=== PATIENT | female | born 1955 | race Caucasian/White ===

== ENCOUNTER → 2016-06-26 | Outpatient (CLI) | payer OTHER ==
--- NOTE | 2016-06-26 10:21 | CT ---
EXAMINATION TYPE: CT brain wo con DATE OF EXAM: 06/26/2016 10:12 AM COMPARISON: NONE HISTORY: Headache, injury and swelling behind left ear CT DLP: 969.[address] of the brain was performed. The ventricles, basal cisterns and sulci overlying the cerebral convexities demonstrate mild enlargem ent. There is no evidence for intracranial hemorrhage or sulcal effacement. There is decreased attenuation about the periventricular white matter and deep white matter of both c erebral hemispheres, compatible with chronic small vessel ischemia. Differential diagnosis does inclu de demyelination. No mass effects are seen.No midline shift. Osseous calvarium is intact. If symptoms persist consider MRI. IMPRESSION: 1. Age related atrophic and chronic small vessel ischemic change without acute intracranial process s een at this time.
== END | disposition home or self-care (01) ==
LOC: RADCTMAIN 09:53
PROVIDERS: ATTEND Internal Medicine
DX: I67.82 Cerebral ischemia (principal); G31.9 Degenerative disease of nervous system, unspecified; R59.0 Localized enlarged lymph nodes; S09.90XA Unspecified injury of head, initial encounter; Z88.2 Allergy status to sulfonamides
CPT/HCPCS: 70450

== ENCOUNTER 2017-04-20 16:21 | Inpatient (IN) | payer OTHER ==
[2017-04-20] MEDS ORDERED: SODIUM CHLORIDE 0.9% 1,000 ML IV STA (16:57)
[2017-04-20] MEDS ORDERED: PANTOPRAZOLE 40 MG/10 ML VIAL IVP STA (17:43)
[2017-04-20] MEDS ORDERED: MORPHINE SULFATE 4 MG/ML SYRINGE IVP STA (17:43)
[2017-04-20] MEDS ORDERED: RX INFO: IV CONTRAST WAS GIVEN 1 EACH MISC MISCELLANE PRN (17:43)
[2017-04-20] MEDS ORDERED: ONDANSETRON 4 MG/2 ML VIAL IVP STA (17:43)
--- NOTE | 2017-04-20 17:54 | ED ---
General Adult HPI - General Chief complaint: Abdominal Pain Stated complaint: GENERALIZED WEAKNESS Time Seen by Provider: 04/20/17 16:57 Source: patient, RN notes reviewed, old records reviewed Mode of arrival: EMS Limitations: no limitations - History of Present Illness Initial comments: This is a 61-year-old female to ER for evaluation. She presents for evaluation of weakness abdominal pain nausea vomiting and diarrhea. Patient has history of diverticulitis believes this is similar symptoms to what she has prior episodes of diverticulitis. No fevers. No travel history no known sick contacts. Patient denies sore throat chest pain or shortness of breath - Related Data Home Medications Medication Instructions Recorded Confirmed FLUoxetine HCL [PROzac] 40 mg PO HS 01/24/14 04/20/17 Ibuprofen [Motrin] 800 mg PO Q8HR PRN 01/24/14 04/20/17 Multivitamins, Thera [Multivitamin] 1 tab PO DAILY 01/24/14 04/20/17 diphenhydrAMINE HCL [Benadryl] 25 mg PO HS 01/24/14 04/20/17 ALPRAZolam [Xanax] 0.5 mg PO DAILY PRN 04/20/17 04/20/17 Hydrocodone/Acetaminophen [[place] 1 tab PO DAILY PRN 04/20/17 04/20/17 5-325] Oxybutynin Chloride [Ditropan] 5 mg PO BID 04/20/17 04/20/17 Ranitidine HCl [Zantac] 150 mg PO BID 04/20/17 04/20/17 metFORMIN HCL [Glucophage] 500 mg PO HS 04/20/17 04/20/17 risperiDONE [RisperDAL] 0.25 mg PO HS 04/20/17 04/20/17 traZODone HCL 150 mg PO HS 04/20/17 04/20/17 Allergies Allergy/AdvReac Type Severity Reaction Status Date / Time azithromycin [From Zithromax] Allergy Unknown Unknown Verified 04/20/17 17:18 cephalexin Allergy Unknown Unknown Verified 04/20/17 17:18 cyclobenzaprine HCl Allergy Unknown Unknown Verified 04/20/17 17:18 [From Flexeril] Penicillins Allergy Unknown Unknown Verified 04/20/17 17:18 pentazocine lactate Allergy Unknown Unknown Verified 04/20/17 17:18 [From Talwin] pseudoephedrine HCl Allergy Unknown Unknown Verified 04/20/17 17:18 [From Sudafed] Sulfa (Sulfonamide Allergy Unknown Unknown Verified 04/20/17 17:18 Antibiotics) adhesive AdvReac Unknown Unknown Verified 04/20/17 17:18 Review of Systems ROS Statement: Those systems with pertinent positive or pertinent negative responses have been documented in the HPI. ROS Other: All systems not noted in ROS Statement are negative. Past Medical History Past Medical History: Coronary Artery Disease (CAD), Cancer, COPD, Diabetes Mellitus, Hyperlipidemia, Hypertension, Memory Impairment, Myocardial Infarction ([place]), Osteoarthritis (OA) Additional Past Medical History / Comment(s): LEUKEMIA, DIVERTICULITIS, HAS ONLY (1) KIDNEY, CHRONIC BACK PAIN , CLOSTRAPHOBIC. Last Myocardial Infarction Date:: UNKNOWN History of Any Multi-Drug Resistant Organisms: None Reported Past Surgical History: Appendectomy, Back Surgery, Cholecystectomy, Heart Catheterization With Stent, Hysterectomy, Tonsillectomy Additional Past Surgical History / Comment(s): CARPAL TUNNEL, FOOT SURGERY Past Anesthesia/Blood Transfusion Reactions: No Reported Reaction Date of Last Stent Placement:: UNKNOWN Past Psychological History: Anxiety, Depression Smoking Status: Former smoker Past Alcohol Use History: None Reported Past Drug Use History: None Reported - Past Family History Mother Family Medical History: Cancer Additional Family Medical History / Comment(s): UTERINE General Exam Limitations: no limitations General appearance: alert, in no apparent distress Head exam: Present: atraumatic, normocephalic, normal inspection Eye exam: Present: normal appearance, PERRL, EOMI. Absent: scleral icterus, conjunctival injection, periorbital swelling ENT exam: Present: normal exam, mucous membranes moist Neck exam: Present: normal inspection. Absent: tenderness, meningismus, lymphadenopathy Respiratory exam: Present: normal lung sounds bilaterally. Absent: respiratory distress, wheezes, rales, rhonchi, stridor Cardiovascular Exam: Present: regular rate, normal rhythm, normal heart sounds. Absent: systolic murmur, diastolic murmur, rubs, gallop, clicks GI/Abdominal exam: Present: soft, normal bowel sounds. Absent: distended, tenderness, guarding, rebound, rigid Extremities exam: Present: normal inspection, full ROM, normal capillary refill. Absent: tenderness, pedal edema, joint swelling, calf tenderness Back exam: Present: normal inspection Neurological exam: Present: alert, oriented X3, CN II-XII intact Psychiatric exam: Present: normal affect, normal mood Skin exam: Present: warm, dry, intact, normal color. Absent: rash Course Vital Signs 04/20/17 04/20/17 04/20/17 16:34 18:02 18:44 Temperature 97.0 F L Pulse Rate 70 59 L 61 Respiratory 18 20 Rate Blood Pressure 152/80 137/77 126/81 O2 Sat by Pulse 97 96 95 Oximetry 04/20/17 20:37 Temperature Pulse Rate 57 L Respiratory 18 Rate Blood Pressure 122/68 O2 Sat by Pulse 94 L Oximetry - Reevaluation(s) Reevaluation #1: 04/20/17 17:54 Patient showing improved pain control currently Reevaluation #2: 04/20/17 20:40 Patient still complains of abdominal pain EKG Findings - EKG Comments: EKG Findings:: EKG shows sinus bradycardia rate 58, [place] 132, QRS 90, QTc 445 Medical Decision Making - Medical Decision Making 60 female the ER for eversion of bowel pain. Positive duodenitis. Positive urinary tract infection, will not 5 Anaprox pain control and nausea control resuscitation - Lab Data Result diagrams: 04/20/17 17:55 04/20/17 17:55 Lab Results 04/20/17 04/20/17 04/20/17 Range/Units 17:55 17:55 17:55 WBC 3.7 L (3.8-10.6) k/uL RBC 4.79 (3.80-5.40) m/uL Hgb 12.4 (11.4-16.0) gm/dL Hct 37.3 (34.0-46.0) % MCV 77.8 L (80.0-100.0) fL MCH 25.9 (25.0-35.0) pg MCHC 33.2 (31.0-37.0) g/dL RDW 15.5 (11.5-15.5) % Plt Count 84 L (150-450) k/uL Neutrophils % 34 % Lymphocytes % 58 % Monocytes % 4 % Eosinophils % 1 % Basophils % 0 % Neutrophils # 1.3 (1.3-7.7) k/uL Lymphocytes # 2.1 (1.0-4.8) k/uL Monocytes # 0.2 (0-1.0) k/uL Eosinophils # 0.0 (0-0.7) k/uL Basophils # 0.0 (0-0.2) k/uL Polychromasia Present Microcytosis Slight PT (9.0-12.0) sec INR (<1.2) APTT (22.0-30.0) sec Sodium 140 (137-145) mmol/L Potassium 4.2 (3.5-5.1) mmol/L Chloride 106 (98-107) mmol/L Carbon Dioxide 30 (22-30) mmol/L Anion Gap 4 mmol/L BUN 13 (7-17) mg/dL Creatinine 0.73 (0.52-1.04) mg/dL Est GFR (CKD-EPI)AfAm >90 (>60 ml/min/1.73 sqM) Est GFR (CKD-EPI)NonAf 88 (>60 ml/min/1.73 sqM) Glucose 86 (74-99) mg/dL Calcium 8.6 (8.4-10.2) mg/dL Phosphorus 3.6 (2.5-4.5) mg/dL Magnesium 1.8 (1.6-2.3) mg/dL Total Bilirubin 0.6 (0.2-1.3) mg/dL AST 38 H (14-36) U/L ALT 27 (9-52) U/L Alkaline Phosphatase 54 (38-126) U/L Total Creatine Kinase 28 L (30-135) U/L CK-MB (CK-2) <0.2 (0.0-2.4) ng/mL CK-MB (CK-2) Rel Index Troponin I <0.012 (0.000-0.034) ng/mL NT-Pro-B Natriuret Pep pg/mL Total Protein 6.0 L (6.3-8.2) g/dL Albumin 3.1 L (3.5-5.0) g/dL Lipase (23-300) U/L Urine Color Urine Appearance (Clear) Urine pH (5.0-8.0) Ur Specific [place] (1.001-1.035) Urine Protein (Negative) Urine Glucose (UA) (Negative) Urine Ketones (Negative) Urine Blood (Negative) Urine Nitrite (Negative) Urine Bilirubin (Negative) Urine Urobilinogen (<2.0) mg/dL Ur Leukocyte Esterase (Negative) Urine RBC (0-5) /hpf Urine WBC (0-5) /hpf Ur Squamous Epith Cells (0-4) /hpf Urine Bacteria (None) /hpf 04/20/17 04/20/17 04/20/17 Range/Units 17:55 17:55 17:55 WBC (3.8-10.6) k/uL RBC (3.80-5.40) m/uL Hgb (11.4-16.0) gm/dL Hct (34.0-46.0) % MCV (80.0-100.0) fL MCH (25.0-35.0) pg MCHC (31.0-37.0) g/dL RDW (11.5-15.5) % Plt Count (150-450) k/uL Neutrophils % % Lymphocytes % % Monocytes % % Eosinophils % % Basophils % % Neutrophils # (1.3-7.7) k/uL Lymphocytes # (1.0-4.8) k/uL Monocytes # (0-1.0) k/uL Eosinophils # (0-0.7) k/uL Basophils # (0-0.2) k/uL Polychromasia Microcytosis PT 10.9 (9.0-12.0) sec INR 1.1 (<1.2) APTT 26.2 (22.0-30.0) sec Sodium (137-145) mmol/L Potassium (3.5-5.1) mmol/L Chloride (98-107) mmol/L Carbon Dioxide (22-30) mmol/L Anion Gap mmol/L BUN (7-17) mg/dL Creatinine (0.52-1.04) mg/dL Est GFR (CKD-EPI)AfAm (>60 ml/min/1.73 sqM) Est GFR (CKD-EPI)NonAf (>60 ml/min/1.73 sqM) Glucose (74-99) mg/dL Calcium (8.4-10.2) mg/dL Phosphorus (2.5-4.5) mg/dL Magnesium (1.6-2.3) mg/dL Total Bilirubin (0.2-1.3) mg/dL AST (14-36) U/L ALT (9-52) U/L Alkaline Phosphatase (38-126) U/L Total Creatine Kinase (30-135) U/L CK-MB (CK-2) (0.0-2.4) ng/mL CK-MB (CK-2) Rel Index Troponin I (0.000-0.034) ng/mL NT-Pro-B Natriuret Pep 744 pg/mL Total Protein (6.3-8.2) g/dL Albumin (3.5-5.0) g/dL Lipase (23-300) U/L Urine Color Yellow Urine Appearance Cloudy H (Clear) Urine pH 6.5 (5.0-8.0) Ur Specific [place] 1.011 (1.001-1.035) Urine Protein Trace H (Negative) Urine Glucose (UA) Negative (Negative) Urine Ketones Negative (Negative) Urine Blood Negative (Negative) Urine Nitrite Positive H (Negative) Urine Bilirubin Negative (Negative) Urine Urobilinogen <2.0 (<2.0) mg/dL Ur Leukocyte Esterase Large H (Negative) Urine RBC 4 (0-5) /hpf Urine WBC 70 H (0-5) /hpf Ur Squamous Epith Cells 2 (0-4) /hpf Urine Bacteria Occasional H (None) /hpf 04/20/17 Range/Units 17:55 WBC (3.8-10.6) k/uL RBC (3.80-5.40) m/uL Hgb (11.4-16.0) gm/dL Hct (34.0-46.0) % MCV (80.0-100.0) fL MCH (25.0-35.0) pg MCHC (31.0-37.0) g/dL RDW (11.5-15.5) % Plt Count (150-450) k/uL Neutrophils % % Lymphocytes % % Monocytes % % Eosinophils % % Basophils % % Neutrophils # (1.3-7.7) k/uL Lymphocytes # (1.0-4.8) k/uL Monocytes # (0-1.0) k/uL Eosinophils # (0-0.7) k/uL Basophils # (0-0.2) k/uL Polychromasia Microcytosis PT (9.0-12.0) sec INR (<1.2) APTT (22.0-30.0) sec Sodium (137-145) mmol/L Potassium (3.5-5.1) mmol/L Chloride (98-107) mmol/L Carbon Dioxide (22-30) mmol/L Anion Gap mmol/L BUN (7-17) mg/dL Creatinine (0.52-1.04) mg/dL Est GFR (CKD-EPI)AfAm (>60 ml/min/1.73 sqM) Est GFR (CKD-EPI)NonAf (>60 ml/min/1.73 sqM) Glucose (74-99) mg/dL Calcium (8.4-10.2) mg/dL Phosphorus (2.5-4.5) mg/dL Magnesium (1.6-2.3) mg/dL Total Bilirubin (0.2-1.3) mg/dL AST (14-36) U/L ALT (9-52) U/L Alkaline Phosphatase (38-126) U/L Total Creatine Kinase (30-135) U/L CK-MB (CK-2) (0.0-2.4) ng/mL CK-MB (CK-2) Rel Index Troponin I (0.000-0.034) ng/mL NT-Pro-B Natriuret Pep pg/mL Total Protein (6.3-8.2) g/dL Albumin (3.5-5.0) g/dL Lipase 71 (23-300) U/L Urine Color Urine Appearance (Clear) Urine pH (5.0-8.0) Ur Specific [place] (1.001-1.035) Urine Protein (Negative) Urine Glucose (UA) (Negative) Urine Ketones (Negative) Urine Blood (Negative) Urine Nitrite (Negative) Urine Bilirubin (Negative) Urine Urobilinogen (<2.0) mg/dL Ur Leukocyte Esterase (Negative) Urine RBC (0-5) /hpf Urine WBC (0-5) /hpf Ur Squamous Epith Cells (0-4) /hpf Urine Bacteria (None) /hpf - Radiology Data Radiology results: report reviewed (CT abdomen and pelvis shows duodenitis, patient), image reviewed Disposition Clinical Impression: Abdominal pain, Duodenitis, UTI (urinary tract infection) Disposition: ADMITTED IP TO THIS [facility] Condition: Good Referrals: Jitendra Garcia MD [Primary Care Provider] - 1-2 days
[2017-04-20 18:10] LABS: Basophils % (A) 0 %; Eosinophils % (A) 1 %; HCT 37.3 % (34.0-46.0); HGB 12.4 gm/dL (11.4-16.0); Lymphocytes # (A) 2.1 k/uL (1.0-4.8); Lymphocytes % (A) 58 %; MCH 25.9 pg (25.0-35.0); MCHC 33.2 g/dL (31.0-37.0); MCV 77.8 fL (80.0-100.0); Mean Platelet Volume 8.8; Microcytosis Slight; Monocytes # (A) 0.2 k/uL (0-1.0); Monocytes % (A) 4 %; Neutrophils # (A) 1.3 k/uL (1.3-7.7); Neutrophils % (A) 34 %; RBC 4.79 m/uL (3.80-5.40); RDW 15.5 % (11.5-15.5); WBC 3.7 k/uL (3.8-10.6)
[2017-04-20 18:11] LABS: Appearance,Urine Cloudy (Clear); Bacteria,Urine Occasional /hpf; Bilirubin,Urine Negative (Negative); Blood,Urine Negative (Negative); Color,Urine Yellow; Glucose,Urine (UA) Negative (Negative); Ketones,Urine Negative (Negative); Leukocyte Esterase,Urine Large (Negative); Nitrite,Urine Positive (Negative); PH, Urine 6.5 (5.0-8.0); Protein,Urine Trace (Negative); RBC,Urine 4 /hpf (0-5); Specific Gravity,Urine 1.011 (1.001-1.035); Squamous Epithelial Cell,Urine 2 /hpf (0-4); Urobilinogen,Urine <2.0 mg/dL (<2.0); WBC,Urine 70 /hpf (0-5)
[2017-04-20 18:17] LABS: INR 1.1 (<1.2); Partial Thromboplastin Time 26.2 sec (22.0-30.0); Prothrombin Time 10.9 sec (9.0-12.0)
[2017-04-20 18:25] LABS: ALT 27 U/L (9-52); AST 38 U/L (14-36); Albumin 3.1 g/dL (3.5-5.0); Alkaline Phosphatase 54 U/L (38-126); Anion Gap 4 mmol/L; Blood Urea Nitrogen 13 mg/dL (7-17); Calcium 8.6 mg/dL (8.4-10.2); Carbon Dioxide 30 mmol/L (22-30); Chloride 106 mmol/L (98-107); Glucose 86 mg/dL (74-99); Magnesium 1.8 mg/dL (1.6-2.3); Phosphorus 3.6 mg/dL (2.5-4.5); Potassium 4.2 mmol/L (3.5-5.1); Sodium 140 mmol/L (137-145); Total Bilirubin 0.6 mg/dL (0.2-1.3)
[2017-04-20 18:27] LABS: Polychromasia Present
[2017-04-20 18:28] LABS: Platelet Count 84 k/uL (150-450)
[2017-04-20 18:41] LABS: Creatine Kinase 28 U/L (30-135)
[2017-04-20 18:54] LABS: Creatine Kinase MB <0.2 ng/mL (0.0-2.4); Troponin I <0.012 ng/mL (0.000-0.034)
[2017-04-20] MEDS ORDERED: LEVOFLOXACIN 750MG-D5W PMX 750 MG in DEXTROSE/WATER 1 150ML.BAG IVPB STA (19:21)
--- NOTE | 2017-04-20 19:36 | CT ---
EXAMINATION TYPE: CT abdomen pelvis w con DATE OF EXAM: 04/20/2017 HISTORY: Lower abd pain. CT DLP: 1900mGycm Automated Exposure Control for Dose Reduction was Utilized. CONTRAST: CT scan of the abdomen and pelvis is performed without oral but with IV Contrast, patient injected wi th 100ml mL of Omnipaque 300. COMPARISON: None. FINDINGS: LUNG BASES: Fairly severe Coronary artery calcification is present which is noted marker for coronary artery disease. LIVER/GB: Gallbladder is not visualized and presumed surgically absent. There is mild to moderate ext rahepatic dilatation measuring up to 16 mm on coronal image 45 near angel luis hepatis. There is mild cent ral intrahepatic biliary dilatation. No obstructing calculus is clearly seen. PANCREAS: No significant abnormality is seen. SPLEEN: Splenomegaly is seen measuring 14.3 cm long axis on coronal image 49. ADRENALS: No significant abnormality is seen. KIDNEYS: There is asymmetric diminished size and atrophy of right kidney with several areas of cortic al scarring and cystic change. There is dominant 10 mm calculus lower pole level. There is symmetric cortical medullary uptake and excretion without evidence of hydronephrosis bilaterally. Bladder is po terry distended, there is mild abnormal concentric wall thickening measuring up to 8 mm. BOWEL: Evaluation bowel is suboptimal secondary to lack of enteric contrast. Stomach is poorly disten ded and thus suboptimally evaluated. There is no suspicious small or large bowel dilatation. Proximal jejunum extension right of midline immediately after ligament of [place]. There are few scattered div erticula throughout the colon most prominent in the left and sigmoid colon. There are surgical suture s at sigmoid rectal junction near axial image 82. There is no convincing CT evidence for acute divert iculitis. UTERUS/ADNEXA: Uterus is surgically absent or markedly atrophic in appearance. LYMPH NODES: No greater than 1cm abdominal or pelvic lymph nodes are appreciated. There are prominent but subcentimeter lymph nodes near the angel luis hepatis with mild fat stranding at this level. OSSEOUS STRUCTURES: No significant abnormality is seen. OTHER: No significant additional abnormality is seen. IMPRESSION: 1. Mild inflammatory change right upper quadrant near angel luis hepatis could reflect acute duodenitis or groove pancreatitis though the pancreas is felt within normal limits, correlate clinically. 2. Mild to moderate central intrahepatic and extra hepatic biliary dilatation. Need to further invest igate by ERCP should be based on clinical and lab correlation. 3. Possible cystitis, correlate clinically and with urine and lab values.
[2017-04-20] MEDS ORDERED: SODIUM CHLORIDE 0.9% 1,000 ML IV ONE (20:41)
[2017-04-20 22:23] VITALS: BMI 43.0
[2017-04-21] MEDS: FLUoxetine HCL 20 MG CAP PO SCH ×2 (01:43→19:56)
[2017-04-21] MEDS: risperiDONE 0.25 MG TAB PO SCH ×2 (01:43→19:56)
[2017-04-21] MEDS: ONDANSETRON 4 MG/2 ML VIAL IVP PRN ×3 (01:43→13:52)
[2017-04-21] MEDS: FAMOTIDINE 20 MG TAB PO SCH ×2 (01:43→07:44)
[2017-04-21] MEDS: traZODone HCL 50 MG TAB PO SCH ×2 (01:44→19:55)
[2017-04-21 07:38] LABS: Glucose,Whole Blood 79 mg/dL (75-99)
[2017-04-21] MEDS: INSULIN ASPART 100 UNIT/ML 1 ML 10 ML VIAL SQ SCH ×4 (07:40→20:24)
[2017-04-21] MEDS: HYDROcodone/APAP 5-325MG 1 EACH TAB PO PRN (07:44)
[2017-04-21] MEDS: MULTIVITAMINS, THERA 1 EACH TAB PO SCH (07:44)
[2017-04-21] MEDS: OXYBUTYNIN CHLORIDE 5 MG TAB PO SCH ×2 (07:44→19:55)
[2017-04-21] MEDS: ENOXAPARIN 40 MG/0.4 ML SYRINGE SQ SCH (07:44)
[2017-04-21] MEDS: MORPHINE SULFATE 4 MG/ML SYRINGE IVP PRN ×2 (11:10→18:28)
[2017-04-21 11:45] LABS: Glucose,Whole Blood 80 mg/dL (75-99)
[2017-04-21] MEDS: PANTOPRAZOLE 40 MG/10 ML VIAL IVP SCH ×2 (12:52→19:56)
[2017-04-21 12:53] LABS: Amylase <30 U/L (30-110); Lipase 48 U/L (23-300)
--- NOTE | 2017-04-21 14:38 | HP ---
HISTORY AND PHYSICAL CHIEF COMPLAINT: Abdominal pain, nausea and diarrhea. HISTORY OF PRESENT ILLNESS: This is a 61-year-old woman with a past medical history of multiple medical problems including history of diverticulitis, history of CAD, COPD, diabetes, hypertension, hyperlipidemia, dementia, history of DJD, history of leukemia, history of CAD stent, being followed by Dr. Garcia in the outpatient setting, previously had diverticulitis apparently. Patient is complaining of diffuse abdominal pain especially in the upper part and left lower quadrant. Patient also had diarrhea and the patient had a white count of 3.7, and the patient had features of UTI. The patient also had a CAT scan of the abdomen and pelvis which showed mild improvement in the right upper quadrant near the angel luis hepatitis, possibly duodenitis and mild to moderate central intrahepatic, extrahepatic biliary dilatation, also. Possible cystitis also noted. There is no history of fever, chills or rigors. No history of headache, loss of consciousness, or seizures. PAST MEDICAL HISTORY: History of CAD, COPD, and diabetes, hypertension, hyperlipidemia, memory impairment, DJD. MEDICATIONS: Prior to admission, home medications are: 1. Ditropan 5 mg p.o. b.i.d. 2. Risperidone 0.5 mg q.h.s. 3. Zantac 150 mg p.o. b.i.d. 4. Xanax 0.5 daily p.r.n. 5. Prozac 40 mg q.h.s. 6. Multivitamin 1 p.o. daily. 7. Motrin 800 mg q.8 p.r.n. 8. [place] 5 mg daily p.r.n. 9. Benadryl 25 mg q.h.s. 10.Glucophage 500 mg q.h.s. 11.Trazodone 150 mg q.h.s. ALLERGIES: ZITHROMAX, CEPHALEXIN, FLEXERIL, PENICILLIN, TALWIN, SUDAFED, SULFONAMIDE ANTIBIOTICS. FAMILY HISTORY: History of uterine cancer in the family. SOCIAL HISTORY: Previous history of smoking, THC. REVIEW OF SYSTEMS: ENT: No diminished vision. CARDIOVASCULAR: No angina or palpitations. RESPIRATORY: No cough. GI: As mentioned earlier. : As mentioned earlier. NERVOUS SYSTEM: No numbness, weakness. ALLERGY, IMMUNOLOGY: No asthma or hayfever. MUSCULOSKELETAL: As mentioned earlier. HEMATOLOGY: No history anemia. ENDOCRINE: No history of diabetes or hypothyroidism. CONSTITUTIONAL: As mentioned earlier. PSYCHIATRY: As mentioned earlier. PHYSICAL EXAMINATION: Alert and oriented x3. Pulse is 57, blood pressure 115/70, respiration 18, temperature 99.1, pulse ox 94% on room air. HEENT: Oral mucosa is moist, neck is no jugular venous distension, no lymph node enlargement. CARDIOVASCULAR SYSTEM: S1, S2, muffled. RESPIRATORY: Breath sounds diminished at the bases, a few scattered rhonchi. ABDOMEN: Soft, obese, mild diffuse tenderness in the epigastrium and as well as left lower quadrant. No guarding. No rigidity. No mass palpable. LEGS: No edema, no swelling. NERVOUS SYSTEM: Higher functions as mentioned, moves all 4 limbs. LYMPHATICS: No lymph enlargement of the neck and axilla. SKIN: No ulcer, rash or bleeding. LABS: WBC is 3.7, hemoglobin is 7.4. UA noted. ASSESSMENT: 1. Abdominal pain with possible acute duodenitis or diverticulitis. 2. Urinary tract infection. 3. History of cholecystectomy. 4. History of coronary artery disease stent. 5. Mild leukopenia and thrombocytopenia. 6. Increased AST. 7. Chronic obstructive pulmonary disease. 8. Diabetes type 2. 9. Hypertension. 10.Hyperlipidemia. 11.History of degenerative joint disease. 12.History of myocardial infarction. 13.History of leukemia. 14.History of diverticulitis. 15.History of back surgery. 16.History of anxiety, depression. 17.Remote history of nicotine dependence. RECOMMENDATION: In this 61-year-old woman who presented with multiple complex medical issues, will monitor the patient closely, continue with the current management and will initiate broad-spectrum IV antibiotics, symptomatic treatment, n.p.o. except medications diet. Consult surgery. DVT prophylaxis. Guarded prognosis because of multiple complex medical issues. Further recommendations to follow. A copy of this will be forwarded to Dr. Garcia who is the primary care physician/ Will obtain the cultures blood and urine also. MMODL / IJN: [id number] /
[2017-04-21 16:02] LABS: Hemoglobin A1C 4.9 % (4.0-6.0)
[2017-04-21 17:15] LABS: Glucose,Whole Blood 79 mg/dL (75-99)
--- NOTE | 2017-04-21 18:42 | P.GSCN ---
History of Present Illness Consult date: 04/21/17 Reason for Consult: Abdominal pain History of present illness: 60-year-old female presents to the hospital with complaints of abdominal pain nausea and diarrhea. She is known to our service from prior sigmoid colectomy for chronic diverticulitis. She was found to have a urinary tract infection. Cystitis was seen on recent CAT scan. Additionally there is some inflammatory changes of the pylorus and proximal duodenum. There is mild haziness in the fat around the duodenum. Pancreatic enzymes normal. Patient also complains of frequent loose stools. White blood cell count somewhat low. Mild biliary dilation is present although the patient had her gallbladder removed previously. She is hungry. No vomiting currently. No diarrhea since hospitalization. No fevers. No rectal bleeding or melena. No hematemesis. Past Medical History Past Medical History: Coronary Artery Disease (CAD), Cancer, COPD, Diabetes Mellitus, Hyperlipidemia, Hypertension, Memory Impairment, Myocardial Infarction ([place]), Osteoarthritis ([place]) Additional Past Medical History / Comment(s): LEUKEMIA, DIVERTICULITIS, HAS ONLY (1) KIDNEY, CHRONIC BACK PAIN , CLOSTRAPHOBIC.no treatment for leukemia Last Myocardial Infarction Date:: UNKNOWN History of Any Multi-Drug Resistant Organisms: None Reported Past Surgical History: Appendectomy, Back Surgery, Cholecystectomy, Heart Catheterization With Stent, Hysterectomy, Tonsillectomy Additional Past Surgical History / Comment(s): CARPAL TUNNEL, FOOT SURGERY,pick at skin when anxious Past Anesthesia/Blood Transfusion Reactions: No Reported Reaction Date of Last Stent Placement:: UNKNOWN Past Psychological History: Anxiety, Depression Smoking Status: Former smoker Past Alcohol Use History: None Reported Past Drug Use History: None Reported - Past Family History Mother Family Medical History: Cancer Additional Family Medical History / Comment(s): UTERINE Medications and Allergies Home Medications Medication Instructions Recorded Confirmed Type FLUoxetine HCL [PROzac] 40 mg PO HS 01/24/14 04/20/17 History Ibuprofen [Motrin] 800 mg PO Q8HR PRN 01/24/14 04/20/17 History Multivitamins, Thera [Multivitamin] 1 tab PO DAILY 01/24/14 04/20/17 History diphenhydrAMINE HCL [Benadryl] 25 mg PO HS 01/24/14 04/20/17 History ALPRAZolam [Xanax] 0.5 mg PO DAILY PRN 04/20/17 04/20/17 History Hydrocodone/Acetaminophen [[place] 1 tab PO DAILY PRN 04/20/17 04/20/17 History 5-325] Oxybutynin Chloride [Ditropan] 5 mg PO BID 04/20/17 04/20/17 History Ranitidine HCl [Zantac] 150 mg PO BID 04/20/17 04/20/17 History metFORMIN HCL [Glucophage] 500 mg PO HS 04/20/17 04/20/17 History risperiDONE [RisperDAL] 0.25 mg PO HS 04/20/17 04/20/17 History traZODone HCL 150 mg PO HS 04/20/17 04/20/17 History Allergies Allergy/AdvReac Type Severity Reaction Status Date / Time azithromycin [From Zithromax] Allergy Unknown Unknown Verified 04/20/17 17:18 cephalexin Allergy Unknown Unknown Verified 04/20/17 17:18 cyclobenzaprine HCl Allergy Unknown Unknown Verified 04/20/17 17:18 [From Flexeril] Penicillins Allergy Unknown Unknown Verified 04/20/17 17:18 pentazocine lactate Allergy Unknown Unknown Verified 04/20/17 17:18 [From Talwin] pseudoephedrine HCl Allergy Unknown Unknown Verified 04/20/17 17:18 [From Sudafed] Sulfa (Sulfonamide Allergy Unknown Unknown Verified 04/20/17 17:18 Antibiotics) adhesive AdvReac Unknown Unknown Verified 04/20/17 17:18 Surgical - Exam Vital Signs Temp Pulse Resp BP Pulse Ox 97.0 F L 70 18 152/80 97 04/20/17 16:34 04/20/17 16:34 04/20/17 16:34 04/20/17 16:34 04/20/17 16:34 Physical exam: General: Well-developed, well-nourished HEENT: Normocephalic, sclerae nonicteric Abdomen: Mild diffuse tenderness, mild distention Extremities: No edema Neuro: Alert and oriented Results - Labs 04/20/17 17:55 04/20/17 17:55 Abnormal Lab Results - Last 24 Hours (Table) 04/20/17 04/21/17 Range/Units 17:55 11:33 Total Creatine Kinase 28 L (30-135) U/L Amylase <30 L (30-110) U/L Microbiology - Last 24 Hours (Table) 04/20/17 17:55 Urine Culture - Preliminary Urine,Clean Catch Gram Neg Bacilli Diabetes panel 04/20/17 Range/Units 17:55 Hemoglobin A1c 4.9 (4.0-6.0) % Assessment and Plan (1) Abdominal pain Narrative/Plan: Etiology the patient's multiple symptoms difficult to fully explained. CAT scan findings of duodenitis are noted. Continue antiacid therapy. We'll plan upper endoscopy tomorrow. If diarrhea recurs obtain stool cultures. Current Visit: Yes Status: Acute Code(s): R10.9 - UNSPECIFIED ABDOMINAL PAIN SNOMED Code(s): 14339632
[2017-04-21 19:46] LABS: Glucose,Whole Blood 88 mg/dL (75-99)
[2017-04-21] MEDS: diphenhydrAMINE 25 MG CAP PO SCH (19:57)
[2017-04-21] MEDS ORDERED: LEVOFLOXACIN 750MG-D5W PMX 750 MG in DEXTROSE/WATER 1 150ML.BAG IVPB SCH (20:00)
[2017-04-22] MEDS: MORPHINE SULFATE 4 MG/ML SYRINGE IVP PRN ×3 (01:25→11:31)
[2017-04-22] MEDS: INSULIN ASPART 100 UNIT/ML 1 ML 10 ML VIAL SQ SCH ×4 (07:17→21:45)
[2017-04-22] MEDS: PANTOPRAZOLE 40 MG/10 ML VIAL IVP SCH ×2 (07:31→20:24)
[2017-04-22] MEDS: ENOXAPARIN 40 MG/0.4 ML SYRINGE SQ SCH (07:31)
[2017-04-22] MEDS: OXYBUTYNIN CHLORIDE 5 MG TAB PO SCH ×2 (07:32→20:24)
[2017-04-22] MEDS: MULTIVITAMINS, THERA 1 EACH TAB PO SCH (07:32)
[2017-04-22 07:41] LABS: Glucose,Whole Blood 76 mg/dL (75-99)
[2017-04-22 08:13] LABS: Basophils % (A) 0 %; Eosinophils % (A) 2 %; HCT 37.3 % (34.0-46.0); HGB 12.2 gm/dL (11.4-16.0); Lymphocytes # (A) 1.2 k/uL (1.0-4.8); Lymphocytes % (A) 49 %; MCH 25.7 pg (25.0-35.0); MCHC 32.8 g/dL (31.0-37.0); MCV 78.4 fL (80.0-100.0); Monocytes # (A) 0.1 k/uL (0-1.0); Monocytes % (A) 5 %; Neutrophils % (A) 41 %; RBC 4.76 m/uL (3.80-5.40); RDW 15.1 % (11.5-15.5); WBC 2.4 k/uL (3.8-10.6)
[2017-04-22 08:14] LABS: Platelet Count 68 k/uL (150-450)
[2017-04-22 08:38] LABS: Calcium 8.5 mg/dL (8.4-10.2); Total Bilirubin 0.5 mg/dL (0.2-1.3)
[2017-04-22 11:33] LABS: Glucose,Whole Blood 77 mg/dL (75-99)
[2017-04-22] MEDS: ONDANSETRON 4 MG/2 ML VIAL IVP PRN ×2 (11:36→19:04)
[2017-04-22] MEDS ORDERED: PROPOFOL 10 MG/ML 20 ML VIAL IV ONE (14:43)
[2017-04-22] MEDS ORDERED: IV FLUID CONTINUATION 1,000 ML IV ONE (14:48)
--- NOTE | 2017-04-22 15:25 | P.PCN ---
Date of Procedure: 04/22/17 Procedure(s) Performed: Preoperative Dx: Abdominal pain, abnormal CAT scan Postoperative Dx: Diffuse gastritis with small erosions Procedure: EGD with Bx Anesthesia: Sedation Endoscopist: Dr. Thompson Specimens: Duodenum, antrum, body Endoscopic Procedure: The patient was on the endoscopy table in the left decubitus position. The Olympus gastroscope was inserted into the oropharynx and passed under direct visualization to the region of the third portion of the duodenum. From that point the scope was slowly withdrawn inspecting all surfaces carefully. There were no neoplastic inflammatory or polypoid lesions throughout the duodenum. CAT scan showed inflammatory changes of the duodenum. This was not visualized endoscopically. Biopsies of the duodenum took place. The pylorus was widely patent. The stomach was carefully inspected. There was diffuse gastritis present with erosions. Biopsies of the antrum and body of the stomach to place. Retroflexion revealed a normal hiatus. The esophagus was then carefully examined. There were no neoplastic inflammatory or polypoid lesions throughout the visualized esophagus. The patient was then taken to the recovery room in stable condition per anesthesia guidelines. Recommendations: Await biopsy results. Continue antiacids. Continue antibiotics for urinary tract infection.
[2017-04-22] MEDS: HYDROcodone/APAP 5-325MG 1 EACH TAB PO PRN ×2 (16:37→23:33)
[2017-04-22 17:07] LABS: Glucose,Whole Blood 73 mg/dL (75-99)
--- NOTE | 2017-04-22 19:45 | PN ---
PROGRESS NOTE DATE OF SERVICE: 04/22/2017 Patient seen in the room resting comfortably. Claims that she is very thirsty and waiting for her EGD to be to be done. Does not know what time she is scheduled. Her vital signs are 97.6 temperature, pulse 60, respiration 18, blood pressure 142/72, O2 saturation 93% on room air. HEENT: Atraumatic, normocephalic. Pupils equal and react to light. Extraocular movements intact. Buccal mucosa is moist. NECK: Supple. No goiter, lymphadenopathy. JVD is negative. No carotid bruit heard. Lungs are clear to auscultation. No rales, rhonchi, or wheezes. Heart is regular in rate and rhythm without any murmurs or gallop rhythm. Abdomen is soft, nontender, nondistended. Bowel sounds positive. EXTREMITIES: No edema, clubbing, cyanosis. NEUROLOGICAL EXAMINATION: Cranial nerves 2-12 grossly intact. No gross motor or sensory deficit. LAB: CBC: White blood count of 2.4, hemoglobin 12.2, hematocrit 37.3, and platelet count of 68. Chemical profile: Sodium 142, potassium 4.2, chloride 107, bicarb 28, BUN 13, creatinine 0.87, glucose 72. MEDICATIONS: 1. Ditropan 5 mg b.i.d. 2. Risperdal 0.5 mg p.o. q.h.s. 3. Zantac 150 p.o. b.i.d. 4. Xanax 0.5 p.r.n. 5. Prozac 40 mg q.h.s. ASSESSMENT: 1. Intractable abdominal pain, possible acute duodenitis or diverticulitis. 2. Urinary tract infection. 3. History of coronary artery disease. 4. Mild leukopenia and thrombocytopenia. 5. Transaminitis. 6. Chronic obstructive pulmonary disease. 7. Diabetes. The patient is continued on IV antibiotics and symptomatic treatment. She is n.p.o. except no med. Surgery is consulted. The patient is scheduled for EGD today. Will continue current medication and await EGD report for further recommendations. MMODL / IJN: [id number] /
[2017-04-22 20:10] LABS: Glucose,Whole Blood 105 mg/dL (75-99)
[2017-04-22] MEDS: diphenhydrAMINE 25 MG CAP PO SCH (20:24)
[2017-04-22] MEDS: FLUoxetine HCL 20 MG CAP PO SCH (20:24)
[2017-04-22] MEDS: traZODone HCL 50 MG TAB PO SCH (20:24)
[2017-04-22] MEDS: risperiDONE 0.25 MG TAB PO SCH (20:25)
[2017-04-22] MEDS ORDERED: LEVOFLOXACIN 750MG-D5W PMX 750 MG in DEXTROSE/WATER 1 150ML.BAG IVPB SCH (21:00)
[2017-04-23] MEDS: ALPRAZolam 0.5 MG TAB PO PRN ×2 (03:00→21:12)
[2017-04-23 07:07] LABS: Glucose,Whole Blood 86 mg/dL (75-99)
[2017-04-23 07:35] LABS: Basophils % (A) 0 %; Eosinophils % (A) 2 %; HCT 34.7 % (34.0-46.0); HGB 11.5 gm/dL (11.4-16.0); Lymphocytes # (A) 1.2 k/uL (1.0-4.8); Lymphocytes % (A) 49 %; MCH 25.9 pg (25.0-35.0); MCHC 33.2 g/dL (31.0-37.0); MCV 78.2 fL (80.0-100.0); Mean Platelet Volume 8.2; Microcytosis Slight; Monocytes # (A) 0.2 k/uL (0-1.0); Monocytes % (A) 6 %; Neutrophils % (A) 41 %; RBC 4.44 m/uL (3.80-5.40); RDW 15.3 % (11.5-15.5); WBC 2.5 k/uL (3.8-10.6)
[2017-04-23 07:44] LABS: Platelet Count 79 k/uL (150-450)
[2017-04-23 07:54] LABS: Albumin 2.9 g/dL (3.5-5.0); Calcium 8.4 mg/dL (8.4-10.2); Potassium 3.9 mmol/L (3.5-5.1); Total Bilirubin 0.4 mg/dL (0.2-1.3); Total Protein 5.7 g/dL (6.3-8.2)
[2017-04-23] MEDS: INSULIN ASPART 100 UNIT/ML 1 ML 10 ML VIAL SQ SCH ×4 (09:02→21:00)
[2017-04-23] MEDS: ENOXAPARIN 40 MG/0.4 ML SYRINGE SQ SCH (09:23)
[2017-04-23] MEDS: PANTOPRAZOLE 40 MG/10 ML VIAL IVP SCH ×2 (09:23→21:05)
[2017-04-23] MEDS: OXYBUTYNIN CHLORIDE 5 MG TAB PO SCH ×2 (09:23→21:06)
[2017-04-23] MEDS: MULTIVITAMINS, THERA 1 EACH TAB PO SCH (09:24)
[2017-04-23] MEDS: ONDANSETRON 4 MG/2 ML VIAL IVP PRN ×2 (09:35→21:05)
[2017-04-23 11:44] LABS: Glucose,Whole Blood 83 mg/dL (75-99)
[2017-04-23] MEDS: MORPHINE SULFATE 4 MG/ML SYRINGE IVP PRN (11:58)
--- NOTE | 2017-04-23 12:21 | P.PN ---
Subjective Progress Note Date: 04/23/17 Patient is a 60-year-old white female who presented to the hospital with a complaint of abdominal pain nausea and diarrhea. She underwent a CAT scan which was consistent with some inflammatory changes near the pylorus and proximal duodenum. She subsequently underwent an EGD with Dr. Garcia which revealed diffuse gastritis with erosions. Biopsies were obtained. The patient today states she is continues to have some midepigastric discomfort. Objective - Vital Signs Vital signs: Vital Signs Temp 98 F 04/23/17 07:00 Pulse 53 L 04/23/17 08:00 Resp 18 04/23/17 08:00 BP 109/71 04/23/17 07:00 Pulse Ox 94 L 04/23/17 07:00 Intake & Output 04/22/17 04/23/17 04/23/17 18:59 06:59 18:59 Intake Total 100 150 Balance 100 150 Intake: IV 100 Intake, IV Titration 150 Amount Levofloxacin 750Mg-D5w 150 Pmx 750 mg In Dextrose/ Water 1 150ml.bag @ 100 mls/hr IVPB Q48H [facility] Rx#: [id number] Other: Voiding Method Toilet Toilet Toilet # Voids 2 1 - Constitutional General appearance: Present: obese - Respiratory Details: Decreased breath sounds at the bases - Cardiovascular Rhythm: regular Heart sounds: normal: S1, S2 - Gastrointestinal Gastrointestinal Comment(s): Mild tenderness to palpation midepigastric area No guarding or rebound General gastrointestinal: Present: normal bowel sounds, soft - Psychiatric Psychiatric: Present: A&O x's 3, appropriate affect, intact judgment & insight - Labs CBC & Chem 7: 04/23/17 06:51 04/23/17 06:51 Labs: Abnormal Lab Results - Last 24 Hours (Table) 04/22/17 04/22/17 04/23/17 Range/Units 16:51 20:08 06:51 WBC 2.5 L (3.8-10.6) k/uL MCV 78.2 L (80.0-100.0) fL Plt Count 79 L (150-450) k/uL Neutrophils # 1.0 L (1.3-7.7) k/uL POC Glucose (mg/dL) 73 L 105 H (75-99) mg/dL Total Protein (6.3-8.2) g/dL Albumin (3.5-5.0) g/dL 04/23/17 Range/Units 06:51 WBC (3.8-10.6) k/uL MCV (80.0-100.0) fL Plt Count (150-450) k/uL Neutrophils # (1.3-7.7) k/uL POC Glucose (mg/dL) (75-99) mg/dL Total Protein 5.7 L (6.3-8.2) g/dL Albumin 2.9 L (3.5-5.0) g/dL Microbiology - Last 24 Hours (Table) 04/20/17 20:40 Blood Culture - Preliminary Blood No Growth after 48 hours 04/20/17 17:55 Urine Culture - Final Urine,Clean Catch Escherichia coli Assessment and Plan Assessment: Impression/plan: 1. 60-year-old white female admitted with urinary tract infection/abdominal discomfort 2. Patient presently on levofloxacin 3. Patient presently on Protonix Plan: Continue present therapy await biopsy results
[2017-04-23 17:20] LABS: Glucose,Whole Blood 81 mg/dL (75-99)
[2017-04-23] MEDS: HYDROcodone/APAP 5-325MG 1 EACH TAB PO PRN (17:51)
--- NOTE | 2017-04-23 18:10 | PN ---
PROGRESS NOTE DATE OF SERVICE: 04/23/2017 Patient is seen in the room at bedside. Patient is status post EGD with Dr. Thompson showing diffuse gastritis and erosions. Patient claims that she is having severe pain in the left lower quadrant area and was told by Dr. Thompson that she to go home. She is resting comfortably; does not seem to be in any distress. VITAL SIGNS: Temperature 98, pulse 53, respiration 18, blood pressure 109/71, oxygen saturation 94%. GENERAL EXAMINATION: Patient is awake, alert, oriented. She is in no acute distress. HEENT: Atraumatic, normocephalic. Pupils equal and reactive to light. Extraocular movements intact. Buccal mucosa is fair. Neck is supple. No goiter or lymphadenopathy. JVD is negative. No carotid bruit heard. Lungs are clear to auscultate. No rales, rhonchi or wheezes. Heart is regular rate and rhythm without any murmurs, gallop rhythm. Abdomen is soft. Unable to evaluate patient. Patient jumps even with putting her hand on the abdomen. Bowel sounds are positive. EXTREMITIES: No edema, clubbing or cyanosis. LABS: CBC: White blood count of 2.5, hemoglobin 11, hematocrit 34.7, platelet count 79. Chemical profile: Sodium 138, potassium 3.9, chloride 103, bicarb 29, BUN 12, creatinine 0.91, glucose 79. ASSESSMENT: 1. Abdominal pain. Patient is status post EGD showing gastric erosions and gastritis. 2. Possible diverticulitis. Patient remains on antibiotics. 3. Urinary tract infection. Continue Levaquin. Blood culture are negative. Urine culture is showing E coli which is resistant to Levaquin. Will switch antibiotic therapy to Rocephin. 4. Transaminitis, which is stable. 5. Diabetes. Will discontinue IV pain medication. Continue with oral pain medication. Patient is currently on IV Levaquin. Patient's UTI with E coli which is resistant to Levaquin. Patient is ALLERGIC TO CEPHALOSPORINS; unable to use ceftriaxone. Reviewing patient's urine culture, she is sensitive to Septra and also nitrofurantoin. Will switch antibiotic treatment. MMODL / IJN: [id number] /
[2017-04-23] MEDS ORDERED: HYDROcodone/APAP 5-325MG 1 EACH TAB PO PRN (18:35)
[2017-04-23 20:22] LABS: Glucose,Whole Blood 123 mg/dL (75-99)
[2017-04-23] MEDS: traZODone HCL 50 MG TAB PO SCH (21:05)
[2017-04-23] MEDS: risperiDONE 0.25 MG TAB PO SCH (21:05)
[2017-04-23] MEDS: diphenhydrAMINE 25 MG CAP PO SCH (21:05)
[2017-04-23] MEDS: FLUoxetine HCL 20 MG CAP PO SCH (21:06)
[2017-04-23] MEDS: NITROFURANTOIN MONOHYD/M-CRYST 100 MG CAP PO SCH (21:12)
[2017-04-24 07:15] LABS: Glucose,Whole Blood 80 mg/dL (75-99)
[2017-04-24 08:50] LABS: HCT 36.9 % (34.0-46.0); HGB 12.1 gm/dL (11.4-16.0); MCH 25.5 pg (25.0-35.0); MCHC 32.7 g/dL (31.0-37.0); MCV 78.1 fL (80.0-100.0); Platelet Count 83 k/uL (150-450); RBC 4.72 m/uL (3.80-5.40); RDW 15.2 % (11.5-15.5); WBC 3.2 k/uL (3.8-10.6)
[2017-04-24 08:55] LABS: Calcium 8.6 mg/dL (8.4-10.2); Potassium 3.8 mmol/L (3.5-5.1); Total Bilirubin 0.5 mg/dL (0.2-1.3); Total Protein 5.9 g/dL (6.3-8.2)
[2017-04-24] MEDS: INSULIN ASPART 100 UNIT/ML 1 ML 10 ML VIAL SQ SCH ×4 (09:16→21:44)
[2017-04-24] MEDS: NITROFURANTOIN MONOHYD/M-CRYST 100 MG CAP PO SCH ×2 (09:17→21:33)
[2017-04-24] MEDS: MULTIVITAMINS, THERA 1 EACH TAB PO SCH (09:17)
[2017-04-24] MEDS: ENOXAPARIN 40 MG/0.4 ML SYRINGE SQ SCH (09:17)
[2017-04-24] MEDS: PANTOPRAZOLE 40 MG/10 ML VIAL IVP SCH ×2 (09:17→21:32)
[2017-04-24] MEDS: OXYBUTYNIN CHLORIDE 5 MG TAB PO SCH ×2 (09:18→21:33)
[2017-04-24 09:19] LABS: Eosinophils # (M) 0.03 k/uL (0-0.7); Lymphocytes # (M) 1.92 k/uL (1.0-4.8); Monocytes # (M) 0.35 k/uL (0-1.0); Neutrophils % (M) 28 %; Nucleated Red Blood Cells 0 /100 WBC (0-0); Polychromasia Present; Total Cells Counted 100
[2017-04-24 11:10] LABS: Glucose,Whole Blood 82 mg/dL (75-99)
[2017-04-24] MEDS: ONDANSETRON 4 MG/2 ML VIAL IVP PRN (11:49)
--- NOTE | 2017-04-24 12:20 | P.PN ---
Subjective Progress Note Date: 04/24/17 Patient is a 60-year-old white female who presented to the hospital with a complaint of abdominal pain nausea and diarrhea. She underwent a CAT scan which was consistent with some inflammatory changes near the pylorus and proximal duodenum. She subsequently underwent an EGD with Dr. Garcia which revealed diffuse gastritis with erosions. Biopsies were obtained. The patient today states she is continues to have some midepigastric discomfort, however she appears to be tolerating her diet. Objective - Vital Signs Vital signs: Vital Signs Temp 98.3 F 04/24/17 07:00 Pulse 52 L 04/24/17 07:00 Resp 18 04/24/17 07:00 BP 127/81 04/24/17 07:00 Pulse Ox 93 L 04/24/17 07:00 Intake & Output 04/23/17 04/24/17 04/24/17 17:59 06:59 18:59 Intake Total Output Total Balance Intake: Oral Output: Urine Other: Voiding Method Toilet Incontinent # Voids - Constitutional General appearance: Present: obese - Respiratory Details: Decreased breath sounds at the bases - Cardiovascular Rhythm: regular Heart sounds: normal: S1, S2 - Gastrointestinal Gastrointestinal Comment(s): Mild tender to palpation midepigastric area No guarding or rebound General gastrointestinal: Present: normal bowel sounds, soft - Psychiatric Psychiatric: Present: A&O x's 3, appropriate affect - Labs CBC & Chem 7: 04/24/17 07:44 04/24/17 07:44 Labs: Abnormal Lab Results - Last 24 Hours (Table) 04/23/17 04/24/17 04/24/17 Range/Units 20:16 07:44 07:44 WBC 3.2 L (3.8-10.6) k/uL MCV 78.1 L (80.0-100.0) fL Plt Count 83 L (150-450) k/uL Neutrophils # (Manual) 0.90 L (1.3-7.7) k/uL POC Glucose (mg/dL) 123 H (75-99) mg/dL Total Protein 5.9 L (6.3-8.2) g/dL Albumin 3.0 L (3.5-5.0) g/dL Microbiology - Last 24 Hours (Table) 04/20/17 20:40 Blood Culture - Preliminary Blood No Growth after 72 hours Assessment and Plan Assessment: Impression/plan: 1. 60-year-old white female admitted with urinary tract infection/abdominal discomfort 2. Patient presently on macrobid 3. Patient presently on Protonix 4. May advance diet Plan: Continue present therapy await biopsy results
[2017-04-24 17:18] LABS: Glucose,Whole Blood 94 mg/dL (75-99)
--- NOTE | 2017-04-24 17:26 | PN ---
PROGRESS NOTE DATE OF SERVICE: 04/24/2017 Patient was seen and evaluated in her room by bedside. She is resting comfortably. Claims that abdominal pain is somewhat improved. The patient is status post EGD which showed diffuse gastritis with erosions. GENERAL EXAMINATION: Patient is alert. She is in no acute distress. VITAL SIGNS: Temp 98.3, pulse 52, respiration 18, blood pressure 127/81, O2 saturation 97%. HEENT: Atraumatic, normocephalic. Pupils equal and reactive to light. Extraocular intact. Buccal mucosa is fair. NECK: Supple. No goiter, lymphadenopathy. JVD is negative. No carotid bruit heard. Lungs are clear to auscultate. No rales, rhonchi, or wheezes. Heart is regular rate and rhythm without any murmurs or gallop rhythm. Abdomen is soft. Mild diffuse tenderness more so in the epigastric area. EXTREMITIES: No edema, clubbing or cyanosis. NEUROLOGICAL EXAMINATION: Cranial nerves 2-12 grossly intact. No gross motor or sensory deficit. Skin is warm, dry and intact. PSYCHIATRIC EXAMINATION: Patient has sound mood and affect. LAB: CBC: White blood count 3.2, hemoglobin 12.1, hematocrit 36.9, and platelet count of 83. Chem profile: Sodium 140, potassium 3.8, chloride 104, bicarb 30, BUN 11, creatinine 0.92. ASSESSMENT: 1. Severe abdominal pain. Patient is status post EGD showing gastric erosions and severe gastritis. Patient remains on IV Protonix and and general surgery recommending to continue with IV Protonix for another 24 hours. 2. Possible diverticulitis. Patient remains on IV antibiotics. 3. Urinary tract infection. The patient was on IV Levaquin. Urine culture was resistant to Levaquin, showed E coli. Patient is switched to Rocephin. Can be transitioned to oral antibiotics upon time of discharge. 4. Transaminitis, which is stable. 5. Diabetes. The patient continues to have Accu-Cheks sliding scale. Upon review of patient's records, the patient is ALLERGIC TO CEPHALOSPORINS. The patient is started on nitrofurantoin and she has been tolerating it well. Continue current treatment. Patient will need to continue 7-10 days of antibiotic therapy and will be switched to oral antibiotics at the time of discharge. MMODL / IJN: [id number] /
[2017-04-24] MEDS: DOCUSATE 100 MG CAP PO SCH (18:29)
[2017-04-24 21:06] LABS: Glucose,Whole Blood 100 mg/dL (75-99)
[2017-04-24] MEDS: diphenhydrAMINE 25 MG CAP PO SCH (21:31)
[2017-04-24] MEDS: ALPRAZolam 0.5 MG TAB PO PRN (21:31)
[2017-04-24] MEDS: traZODone HCL 50 MG TAB PO SCH (21:32)
[2017-04-24] MEDS: FLUoxetine HCL 20 MG CAP PO SCH (21:33)
[2017-04-24] MEDS: risperiDONE 0.25 MG TAB PO SCH (21:33)
[2017-04-25 07:48] LABS: Glucose,Whole Blood 90 mg/dL (75-99)
[2017-04-25] MEDS: ENOXAPARIN 40 MG/0.4 ML SYRINGE SQ SCH (07:55)
[2017-04-25] MEDS: PANTOPRAZOLE 40 MG/10 ML VIAL IVP SCH (07:55)
[2017-04-25] MEDS: DOCUSATE 100 MG CAP PO SCH (07:56)
[2017-04-25] MEDS: OXYBUTYNIN CHLORIDE 5 MG TAB PO SCH (07:56)
[2017-04-25] MEDS: NITROFURANTOIN MONOHYD/M-CRYST 100 MG CAP PO SCH (07:56)
[2017-04-25] MEDS: MULTIVITAMINS, THERA 1 EACH TAB PO SCH (07:56)
[2017-04-25] MEDS: INSULIN ASPART 100 UNIT/ML 1 ML 10 ML VIAL SQ SCH ×2 (07:56→12:39)
[2017-04-25 08:17] LABS: HCT 36.5 % (34.0-46.0); HGB 11.5 gm/dL (11.4-16.0); MCH 24.9 pg (25.0-35.0); MCHC 31.6 g/dL (31.0-37.0); MCV 78.9 fL (80.0-100.0); Mean Platelet Volume 8.5; RBC 4.63 m/uL (3.80-5.40); RDW 15.5 % (11.5-15.5); WBC 2.8 k/uL (3.8-10.6)
[2017-04-25 08:24] LABS: Platelet Count 77 k/uL (150-450)
[2017-04-25 08:40] LABS: Albumin 3.1 g/dL (3.5-5.0); Total Bilirubin 0.5 mg/dL (0.2-1.3)
[2017-04-25 11:45] LABS: Eosinophils # (M) 0.06 k/uL (0-0.7); Nucleated Red Blood Cells 0 /100 WBC (0-0)
[2017-04-25 11:53] LABS: Glucose,Whole Blood 129 mg/dL (75-99)
[2017-04-25 11:56] LABS: Band Neutrophils % 3 %; Lymphocytes # (M) 1.43 k/uL (1.0-4.8); Monocytes # (M) 0.17 k/uL (0-1.0); Neutrophils % (M) 40 %; Total Cells Counted 200
[2017-04-25 12:05] VITALS: BP 124/72; PULSE 61; RESP 14; TEMP 97.7
--- NOTE | 2017-04-25 12:39 | P.PN ---
<Crystal Harerebel Martin - Last Filed: 04/25/17 12:39> Subjective Progress Note Date: 04/25/17 61-year-old female seen and examined. Patient continues to report having some discomfort in the left lower quadrant. Reports no nausea vomiting. Tolerating a diet afebrile. Patient had a CAT scan which was consistent with some inflammatory changes near the pylorus in the proximal duodenum. Subsequently underwent an EGD by Dr. Thompson it showed diffuse gastritis with erosions. Biopsies were obtained. Patient's tolerating a diet. Objective - Vital Signs Vital signs: Vital Signs Temp 97.7 F 04/25/17 12:05 Pulse 61 04/25/17 12:05 Resp 14 04/25/17 12:05 BP 124/72 04/25/17 12:05 Pulse Ox 93 L 04/25/17 12:05 Intake & Output 04/24/17 04/25/17 04/25/17 18:59 06:59 18:59 Other: Voiding Method Toilet Toilet Toilet Incontinent Bedside Commode Incontinent # Voids 2 1 - Exam Physical exam Abdomen soft nondistended no facial grimacing with palpitation to the abdominal wall bowel tones present patient states she continues to have some mild discomfort in the right lower quadrant. No nausea no vomiting no frequent stooling. Tolerating a full liquid diet - Labs CBC & Chem 7: 04/25/17 07:30 04/25/17 07:30 Labs: Abnormal Lab Results - Last 24 Hours (Table) 04/24/17 04/25/17 04/25/17 Range/Units 20:58 07:30 07:30 WBC 2.8 L (3.8-10.6) k/uL MCV 78.9 L (80.0-100.0) fL MCH 24.9 L (25.0-35.0) pg Plt Count 77 L (150-450) k/uL Neutrophils # (Manual) 1.20 L (1.3-7.7) k/uL POC Glucose (mg/dL) 100 H (75-99) mg/dL Total Protein 6.0 L (6.3-8.2) g/dL Albumin 3.1 L (3.5-5.0) g/dL 04/25/17 Range/Units 11:35 WBC (3.8-10.6) k/uL MCV (80.0-100.0) fL MCH (25.0-35.0) pg Plt Count (150-450) k/uL Neutrophils # (Manual) (1.3-7.7) k/uL POC Glucose (mg/dL) 129 H (75-99) mg/dL Total Protein (6.3-8.2) g/dL Albumin (3.5-5.0) g/dL Microbiology - Last 24 Hours (Table) 04/20/17 20:40 Blood Culture - Preliminary Blood No Growth after 96 hours Assessment and Plan Assessment: Impression Present on admission severe abdominal pain status post EGD gastric erosion with severe gastritis Present on admission urinary tract infection positive urine culture Abnormal CAT scan abdomen pelvis inflammatory changes of the duodenum Thrombocytopenia Mild leukopenia Plan From a surgical perspective okay to discharge defer to the timing to the attending Follow-up on pending biopsy in the outpatient setting Continue PPI as ordered Continue antibiotics Macrobid as ordered The above impression and plan of care have been discussed and directed by signing physician. Harriet Hare nurse practitioner acting as scribe for signing physician. <Ubadlo Thompson - Last Filed: 04/25/17 15:35> Objective - Vital Signs Vital signs: Vital Signs Temp 97.7 F 04/25/17 12:05 Pulse 61 04/25/17 12:05 Resp 14 04/25/17 12:05 BP 124/72 04/25/17 12:05 Pulse Ox 93 L 04/25/17 12:05 Intake & Output 04/24/17 04/25/17 04/25/17 18:59 06:59 18:59 Other: Voiding Method Toilet Toilet Toilet Incontinent Bedside Commode Incontinent # Voids 2 1 - Labs CBC & Chem 7: 04/25/17 07:30 04/25/17 07:30 Labs: Abnormal Lab Results - Last 24 Hours (Table) 04/24/17 04/25/17 04/25/17 Range/Units 20:58 07:30 07:30 WBC 2.8 L (3.8-10.6) k/uL MCV 78.9 L (80.0-100.0) fL MCH 24.9 L (25.0-35.0) pg Plt Count 77 L (150-450) k/uL Neutrophils # (Manual) 1.20 L (1.3-7.7) k/uL POC Glucose (mg/dL) 100 H (75-99) mg/dL Total Protein 6.0 L (6.3-8.2) g/dL Albumin 3.1 L (3.5-5.0) g/dL 04/25/17 Range/Units 11:35 WBC (3.8-10.6) k/uL MCV (80.0-100.0) fL MCH (25.0-35.0) pg Plt Count (150-450) k/uL Neutrophils # (Manual) (1.3-7.7) k/uL POC Glucose (mg/dL) 129 H (75-99) mg/dL Total Protein (6.3-8.2) g/dL Albumin (3.5-5.0) g/dL Microbiology - Last 24 Hours (Table) 04/20/17 20:40 Blood Culture - Preliminary Blood No Growth after 96 hours Assessment and Plan Assessment: As above. Patient doing well today. Pain is improved. She would like to go home. She is tolerating her diet. Diarrhea has improved. Complaining of pain mostly in the left midabdomen. No right upper quadrant pain when questioned. We'll plan outpatient follow-up in 2-3 weeks. Continue antibiotics for UTI. (1) Abdominal pain Status: Acute Code(s): R10.9 - UNSPECIFIED ABDOMINAL PAIN SNOMED Code(s): 39689872
--- NOTE | 2017-04-26 00:30 | DS ---
DISCHARGE SUMMARY FINAL DIAGNOSES: 1. Severe abdominal pain, possible acute gastritis and gastric erosions. 2. Possible diverticulitis. 3. Urinary tract infection. 4. Transaminitis. 5. Diabetes type 2. DISCHARGE DISPOSITION: The patient will be discharged in stable condition with guarded prognosis. HISTORY OF PRESENT ILLNESS: This 58-year-old woman was admitted with multiple medical problems was complaining of abdominal pain. The patient had EGD that showed significant gastric ulcer. Seen by surgery, improved significantly. The patient is being discharged in stable condition with guarded prognosis. On exam, vitals are stable. CARDIOVASCULAR: S1, S2. ABDOMEN: Soft. NERVOUS SYSTEM: normal DISCHARGE ADVICE AND MEDICATIONS: 1. Diet is cardiac diet. 2. Activity limited until followup. 3. Xanax 0.5 p.o. daily p.r.n. 4. Benadryl 25 mg q.h.s. 5. Colace 100 mg p.o. daily. 6. Prozac 40 mg q.h.s. 7. Hydrocodone 1 tab daily p.r.n. 8. Multivitamins 1 p.o. daily. 9. Nitrofurantoin 100 mg p.o. b.i.d. for 7 days. 10.Ditropan 5 mg p.o. b.i.d. 11.Protonix 40 mg p.o. b.i.d. 12.Risperdal 0.5 mg q.h.s. 13.Trazodone 50 mg p.o. q.h.s. 14.Follow up with Dr. Garcia and Dr. Thompson as advised. MMCAROLYNL / ELLIOTN: [id number] / [facility]
== END 2017-04-25 15:00 | disposition home or self-care (01) | DRG 384 ==
LOC: EC 16:21 → 5MS5E 20:41
PROVIDERS: ADMIT Hospitalist; ATTEND Hospitalist
PROC: 0DB98ZX Excision of Duodenum, Via Natural or Artificial Opening Endoscopic, Diagnostic (ICD-10-PCS; principal; 2017-04-22 07:30)
DX: K25.3 Acute gastric ulcer without hemorrhage or perforation (principal); D69.6 Thrombocytopenia, unspecified; N30.90 Cystitis, unspecified without hematuria; F03.90 Unspecified dementia, unspecified severity, without behavioral disturbance, psychotic disturbance, mood disturbance, and anxiety; B96.20 Unspecified Escherichia coli [E. coli] as the cause of diseases classified elsewhere; D72.819 Decreased white blood cell count, unspecified; E11.9 Type 2 diabetes mellitus without complications; E78.5 Hyperlipidemia, unspecified; I10 Essential (primary) hypertension; I25.10 Atherosclerotic heart disease of native coronary artery without angina pectoris; I25.2 Old myocardial infarction; J44.9 Chronic obstructive pulmonary disease, unspecified; K29.80 Duodenitis without bleeding; F32.9 Major depressive disorder, single episode, unspecified; F41.9 Anxiety disorder, unspecified; G89.29 Other chronic pain; M19.90 Unspecified osteoarthritis, unspecified site; M54.9 Dorsalgia, unspecified; R74.0 Nonspecific elevation of levels of transaminase and lactic acid dehydrogenase [LDH]; K57.90 Diverticulosis of intestine, part unspecified, without perforation or abscess without bleeding; F40.240 Claustrophobia; Z90.5 Acquired absence of kidney; Z79.899 Other long term (current) drug therapy; Z79.84 Long term (current) use of oral hypoglycemic drugs; Z88.1 Allergy status to other antibiotic agents; Z88.0 Allergy status to penicillin; Z88.2 Allergy status to sulfonamides; Z88.8 Allergy status to other drugs, medicaments and biological substances; Z91.048 Other nonmedicinal substance allergy status; Z85.6 Personal history of leukemia; Z87.891 Personal history of nicotine dependence; Z90.710 Acquired absence of both cervix and uterus; Z95.5 Presence of coronary angioplasty implant and graft; Z90.49 Acquired absence of other specified parts of digestive tract
CPT/HCPCS: 36415; 43239; 74177; 80053; 81001; 82150; 82550; 82553; 83036; 83690; 83735; 83880; 84100; 84484; 85025; 85610; 85730; 87040; 87077; 87086; 87186; 88305; 88342; 93005; 96361; 96365; 96375; 99285

== ENCOUNTER 2017-05-04 15:20 | Emergency (ER) | payer OTHER ==
[2017-05-04 15:28] VITALS: PULSE 72
[2017-05-04] MEDS ORDERED: SODIUM CHLORIDE 0.9% 1,000 ML IV STA (16:07)
[2017-05-04] MEDS ORDERED: KETOROLAC 30 MG/ML 1 ML VIAL IVP STA (16:07)
--- NOTE | 2017-05-04 16:17 | ED ---
General Adult HPI - General Chief complaint: Abdominal Pain Stated complaint: kidney stones Time Seen by Provider: 05/04/17 15:51 Source: patient, RN notes reviewed, old records reviewed Mode of arrival: ambulatory Limitations: no limitations - History of Present Illness Initial comments: This is a 61-year-old female to the ER for evaluation today of abdominal pain left flank pain. Patient has history of similar pain, patient unsure of what the cause of her pain is patient does have history of heart disease as well as well as multiple other complications. She was recently admitted to the hospital for evaluation regarding infection, urinary check infection: Infection. Patient had no surgery she did have upper GI. Unsure of results. Patient was sent to ER for evaluation regarding possible kidney stones. Patient does not think she has history of kidney stones, steroids discoloration of urine - Related Data Home Medications Medication Instructions Recorded Confirmed FLUoxetine HCL [PROzac] 40 mg PO HS 01/24/14 05/04/17 Multivitamins, Thera [Multivitamin 1 tab PO HS 01/24/14 05/04/17 (formulary)] diphenhydrAMINE HCL [Benadryl] 25 mg PO HS 01/24/14 05/04/17 ALPRAZolam [Xanax] 0.5 mg PO HS PRN 04/20/17 05/04/17 Hydrocodone/Acetaminophen [[place] 1 tab PO HS PRN 04/20/17 05/04/17 5-325] Oxybutynin Chloride [Ditropan] 5 mg PO BID 04/20/17 05/04/17 risperiDONE [RisperDAL] 0.25 mg PO HS 04/20/17 05/04/17 traZODone HCL 150 mg PO HS 04/20/17 05/04/17 Previous Rx's Medication Instructions Recorded Docusate [Colace] 100 mg PO DAILY #30 cap 04/25/17 Nitrofurantoin Monohyd/M-Cryst 100 mg PO BID #14 cap 04/25/17 [Macrobid] Pantoprazole Sodium [Protonix] 40 mg PO BID #60 tablet. 04/25/17 Allergies Allergy/AdvReac Type Severity Reaction Status Date / Time azithromycin [From Zithromax] Allergy Unknown Unknown Verified 05/04/17 15:56 cephalexin Allergy Unknown Unknown Verified 05/04/17 15:56 cyclobenzaprine HCl Allergy Unknown Unknown Verified 05/04/17 15:56 [From Flexeril] Penicillins Allergy Unknown Unknown Verified 05/04/17 15:56 pentazocine lactate Allergy Unknown Unknown Verified 05/04/17 15:56 [From Talwin] pseudoephedrine HCl Allergy Unknown Unknown Verified 05/04/17 15:56 [From Sudafed] Sulfa (Sulfonamide Allergy Unknown Unknown Verified 05/04/17 15:56 Antibiotics) adhesive AdvReac Unknown Unknown Verified 05/04/17 15:56 Review of Systems ROS Statement: Those systems with pertinent positive or pertinent negative responses have been documented in the HPI. ROS Other: All systems not noted in ROS Statement are negative. Past Medical History Past Medical History: Coronary Artery Disease (CAD), Cancer, COPD, Diabetes Mellitus, Hyperlipidemia, Hypertension, Memory Impairment, Myocardial Infarction ([place]), Osteoarthritis (OA) Additional Past Medical History / Comment(s): LEUKEMIA, DIVERTICULITIS, HAS ONLY (1) KIDNEY, CHRONIC BACK PAIN , CLOSTRAPHOBIC.no treatment for leukemia Last Myocardial Infarction Date:: UNKNOWN History of Any Multi-Drug Resistant Organisms: None Reported Past Surgical History: Appendectomy, Back Surgery, Cholecystectomy, Heart Catheterization With Stent, Hysterectomy, Tonsillectomy Additional Past Surgical History / Comment(s): CARPAL TUNNEL, FOOT SURGERY,pick at skin when anxious Past Anesthesia/Blood Transfusion Reactions: No Reported Reaction Date of Last Stent Placement:: UNKNOWN Past Psychological History: Anxiety, Depression Smoking Status: Former smoker Past Alcohol Use History: None Reported Past Drug Use History: None Reported - Past Family History Mother Family Medical History: Cancer Additional Family Medical History / Comment(s): UTERINE General Exam Limitations: no limitations General appearance: alert, in no apparent distress, obese Head exam: Present: atraumatic, normocephalic, normal inspection Eye exam: Present: normal appearance, PERRL, EOMI. Absent: scleral icterus, conjunctival injection, periorbital swelling ENT exam: Present: normal exam, mucous membranes moist Neck exam: Present: normal inspection. Absent: tenderness, meningismus, lymphadenopathy Respiratory exam: Present: normal lung sounds bilaterally. Absent: respiratory distress, wheezes, rales, rhonchi, stridor Cardiovascular Exam: Present: regular rate, normal rhythm, normal heart sounds. Absent: systolic murmur, diastolic murmur, rubs, gallop, clicks GI/Abdominal exam: Present: soft, normal bowel sounds. Absent: distended, tenderness, guarding, rebound, rigid Extremities exam: Present: normal inspection, full ROM, normal capillary refill. Absent: tenderness, pedal edema, joint swelling, calf tenderness Back exam: Present: normal inspection Neurological exam: Present: alert, oriented X3, CN II-XII intact Psychiatric exam: Present: normal affect, normal mood Skin exam: Present: warm, dry, intact, normal color. Absent: rash Course Vital Signs 05/04/17 05/04/17 15:22 17:38 Temperature 99.1 F 98.9 F Pulse Rate 72 72 Respiratory 18 16 Rate Blood Pressure 103/71 113/57 O2 Sat by Pulse 99 100 Oximetry - Reevaluation(s) Reevaluation #1: 05/04/17 18:23 Patient has adequate kidney pain control is able to eat and drink without difficulty Medical Decision Making - Medical Decision Making 61 female with nonspecific left flank pain. Recent urinary tract infection, we' ll continue antibiotics for another week. Culture and sensitivity report of prior UA is reviewed. Patient will be discharged - Lab Data Result diagrams: 05/04/17 16:30 05/04/17 16:30 Lab Results 05/04/17 05/04/17 05/04/17 Range/Units 16:19 16:30 16:30 WBC 5.0 (3.8-10.6) k/uL RBC 5.14 (3.80-5.40) m/uL Hgb 13.0 (11.4-16.0) gm/dL Hct 40.2 (34.0-46.0) % MCV 78.2 L (80.0-100.0) fL MCH 25.4 (25.0-35.0) pg MCHC 32.4 (31.0-37.0) g/dL RDW 15.5 (11.5-15.5) % Plt Count 85 L (150-450) k/uL Neutrophils % 33 % Lymphocytes % 58 % Monocytes % 6 % Eosinophils % 1 % Basophils % 0 % Neutrophils # 1.6 (1.3-7.7) k/uL Lymphocytes # 2.9 (1.0-4.8) k/uL Monocytes # 0.3 (0-1.0) k/uL Eosinophils # 0.0 (0-0.7) k/uL Basophils # 0.0 (0-0.2) k/uL Manual Slide Review Performed Microcytosis Slight Sodium 141 (137-145) mmol/L Potassium 4.1 (3.5-5.1) mmol/L Chloride 105 (98-107) mmol/L Carbon Dioxide 26 (22-30) mmol/L Anion Gap 10 mmol/L BUN 13 (7-17) mg/dL Creatinine 0.77 (0.52-1.04) mg/dL Est GFR (CKD-EPI)AfAm >90 (>60 ml/min/1.73 sqM) Est GFR (CKD-EPI)NonAf 82 (>60 ml/min/1.73 sqM) Glucose 75 (74-99) mg/dL Calcium 9.3 (8.4-10.2) mg/dL Total Bilirubin 0.7 (0.2-1.3) mg/dL AST 43 H (14-36) U/L ALT 28 (9-52) U/L Alkaline Phosphatase 77 (38-126) U/L Total Protein 7.5 (6.3-8.2) g/dL Albumin 4.0 (3.5-5.0) g/dL Amylase 54 (30-110) U/L Lipase 114 (23-300) U/L Urine Color Yellow Urine Appearance Clear (Clear) Urine pH 6.0 (5.0-8.0) Ur Specific [place] 1.015 (1.001-1.035) Urine Protein Trace H (Negative) Urine Glucose (UA) Negative (Negative) Urine Ketones Negative (Negative) Urine Blood Negative (Negative) Urine Nitrite Negative (Negative) Urine Bilirubin Negative (Negative) Urine Urobilinogen <2.0 (<2.0) mg/dL Ur Leukocyte Esterase Moderate H (Negative) Urine RBC 3 (0-5) /hpf Urine WBC 40 H (0-5) /hpf Ur Squamous Epith Cells 2 (0-4) /hpf Urine Mucus Rare H (None) /hpf - Radiology Data Radiology results: report reviewed (CT of abdomen and pelvis is unchanged negative for acute disease), image reviewed Disposition Clinical Impression: UTI (urinary tract infection), Abdominal pain Disposition: HOME SELF-CARE Instructions: Abdominal Pain (ED), Urinary Tract Infection in Women (ED) Referrals: Jitendra Garcia MD [Primary Care Provider] - 1-2 days
[2017-05-04 16:47] LABS: Appearance,Urine Clear (Clear); Bilirubin,Urine Negative (Negative); Blood,Urine Negative (Negative); Color,Urine Yellow; Glucose,Urine (UA) Negative (Negative); Ketones,Urine Negative (Negative); Leukocyte Esterase,Urine Moderate (Negative); Mucus,Urine Rare /hpf; Nitrite,Urine Negative (Negative); Protein,Urine Trace (Negative); RBC,Urine 3 /hpf (0-5); Specific Gravity,Urine 1.015 (1.001-1.035); Squamous Epithelial Cell,Urine 2 /hpf (0-4); Urobilinogen,Urine <2.0 mg/dL (<2.0); WBC,Urine 40 /hpf (0-5)
[2017-05-04 17:00] LABS: ALT 28 U/L (9-52); AST 43 U/L (14-36); Alkaline Phosphatase 77 U/L (38-126); Amylase 54 U/L (30-110); Anion Gap 10 mmol/L; Blood Urea Nitrogen 13 mg/dL (7-17); Calcium 9.3 mg/dL (8.4-10.2); Carbon Dioxide 26 mmol/L (22-30); Chloride 105 mmol/L (98-107); Glucose 75 mg/dL (74-99); Lipase 114 U/L (23-300); Potassium 4.1 mmol/L (3.5-5.1); Sodium 141 mmol/L (137-145); Total Bilirubin 0.7 mg/dL (0.2-1.3); Total Protein 7.5 g/dL (6.3-8.2)
[2017-05-04 17:01] LABS: Basophils % (A) 0 %; Eosinophils % (A) 1 %; HCT 40.2 % (34.0-46.0); Lymphocytes # (A) 2.9 k/uL (1.0-4.8); Lymphocytes % (A) 58 %; MCH 25.4 pg (25.0-35.0); MCHC 32.4 g/dL (31.0-37.0); MCV 78.2 fL (80.0-100.0); Mean Platelet Volume 9.1; Microcytosis Slight; Monocytes # (A) 0.3 k/uL (0-1.0); Monocytes % (A) 6 %; Neutrophils # (A) 1.6 k/uL (1.3-7.7); Neutrophils % (A) 33 %; RBC 5.14 m/uL (3.80-5.40); RDW 15.5 % (11.5-15.5)
[2017-05-04] MEDS ORDERED: NITROFURANTOIN MONOHYD/M-CRYST 100 MG CAP PO STA (17:07)
[2017-05-04 17:31] LABS: Platelet Count 85 k/uL (150-450)
--- NOTE | 2017-05-04 17:33 | CT ---
EXAMINATION TYPE: CT abdomen pelvis wo con DATE OF EXAM: 05/04/2017 COMPARISON: April 20, 2017 HISTORY: Patient complains of left flank pain. CT DLP: 1073 mGycm. Automated exposure control for dose reduction was used. TECHNIQUE: Helical acquisition of images was performed from the lung bases through the pelvis. FINDINGS: LUNG BASES: No significant lung or pleural space abnormality is appreciated. There is no cardiomegaly , but prominent coronary calcifications are noted. LIVER/GB: No significant abnormality is appreciated. PANCREAS: No significant abnormality is seen. SPLEEN: Moderate splenomegaly is redemonstrated ADRENALS: No significant abnormality is seen. KIDNEYS: Re-demonstrated diminished right renal volume with 10 mm nonobstructing calcification lower pole. There is no obstructive uropathy. Bladder is poorly distended, there is mild abnormal concentri c wall thickening measuring up to 8 mm. PERITONEAL CAVITY: Negative. ABDOMINAL ADENOPATHY: The previously seen celiac axis, portacaval, periaortic, paragastric, paraduod enal, and retrocaval adenopathy is redemonstrated. Most of these lymph nodes measure 1.1 - 1.5 cm douglas n diameter with some measuring 2 cm mean diameter. REPRODUCTIVE ORGANS: No significant abnormality is seen URINARY BLADDER: No significant abnormality is seen. PELVIC ADENOPATHY: There are a few scattered mildly enlarged lymph nodes noted in the upper inguinal , obturator, bilateral external, internal and common iliac, and along the inferior mesenteric vein. T hese have similar appearance to the prior study. OSSEOUS STRUCTURES: No significant abnormality is seen. BOWEL: No significant abnormality is seen. IMPRESSION: 1. SPLENOMEGALY WITH ADENOPATHY, WOULD CONSIDER THE POSSIBILITY OF LYMPHOMA. 2. CORONARY CALCIFICATIONS.
[2017-05-04 17:39] VITALS: BP 113/57; RESP 16; TEMP 98.9
== END 2017-05-04 18:43 | disposition home or self-care (01) ==
LOC: EC 15:20
DX: N39.0 Urinary tract infection, site not specified (principal); R10.32 Left lower quadrant pain; F41.9 Anxiety disorder, unspecified; F32.9 Major depressive disorder, single episode, unspecified; Z87.891 Personal history of nicotine dependence; Z85.6 Personal history of leukemia; Z90.49 Acquired absence of other specified parts of digestive tract; Z79.899 Other long term (current) drug therapy; Z88.1 Allergy status to other antibiotic agents; Z88.8 Allergy status to other drugs, medicaments and biological substances; Z88.0 Allergy status to penicillin; Z88.2 Allergy status to sulfonamides; Z91.048 Other nonmedicinal substance allergy status
CPT/HCPCS: 36415; 80053; 82150; 83690; 85025; 81001; 87086; 74176; 99285; 96374; 96361; J1885

== ENCOUNTER 2018-03-18 18:34 | Inpatient (IN) | payer OTHER ==
[2018-03-18] MEDS ORDERED: SODIUM CHLORIDE 0.9% 1,000 ML IV STA (19:01)
[2018-03-18] MEDS ORDERED: ONDANSETRON 4 MG/2 ML VIAL IVP STA (19:09)
[2018-03-18] MEDS ORDERED: MORPHINE SULFATE 4 MG/ML SYRINGE IVP STA ×2 (19:09→21:31)
--- NOTE | 2018-03-18 19:12 | ED ---
Abdominal Pain HPI - General Source: patient, RN notes reviewed Mode of arrival: ambulatory Limitations: no limitations <Forest Dove - Last Filed: 03/18/18 19:10> <Jose Mcdowell - Last Filed: 03/18/18 23:07> - General Chief Complaint: Abdominal Pain Stated Complaint: POSS DIVERTICULITIS Time Seen by Provider: 03/18/18 19:01 - History of Present Illness Initial Comments: 62-year-old female presents emergency Department chief complaint abdominal pain. Patient states is diffuse in nature and feels consistent with her prior diverticulitis. Patient denies any diarrhea, melena, hematochezia. Patient had slight nausea no vomiting denies any chest pain, shortness breath or heartburn. Patient states that she's been taking ibuprofen for the pain. Patient states that helping. Reports no fever or chills. (Forest Dove) - Related Data Home Medications Medication Instructions Recorded Confirmed FLUoxetine HCL [PROzac] 40 mg PO HS 01/24/14 05/04/17 Multivitamins, Thera [Multivitamin 1 tab PO HS 01/24/14 05/04/17 (formulary)] diphenhydrAMINE HCL [Benadryl] 25 mg PO HS 01/24/14 05/04/17 ALPRAZolam [Xanax] 0.5 mg PO HS PRN 04/20/17 05/04/17 Hydrocodone/Acetaminophen [[place] 1 tab PO HS PRN 04/20/17 05/04/17 5-325] Oxybutynin Chloride [Ditropan] 5 mg PO BID 04/20/17 05/04/17 risperiDONE [RisperDAL] 0.25 mg PO HS 04/20/17 05/04/17 traZODone HCL 150 mg PO HS 04/20/17 05/04/17 Previous Rx's Medication Instructions Recorded Docusate [Colace] 100 mg PO DAILY #30 cap 04/25/17 Nitrofurantoin Monohyd/M-Cryst 100 mg PO BID #14 cap 04/25/17 [Macrobid] Pantoprazole Sodium [Protonix] 40 mg PO BID #60 tablet. 04/25/17 HYDROcodone/APAP 5-325MG [[place] 1 tab PO Q6HR PRN #20 tab 05/04/17 5-325] Nitrofurantoin Monohyd/M-Cryst 100 mg PO Q12HR #14 cap 05/04/17 [Macrobid] Allergies Allergy/AdvReac Type Severity Reaction Status Date / Time azithromycin [From Zithromax] Allergy Unknown Unknown Verified 03/18/18 18:36 cephalexin Allergy Unknown Unknown Verified 03/18/18 18:36 cyclobenzaprine HCl Allergy Unknown Unknown Verified 03/18/18 18:36 [From Flexeril] Penicillins Allergy Unknown Unknown Verified 03/18/18 18:36 pentazocine lactate Allergy Unknown Unknown Verified 03/18/18 18:36 [From Talwin] pseudoephedrine HCl Allergy Unknown Unknown Verified 03/18/18 18:36 [From Sudafed] Sulfa (Sulfonamide Allergy Unknown Unknown Verified 03/18/18 18:36 Antibiotics) adhesive AdvReac Unknown Unknown Verified 03/18/18 18:36 Review of Systems ROS Other: All systems not noted in ROS Statement are negative. <Forest Dove - Last Filed: 03/18/18 19:10> ROS Other: All systems not noted in ROS Statement are negative. <Jose Mcdowell - Last Filed: 03/18/18 23:07> ROS Statement: Those systems with pertinent positive or pertinent negative responses have been documented in the HPI. Past Medical History Past Medical History: Coronary Artery Disease (CAD), Cancer, COPD, Diabetes Mellitus, Hyperlipidemia, Hypertension, Memory Impairment, Myocardial Infarction ([place]), Osteoarthritis (OA) Additional Past Medical History / Comment(s): LEUKEMIA, DIVERTICULITIS, HAS ONLY (1) KIDNEY, CHRONIC BACK PAIN , CLOSTRAPHOBIC.no treatment for leukemia Last Myocardial Infarction Date:: UNKNOWN History of Any Multi-Drug Resistant Organisms: None Reported Past Surgical History: Appendectomy, Back Surgery, Cholecystectomy, Heart Catheterization With Stent, Hysterectomy, Tonsillectomy Additional Past Surgical History / Comment(s): CARPAL TUNNEL, FOOT SURGERY,pick at skin when anxious Past Anesthesia/Blood Transfusion Reactions: No Reported Reaction Date of Last Stent Placement:: UNKNOWN Past Psychological History: Anxiety, Depression Smoking Status: Former smoker Past Alcohol Use History: None Reported Past Drug Use History: None Reported - Past Family History Mother Family Medical History: Cancer Additional Family Medical History / Comment(s): UTERINE <Forest Dove - Last Filed: 03/18/18 19:10> General Exam Limitations: no limitations General appearance: alert, in no apparent distress Head exam: Present: atraumatic, normocephalic, normal inspection Respiratory exam: Present: normal lung sounds bilaterally. Absent: respiratory distress, wheezes, rales, rhonchi, stridor Cardiovascular Exam: Present: regular rate, normal rhythm, normal heart sounds. Absent: systolic murmur, diastolic murmur, rubs, gallop, clicks GI/Abdominal exam: Present: soft, tenderness (Mild to moderate diffuse), normal bowel sounds. Absent: distended, guarding, rebound, rigid Back exam: Absent: CVA tenderness (R), CVA tenderness (L) Neurological exam: Present: alert, oriented X3, CN II-XII intact, reflexes normal. Absent: motor sensory deficit Skin exam: Present: warm, dry, intact, normal color. Absent: rash <Forest Dove - Last Filed: 03/18/18 19:10> Course <Forest Dove - Last Filed: 03/18/18 19:10> <Jose Mcdowell - Last Filed: 03/18/18 23:07> Vital Signs 03/18/18 03/18/18 18:36 21:44 Temperature 97.5 F L Pulse Rate 53 L 88 Respiratory 18 18 Rate Blood Pressure 101/58 94/47 O2 Sat by Pulse 100 99 Oximetry - Consultations Consultation #1: Patient symptoms are currently improved (Jose Mcdowell) Consultation #2: Spoke with Dr. watson regarding admission (Jose Mcdowell) Medical Decision Making <Forest Dove - Last Filed: 03/18/18 19:10> - Lab Data Result diagrams: 03/18/18 20:10 03/18/18 19:30 - Radiology Data Radiology results: report reviewed (CT head and pelvis shows enteritis), image reviewed <Jose Mcdowell - Last Filed: 03/18/18 23:07> - Medical Decision Making 62 female to be admitted for urinary tract infection IV antibiotics continued IV hydration, (Jose Mcdowell) - Lab Data Lab Results 03/18/18 03/18/18 03/18/18 Range/Units 19:30 19:30 20:10 WBC 3.1 L (3.8-10.6) k/uL RBC 4.71 (3.80-5.40) m/uL Hgb 11.9 (11.4-16.0) gm/dL Hct 36.6 (34.0-46.0) % MCV 77.7 L (80.0-100.0) fL MCH 25.3 (25.0-35.0) pg MCHC 32.6 (31.0-37.0) g/dL RDW 15.6 H (11.5-15.5) % Plt Count 65 L (150-450) k/uL Neutrophils % 36 % Lymphocytes % 50 % Monocytes % 5 % Eosinophils % 6 % Basophils % 1 % Neutrophils # 1.1 L (1.3-7.7) k/uL Lymphocytes # 1.5 (1.0-4.8) k/uL Monocytes # 0.2 (0-1.0) k/uL Eosinophils # 0.2 (0-0.7) k/uL Basophils # 0.0 (0-0.2) k/uL Manual Slide Review Performed Microcytosis Slight Sodium 140 (137-145) mmol/L Potassium 4.4 (3.5-5.1) mmol/L Chloride 109 H (98-107) mmol/L Carbon Dioxide 25 (22-30) mmol/L Anion Gap 6 mmol/L BUN 18 H (7-17) mg/dL Creatinine 0.71 (0.52-1.04) mg/dL Est GFR (CKD-EPI)AfAm >90 (>60 ml/min/1.73 sqM) Est GFR (CKD-EPI)NonAf >90 (>60 ml/min/1.73 sqM) Glucose 81 (74-99) mg/dL Plasma Lactic Acid Noel 0.7 (0.7-2.0) mmol/L Calcium 9.1 (8.4-10.2) mg/dL Total Bilirubin 0.6 (0.2-1.3) mg/dL AST 34 (14-36) U/L ALT 30 (9-52) U/L Alkaline Phosphatase 92 (38-126) U/L Total Protein 7.3 (6.3-8.2) g/dL Albumin 3.7 (3.5-5.0) g/dL Amylase 53 (30-110) U/L Lipase 61 (23-300) U/L Urine Color Urine Appearance (Clear) Urine pH (5.0-8.0) Ur Specific [place] (1.001-1.035) Urine Protein (Negative) Urine Glucose (UA) (Negative) Urine Ketones (Negative) Urine Blood (Negative) Urine Nitrite (Negative) Urine Bilirubin (Negative) Urine Urobilinogen (<2.0) mg/dL Ur Leukocyte Esterase (Negative) Urine RBC (0-5) /hpf Urine WBC (0-5) /hpf Ur Squamous Epith Cells (0-4) /hpf Urine Bacteria (None) /hpf Urine Mucus (None) /hpf 03/18/18 Range/Units 21:30 WBC (3.8-10.6) k/uL RBC (3.80-5.40) m/uL Hgb (11.4-16.0) gm/dL Hct (34.0-46.0) % MCV (80.0-100.0) fL MCH (25.0-35.0) pg MCHC (31.0-37.0) g/dL RDW (11.5-15.5) % Plt Count (150-450) k/uL Neutrophils % % Lymphocytes % % Monocytes % % Eosinophils % % Basophils % % Neutrophils # (1.3-7.7) k/uL Lymphocytes # (1.0-4.8) k/uL Monocytes # (0-1.0) k/uL Eosinophils # (0-0.7) k/uL Basophils # (0-0.2) k/uL Manual Slide Review Microcytosis Sodium (137-145) mmol/L Potassium (3.5-5.1) mmol/L Chloride (98-107) mmol/L Carbon Dioxide (22-30) mmol/L Anion Gap mmol/L BUN (7-17) mg/dL Creatinine (0.52-1.04) mg/dL Est GFR (CKD-EPI)AfAm (>60 ml/min/1.73 sqM) Est GFR (CKD-EPI)NonAf (>60 ml/min/1.73 sqM) Glucose (74-99) mg/dL Plasma Lactic Acid Noel (0.7-2.0) mmol/L Calcium (8.4-10.2) mg/dL Total Bilirubin (0.2-1.3) mg/dL AST (14-36) U/L ALT (9-52) U/L Alkaline Phosphatase (38-126) U/L Total Protein (6.3-8.2) g/dL Albumin (3.5-5.0) g/dL Amylase (30-110) U/L Lipase (23-300) U/L Urine Color Yellow Urine Appearance Cloudy H (Clear) Urine pH 6.0 (5.0-8.0) Ur Specific [place] 1.030 (1.001-1.035) Urine Protein Trace H (Negative) Urine Glucose (UA) Negative (Negative) Urine Ketones Negative (Negative) Urine Blood Small H (Negative) Urine Nitrite Positive H (Negative) Urine Bilirubin Negative (Negative) Urine Urobilinogen <2.0 (<2.0) mg/dL Ur Leukocyte Esterase Large H (Negative) Urine RBC 45 H (0-5) /hpf Urine WBC 116 H (0-5) /hpf Ur Squamous Epith Cells 1 (0-4) /hpf Urine Bacteria Few H (None) /hpf Urine Mucus Rare H (None) /hpf Disposition <Forest Dove - Last Filed: 03/18/18 19:10> Is patient prescribed a controlled substance at d/c from ED?: No <Jose Mcdowell - Last Filed: 03/18/18 23:07> Clinical Impression: UTI (urinary tract infection), Abdominal pain, Pyelonephritis Disposition: ADMITTED IP TO THIS HOSP Condition: Fair Referrals: Jitendra Garcia MD [Primary Care Provider] - 1-2 days
[2018-03-18 20:09] LABS: ALT 30 U/L (9-52); AST 34 U/L (14-36); Albumin 3.7 g/dL (3.5-5.0); Alkaline Phosphatase 92 U/L (38-126); Amylase 53 U/L (30-110); Anion Gap 6 mmol/L; Blood Urea Nitrogen 18 mg/dL (7-17); Calcium 9.1 mg/dL (8.4-10.2); Carbon Dioxide 25 mmol/L (22-30); Chloride 109 mmol/L (98-107); Glucose 81 mg/dL (74-99); Lipase 61 U/L (23-300); Potassium 4.4 mmol/L (3.5-5.1); Sodium 140 mmol/L (137-145); Total Bilirubin 0.6 mg/dL (0.2-1.3); Total Protein 7.3 g/dL (6.3-8.2)
[2018-03-18 20:39] LABS: Basophils % (A) 1 %; Eosinophils # (A) 0.2 k/uL (0-0.7); Eosinophils % (A) 6 %; HCT 36.6 % (34.0-46.0); HGB 11.9 gm/dL (11.4-16.0); Lymphocytes # (A) 1.5 k/uL (1.0-4.8); Lymphocytes % (A) 50 %; MCH 25.3 pg (25.0-35.0); MCHC 32.6 g/dL (31.0-37.0); MCV 77.7 fL (80.0-100.0); Microcytosis Slight; Monocytes # (A) 0.2 k/uL (0-1.0); Monocytes % (A) 5 %; Neutrophils # (A) 1.1 k/uL (1.3-7.7); Neutrophils % (A) 36 %; RBC 4.71 m/uL (3.80-5.40); RDW 15.6 % (11.5-15.5); WBC 3.1 k/uL (3.8-10.6)
[2018-03-18 21:16] LABS: Platelet Count 65 k/uL (150-450)
--- NOTE | 2018-03-18 21:28 | CT ---
EXAMINATION TYPE: CT abdomen pelvis w con DATE OF EXAM: 03/18/2018 HISTORY: Abdominal pain. Hx of leukemia CT DLP: 1117.3mGycm Automated Exposure Control for Dose Reduction was Utilized. CONTRAST: CT scan of the abdomen and pelvis is performed without oral but with IV Contrast, patient injected wi th 100 mL of Isovue 300. COMPARISON: CT abdomen and pelvis May 04, 2017 FINDINGS: LUNG BASES: Coronary artery calcification is redemonstrated. Liver: Liver is normal in size. Mild to moderate extrahepatic biliary dilatation is slightly more pro minent from prior study towards angel luis hepatis with gradual tapering. Common bile duct measures 17 mm diameter at the angel lius hepatis. No suspicious peripheral intrahepatic biliary dilatation is seen. Mild central intrahepatic biliary dilatation is felt present on current study. PANCREAS: No significant abnormality is seen. SPLEEN: Splenomegaly is redemonstrated measuring 15.9 cm long axis on coronal image 44. ADRENALS: No significant abnormality is seen. KIDNEYS: Areas of cortical thinning throughout the right kidney with asymmetric atrophy and enlarged 10 mm calculus lower pole level are redemonstrated. There is symmetric uptake and excretion without h ydronephrosis seen bilaterally. BOWEL: Evaluation bowel is suboptimal study due to lack of enteric contrast. No suspicious bowel dila tation is seen. Mild wall thickening upper to mid abdominal small bowel loops particularly duodenal s weep and proximal jejunum is felt present. Surgical sutures distal sigmoid colon axial image 75 are p resent. Some diverticula in the proximal to mid sigmoid colon are noted. UTERUS/ADNEXA: Uterus is surgically absent or markedly atrophic LYMPH NODES: There are multiple enlarged retroperitoneal lymph nodes redemonstrated. For reference le ft paracolic lymph node measures 2.2 x 1.6 cm mid to lower pole level left kidney axial image 45 sign ificant change from prior study. Prominent but subcentimeter bilateral groin lymph nodes are redemons trated. OSSEOUS STRUCTURES: Mild to moderate narrowing bilateral hip joints is present. There is multilevel f acet arthropathy in the mid to lower lumbar spine. OTHER: No significant additional abnormality is seen. IMPRESSION: 1. Persistent splenomegaly and abnormal abdominal retroperitoneal adenopathy correlates with patient' s history of lymphoma without significant change from prior CT. Local mass effect is present. 2. No bowel obstruction. Suspect mild proximal enteritis, correlate clinically. 3. New mild to moderate extrahepatic biliary dilatation with perhaps mild central intrahepatic biliar y dilatation. No obstructing mass is clearly seen. The need to further investigate by ERCP should be based on clinical and lab correlation.
[2018-03-18 21:56] LABS: Appearance,Urine Cloudy (Clear); Bacteria,Urine Few /hpf; Bilirubin,Urine Negative (Negative); Blood,Urine Small (Negative); Color,Urine Yellow; Glucose,Urine (UA) Negative (Negative); Ketones,Urine Negative (Negative); Leukocyte Esterase,Urine Large (Negative); Mucus,Urine Rare /hpf; Nitrite,Urine Positive (Negative); Protein,Urine Trace (Negative); RBC,Urine 45 /hpf (0-5); Squamous Epithelial Cell,Urine 1 /hpf (0-4); Urobilinogen,Urine <2.0 mg/dL (<2.0); WBC,Urine 116 /hpf (0-5)
[2018-03-18] MEDS ORDERED: LEVOFLOXACIN 750MG-D5W PMX 750 MG in DEXTROSE/WATER 1 150ML.BAG IVPB STA (22:10)
[2018-03-18] MEDS ORDERED: SODIUM CHLORIDE 0.9% 1,000 ML IV ONE (23:05)
[2018-03-19] MEDS ORDERED: HYDROcodone/APAP 5-325MG 1 EACH TAB ONE (00:19)
[2018-03-19] MEDS: HYDROcodone/APAP 5-325MG 1 EACH TAB PO PRN ×3 (00:20→19:11)
[2018-03-19 07:35] LABS: Basophils % (A) 1 %; Eosinophils # (A) 0.1 k/uL (0-0.7); Eosinophils % (A) 5 %; HCT 34.8 % (34.0-46.0); HGB 11.1 gm/dL (11.4-16.0); Hypochromasia Moderate; Lymphocytes # (A) 1.1 k/uL (1.0-4.8); Lymphocytes % (A) 50 %; MCH 25.5 pg (25.0-35.0); MCHC 31.9 g/dL (31.0-37.0); MCV 79.8 fL (80.0-100.0); Mean Platelet Volume 7.7; Monocytes # (A) 0.1 k/uL (0-1.0); Monocytes % (A) 5 %; Neutrophils # (A) 0.8 k/uL (1.3-7.7); Neutrophils % (A) 37 %; RBC 4.36 m/uL (3.80-5.40); RDW 15.4 % (11.5-15.5); WBC 2.1 k/uL (3.8-10.6)
[2018-03-19 07:48] LABS: Anion Gap 3 mmol/L; Blood Urea Nitrogen 17 mg/dL (7-17); Calcium 8.5 mg/dL (8.4-10.2); Carbon Dioxide 29 mmol/L (22-30); Chloride 109 mmol/L (98-107); Glucose 74 mg/dL (74-99); Potassium 4.7 mmol/L (3.5-5.1); Sodium 141 mmol/L (137-145)
[2018-03-19 07:55] LABS: Platelet Count 64 k/uL (150-450)
[2018-03-19] MEDS ORDERED: FAMOTIDINE 20 MG/2 ML VIAL IV SCH (09:00)
[2018-03-19] MEDS: HEPARIN SODIUM,PORCINE 5,000 UNIT/ML 1 ML VIAL SQ SCH ×2 (09:03→20:55)
[2018-03-19 09:52] LABS: Glucose,Whole Blood 91 mg/dL (75-99)
[2018-03-19] MEDS ORDERED: SODIUM CHLORIDE 0.9% 500 ML 1,000 ML IV ONE (11:34)
--- NOTE | 2018-03-19 11:54 | P.HPIM ---
History of Present Illness 62 years old female with past medical history of coronary artery disease, leukemia, born with one kidney i.e. solitary kidney, diabetes mellitus, hypertension, hyperlipidemia, chronic back pain. Presents because of epigastric abdominal pain and tenderness since of 4 days duration. The pain is sharp radiating all over the abdomen as per patient get worse with eating to the degree patient was not eating and drinking for the last 4 days except for some sips of water. Patient denies nausea vomiting, she had normal bowel movement as per patient she denies fever, cough or dyspnea. However she has increased frequency of urination more than 3 times yesterday without dysuria. She has chronic back pain. Patient is afebrile however blood pressure was on the low side this morning 84/ 58 with heart rate 46, respiratory 16. She has low white cell count at 2.1, platelets 64, hemoglobin 11.1. Creatinine 0.8, rest of the CMP was unremarkable including not elevated liver enzymes. Urinalysis was suspicious for infection. Patient has CAT scan of the abdomen with contrast showing mildly dilated extrahepatic biliary tract, splenomegaly and multiple enlarged retroperitoneal lymph nodes, 10 mm right kidney calculus without hydronephrosis seen bilaterally Review of Systems CONSTITUTIONAL: No fever, no malaise, no fatigue. HEENT: No recent visual problems or hearing problems. Denied any sore throat. CARDIOVASCULAR: No orthopnea, PND, no palpitations, no syncope. PULMONARY: No shortness of breath, no cough, no hemoptysis. GASTROINTESTINAL: No diarrhea, no nausea, no vomiting, no abdominal pain. Normoactive bowel sounds. NEUROLOGICAL: No headaches, no weakness, no numbness. HEMATOLOGICAL: Denies any bleeding or petechiae. GENITOURINARY: Denies any burning micturition, frequency, or urgency. MUSCULOSKELETAL/RHEUMATOLOGICAL: Denies any joint pain, swelling, or any muscle pain. ENDOCRINE: Denies any polyuria or polydipsia. Past Medical History Past Medical History: Coronary Artery Disease (CAD), Cancer, COPD, Diabetes Mellitus, Hyperlipidemia, Hypertension, Memory Impairment, Myocardial Infarction (HI), Osteoarthritis (OA) Additional Past Medical History / Comment(s): LEUKEMIA, DIVERTICULITIS, BORN WITH ONLY (1) KIDNEY, CHRONIC BACK PAIN , CLAUSTROPHOBIA, CLL, BACK SURGERY Last Myocardial Infarction Date:: UNKNOWN History of Any Multi-Drug Resistant Organisms: None Reported Past Surgical History: Appendectomy, Back Surgery, Cholecystectomy, Heart Catheterization With Stent, Hysterectomy, Tonsillectomy Additional Past Surgical History / Comment(s): CARPAL TUNNEL, FOOT SURGERY,pick at skin when anxious Past Anesthesia/Blood Transfusion Reactions: No Reported Reaction Date of Last Stent Placement:: UNKNOWN Past Psychological History: Anxiety, Depression Smoking Status: Former smoker Past Alcohol Use History: None Reported Past Drug Use History: None Reported - Past Family History Mother Family Medical History: Cancer Additional Family Medical History / Comment(s): UTERINE Medications and Allergies Home Medications Medication Instructions Recorded Confirmed Type FLUoxetine HCL [PROzac] 40 mg PO HS 01/24/14 03/18/18 History Multivitamins, Thera [Multivitamin 1 tab PO HS 01/24/14 03/18/18 History (formulary)] diphenhydrAMINE HCL [Benadryl] 25 mg PO HS 01/24/14 03/18/18 History ALPRAZolam [Xanax] 0.5 mg PO HS PRN 04/20/17 03/18/18 History Oxybutynin Chloride [Ditropan] 5 mg PO BID 04/20/17 03/18/18 History traZODone HCL 150 mg PO HS 04/20/17 03/18/18 History Atenolol 25 mg PO DAILY 03/18/18 03/18/18 History Ibuprofen [Motrin] 800 mg PO TID 03/18/18 03/18/18 History Ranitidine HCl [Zantac] 300 mg PO DAILY 03/18/18 03/18/18 History metFORMIN HCL [Glucophage] 500 mg PO DAILY 03/18/18 03/18/18 History Allergies Allergy/AdvReac Type Severity Reaction Status Date / Time azithromycin [From Zithromax] Allergy Unknown Unknown Verified 03/18/18 23:22 cephalexin Allergy Unknown Unknown Verified 03/18/18 23:22 cyclobenzaprine HCl Allergy Unknown Unknown Verified 03/18/18 23:22 [From Flexeril] Penicillins Allergy Unknown Unknown Verified 03/18/18 23:22 pentazocine lactate Allergy Unknown Unknown Verified 03/18/18 23:22 [From Talwin] pseudoephedrine HCl Allergy Unknown Unknown Verified 03/18/18 23:22 [From Sudafed] Sulfa (Sulfonamide Allergy Unknown Unknown Verified 03/18/18 23:22 Antibiotics) adhesive AdvReac Unknown Unknown Verified 03/18/18 23:22 Physical Exam Vitals: Vital Signs Temp Pulse Pulse Resp BP BP Pulse Ox 03/19/18 09:08 97.4 F L 53 L 16 96/60 94 L 03/19/18 05:00 97.7 F 52 L 16 84/58 93 L 03/19/18 01:22 46 L 03/19/18 00:13 98.0 F 46 L 16 106/54 92 L 03/18/18 23:06 98 F 78 18 97/68 98 03/18/18 21:44 88 18 94/47 99 03/18/18 18:36 97.5 F L 53 L 18 101/58 100 Intake and Output 03/18/18 03/19/18 03/19/18 22:59 06:59 14:59 Other: Voiding Method Toilet Toilet Diaper Diaper Weight 90.718 kg GENERAL: The patient is alert and oriented x3, not in any acute distress. Well developed, well nourished. HEENT: Pupils are round and equally reacting to light. EOMI. No scleral icterus. No conjunctival pallor. Normocephalic, atraumatic. No pharyngeal erythema. No thyromegaly. CARDIOVASCULAR: S1 and S2 present. No murmurs, rubs, or gallops. PULMONARY: Chest is clear to auscultation, no wheezing or crackles. ABDOMEN: Soft, nontender, nondistended, normoactive bowel sounds. No palpable organomegaly. MUSCULOSKELETAL: No joint swelling or deformity. EXTREMITIES: No cyanosis, clubbing, or pedal edema. NEUROLOGICAL: Gross neurological examination did not reveal any focal deficits. SKIN: No rashes. Results CBC & Chem 7: 03/19/18 06:43 03/19/18 06:43 Labs: Abnormal Lab Results - Last 24 Hours (Table) 03/18/18 03/18/18 03/18/18 Range/Units 19:30 20:10 21:30 WBC 3.1 L (3.8-10.6) k/uL Hgb (11.4-16.0) gm/dL MCV 77.7 L (80.0-100.0) fL RDW 15.6 H (11.5-15.5) % Plt Count 65 L (150-450) k/uL Neutrophils # 1.1 L (1.3-7.7) k/uL Chloride 109 H (98-107) mmol/L BUN 18 H (7-17) mg/dL Urine Appearance Cloudy H (Clear) Urine Protein Trace H (Negative) Urine Blood Small H (Negative) Urine Nitrite Positive H (Negative) Ur Leukocyte Esterase Large H (Negative) Urine RBC 45 H (0-5) /hpf Urine WBC 116 H (0-5) /hpf Urine Bacteria Few H (None) /hpf Urine Mucus Rare H (None) /hpf 03/19/18 03/19/18 Range/Units 06:43 06:43 WBC 2.1 L (3.8-10.6) k/uL Hgb 11.1 L (11.4-16.0) gm/dL MCV 79.8 L (80.0-100.0) fL RDW (11.5-15.5) % Plt Count 64 L (150-450) k/uL Neutrophils # 0.8 L (1.3-7.7) k/uL Chloride 109 H (98-107) mmol/L BUN (7-17) mg/dL Urine Appearance (Clear) Urine Protein (Negative) Urine Blood (Negative) Urine Nitrite (Negative) Ur Leukocyte Esterase (Negative) Urine RBC (0-5) /hpf Urine WBC (0-5) /hpf Urine Bacteria (None) /hpf Urine Mucus (None) /hpf Thrombosis Risk Factor Assmnt - Choose All That Apply Each Factor Represents 1 point: Abnormal pulmonary function (COPD), Obesity ( BMI >25) Other Risk Factors: No Other congenital or acquired thrombophilia - If yes, enter type in comment: No Thrombosis Risk Factor Assessment Total Risk Factor Score: 2 Thrombosis Risk Factor Assessment Level: Low Risk Assessment and Plan Assessment: Urinary tract infection, Epigastric pain and tenderness low Blood pressure, improving Pancytopenia [place] medially with multiple retroperitoneal lymphadenopathy Right kidney stone History of coronary artery disease and History of leukemia History of solitary kidney since History of diabetes mellitus Essential hypertension Hyperlipidemia Chronic back pain Plan: This is a pleasant 62 years old female who presents with signs symptoms of abdominal pain and UTI. We'll continue with IV fluids, antibiotics. Pain management. We'll call gastrointestinal and surgical consult for abdominal pain. Also we'll ask for hematology/oncology team evaluation for pancytopenia with splenomegaly and lymphadenopathy.Labs and medication were reviewed.. Continue same treatment. Continue with symptomatic treatment. Resume home medication. Monitor lytes and vitals. DVT and GI prophylaxis. Further recommendations of the clinical course of the patient DVT prophylaxis: Subcutaneous heparin GI Prophylaxis: Pepcid PT/OT: Pending Prognosis is guarded
[2018-03-19] MEDS: SODIUM CHLORIDE 0.9% 1,000 ML IV SCH (12:03)
[2018-03-19 12:31] LABS: Glucose,Whole Blood 76 mg/dL (75-99)
[2018-03-19] MEDS: INSULIN ASPART (NovoLOG) 100 UNIT/ML VIAL SQ SCH ×3 (12:31→20:56)
[2018-03-19] MEDS: PANTOPRAZOLE 40 MG/10 ML VIAL IVP SCH ×2 (12:32→20:55)
[2018-03-19 14:26] LABS: ALT 28 U/L (9-52); AST 30 U/L (14-36); Albumin 3.2 g/dL (3.5-5.0); Alkaline Phosphatase 79 U/L (38-126); Anion Gap 5 mmol/L; Blood Urea Nitrogen 19 mg/dL (7-17); Calcium 8.3 mg/dL (8.4-10.2); Carbon Dioxide 24 mmol/L (22-30); Chloride 111 mmol/L (98-107); Glucose 88 mg/dL (74-99); Potassium 4.4 mmol/L (3.5-5.1); Sodium 140 mmol/L (137-145); Total Bilirubin 0.4 mg/dL (0.2-1.3); Total Protein 6.4 g/dL (6.3-8.2)
--- NOTE | 2018-03-19 17:07 | P.CONS ---
History of Present Illness - Reason for Consult Consult date: 03/19/18 Dilated hepatic ducts, abdominal pain Requesting physician: Tyron E Sheet - Chief Complaint Abdominal pain - History of Present Illness The patient is a 62-year-old female with a medical history significant for coronary artery disease, hypertension, hyperlipidemia and a solitary kidney who presented to the hospital with complaints of abdominal pain. The patient reports 4 days of epigastric pain and tenderness. She reports that the pain is above her umbilicus and diffuse in the upper abdomen described as sharp in quality and associated with worsening after any oral intake. The patient denies any nausea or vomiting in association with the pain. She is on daily therapy with ranitidine. She has also been taking ibuprofen 800 mg 3 times daily. She reports a remote history of EGD and colonoscopy approximately 5 years ago for which she is unsure of the results. On presentation to the hospital she was found to be pancytopenic with a WBC count of 2.1, hemoglobin 11.1, platelets 64, with a lipase 61 and amylase 53. Liver enzymes were significant for a alkaline phosphatase of 92, total bilirubin 0.6, AST 34 and ALT 36. The patient had a computed tomography scan of the abdomen performed in evaluation of her pain which was significant for splenomegaly, rectal peritoneal lymphadenopathy, findings suggestive of a mild proximal enteritis and new mild dilation of the extrahepatic biliary tract. Review of Systems REVIEW OF SYSTEMS: CONSTITUTIONAL: Denies any fevers, chills, weight change or fatigue. CARDIOVASCULAR: Denies any chest pain, palpitations high or low blood pressures RESPIRATORY: Denies any shortness of breath, hemoptysis or cough. GENITOURINARY: No dysuria or hematuria. MUSCULOSKELETAL: No weakness reported. SKIN: Denies any new rashes or lesions, jaundice or pallor. PSYCHIATRIC: Denies any depression or anxiety. NEUROLOGY: Denies headache, denies any new focal deficits. EARS/NOSE/THROAT: No recent hearing change, congestion, nasal discharge or sore throat. EYES: No pain in eyes, discharge or change in vision. GASTROINTESTINAL: As per HPI. Past Medical History Past Medical History: Coronary Artery Disease (CAD), Cancer, COPD, Diabetes Mellitus, Hyperlipidemia, Hypertension, Memory Impairment, Myocardial Infarction (SC), Osteoarthritis (OA) Additional Past Medical History / Comment(s): LEUKEMIA, DIVERTICULITIS, BORN WITH ONLY (1) KIDNEY, CHRONIC BACK PAIN , CLAUSTROPHOBIA, CLL, BACK SURGERY Last Myocardial Infarction Date:: UNKNOWN History of Any Multi-Drug Resistant Organisms: None Reported Past Surgical History: Appendectomy, Back Surgery, Cholecystectomy, Heart Catheterization With Stent, Hysterectomy, Tonsillectomy Additional Past Surgical History / Comment(s): CARPAL TUNNEL, FOOT SURGERY,pick at skin when anxious Past Anesthesia/Blood Transfusion Reactions: No Reported Reaction Date of Last Stent Placement:: UNKNOWN Past Psychological History: Anxiety, Depression Smoking Status: Former smoker Past Alcohol Use History: None Reported Past Drug Use History: None Reported - Past Family History Mother Family Medical History: Cancer Additional Family Medical History / Comment(s): UTERINE Medications and Allergies Home Medications Medication Instructions Recorded Confirmed Type FLUoxetine HCL [PROzac] 40 mg PO HS 01/24/14 03/18/18 History Multivitamins, Thera [Multivitamin 1 tab PO HS 01/24/14 03/18/18 History (formulary)] diphenhydrAMINE HCL [Benadryl] 25 mg PO HS 01/24/14 03/18/18 History ALPRAZolam [Xanax] 0.5 mg PO HS PRN 04/20/17 03/18/18 History Oxybutynin Chloride [Ditropan] 5 mg PO BID 04/20/17 03/18/18 History traZODone HCL 150 mg PO HS 04/20/17 03/18/18 History Atenolol 25 mg PO DAILY 03/18/18 03/18/18 History Ibuprofen [Motrin] 800 mg PO TID 03/18/18 03/18/18 History Ranitidine HCl [Zantac] 300 mg PO DAILY 03/18/18 03/18/18 History metFORMIN HCL [Glucophage] 500 mg PO DAILY 03/18/18 03/18/18 History Allergies Allergy/AdvReac Type Severity Reaction Status Date / Time azithromycin [From Zithromax] Allergy Unknown Unknown Verified 03/18/18 23:22 cephalexin Allergy Unknown Unknown Verified 03/18/18 23:22 cyclobenzaprine HCl Allergy Unknown Unknown Verified 03/18/18 23:22 [From Flexeril] Penicillins Allergy Unknown Unknown Verified 03/18/18 23:22 pentazocine lactate Allergy Unknown Unknown Verified 03/18/18 23:22 [From Talwin] pseudoephedrine HCl Allergy Unknown Unknown Verified 03/18/18 23:22 [From [facility]] Sulfa (Sulfonamide Allergy Unknown Unknown Verified 03/18/18 23:22 Antibiotics) adhesive AdvReac Unknown Unknown Verified 03/18/18 23:22 Physical Exam Vitals: Vital Signs Temp Pulse Pulse Resp BP BP Pulse Ox 03/19/18 12:17 97.7 F 48 L 16 104/57 94 L 03/19/18 09:08 97.4 F L 53 L 16 96/60 94 L 03/19/18 05:00 97.7 F 52 L 16 84/58 93 L 03/19/18 01:22 46 L 03/19/18 00:13 98.0 F 46 L 16 106/54 92 L 03/18/18 23:06 98 F 78 18 97/68 98 03/18/18 21:44 88 18 94/47 99 03/18/18 18:36 97.5 F L 53 L 18 101/58 100 Intake and Output 03/19/18 03/19/18 03/19/18 06:59 14:59 22:59 Other: Voiding Method Toilet Toilet Diaper Diaper # Voids 1 On physical examination, patient appears comfortable in no apparent distress. HEAD: Normocephalic, atraumatic. EYES: No scleral icterus. No conjunctival injection. MOUTH: No lesions, tongue midline. NECK: Trachea midline, no gross abnormalities. CHEST: Clear to auscultation with no wheezing or rhonchi appreciated. HEART: Regular rate and rhythm. ABDOMEN: Soft, obese. Bowel sounds are positive, moderately tender to palpation. No organomegaly. No guarding or rigidity. EXTREMITIES: No pedal edema. SKIN: No rashes, no jaundice. NEUROLOGIC: Alert and oriented x3. No focal deficits. Results CBC & Chem 7: 03/19/18 06:43 03/19/18 13:50 Labs: Abnormal Lab Results - Last 24 Hours (Table) 03/18/18 03/18/18 03/18/18 Range/Units 19:30 20:10 21:30 WBC 3.1 L (3.8-10.6) k/uL Hgb (11.4-16.0) gm/dL MCV 77.7 L (80.0-100.0) fL RDW 15.6 H (11.5-15.5) % Plt Count 65 L (150-450) k/uL Neutrophils # 1.1 L (1.3-7.7) k/uL Chloride 109 H (98-107) mmol/L BUN 18 H (7-17) mg/dL Calcium (8.4-10.2) mg/dL Albumin (3.5-5.0) g/dL Urine Appearance Cloudy H (Clear) Urine Protein Trace H (Negative) Urine Blood Small H (Negative) Urine Nitrite Positive H (Negative) Ur Leukocyte Esterase Large H (Negative) Urine RBC 45 H (0-5) /hpf Urine WBC 116 H (0-5) /hpf Urine Bacteria Few H (None) /hpf Urine Mucus Rare H (None) /hpf 03/19/18 03/19/18 03/19/18 Range/Units 06:43 06:43 13:50 WBC 2.1 L (3.8-10.6) k/uL Hgb 11.1 L (11.4-16.0) gm/dL MCV 79.8 L (80.0-100.0) fL RDW (11.5-15.5) % Plt Count 64 L (150-450) k/uL Neutrophils # 0.8 L (1.3-7.7) k/uL Chloride 109 H 111 H (98-107) mmol/L BUN 19 H (7-17) mg/dL Calcium 8.3 L (8.4-10.2) mg/dL Albumin 3.2 L (3.5-5.0) g/dL Urine Appearance (Clear) Urine Protein (Negative) Urine Blood (Negative) Urine Nitrite (Negative) Ur Leukocyte Esterase (Negative) Urine RBC (0-5) /hpf Urine WBC (0-5) /hpf Urine Bacteria (None) /hpf Urine Mucus (None) /hpf CT scan - abdomen: report reviewed (computed tomography scan of the abdomen performed in evaluation of her pain which was significant for splenomegaly, rectal peritoneal lymphadenopathy, findings suggestive of a mild proximal enteritis and new mild dilation of the extrahepatic biliary tract.) Assessment and Plan (1) Abdominal pain Narrative/Plan: Patient presenting with epigastric abdominal pain of 4 days' duration, with normal liver enzymes and lipase and amylase not indicative of pancreatitis. The patient did have a computed tomography scan which showed splenomegaly, retroperitoneal lymphadenopathy, mild proximal inflammation of the bowel suggestive of enteritis and new mild extrahepatic biliary dilation. The patient was taking Motrin 800 mg 3 times daily at home prior to presentation. Etiology may be secondary to erosive esophagitis/gastritis, peptic ulcer disease , gastroenteritis or other etiology. Current Visit: Yes Status: Acute Code(s): R10.9 - UNSPECIFIED ABDOMINAL PAIN SNOMED Code(s): 02955970 Plan: Supportive care Okay for diet Continue Protonix twice daily Continue to monitor CBC, CMP and liver enzymes Nothing by mouth after midnight Plan for EGD in the morning Thank you for allowing us to participate in the care of the patient we will continue
[2018-03-19 17:33] LABS: Glucose,Whole Blood 83 mg/dL (75-99)
--- NOTE | 2018-03-19 20:08 | P.CONS ---
History of Present Illness - Reason for Consult Consult date: 03/19/18 h/o CLL, Abdominal adenopathy, leucopenia - History of Present Illness This is a very nice lady who was diagnosed in with CLL when she presented with persistent lymphocytosis,had flowcytometry which confirmed the diagnosis. She has been on observation since then. her total wbc have been between 22-30K ,no associated anemia,thrombocytopenia, no systemic symptoms and no peripheral lymphadenopathies. The patient has generally been quite noncompliant with follow-up, missing multiple appointments. She was last seen in the office in early 2013 The patient came into the hospital this time, complaining of abdominal pain which she described as diffuse. On further questioning this appears to be more prominent in the epigastric and right upper abdomen, with radiation to the lower abdomen. She has had some associated nausea, and progressive decrease in appetite. Symptoms started about 3-4 days ago. She denied any fever or chills. In the emergency room, she was noted to have an abnormal urinalysis. We'll the abdomen and pelvis showed some prominent retroperitoneal nodes, which were noted to be without significant change from previous scan from 05/01. Labs showed low WBC 2000 range. Consult was placed for further evaluation and recommendation Review of Systems Constitutional: Reports poor appetite, Reports weakness, Reports weight loss Eyes: denies blurred vision, denies pain Ears: deny: decreased hearing, ear discharge, earache, tinnitus Ears, nose, mouth and throat: Denies headache, Denies sore throat Cardiovascular: Reports decreased exercise tolerance Respiratory: Denies cough Gastrointestinal: Reports abdominal pain, Reports loss of appetite, Reports nausea Genitourinary: Reports urinary frequency Menstruation: Reports postmenopausal Musculoskeletal: Reports muscle weakness Integumentary: Denies pruritus, Denies rash Neurological: Reports weakness Psychiatric: Reports change in appetite, Denies anxiety, Denies depression Endocrine: Reports fatigue, Reports weight change Hematologic/Lymphatic: Reports as per HPI Past Medical History Past Medical History: Coronary Artery Disease (CAD), Cancer, COPD, Diabetes Mellitus, Hyperlipidemia, Hypertension, Memory Impairment, Myocardial Infarction ([place]), Osteoarthritis (OA) Additional Past Medical History / Comment(s): LEUKEMIA, DIVERTICULITIS, BORN WITH ONLY (1) KIDNEY, CHRONIC BACK PAIN , CLAUSTROPHOBIA, CLL, BACK SURGERY Last Myocardial Infarction Date:: UNKNOWN History of Any Multi-Drug Resistant Organisms: None Reported Past Surgical History: Appendectomy, Back Surgery, Cholecystectomy, Heart Catheterization With Stent, Hysterectomy, Tonsillectomy Additional Past Surgical History / Comment(s): CARPAL TUNNEL, FOOT SURGERY,pick at skin when anxious Past Anesthesia/Blood Transfusion Reactions: No Reported Reaction Date of Last Stent Placement:: UNKNOWN Past Psychological History: Anxiety, Depression Smoking Status: Former smoker Past Alcohol Use History: None Reported Past Drug Use History: None Reported - Past Family History Mother Family Medical History: Cancer Additional Family Medical History / Comment(s): UTERINE Medications and Allergies Home Medications Medication Instructions Recorded Confirmed Type FLUoxetine HCL [PROzac] 40 mg PO HS 01/24/14 03/18/18 History Multivitamins, Thera [Multivitamin 1 tab PO HS 01/24/14 03/18/18 History (formulary)] diphenhydrAMINE HCL [Benadryl] 25 mg PO HS 01/24/14 03/18/18 History ALPRAZolam [Xanax] 0.5 mg PO HS PRN 04/20/17 03/18/18 History Oxybutynin Chloride [Ditropan] 5 mg PO BID 04/20/17 03/18/18 History traZODone HCL 150 mg PO HS 04/20/17 03/18/18 History Atenolol 25 mg PO DAILY 03/18/18 03/18/18 History Ibuprofen [Motrin] 800 mg PO TID 03/18/18 03/18/18 History Ranitidine HCl [Zantac] 300 mg PO DAILY 03/18/18 03/18/18 History metFORMIN HCL [Glucophage] 500 mg PO DAILY 03/18/18 03/18/18 History Allergies Allergy/AdvReac Type Severity Reaction Status Date / Time azithromycin [From Zithromax] Allergy Unknown Unknown Verified 03/18/18 23:22 cephalexin Allergy Unknown Unknown Verified 03/18/18 23:22 cyclobenzaprine HCl Allergy Unknown Unknown Verified 03/18/18 23:22 [From Flexeril] Penicillins Allergy Unknown Unknown Verified 03/18/18 23:22 pentazocine lactate Allergy Unknown Unknown Verified 03/18/18 23:22 [From Talwin] pseudoephedrine HCl Allergy Unknown Unknown Verified 03/18/18 23:22 [From Sudafed] Sulfa (Sulfonamide Allergy Unknown Unknown Verified 03/18/18 23:22 Antibiotics) adhesive AdvReac Unknown Unknown Verified 03/18/18 23:22 Physical Exam Vitals: Vital Signs Temp Pulse Pulse Resp BP BP Pulse Ox 03/19/18 12:17 97.7 F 48 L 16 104/57 94 L 03/19/18 09:08 97.4 F L 53 L 16 96/60 94 L 03/19/18 05:00 97.7 F 52 L 16 84/58 93 L 03/19/18 01:22 46 L 03/19/18 00:13 98.0 F 46 L 16 106/54 92 L 03/18/18 23:06 98 F 78 18 97/68 98 03/18/18 21:44 88 18 94/47 99 Intake and Output 03/19/18 03/19/18 03/19/18 06:59 14:59 22:59 Other: Voiding Method Toilet Toilet Toilet Diaper Diaper Diaper # Voids 1 1 - Constitutional General appearance: no acute distress - EENT Eyes: EOMI, PERRLA ENT: hearing grossly normal, normal oropharynx - Neck Neck: no lymphadenopathy Thyroid: bilateral: normal size - Respiratory Respiratory: bilateral: CTA - Cardiovascular Rhythm: regular Heart sounds: normal: S1, S2 - Gastrointestinal right costovertebral tenderness General gastrointestinal: normal bowel sounds, soft Localized gastrointestinal: tender: RUQ, RLQ, epigastric periumbilical - Integumentary Integumentary: normal - Neurologic Neurologic: CNII-XII intact - Musculoskeletal Musculoskeletal: generalized weakness, strength equal bilaterally - Psychiatric Psychiatric: A&O x's 3, appropriate affect Results CBC & Chem 7: 03/19/18 06:43 03/19/18 13:50 Labs: Abnormal Lab Results - Last 24 Hours (Table) 03/18/18 03/18/18 03/18/18 Range/Units 19:30 20:10 21:30 WBC 3.1 L (3.8-10.6) k/uL Hgb (11.4-16.0) gm/dL MCV 77.7 L (80.0-100.0) fL RDW 15.6 H (11.5-15.5) % Plt Count 65 L (150-450) k/uL Neutrophils # 1.1 L (1.3-7.7) k/uL Chloride 109 H (98-107) mmol/L BUN 18 H (7-17) mg/dL Calcium (8.4-10.2) mg/dL Albumin (3.5-5.0) g/dL Urine Appearance Cloudy H (Clear) Urine Protein Trace H (Negative) Urine Blood Small H (Negative) Urine Nitrite Positive H (Negative) Ur Leukocyte Esterase Large H (Negative) Urine RBC 45 H (0-5) /hpf Urine WBC 116 H (0-5) /hpf Urine Bacteria Few H (None) /hpf Urine Mucus Rare H (None) /hpf 03/19/18 03/19/18 03/19/18 Range/Units 06:43 06:43 13:50 WBC 2.1 L (3.8-10.6) k/uL Hgb 11.1 L (11.4-16.0) gm/dL MCV 79.8 L (80.0-100.0) fL RDW (11.5-15.5) % Plt Count 64 L (150-450) k/uL Neutrophils # 0.8 L (1.3-7.7) k/uL Chloride 109 H 111 H (98-107) mmol/L BUN 19 H (7-17) mg/dL Calcium 8.3 L (8.4-10.2) mg/dL Albumin 3.2 L (3.5-5.0) g/dL Urine Appearance (Clear) Urine Protein (Negative) Urine Blood (Negative) Urine Nitrite (Negative) Ur Leukocyte Esterase (Negative) Urine RBC (0-5) /hpf Urine WBC (0-5) /hpf Urine Bacteria (None) /hpf Urine Mucus (None) /hpf CT scan - abdomen: report reviewed CT scan - pelvis: report reviewed Assessment and Plan (1) Abdominal pain Narrative/Plan: At this time the clinical picture is not indicative of her underlying CLL being the cause of her pain. The patient's adenopathy is retroperitoneal and overall moderate. It is mentioned as overall similar to previous CAT scan from 05/01. In addition the onset of the pain was fairly acute. Therefore it is more likely that her pain is due to another cause, with UTI/ pyelonephritis being a possible differential given the abnormal UA. Therefore follow clinically with treatment of UTI. Current Visit: Yes Status: Acute Code(s): R10.9 - UNSPECIFIED ABDOMINAL PAIN SNOMED Code(s): 39602222 (2) CLL (chronic lymphocytic leukemia) Narrative/Plan: The patient has a long-standing history of CLL, initially diagnosed in 2005. She continues to have no palpable adenopathy. The retroperitoneal adenopathy may have been present previously, or may have developed since her initial diagnosis. In any case the abdominal adenopathy is unchanged. At this time likelihood of progression of her CLL appears to be low. Current Visit: Yes Status: Acute Code(s): C91.90 - LYMPHOID LEUKEMIA, UNSPECIFIED NOT HAVING ACHIEVED REMISSION SNOMED Code(s): 03244186 (3) Bicytopenia Narrative/Plan: WBC and platelets are lower than baseline. I suspect this is more likely due to infection. Counts are in a safe range. Continue to follow treatment of underlying infection Current Visit: Yes Status: Acute Code(s): D75.89 - OTHER SPECIFIED DISEASES OF BLOOD AND BLOOD-FORMING ORGANS SNOMED Code(s): 216638708
[2018-03-19 20:49] LABS: Glucose,Whole Blood 82 mg/dL (75-99)
--- NOTE | 2018-03-19 20:54 | P.GSCN ---
History of Present Illness Consult date: 03/19/18 History of present illness: 62 y/o female who has been experiencing mid epigastric pain and dysphagia for several days now. She states it is worse with solid food. Having normal BM and no NV. Tolerates liquids. She has history of appendectomy and cholecystectomy. She also has a history of lymphoma Past Medical History Past Medical History: Coronary Artery Disease (CAD), Cancer, COPD, Diabetes Mellitus, Hyperlipidemia, Hypertension, Memory Impairment, Myocardial Infarction ([place]), Osteoarthritis (OA) Additional Past Medical History / Comment(s): LEUKEMIA, DIVERTICULITIS, BORN WITH ONLY (1) KIDNEY, CHRONIC BACK PAIN , CLAUSTROPHOBIA, CLL, BACK SURGERY Last Myocardial Infarction Date:: UNKNOWN History of Any Multi-Drug Resistant Organisms: None Reported Past Surgical History: Appendectomy, Back Surgery, Cholecystectomy, Heart Catheterization With Stent, Hysterectomy, Tonsillectomy Additional Past Surgical History / Comment(s): CARPAL TUNNEL, FOOT SURGERY,pick at skin when anxious Past Anesthesia/Blood Transfusion Reactions: No Reported Reaction Date of Last Stent Placement:: UNKNOWN Past Psychological History: Anxiety, Depression Smoking Status: Former smoker Past Alcohol Use History: None Reported Past Drug Use History: None Reported - Past Family History Mother Family Medical History: Cancer Additional Family Medical History / Comment(s): UTERINE Medications and Allergies Home Medications Medication Instructions Recorded Confirmed Type FLUoxetine HCL [PROzac] 40 mg PO HS 01/24/14 03/18/18 History Multivitamins, Thera [Multivitamin 1 tab PO HS 01/24/14 03/18/18 History (formulary)] diphenhydrAMINE HCL [Benadryl] 25 mg PO HS 01/24/14 03/18/18 History ALPRAZolam [Xanax] 0.5 mg PO HS PRN 04/20/17 03/18/18 History Oxybutynin Chloride [Ditropan] 5 mg PO BID 04/20/17 03/18/18 History traZODone HCL 150 mg PO HS 04/20/17 03/18/18 History Atenolol 25 mg PO DAILY 03/18/18 03/18/18 History Ibuprofen [Motrin] 800 mg PO TID 03/18/18 03/18/18 History Ranitidine HCl [Zantac] 300 mg PO DAILY 03/18/18 03/18/18 History metFORMIN HCL [Glucophage] 500 mg PO DAILY 03/18/18 03/18/18 History Allergies Allergy/AdvReac Type Severity Reaction Status Date / Time azithromycin [From Zithromax] Allergy Unknown Unknown Verified 03/18/18 23:22 cephalexin Allergy Unknown Unknown Verified 03/18/18 23:22 cyclobenzaprine HCl Allergy Unknown Unknown Verified 03/18/18 23:22 [From Flexeril] Penicillins Allergy Unknown Unknown Verified 03/18/18 23:22 pentazocine lactate Allergy Unknown Unknown Verified 03/18/18 23:22 [From Talwin] pseudoephedrine HCl Allergy Unknown Unknown Verified 03/18/18 23:22 [From Sudafed] Sulfa (Sulfonamide Allergy Unknown Unknown Verified 03/18/18 23:22 Antibiotics) adhesive AdvReac Unknown Unknown Verified 03/18/18 23:22 Surgical - Exam Osteopathic Statement: *. No significant issues noted on an osteopathic structural exam other than those noted in the History and Physical/Consult. Vital Signs Temp Pulse Resp BP Pulse Ox 97.5 F L 53 L 18 101/58 100 03/18/18 18:36 03/18/18 18:36 03/18/18 18:36 03/18/18 18:36 03/18/18 18:36 - General no distress - Respiratory normal expansion, normal respiratory effort - Cardiovascular Rhythm: regular - Abdomen Abdomen: soft, non tender - Psychiatric oriented to time, oriented to person, oriented to place Results - Labs 03/19/18 06:43 03/19/18 13:50 Abnormal Lab Results - Last 24 Hours (Table) 03/18/18 03/18/18 03/19/18 Range/Units 20:10 21:30 06:43 WBC 3.1 L 2.1 L (3.8-10.6) k/uL Hgb 11.1 L (11.4-16.0) gm/dL MCV 77.7 L 79.8 L (80.0-100.0) fL RDW 15.6 H (11.5-15.5) % Plt Count 65 L 64 L (150-450) k/uL Neutrophils # 1.1 L 0.8 L (1.3-7.7) k/uL Chloride (98-107) mmol/L BUN (7-17) mg/dL Calcium (8.4-10.2) mg/dL Albumin (3.5-5.0) g/dL Urine Appearance Cloudy H (Clear) Urine Protein Trace H (Negative) Urine Blood Small H (Negative) Urine Nitrite Positive H (Negative) Ur Leukocyte Esterase Large H (Negative) Urine RBC 45 H (0-5) /hpf Urine WBC 116 H (0-5) /hpf Urine Bacteria Few H (None) /hpf Urine Mucus Rare H (None) /hpf 03/19/18 03/19/18 Range/Units 06:43 13:50 WBC (3.8-10.6) k/uL Hgb (11.4-16.0) gm/dL MCV (80.0-100.0) fL RDW (11.5-15.5) % Plt Count (150-450) k/uL Neutrophils # (1.3-7.7) k/uL Chloride 109 H 111 H (98-107) mmol/L BUN 19 H (7-17) mg/dL Calcium 8.3 L (8.4-10.2) mg/dL Albumin 3.2 L (3.5-5.0) g/dL Urine Appearance (Clear) Urine Protein (Negative) Urine Blood (Negative) Urine Nitrite (Negative) Ur Leukocyte Esterase (Negative) Urine RBC (0-5) /hpf Urine WBC (0-5) /hpf Urine Bacteria (None) /hpf Urine Mucus (None) /hpf Diabetes panel 03/19/18 03/19/18 Range/Units 06:43 13:50 Sodium 141 140 (137-145) mmol/L Potassium 4.7 4.4 (3.5-5.1) mmol/L Chloride 109 H 111 H (98-107) mmol/L Carbon Dioxide 29 24 (22-30) mmol/L BUN 17 19 H (7-17) mg/dL Creatinine 0.80 0.73 (0.52-1.04) mg/dL Glucose 74 88 (74-99) mg/dL Calcium 8.5 8.3 L (8.4-10.2) mg/dL AST 30 (14-36) U/L ALT 28 (9-52) U/L Alkaline Phosphatase 79 (38-126) U/L Total Protein 6.4 (6.3-8.2) g/dL Albumin 3.2 L (3.5-5.0) g/dL Calcium panel 03/19/18 03/19/18 Range/Units 06:43 13:50 Calcium 8.5 8.3 L (8.4-10.2) mg/dL Albumin 3.2 L (3.5-5.0) g/dL Pituitary panel 03/19/18 03/19/18 Range/Units 06:43 13:50 Sodium 141 140 (137-145) mmol/L Potassium 4.7 4.4 (3.5-5.1) mmol/L Chloride 109 H 111 H (98-107) mmol/L Carbon Dioxide 29 24 (22-30) mmol/L BUN 17 19 H (7-17) mg/dL Creatinine 0.80 0.73 (0.52-1.04) mg/dL Glucose 74 88 (74-99) mg/dL Calcium 8.5 8.3 L (8.4-10.2) mg/dL Adrenal panel 03/19/18 03/19/18 Range/Units 06:43 13:50 Sodium 141 140 (137-145) mmol/L Potassium 4.7 4.4 (3.5-5.1) mmol/L Chloride 109 H 111 H (98-107) mmol/L Carbon Dioxide 29 24 (22-30) mmol/L BUN 17 19 H (7-17) mg/dL Creatinine 0.80 0.73 (0.52-1.04) mg/dL Glucose 74 88 (74-99) mg/dL Calcium 8.5 8.3 L (8.4-10.2) mg/dL Total Bilirubin 0.4 (0.2-1.3) mg/dL AST 30 (14-36) U/L ALT 28 (9-52) U/L Alkaline Phosphatase 79 (38-126) U/L Total Protein 6.4 (6.3-8.2) g/dL Albumin 3.2 L (3.5-5.0) g/dL Assessment and Plan Assessment: Epigastric pain and dysphagia Plan: No plans for acute surgical intervention, cont. PPI, recommend GI evaluation. Heme onc following for lymphoma which is the likely cause of splenomegaly and lymphadenopathy seen on CT
[2018-03-19] MEDS: traZODone HCL 50 MG TAB PO SCH (20:55)
[2018-03-19] MEDS: LEVOFLOXACIN 750MG-D5W PMX 750 MG in DEXTROSE/WATER 1 150ML.BAG IVPB SCH (20:55)
[2018-03-19] MEDS: FLUoxetine HCL 20 MG CAP PO SCH (20:55)
[2018-03-19] MEDS: diphenhydrAMINE 25 MG CAP PO SCH (20:56)
[2018-03-20] MEDS: HYDROcodone/APAP 5-325MG 1 EACH TAB PO PRN ×3 (01:33→15:36)
[2018-03-20] MEDS: SODIUM CHLORIDE 0.9% 1,000 ML IV SCH ×3 (01:34→18:00)
[2018-03-20 06:56] LABS: Glucose,Whole Blood 79 mg/dL (75-99)
[2018-03-20 07:32] LABS: Basophils % (A) 1 %; Eosinophils # (A) 0.1 k/uL (0-0.7); Eosinophils % (A) 5 %; HCT 35.3 % (34.0-46.0); HGB 11.2 gm/dL (11.4-16.0); Hypochromasia Moderate; Lymphocytes # (A) 0.9 k/uL (1.0-4.8); Lymphocytes % (A) 44 %; MCH 25.3 pg (25.0-35.0); MCHC 31.6 g/dL (31.0-37.0); MCV 80.1 fL (80.0-100.0); Mean Platelet Volume 7.5; Monocytes # (A) 0.1 k/uL (0-1.0); Monocytes % (A) 5 %; Neutrophils # (A) 0.9 k/uL (1.3-7.7); Neutrophils % (A) 43 %; RBC 4.41 m/uL (3.80-5.40); RDW 15.2 % (11.5-15.5)
[2018-03-20 07:35] LABS: Platelet Count 76 k/uL (150-450)
[2018-03-20 07:49] LABS: Calcium 8.4 mg/dL (8.4-10.2); Potassium 4.4 mmol/L (3.5-5.1)
[2018-03-20] MEDS: INSULIN ASPART (NovoLOG) 100 UNIT/ML VIAL SQ SCH ×4 (08:26→20:27)
[2018-03-20] MEDS: HEPARIN SODIUM,PORCINE 5,000 UNIT/ML 1 ML VIAL SQ SCH ×2 (08:27→20:14)
[2018-03-20] MEDS: PANTOPRAZOLE 40 MG/10 ML VIAL IVP SCH ×2 (08:31→20:14)
[2018-03-20] MEDS ORDERED: PROPOFOL 10 MG/ML 20 ML VIAL IV ONE (09:57)
[2018-03-20] MEDS ORDERED: LIDOCAINE 1% INJ 10MG/ML (20 ML MDV) ONE (09:57)
[2018-03-20] MEDS ORDERED: IV FLUID CONTINUATION 1,000 ML IV ONE (09:58)
--- NOTE | 2018-03-20 10:27 | P.PCN ---
Date of Procedure: 03/20/18 Description of Procedure: BRIEF HISTORY: The patient is a 62-year-old female with a medical history significant for coronary artery disease, hypertension, hyperlipidemia and a solitary kidney who presented to the hospital with complaints of abdominal pain. The patient reports 4 days of epigastric pain and tenderness. She reports that the pain is above her umbilicus and diffuse in the upper abdomen described as sharp in quality and associated with worsening after any oral intake. The patient denies any nausea or vomiting in association with the pain. She is on daily therapy with ranitidine. She has also been taking ibuprofen 800 mg 3 times daily. She reports a remote history of EGD and colonoscopy approximately 5 years ago for which she is unsure of the results. On presentation to the hospital she was found to be pancytopenic with a WBC count of 2.1, hemoglobin 11.1, platelets 64, with a lipase 61 and amylase 53. Liver enzymes were significant for a alkaline phosphatase of 92, total bilirubin 0.6, AST 34 and ALT 36. The patient had a computed tomography scan of the abdomen performed in evaluation of her pain which was significant for splenomegaly, rectal peritoneal lymphadenopathy, findings suggestive of a mild proximal enteritis and new mild dilation of the extrahepatic biliary tract.. PROCEDURE PERFORMED: Esophagogastroduodenoscopy with biopsy. PREOPERATIVE DIAGNOSIS: Epigastric abdominal pain. ESTIMATED BLOOD LOSS: Minimal. IV sedation per anesthesia. PROCEDURE: After informed consent was obtained, the patient was brought into the endoscopy unit. IV sedation was administered by Anesthesia under continuous monitoring. Initially the Olympus GIF-190 video endoscope was inserted into the mouth. Esophagus intubated without any difficulty. It was gradually advanced into the stomach and duodenum and carefully examined. The bulb and the second part of the duodenum appeared normal. The scope at this time was withdrawn to the stomach, adequately insufflated with air, and upon careful examination, mucosa of the antrum, body, cardia and the fundus appeared grossly normal except for moderate scattered erythema and inflammation in the antrum and body suggestive of moderate gastritis which was biopsied. The scope was then withdrawn into the esophagus. The GE junction was located at 37 cm from the incisors. The esophagus appeared normal. There were no erosions or ulcerations seen and the patient tolerated the procedure well. IMPRESSION: 1. Moderate gastritis of the antrum and body, biopsied. RECOMMENDATIONS: The findings of this examination were discussed with the patient. Okay for diet. Continue Protonix twice daily. Will add Bentyl 10 mg 3 times a day as needed for dyspepsia. Await pathology from biopsies.
--- NOTE | 2018-03-20 10:57 | P.PN ---
Subjective 62 years old female with past medical history of coronary artery disease, leukemia, born with one kidney i.e. solitary kidney, diabetes mellitus, hypertension, hyperlipidemia, chronic back pain. Presents because of epigastric abdominal pain and tenderness since of 4 days duration. The pain is sharp radiating all over the abdomen as per patient get worse with eating to the degree patient was not eating and drinking for the last 4 days except for some sips of water. Patient denies nausea vomiting, she had normal bowel movement as per patient she denies fever, cough or dyspnea. However she has increased frequency of urination more than 3 times yesterday without dysuria. She has chronic back pain. Patient is afebrile however blood pressure was on the low side this morning 84/ 58 with heart rate 46, respiratory 16. She has low white cell count at 2.1, platelets 64, hemoglobin 11.1. Creatinine 0.8, rest of the CMP was unremarkable including not elevated liver enzymes. Urinalysis was suspicious for infection. Patient has CAT scan of the abdomen with contrast showing mildly dilated extrahepatic biliary tract, splenomegaly and multiple enlarged retroperitoneal lymph nodes, 10 mm right kidney calculus without hydronephrosis seen bilaterally 03/20/2018 Patient's still have epigastric abdominal pain and tenderness, which is worse with eating and that's what affected her abilitoy sky in the first place. Patient was kept nothing by mouth on she had EGD today showing moderate gastritis which were biopsy were taken and the result are pending. GI team recommended to keep the Protonix and advance diet as tolerated.. Patient did not have bowel movement for 2 days but she is not eating. Patient is passing a lot of gases. Also patient has been treated for her urinary tract infection and she is currently on Levaquin. She states she still have some dysuria and she went about 4 times yesterday for urination. CONSTITUTIONAL: No fever, no malaise, no fatigue. HEENT: No recent visual problems or hearing problems. Denied any sore throat. CARDIOVASCULAR: No orthopnea, PND, no palpitations, no syncope. PULMONARY: No shortness of breath, no cough, no hemoptysis. GASTROINTESTINAL: No diarrhea, no nausea, no vomiting, no abdominal pain. Normoactive bowel sounds. NEUROLOGICAL: No headaches, no weakness, no numbness. HEMATOLOGICAL: Denies any bleeding or petechiae. GENITOURINARY: Denies any burning micturition, frequency, or urgency. MUSCULOSKELETAL/RHEUMATOLOGICAL: Denies any joint pain, swelling, or any muscle pain. ENDOCRINE: Denies any polyuria or polydipsia. Metastases: Bentyl, Benadryl, Prozac, heparin, [place], insulin, levofloxacin, Protonix, trazodone. Objective - Vital Signs Vital signs: Vital Signs Temp 97.4 F L 03/20/18 06:08 Pulse 52 L 03/20/18 06:08 Resp 16 03/20/18 06:08 BP 121/78 03/20/18 06:08 Pulse Ox 94 L 03/20/18 06:08 Intake & Output 03/19/18 03/20/18 03/20/18 18:59 06:59 18:59 Intake Total 1150 100 Balance 1150 100 Intake: IV 100 Intake, IV Titration 1150 Amount Sodium Chloride 0.9% 1, 1150 000 ml @ 100 mls/hr IV . Q10H [facility] Rx#:[id number] Other: Voiding Method Toilet Bedside Commode Diaper Diaper # Voids 1 1 - Exam GENERAL: The patient is alert and oriented x3, not in any acute distress. Well developed, well nourished. HEENT: Pupils are round and equally reacting to light. EOMI. No scleral icterus. No conjunctival pallor. Normocephalic, atraumatic. No pharyngeal erythema. No thyromegaly. CARDIOVASCULAR: S1 and S2 present. No murmurs, rubs, or gallops. PULMONARY: Chest is clear to auscultation, no wheezing or crackles. -ABDOMEN: Soft, epigastric tenderness, no rebound tenderness nondistended, normoactive bowel sounds. No palpable organomegaly. MUSCULOSKELETAL: No joint swelling or deformity. EXTREMITIES: No cyanosis, clubbing, or pedal edema. NEUROLOGICAL: Gross neurological examination did not reveal any focal deficits. SKIN: No rashes. - Labs CBC & Chem 7: 03/20/18 06:33 03/20/18 06:33 Labs: Abnormal Lab Results - Last 24 Hours (Table) 03/19/18 03/20/18 03/20/18 Range/Units 13:50 06:33 06:33 WBC 2.0 L (3.8-10.6) k/uL Hgb 11.2 L (11.4-16.0) gm/dL Plt Count 76 L (150-450) k/uL Neutrophils # 0.9 L (1.3-7.7) k/uL Lymphocytes # 0.9 L (1.0-4.8) k/uL Chloride 111 H 111 H (98-107) mmol/L BUN 19 H (7-17) mg/dL Glucose 71 L (74-99) mg/dL Calcium 8.3 L (8.4-10.2) mg/dL Albumin 3.2 L (3.5-5.0) g/dL Microbiology - Last 24 Hours (Table) 03/18/18 19:30 Blood Culture - Preliminary Blood No Growth after 24 hours Assessment and Plan Assessment: Urinary tract infection, Epigastric pain and tenderness, mostly related to gastritis low Blood pressure, improved Pancytopenia [place] medially with multiple retroperitoneal lymphadenopathy Right kidney stone History of coronary artery disease and History of leukemia History of solitary kidney since History of diabetes mellitus Essential hypertension Hyperlipidemia Chronic back pain Plan: This is a pleasant 62 years old female who presents with signs symptoms of abdominal pain and UTI. We'll continue with IV fluids, antibiotics. Pain management. We'll call gastrointestinal and surgical consult for abdominal pain. Also we'll ask for hematology/oncology team evaluation for pancytopenia with splenomegaly and lymphadenopathy.Labs and medication were reviewed.. Continue same treatment. Continue with symptomatic treatment. Resume home medication. Monitor lytes and vitals. DVT and GI prophylaxis. Further recommendations of the clinical course of the patient DVT prophylaxis: Subcutaneous heparin GI Prophylaxis: Pepcid PT/OT: Pending Prognosis is guarded
[2018-03-20 11:16] LABS: Glucose,Whole Blood 75 mg/dL (75-99)
[2018-03-20 11:57] LABS: Hemoglobin A1C 5.4 % (4.0-6.0)
--- NOTE | 2018-03-20 16:39 | P.PN ---
Subjective Progress Note Date: 03/20/18 Patient had EGD today, she is still complaining of some mild epigastric pain. No NV no FC Objective - Vital Signs Vital signs: Vital Signs Temp 97.8 F 03/20/18 11:25 Pulse 50 L 03/20/18 11:25 Resp 18 03/20/18 11:25 BP 118/77 03/20/18 11:25 Pulse Ox 98 03/20/18 11:25 Intake & Output 03/19/18 03/20/18 03/20/18 18:59 06:59 18:59 Intake Total 1150 100 Balance 1150 100 Intake: IV 100 Intake, IV Titration 1150 Amount Sodium Chloride 0.9% 1, 1150 000 ml @ 100 mls/hr IV . Q10H [facility] Rx#:[id number] Other: Voiding Method Toilet Bedside Commode Bedside Commode Diaper Diaper Diaper # Voids 1 1 1 # Bowel Movements 1 - Constitutional General appearance: Present: cooperative - Respiratory Details: nonlabored - Cardiovascular Rhythm: regular - Gastrointestinal Gastrointestinal Comment(s): S/NT/ND - Labs CBC & Chem 7: 03/20/18 06:33 03/20/18 06:33 Labs: Abnormal Lab Results - Last 24 Hours (Table) 03/20/18 03/20/18 Range/Units 06:33 06:33 WBC 2.0 L (3.8-10.6) k/uL Hgb 11.2 L (11.4-16.0) gm/dL Plt Count 76 L (150-450) k/uL Neutrophils # 0.9 L (1.3-7.7) k/uL Lymphocytes # 0.9 L (1.0-4.8) k/uL Chloride 111 H (98-107) mmol/L Glucose 71 L (74-99) mg/dL Microbiology - Last 24 Hours (Table) 03/18/18 19:30 Blood Culture - Preliminary Blood No Growth after 24 hours Assessment and Plan Assessment: gastritis Plan: No plans for surgical intervention. Continue PPI and follow up with GI. Thank you for involving me in the patients care
[2018-03-20 16:53] LABS: Glucose,Whole Blood 75 mg/dL (75-99)
[2018-03-20] MEDS: DICYCLOMINE 10 MG CAP PO PRN (18:01)
[2018-03-20] MEDS: FLUoxetine HCL 20 MG CAP PO SCH (20:13)
[2018-03-20] MEDS: traZODone HCL 50 MG TAB PO SCH (20:14)
[2018-03-20] MEDS: diphenhydrAMINE 25 MG CAP PO SCH (20:14)
[2018-03-20] MEDS: LEVOFLOXACIN 750MG-D5W PMX 750 MG in DEXTROSE/WATER 1 150ML.BAG IVPB SCH (20:15)
[2018-03-20 20:39] LABS: Glucose,Whole Blood 78 mg/dL (75-99)
[2018-03-21] MEDS: HYDROcodone/APAP 5-325MG 1 EACH TAB PO PRN (00:39)
[2018-03-21] MEDS: DICYCLOMINE 10 MG CAP PO PRN ×2 (01:20→19:47)
[2018-03-21 07:00] LABS: Glucose,Whole Blood 79 mg/dL (75-99)
[2018-03-21] MEDS: INSULIN ASPART (NovoLOG) 100 UNIT/ML VIAL SQ SCH ×4 (07:08→22:22)
[2018-03-21] MEDS: HEPARIN SODIUM,PORCINE 5,000 UNIT/ML 1 ML VIAL SQ SCH ×2 (07:46→22:31)
[2018-03-21] MEDS: PANTOPRAZOLE 40 MG/10 ML VIAL IVP SCH (07:46)
[2018-03-21] MEDS: SODIUM CHLORIDE 0.9% 1,000 ML IV SCH ×3 (07:49→19:15)
--- NOTE | 2018-03-21 10:08 | P.PN ---
Subjective Progress Note Date: 03/21/18 Status Post EGD 03/20/18 - Moderate gastritis of the antrum and body, biopsied. Objective - Vital Signs Vital signs: Vital Signs Temp 97.8 F 03/21/18 04:51 Pulse 60 03/21/18 04:51 Resp 16 03/21/18 04:51 BP 135/77 03/21/18 04:51 Pulse Ox 96 03/21/18 04:51 Intake & Output 03/20/18 03/21/18 03/21/18 18:59 06:59 18:59 Intake Total 100 880 Balance 100 880 Intake: IV 100 Intake, IV Titration 400 Amount Levofloxacin 750Mg-D5w 150 Pmx 750 mg In Dextrose/ Water 1 150ml.bag @ 100 mls/hr IVPB HS [facility] Rx#: [id number] Sodium Chloride 0.9% 1, 250 000 ml @ 100 mls/hr IV . Q10H [facility] Rx#:[id number] Oral 480 Other: Voiding Method Bedside Commode Bedside Commode Bedside Commode Diaper Diaper Diaper # Voids 1 2 # Bowel Movements 1 - Exam - Constitutional General appearance: no acute distress - EENT Eyes: EOMI, PERRLA ENT: hearing grossly normal, normal oropharynx - Neck Neck: no lymphadenopathy Thyroid: bilateral: normal size - Respiratory Respiratory: bilateral: CTA - Cardiovascular Rhythm: regular Heart sounds: normal: S1, S2 - Gastrointestinal right costovertebral tenderness General gastrointestinal: normal bowel sounds, soft Localized gastrointestinal: tender: RUQ, RLQ, epigastric periumbilical - Integumentary Integumentary: normal - Neurologic Neurologic: CNII-XII intact - Musculoskeletal Musculoskeletal: generalized weakness, strength equal bilaterally - Psychiatric Psychiatric: A&O x's 3, appropriate affect - Labs CBC & Chem 7: 03/20/18 06:33 03/20/18 06:33 Labs: Microbiology - Last 24 Hours (Table) 03/18/18 19:30 Blood Culture - Preliminary Blood No Growth after 48 hours Assessment and Plan Plan: CT scan - abdomen: report reviewed CT scan - pelvis: report reviewed Assessment and Plan (1) Abdominal pain - Adenopathy on CT not significant change from previous scans - Pain Onset more acute which likely represents a more acute scenario - Status Post EGD with Biopsy, await Path - [facility]. (2) CLL (chronic lymphocytic leukemia) - Original Diagnosis 2005 - No palpable adenopathy. - The retroperitoneal adenopathy may have been present previously, or may have developed since her initial diagnosis. In any case the abdominal adenopathy is unchanged. At this time likelihood of progression of her CLL appears to be low. (3) Bicytopenia - WBC and platelets are lower than baseline. - Secondary to infection. - No intervention needed for cytopenias at this time as in safe range
[2018-03-21 11:02] LABS: Glucose,Whole Blood 76 mg/dL (75-99)
[2018-03-21 11:42] LABS: Basophils % (A) 0 %; Eosinophils % (A) 2 %; HCT 35.2 % (34.0-46.0); HGB 10.8 gm/dL (11.4-16.0); Hypochromasia Moderate; Lymphocytes % (A) 46 %; MCHC 30.6 g/dL (31.0-37.0); MCV 81.8 fL (80.0-100.0); Mean Platelet Volume 8.2; Monocytes # (A) 0.2 k/uL (0-1.0); Monocytes % (A) 9 %; Neutrophils # (A) 0.8 k/uL (1.3-7.7); Neutrophils % (A) 40 %; RBC 4.31 m/uL (3.80-5.40); RDW 15.6 % (11.5-15.5); WBC 2.1 k/uL (3.8-10.6)
[2018-03-21 12:05] LABS: Platelet Count 55 k/uL (150-450)
[2018-03-21 12:30] LABS: Poikilocytosis (M) Present
[2018-03-21] MEDS: ONDANSETRON 4 MG/2 ML VIAL IVP PRN ×2 (14:35→19:47)
[2018-03-21 17:12] LABS: Glucose,Whole Blood 71 mg/dL (75-99)
[2018-03-21] MEDS: PANTOPRAZOLE 40 MG TABLET PO SCH (17:34)
[2018-03-21 20:13] LABS: Glucose,Whole Blood 102 mg/dL (75-99)
[2018-03-21] MEDS ORDERED: DICYCLOMINE 10 MG CAP PO PRN (20:43)
[2018-03-21] MEDS ORDERED: ALPRAZolam 0.5 MG TAB PO SCH (21:45)
[2018-03-21] MEDS: FLUoxetine HCL 20 MG CAP PO SCH (22:23)
[2018-03-21] MEDS: diphenhydrAMINE 25 MG CAP PO SCH (22:24)
[2018-03-21] MEDS: traZODone HCL 50 MG TAB PO SCH (22:24)
--- NOTE | 2018-03-22 00:24 | P.PN ---
Subjective Progress Note Date: 03/21/18 Principal diagnosis: Moderate gastritis 62 years old female with past medical history of coronary artery disease, leukemia, born with one kidney i.e. solitary kidney, diabetes mellitus, hypertension, hyperlipidemia, chronic back pain. Presents because of epigastric abdominal pain and tenderness since of 4 days duration. The pain is sharp radiating all over the abdomen as per patient get worse with eating to the degree patient was not eating and drinking for the last 4 days except for some sips of water. Patient denies nausea vomiting, she had normal bowel movement as per patient she denies fever, cough or dyspnea. However she has increased frequency of urination more than 3 times yesterday without dysuria. She has chronic back pain. Patient is afebrile however blood pressure was on the low side this morning 84/ 58 with heart rate 46, respiratory 16. She has low white cell count at 2.1, platelets 64, hemoglobin 11.1. Creatinine 0.8, rest of the CMP was unremarkable including not elevated liver enzymes. Urinalysis was suspicious for infection. Patient has CAT scan of the abdomen with contrast showing mildly dilated extrahepatic biliary tract, splenomegaly and multiple enlarged retroperitoneal lymph nodes, 10 mm right kidney calculus without hydronephrosis seen bilaterally 03/20/2018 Patient's still have epigastric abdominal pain and tenderness, which is worse with eating and that's what affected her abilitoy sky in the first place. Patient was kept nothing by mouth on she had EGD today showing moderate gastritis which were biopsy were taken and the result are pending. GI team recommended to keep the Protonix and advance diet as tolerated.. Patient did not have bowel movement for 2 days but she is not eating. Patient is passing a lot of gases. Also patient has been treated for her urinary tract infection and she is currently on Levaquin. She states she still have some dysuria and she went about 4 times yesterday for urination. 03/21/2018 Patient had EGD done yesterday showed moderate gastritis. Pathology report is pending at this time. Continue with Protonix twice a day. Abdominal pain is much improved today. Patient was started on diet and advance as tolerated. Patient also being treated for urinary tract infection with Levaquin. No fever no chills. No other acute overnight issues. Current medications reviewed. Objective - Vital Signs Vital signs: Vital Signs Temp 97.8 F 03/21/18 11:10 Pulse 51 L 03/21/18 11:10 Resp 20 03/21/18 11:10 BP 122/73 03/21/18 11:10 Pulse Ox 96 03/21/18 11:10 Intake & Output 03/20/18 03/21/18 03/21/18 18:59 06:59 18:59 Intake Total 100 880 Balance 100 880 Intake: IV 100 Intake, IV Titration 400 Amount Levofloxacin 750Mg-D5w 150 Pmx 750 mg In Dextrose/ Water 1 150ml.bag @ 100 mls/hr IVPB HS [facility] Rx#: [id number] Sodium Chloride 0.9% 1, 250 000 ml @ 100 mls/hr IV . Q10H [facility] Rx#:[id number] Oral 480 Other: Voiding Method Bedside Commode Bedside Commode Bedside Commode Diaper Diaper Diaper # Voids 1 2 2 # Bowel Movements 1 - Exam PHYSICAL EXAMINATION: Patient is lying in the bed comfortably, no acute distress, awake alert and oriented.. HEENT: Normocephalic. Neck is supple. Pupils reactive. Nostrils clear. Oral cavity is moist. Ears reveal no drainage. Neck reveals no JVD, carotid bruits, or thyromegaly. CHEST EXAMINATION: Trachea is central. Symmetrical expansion. Lung silver clear to auscultation and percussion. CARDIAC: Normal S1, S2 with no gallops. No murmurs ABDOMEN: Soft. Bowel sounds normal. No organomegaly. No abdominal bruits. Extremities: reveal no edema. No clubbing or cyanosis Neurologically awake, alert, oriented x3 with well-coordinated movements. No focal deficits noted Skin: No rash or skin lesions. Psychiatric: Coperative. Nonsuicidal Musculoskeletal: No joint swelling or deformity. Normal range of motion. - Labs CBC & Chem 7: 03/21/18 11:18 03/20/18 06:33 Labs: Abnormal Lab Results - Last 24 Hours (Table) 03/21/18 Range/Units 11:18 WBC 2.1 L (3.8-10.6) k/uL Hgb 10.8 L (11.4-16.0) gm/dL MCHC 30.6 L (31.0-37.0) g/dL RDW 15.6 H (11.5-15.5) % Plt Count 55 L (150-450) k/uL Neutrophils # 0.8 L (1.3-7.7) k/uL Microbiology - Last 24 Hours (Table) 03/18/18 19:30 Blood Culture - Preliminary Blood No Growth after 48 hours Assessment and Plan Assessment: Acute Urinary tract infection, Epigastric pain and tenderness, mostly related to moderate antral gastritis. Status post EGD. low Blood pressure, improved Pancytopenia Suplena medially with multiple retroperitoneal lymphadenopathy Right kidney stone History of coronary artery disease and History of leukemia History of solitary kidney since History of diabetes mellitus Essential hypertension Hyperlipidemia Chronic back pain Plan: This is a pleasant 62 years old female who presents with signs symptoms of abdominal pain and UTI. We'll continue with IV fluids, antibiotics. Pain management. gastrointestinal and surgical consult for abdominal pain. Also we' ll ask for hematology/oncology team evaluation for pancytopenia with splenomegaly and lymphadenopathy.Labs and medication were reviewed.. Continue same treatment. Continue with symptomatic treatment. Resume home medication. Monitor lytes and vitals. DVT and GI prophylaxis. Further recommendations of the clinical course of the patient DVT prophylaxis: Subcutaneous heparin GI Prophylaxis: Pepcid PT/OT: Pending Prognosis is guarded Time with Patient: Greater than 30
[2018-03-22 06:11] VITALS: RESP 18
[2018-03-22] MEDS: SODIUM CHLORIDE 0.9% 1,000 ML IV SCH ×2 (06:23→13:39)
[2018-03-22 06:58] LABS: Glucose,Whole Blood 89 mg/dL (75-99)
[2018-03-22] MEDS: INSULIN ASPART (NovoLOG) 100 UNIT/ML VIAL SQ SCH ×2 (07:06→11:31)
[2018-03-22 07:57] LABS: HCT 33.4 % (34.0-46.0); Hypochromasia Slight; MCH 25.7 pg (25.0-35.0); MCHC 32.8 g/dL (31.0-37.0); MCV 78.4 fL (80.0-100.0); Mean Platelet Volume 7.6; Platelet Count 71 k/uL (150-450); RBC 4.26 m/uL (3.80-5.40); RDW 15.3 % (11.5-15.5); WBC 1.6 k/uL (3.8-10.6)
[2018-03-22 08:03] LABS: Calcium 8.2 mg/dL (8.4-10.2); Potassium 3.8 mmol/L (3.5-5.1)
[2018-03-22] MEDS: HEPARIN SODIUM,PORCINE 5,000 UNIT/ML 1 ML VIAL SQ SCH (08:37)
[2018-03-22] MEDS: PANTOPRAZOLE 40 MG TABLET PO SCH (08:37)
[2018-03-22 10:47] LABS: Eosinophils # (M) 0.05 k/uL (0-0.7); Lymphocytes # (M) 0.78 k/uL (1.0-4.8); Monocytes # (M) 0.13 k/uL (0-1.0); Neutrophils # (M) 0.64 k/uL (1.3-7.7); Neutrophils % (M) 40 %; Nucleated Red Blood Cells 0 /100 WBC (0-0); Total Cells Counted 100
[2018-03-22 10:50] LABS: Anisocytosis (M) Present; Poikilocytosis (M) Present
[2018-03-22 11:31] LABS: Glucose,Whole Blood 96 mg/dL (75-99)
[2018-03-22 11:59] VITALS: BP 115/70; PULSE 52; TEMP 98.3
[2018-03-22] MEDS: ONDANSETRON 4 MG/2 ML VIAL IVP PRN (13:39)
--- NOTE | 2018-03-22 14:34 | P.PN ---
Subjective Progress Note Date: 03/22/18 Principal diagnosis: Epigastric pain Abdominal pain improved. Tolerating light diet. Hemoglobin 11. Status post EGD findings of gastritis biopsies pending. Objective - Vital Signs Vital signs: Vital Signs Temp 98.3 F 03/22/18 11:58 Pulse 52 L 03/22/18 11:58 Resp 18 03/22/18 11:58 BP 115/70 03/22/18 11:58 Pulse Ox 95 03/22/18 11:58 Intake & Output 03/21/18 03/22/18 03/22/18 18:59 06:59 18:59 Intake Total 1250 800 Balance 1250 800 Intake: Intake, IV Titration 900 800 Amount Sodium Chloride 0.9% 1, 900 800 000 ml @ 100 mls/hr IV . Q10H [facility] Rx#:[id number] Oral 350 Other: Voiding Method Bedside Commode Bedside Commode Bedside Commode Diaper # Voids 2 1 - Exam General appearance: The patient is alert, oriented, in no acute distress. HET: Head is normocephalic and atraumatic. Pupils are equal and reactive. Oropharynx is clear without lesions. Neck: Supple without lymphadenopathy. Trachea midline. Heart: S1 S2. Regular rate and rhythm. Lungs: No crackles or wheezes are heard. Abdomen: Soft, nontender, nondistended with bowel sounds. No peritoneal signs. No palpable organomegaly or masses. Extremities: Normal skin color and turgor. No cyanosis, rash, ulceration, clubbing, or edema. Radial and pedal pulses are 2/4 bilaterally. Neurological: No focal deficits. Strength and sensation are grossly intact. - Labs CBC & Chem 7: 03/22/18 07:30 03/22/18 07:30 Labs: Abnormal Lab Results - Last 24 Hours (Table) 03/21/18 03/21/18 03/22/18 Range/Units 17:10 20:11 07:30 WBC 1.6 L (3.8-10.6) k/uL Hgb 11.0 L (11.4-16.0) gm/dL Hct 33.4 L (34.0-46.0) % MCV 78.4 L (80.0-100.0) fL Plt Count 71 L (150-450) k/uL Neutrophils # (Manual) 0.64 L (1.3-7.7) k/uL Lymphocytes # (Manual) 0.78 L (1.0-4.8) k/uL Chloride (98-107) mmol/L POC Glucose (mg/dL) 71 L 102 H (75-99) mg/dL Calcium (8.4-10.2) mg/dL 03/22/18 Range/Units 07:30 WBC (3.8-10.6) k/uL Hgb (11.4-16.0) gm/dL Hct (34.0-46.0) % MCV (80.0-100.0) fL Plt Count (150-450) k/uL Neutrophils # (Manual) (1.3-7.7) k/uL Lymphocytes # (Manual) (1.0-4.8) k/uL Chloride 111 H (98-107) mmol/L POC Glucose (mg/dL) (75-99) mg/dL Calcium 8.2 L (8.4-10.2) mg/dL Microbiology - Last 24 Hours (Table) 03/18/18 19:30 Blood Culture - Preliminary Blood No Growth after 72 hours Assessment and Plan (1) Epigastric abdominal pain Narrative/Plan: Status post EGD gastritis biopsies pending. Abdominal pain improved. Current Visit: Yes Status: Acute Code(s): R10.13 - EPIGASTRIC PAIN SNOMED Code(s): 27382795 Plan: 1. Light diet as tolerated. Agreeable for discharge. Follow up in GI office in 2 weeks. Assessment and plan a care discussed with Dr. Foss
--- NOTE | 2018-03-22 16:03 | P.PN ---
Subjective Progress Note Date: 03/22/18 Principal diagnosis: Hx of untreated CLL In f/u today pt has no acute or ongoing physical c/o, no fever, vomiting, diarrhea or bleeding, mild to moderate weakness Objective - Vital Signs Vital signs: Vital Signs Temp 98.3 F 03/22/18 11:58 Pulse 52 L 03/22/18 11:58 Resp 18 03/22/18 11:58 BP 115/70 03/22/18 11:58 Pulse Ox 95 03/22/18 11:58 Intake & Output 03/21/18 03/22/18 03/22/18 18:59 06:59 18:59 Intake Total 1250 800 Balance 1250 800 Intake: Intake, IV Titration 900 800 Amount Sodium Chloride 0.9% 1, 900 800 000 ml @ 100 mls/hr IV . Q10H [facility] Rx#:[id number] Oral 350 Other: Voiding Method Bedside Commode Bedside Commode Bedside Commode Diaper # Voids 2 1 - Constitutional General appearance: Present: cooperative, no acute distress, obese - EENT Eyes: Present: anicteric sclerae, EOMI ENT: Present: hearing grossly normal - Respiratory Respiratory: bilateral: CTA - Cardiovascular Heart sounds: normal: S1, S2 - Peripheral edema leg Peripheral Edema: bilateral: None - Gastrointestinal General gastrointestinal: Present: normal bowel sounds, soft - Integumentary Integumentary: Present: normal turgor - Neurologic Neurologic: Present: CNII-XII intact - Musculoskeletal Musculoskeletal: Present: strength equal bilaterally - Psychiatric Psychiatric: Present: A&O x's 3, appropriate affect - Labs CBC & Chem 7: 03/22/18 07:30 03/22/18 07:30 Labs: Abnormal Lab Results - Last 24 Hours (Table) 03/21/18 03/21/18 03/22/18 Range/Units 17:10 20:11 07:30 WBC 1.6 L (3.8-10.6) k/uL Hgb 11.0 L (11.4-16.0) gm/dL Hct 33.4 L (34.0-46.0) % MCV 78.4 L (80.0-100.0) fL Plt Count 71 L (150-450) k/uL Neutrophils # (Manual) 0.64 L (1.3-7.7) k/uL Lymphocytes # (Manual) 0.78 L (1.0-4.8) k/uL Chloride (98-107) mmol/L POC Glucose (mg/dL) 71 L 102 H (75-99) mg/dL Calcium (8.4-10.2) mg/dL 03/22/18 Range/Units 07:30 WBC (3.8-10.6) k/uL Hgb (11.4-16.0) gm/dL Hct (34.0-46.0) % MCV (80.0-100.0) fL Plt Count (150-450) k/uL Neutrophils # (Manual) (1.3-7.7) k/uL Lymphocytes # (Manual) (1.0-4.8) k/uL Chloride 111 H (98-107) mmol/L POC Glucose (mg/dL) (75-99) mg/dL Calcium 8.2 L (8.4-10.2) mg/dL Microbiology - Last 24 Hours (Table) 03/18/18 19:30 Blood Culture - Preliminary Blood No Growth after 72 hours Assessment and Plan (1) Bicytopenia Current Visit: Yes Status: Acute Priority: Medium Code(s): D75.89 - OTHER SPECIFIED DISEASES OF BLOOD AND BLOOD-FORMING ORGANS SNOMED Code(s): 830982223 (2) CLL (chronic lymphocytic leukemia) Current Visit: Yes Status: Chronic Priority: Medium Code(s): C91.90 - LYMPHOID LEUKEMIA, UNSPECIFIED NOT HAVING ACHIEVED REMISSION SNOMED Code(s): 07085442 Plan: Pt has not required treatment of her CLL in the past. Pt does not follow up regularly with Dr. Varghese. When pt is acutely ill her counts do drop. They recover as she recovers. We have been monitoring her CBC. No intervention for Hgb. Platelets are at her baseline-at least since 2018, no intervention. Will add GCSF if ANC falls below 200 (did speak to lab about daily differential) Encouraged pt to make sure that she has her CBC checked once discharged if her counts are not back at baseline until resolution. She needs to f/u with Dr. Varghese if her counts persistently stay low. Note made in DC summary to have CBC checked
[2018-03-22] MEDS ORDERED: LEVOFLOXACIN 750 MG TAB PO SCH ×2 (21:00)
--- NOTE | 2018-03-24 10:25 | P.DS ---
Providers Date of admission: 03/18/18 23:05 Expected date of discharge: 03/22/18 Attending physician: Fabby Coleman Consults: 03/19/18 11:32 Consult Physician Urgent Consulting Provider: Quincy Varghese Consult Reason/Comments: retroperitoneal LAP , SM, h/o leukemia/lymphoma Do you want consulting provider notified?: Yes 03/19/18 11:48 Consult Physician Urgent Consulting Provider: Eric Johnson Consult Reason/Comments: abdominal pain with epigastric tenderness Do you want consulting provider notified?: Yes Primary care physician: Radha Ham Hospital Course: Discharge diagnosis Epigastric pain and tenderness, mostly related to moderate antral gastritis. Status post EGD. Acute Urinary tract infection, . Completed antibiotic course. low Blood pressure, improved Pancytopenia Splenomegaly with multiple retroperitoneal lymphadenopathy. Oncology follow-up. 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 Presents because of epigastric abdominal pain and tenderness since of 4 days duration. The pain is sharp radiating all over the abdomen as per patient get worse with eating to the degree patient was not eating and drinking for the last 4 days except for some sips of water. Patient denies nausea vomiting, she had normal bowel movement as per patient she denies fever, cough or dyspnea. However she has increased frequency of urination more than 3 times yesterday without dysuria. She has chronic back pain. Patient is afebrile however blood pressure was on the low side this morning 84/ 58 with heart rate 46, respiratory 16. She has low white cell count at 2.1, platelets 64, hemoglobin 11.1. Creatinine 0.8, rest of the CMP was unremarkable including not elevated liver enzymes. Urinalysis was suspicious for infection. Patient has CAT scan of the abdomen with contrast showing mildly dilated extrahepatic biliary tract, splenomegaly and multiple enlarged retroperitoneal lymph nodes, 10 mm right kidney calculus without hydronephrosis seen bilaterally 03/20/2018 Patient's still have epigastric abdominal pain and tenderness, which is worse with eating and that's what affected her abilitoy sky in the first place. Patient was kept nothing by mouth on she had EGD today showing moderate gastritis which were biopsy were taken and the result are pending. GI team recommended to keep the Protonix and advance diet as tolerated.. Patient did not have bowel movement for 2 days but she is not eating. Patient is passing a lot of gases. Also patient has been treated for her urinary tract infection and she is currently on Levaquin. She states she still have some dysuria and she went about 4 times yesterday for urination. 03/21/2018 Patient had EGD done yesterday showed moderate gastritis. Pathology report is pending at this time. Continue with Protonix twice a day. Abdominal pain is much improved today. Patient was started on diet and advance as tolerated. Patient also being treated for urinary tract infection with Levaquin. No fever no chills. No other acute overnight issues. 03/22/2018 epigastric abdominal pain is almost resolved. EGD showed moderate gastritis. Patient is tolerating oral diet and will be continued on Plavix twice a day. Patient is otherwise stable to be discharged home. PHYSICAL EXAMINATION: Patient is lying in the bed comfortably, no acute distress, awake alert and oriented.. HEENT: Normocephalic. Neck is supple. Pupils reactive. Nostrils clear. Oral cavity is moist. Ears reveal no drainage. Neck reveals no JVD, carotid bruits, or thyromegaly. CHEST EXAMINATION: Trachea is central. Symmetrical expansion. Lung silver clear to auscultation and percussion. CARDIAC: Normal S1, S2 with no gallops. No murmurs ABDOMEN: Soft. Bowel sounds normal. No organomegaly. No abdominal bruits. Extremities: reveal no edema. No clubbing or cyanosis Neurologically awake, alert, oriented x3 with well-coordinated movements. No focal deficits noted Skin: No rash or skin lesions. Psychiatric: Coperative. Nonsuicidal Musculoskeletal: No joint swelling or deformity. Normal range of motion. Discharge vitals reviewed. Vital Signs (72 hours) 03/21/18 03/21/18 03/22/18 11:10 19:59 05:00 Temperature 97.8 F 98.3 F 97.5 F L Pulse Rate [ 51 L 64 87 Pulse Oximetery ] Respiratory 20 18 Rate Blood Pressure 122/73 144/88 155/75 [Left Arm] O2 Sat by Pulse 96 98 Oximetry 03/22/18 11:58 Temperature 98.3 F Pulse Rate [ 52 L Pulse Oximetery ] Respiratory 18 Rate Blood Pressure 115/70 [Left Arm] O2 Sat by Pulse 95 Oximetry Patient Condition at Discharge: Fair Plan - Discharge Summary Discharge Rx Participant: No New Discharge Prescriptions: New HYDROcodone/APAP 5-325MG [Vickery 5-325] 1 each PO Q6HR PRN 3 Days #12 tab PRN Reason: Pain Pantoprazole [Protonix] 40 mg PO AC-BID #60 tablet.dr Continue FLUoxetine HCL [PROzac] 40 mg PO HS diphenhydrAMINE HCL [Benadryl] 25 mg PO HS Multivitamins, Thera [Multivitamin (formulary)] 1 tab PO HS ALPRAZolam [Xanax] 0.5 mg PO HS PRN PRN Reason: Anxiety traZODone HCL 150 mg PO HS Oxybutynin Chloride [Ditropan] 5 mg PO BID metFORMIN HCL [Glucophage] 500 mg PO DAILY Atenolol 25 mg PO DAILY Discontinued Ranitidine HCl [Zantac] 300 mg PO DAILY Ibuprofen [Motrin] 800 mg PO TID Discharge Medication List FLUoxetine HCL [PROzac] 40 mg PO HS 01/24/14 [History] Multivitamins, Thera [Multivitamin (formulary)] 1 tab PO HS 01/24/14 [History] diphenhydrAMINE HCL [Benadryl] 25 mg PO HS 01/24/14 [History] ALPRAZolam [Xanax] 0.5 mg PO HS PRN 04/20/17 [History] Oxybutynin Chloride [Ditropan] 5 mg PO BID 04/20/17 [History] traZODone HCL 150 mg PO HS 04/20/17 [History] Atenolol 25 mg PO DAILY 03/18/18 [History] metFORMIN HCL [Glucophage] 500 mg PO DAILY 03/18/18 [History] HYDROcodone/APAP 5-325MG [Vickery 5-325] 1 each PO Q6HR PRN 3 Days #12 tab [Rx] Pantoprazole [Protonix] 40 mg PO AC-BID #60 tablet. 03/22/18 [Rx] Follow up Appointment(s)/Referral(s): Quincy Varghese MD [STAFF PHYSICIAN] - 2 Weeks Jitendra Garcia MD [Primary Care Provider] - 03/27/18 2:20 pm Patient Instructions/Handouts: Hydrocodone/Acetaminophen (By mouth), Pantoprazole (By mouth), Urinary Tract Infection in Women (DC), Acute Abdominal Pain (DC) Activity/Diet/Wound Care/Special Instructions: Recommend CBC monitoring until counts return to baseline Discharge Disposition: HOME SELF-CARE
== END 2018-03-22 16:50 | disposition home or self-care (01) | DRG 392 ==
LOC: EC 18:34 → EEVIPCON 23:05 → 3NMEDONC 23:05
PROVIDERS: ADMIT Hospitalist; ATTEND Hospitalist
PROC: 0DB78ZX Excision of Stomach, Pylorus, Via Natural or Artificial Opening Endoscopic, Diagnostic (ICD-10-PCS; principal; 2018-03-20 08:00)
DX: K29.60 Other gastritis without bleeding (principal); C91.10 Chronic lymphocytic leukemia of B-cell type not having achieved remission; D61.818 Other pancytopenia; N12 Tubulo-interstitial nephritis, not specified as acute or chronic; Q60.0 Renal agenesis, unilateral; E11.9 Type 2 diabetes mellitus without complications; E78.5 Hyperlipidemia, unspecified; F32.9 Major depressive disorder, single episode, unspecified; F40.240 Claustrophobia; G89.29 Other chronic pain; I10 Essential (primary) hypertension; I25.10 Atherosclerotic heart disease of native coronary artery without angina pectoris; I25.2 Old myocardial infarction; J44.9 Chronic obstructive pulmonary disease, unspecified; N20.0 Calculus of kidney; R13.10 Dysphagia, unspecified; Z79.84 Long term (current) use of oral hypoglycemic drugs; Z79.899 Other long term (current) drug therapy; Z85.72 Personal history of non-Hodgkin lymphomas; Z87.891 Personal history of nicotine dependence; Z90.710 Acquired absence of both cervix and uterus; Z91.19 Patient's noncompliance with other medical treatment and regimen; R16.1 Splenomegaly, not elsewhere classified; Z90.49 Acquired absence of other specified parts of digestive tract; R41.3 Other amnesia; Z88.1 Allergy status to other antibiotic agents; Z88.0 Allergy status to penicillin; Z88.2 Allergy status to sulfonamides; Z88.8 Allergy status to other drugs, medicaments and biological substances; Z79.02 Long term (current) use of antithrombotics/antiplatelets
CPT/HCPCS: 36415; 43239; 74177; 80048; 80053; 81001; 82150; 83036; 83605; 83690; 85025; 87040; 88305; 88342; 96361; 96365; 96375; 96376; 99285

== ENCOUNTER 2018-06-04 19:28 | Emergency (ER) | payer OTHER ==
--- NOTE | 2018-06-04 19:58 | ED ---
General Adult HPI - General Source: EMS Mode of arrival: EMS Limitations: no limitations <Tani Landa D - Last Filed: 06/04/18 20:55> <Yoselin Ugarte P - Last Filed: 06/04/18 22:35> - General Chief complaint: Abdominal Pain Stated complaint: Abdominal Pain Time Seen by Provider: 06/04/18 19:45 - History of Present Illness Initial comments: Dictation was produced using [employer] dictation software. please excuse any grammatical, word or spelling errors. Chief Complaint: 62-year-old female past medical history diverticulitis presents with abdominal pain. History of Present Illness: 62-year-old female with multiple comorbidities who presents today for chief complaint of abdominal pain. Patient states she's had symptoms for 4 days. States that her symptoms have progressively worsened. Today she tried to have dinner however was only able to tolerate 2 bites. Patient has history of diverticulitis per she states her symptoms are similar however more severe in intensity this time around. Patient states she's been having some night sweats however no other constitutional symptoms. She doesn't believe that these are hot flashes. Patient denies any changes in bowel habits. No diarrhea or constipation. She localizes the pain to her suprapubic area going from the left to the right abdomen. The ROS documented in this emergency department record has been reviewed and confirmed by me. Those systems with pertinent positive or negative responses have been documented in the HPI. All other systems are other negative and/or noncontributory. PHYSICAL EXAM: General Impression: Alert and oriented x3, not in acute distress HEENT: Normocephalic atraumatic, extra-ocular movements intact, pupils equal and reactive to light bilaterally, mucous membranes moist. Cardiovascular: Heart regular rate and rhythm, S1&S2 audible, no murmurs, rubs or gallops Chest: Lungs clear to auscultation bilaterally, no rhonchi, no wheeze, no rales Abdomen: Diffuse abdominal tenderness Musculoskeletal: Pulses present and equal in all extremities, no peripheral edema Motor: no focal deficits noted Neurological: CN II-XII grossly intact, no focal motor or sensory deficits noted Skin: Intact with no visualized rashes Psych: Normal affect and mood ED course: 62-year-old female with chief complaint of abdominal pain. All signs upon arrival are within acceptable limits. Patient is signed out to Dr. Ugarte for follow-up of labs and imaging studies. (Tani Landa) - Related Data Home Medications Medication Instructions Recorded Confirmed RX: FLUoxetine HCL [PROzac] 40 mg PO HS 01/24/14 06/04/18 RX: Multivitamins, Thera 1 tab PO HS 01/24/14 06/04/18 [Multivitamin (formulary)] RX: diphenhydrAMINE HCL [Benadryl] 25 mg PO HS 01/24/14 06/04/18 RX: ALPRAZolam [Xanax] 0.5 mg PO HS PRN 04/20/17 06/04/18 RX: Oxybutynin Chloride [Ditropan] 5 mg PO BID 04/20/17 06/04/18 RX: traZODone HCL 150 mg PO HS 04/20/17 06/04/18 RX: Atenolol 25 mg PO DAILY 03/18/18 06/04/18 RX: metFORMIN HCL [Glucophage] 500 mg PO DAILY 03/18/18 06/04/18 Albuterol Inhaler [Ventolin Hfa 1 - 2 puff INHALATION RT-Q6H PRN 06/04/18 06/04/18 Inhaler] Ibuprofen [Motrin] 800 mg PO TID PRN 06/04/18 06/04/18 Ranitidine HCl [Zantac] 300 mg PO HS 06/04/18 06/04/18 Previous Rx's Medication Instructions Recorded RX: Pantoprazole [Protonix] 40 mg PO AC-BID #60 tablet. 03/22/18 Nitrofurantoin Monohyd/M-Cryst 100 mg PO Q12HR #12 cap 06/04/18 [Macrobid] Allergies Allergy/AdvReac Type Severity Reaction Status Date / Time azithromycin [From Zithromax] Allergy Unknown Unknown Verified 03/18/18 23:22 cephalexin Allergy Unknown Unknown Verified 03/18/18 23:22 cyclobenzaprine HCl Allergy Unknown Unknown Verified 03/18/18 23:22 [From Flexeril] Penicillins Allergy Unknown Unknown Verified 03/18/18 23:22 pentazocine lactate Allergy Unknown Unknown Verified 03/18/18 23:22 [From Talwin] pseudoephedrine HCl Allergy Unknown Unknown [facility]18 23:22 [facility] Sulfa (Sulfonamide Allergy Unknown Unknown Verified 03/18/18 23:22 Antibiotics) adhesive AdvReac Unknown Unknown Verified 03/18/18 23:22 Review of Systems ROS Other: All systems not noted in ROS Statement are negative. <Tani Landa - Last Filed: 06/04/18 20:55> ROS Other: All systems not noted in ROS Statement are negative. <Yoselin Ugarte P - Last Filed: 06/04/18 22:35> ROS Statement: Those systems with pertinent positive or pertinent negative responses have been documented in the HPI. Past Medical History Past Medical History: Coronary Artery Disease (CAD), Cancer, COPD, Diabetes Mellitus, Hyperlipidemia, Hypertension, Memory Impairment, Myocardial Infarction ([place]), Osteoarthritis (OA) Additional Past Medical History / Comment(s): LEUKEMIA, DIVERTICULITIS, BORN WITH ONLY (1) KIDNEY, CHRONIC BACK PAIN , CLAUSTROPHOBIA, CLL, BACK SURGERY Last Myocardial Infarction Date:: UNKNOWN History of Any Multi-Drug Resistant Organisms: None Reported Past Surgical History: Appendectomy, Back Surgery, Cholecystectomy, Heart Catheterization With Stent, Hysterectomy, Tonsillectomy Additional Past Surgical History / Comment(s): CARPAL TUNNEL, FOOT SURGERY,pick at skin when anxious Past Anesthesia/Blood Transfusion Reactions: No Reported Reaction Date of Last Stent Placement:: UNKNOWN Past Psychological History: Anxiety, Depression Smoking Status: Former smoker Past Alcohol Use History: None Reported Past Drug Use History: None Reported - Past Family History Mother Family Medical History: Cancer Additional Family Medical History / Comment(s): UTERINE <Tani Landa - Last Filed: 06/04/18 20:55> General Exam Limitations: no limitations <Tani Landa - Last Filed: 06/04/18 20:55> Course Vital Signs 06/04/18 19:39 Temperature 98.2 F Pulse Rate 52 L Respiratory 18 Rate Blood Pressure 116/52 O2 Sat by Pulse 99 Oximetry Medical Decision Making - Lab Data Result diagrams: 06/04/18 20:21 06/04/18 20:21 <Yoselin Ugarte P - Last Filed: 06/04/18 22:35> - Medical Decision Making Patient care was signed out to me by Dr. Landa. Patient had presented with lower abdominal pain she does have a history of diverticulitis. Labs and imaging were obtained. At the time of sign out patient's CBC and CMP had resulted however urinalysis and computed tomography scan were pending. Urinalysis is concerning for urinary tract infection, patient has multiple ALLERGIES however Macrobid will be given first dose was given in the emergency department. Patient be prescribed Macrobid for discharge home. And with no acute findings, no evidence of diverticulitis. (Yoselin Ugarte) - Lab Data Lab Results 06/04/18 06/04/18 06/04/18 Range/Units 20:21 20:21 20:21 WBC 2.3 L (3.8-10.6) k/uL RBC 4.90 (3.80-5.40) m/uL Hgb 11.9 (11.4-16.0) gm/dL Hct 37.8 (34.0-46.0) % MCV 77.0 L (80.0-100.0) fL MCH 24.3 L (25.0-35.0) pg MCHC 31.6 (31.0-37.0) g/dL RDW 15.9 H (11.5-15.5) % Plt Count 64 L (150-450) k/uL Neutrophils % (Manual) 55 % Lymphocytes % (Manual) 40 % Monocytes % (Manual) 2 % Eosinophils % (Manual) 3 % Neutrophils # (Manual) 1.27 L (1.3-7.7) k/uL Lymphocytes # (Manual) 0.92 L (1.0-4.8) k/uL Monocytes # (Manual) 0.05 (0-1.0) k/uL Eosinophils # (Manual) 0.07 (0-0.7) k/uL Nucleated RBCs 0 (0-0) /100 WBC Manual Slide Review Performed Hypochromasia Slight Microcytosis Slight PT (9.0-12.0) sec INR (<1.2) APTT (22.0-30.0) sec Sodium 142 (137-145) mmol/L Potassium 4.2 (3.5-5.1) mmol/L Chloride 108 H (98-107) mmol/L Carbon Dioxide 30 (22-30) mmol/L Anion Gap 4 mmol/L BUN 18 H (7-17) mg/dL Creatinine 0.87 (0.52-1.04) mg/dL Est GFR (CKD-EPI)AfAm 82 (>60 ml/min/1.73 sqM) Est GFR (CKD-EPI)NonAf 71 (>60 ml/min/1.73 sqM) Glucose 86 (74-99) mg/dL Plasma Lactic Acid Noel 1.0 (0.7-2.0) mmol/L Calcium 9.0 (8.4-10.2) mg/dL Total Bilirubin 0.4 (0.2-1.3) mg/dL AST 27 (14-36) U/L ALT 23 (9-52) U/L Alkaline Phosphatase 84 (38-126) U/L Total Protein 6.7 (6.3-8.2) g/dL Albumin 3.6 (3.5-5.0) g/dL Lipase 67 (23-300) U/L Urine Color Urine Appearance (Clear) Urine pH (5.0-8.0) Ur Specific [place] (1.001-1.035) Urine Protein (Negative) Urine Glucose (UA) (Negative) Urine Ketones (Negative) Urine Blood (Negative) Urine Nitrite (Negative) Urine Bilirubin (Negative) Urine Urobilinogen (<2.0) mg/dL Ur Leukocyte Esterase (Negative) Urine RBC (0-5) /hpf Urine WBC (0-5) /hpf Urine WBC Clumps (None) /hpf Ur Squamous Epith Cells (0-4) /hpf Amorphous Sediment (None) /hpf Urine Bacteria (None) /hpf Urine Mucus (None) /hpf 06/04/18 06/04/18 Range/Units 20:21 20:35 WBC (3.8-10.6) k/uL RBC (3.80-5.40) m/uL Hgb (11.4-16.0) gm/dL Hct (34.0-46.0) % MCV (80.0-100.0) fL MCH (25.0-35.0) pg MCHC (31.0-37.0) g/dL RDW (11.5-15.5) % Plt Count (150-450) k/uL Neutrophils % (Manual) % Lymphocytes % (Manual) % Monocytes % (Manual) % Eosinophils % (Manual) % Neutrophils # (Manual) (1.3-7.7) k/uL Lymphocytes # (Manual) (1.0-4.8) k/uL Monocytes # (Manual) (0-1.0) k/uL Eosinophils # (Manual) (0-0.7) k/uL Nucleated RBCs (0-0) /100 WBC Manual Slide Review Hypochromasia Microcytosis PT 10.9 (9.0-12.0) sec INR 1.0 (<1.2) APTT 27.8 (22.0-30.0) sec Sodium (137-145) mmol/L Potassium (3.5-5.1) mmol/L Chloride (98-107) mmol/L Carbon Dioxide (22-30) mmol/L Anion Gap mmol/L BUN (7-17) mg/dL Creatinine (0.52-1.04) mg/dL Est GFR (CKD-EPI)AfAm (>60 ml/min/1.73 sqM) Est GFR (CKD-EPI)NonAf (>60 ml/min/1.73 sqM) Glucose (74-99) mg/dL Plasma Lactic Acid Noel (0.7-2.0) mmol/L Calcium (8.4-10.2) mg/dL Total Bilirubin (0.2-1.3) mg/dL AST (14-36) U/L ALT (9-52) U/L Alkaline Phosphatase (38-126) U/L Total Protein (6.3-8.2) g/dL Albumin (3.5-5.0) g/dL Lipase (23-300) U/L Urine Color Yellow Urine Appearance Cloudy H (Clear) Urine pH 6.5 (5.0-8.0) Ur Specific [place] 1.020 (1.001-1.035) Urine Protein Trace H (Negative) Urine Glucose (UA) Negative (Negative) Urine Ketones Negative (Negative) Urine Blood Small H (Negative) Urine Nitrite Positive H (Negative) Urine Bilirubin Negative (Negative) Urine Urobilinogen <2.0 (<2.0) mg/dL Ur Leukocyte Esterase Large H (Negative) Urine RBC 11 H (0-5) /hpf Urine WBC >182 H (0-5) /hpf Urine WBC Clumps Many H (None) /hpf Ur Squamous Epith Cells 6 H (0-4) /hpf Amorphous Sediment Rare H (None) /hpf Urine Bacteria Many H (None) /hpf Urine Mucus Rare H (None) /hpf Disposition <Tani Landa D - Last Filed: 06/04/18 20:55> Is patient prescribed a controlled substance at d/c from ED?: No <Yoselin Ugarte P - Last Filed: 06/04/18 22:35> Clinical Impression: UTI (urinary tract infection) Disposition: HOME SELF-CARE Condition: Stable Prescriptions: Nitrofurantoin Monohyd/M-Cryst [Macrobid] 100 mg PO Q12HR #12 cap Referrals: Jitendra Garcia MD [Primary Care Provider] - 1-2 days
[2018-06-04] MEDS ORDERED: MORPHINE SULFATE 4 MG/ML SYRINGE IVP STA (20:02)
[2018-06-04 20:53] LABS: Partial Thromboplastin Time 27.8 sec (22.0-30.0); Prothrombin Time 10.9 sec (9.0-12.0)
[2018-06-04 20:56] LABS: Amorphous Sediment,Urine Rare /hpf; Appearance,Urine Cloudy (Clear); Bacteria,Urine Many /hpf; Bilirubin,Urine Negative (Negative); Blood,Urine Small (Negative); Color,Urine Yellow; Glucose,Urine (UA) Negative (Negative); Ketones,Urine Negative (Negative); Leukocyte Esterase,Urine Large (Negative); Mucus,Urine Rare /hpf; Nitrite,Urine Positive (Negative); PH, Urine 6.5 (5.0-8.0); Protein,Urine Trace (Negative); RBC,Urine 11 /hpf (0-5); Squamous Epithelial Cell,Urine 6 /hpf (0-4); Urobilinogen,Urine <2.0 mg/dL (<2.0); WBC,Urine >182 /hpf (0-5)
[2018-06-04 20:58] LABS: Albumin 3.6 g/dL (3.5-5.0); Potassium 4.2 mmol/L (3.5-5.1); Total Bilirubin 0.4 mg/dL (0.2-1.3); Total Protein 6.7 g/dL (6.3-8.2)
[2018-06-04 21:01] LABS: HCT 37.8 % (34.0-46.0); HGB 11.9 gm/dL (11.4-16.0); Hypochromasia Slight; MCH 24.3 pg (25.0-35.0); MCHC 31.6 g/dL (31.0-37.0); Mean Platelet Volume 7.8; Microcytosis Slight; RDW 15.9 % (11.5-15.5); WBC 2.3 k/uL (3.8-10.6)
[2018-06-04 21:04] LABS: Platelet Count 64 k/uL (150-450)
[2018-06-04 21:14] LABS: Eosinophils # (M) 0.07 k/uL (0-0.7); Lymphocytes # (M) 0.92 k/uL (1.0-4.8); Monocytes # (M) 0.05 k/uL (0-1.0); Neutrophils # (M) 1.27 k/uL (1.3-7.7); Neutrophils % (M) 55 %; Nucleated Red Blood Cells 0 /100 WBC (0-0); Total Cells Counted 100
--- NOTE | 2018-06-04 22:15 | CT ---
EXAM: CT Abdomen and Pelvis With Intravenous Contrast CLINICAL HISTORY: ITS.REASON CT Reason: abdominal pain TECHNIQUE: Axial computed tomography images of the abdomen and pelvis with intravenous contrast. CTDI is 27 mGy and DLP is 1243 mGy-cm. This CT exam was performed using one or more of the following dose reduction techniques: automated exposure control, adjustment of the mA and/or kV according to patient size, and/or use of iterative reconstruction technique. COMPARISON: 03/18/2018 CT abdomen FINDINGS: Lung bases: No mass. No consolidation. ABDOMEN: Liver: Unremarkable. Gallbladder and bile ducts: Unchanged intra-and extrahepatic biliary dilatation gallbladder is not visualized. Pancreas: Unremarkable. Spleen: Enlarged. Adrenals: Unremarkable. Kidneys and ureters: No hydronephrosis. Stone in the right kidney, unchanged. Punctate nonobstructive stone in the left kidney. Stomach and bowel: No bowel obstruction or bowel wall thickening. Colonic diverticulosis. Prior colonic resection and anastomosis. PELVIS: Bladder: Unremarkable. Reproductive: Unremarkable. ABDOMEN and PELVIS: Intraperitoneal space: Unremarkable. Bones/joints: No acute fractures. Soft tissues: Unremarkable. Vasculature: No abdominal aortic aneurysm. Lymph nodes: Similar appearing bulky retroperitoneal lymphadenopathy. IMPRESSION: 1. Redemonstration of bulky retroperitoneal lymphadenopathy and splenomegaly, not significantly changed. 2. Colonic diverticulosis. 3. Nonobstructive renal stones bilaterally.
[2018-06-04] MEDS ORDERED: NITROFURANTOIN MONOHYD/M-CRYST 100 MG CAP PO STA (22:32)
[2018-06-04 23:21] VITALS: BP 118/78; PULSE 90; RESP 16; TEMP 98
--- NOTE | 2018-06-06 06:45 | CDI ---
Dear Yoselin Ugarte DO: Please do addendum Physical Examination. Thank you, Keila Wong, Cloth Inspector. If you have any questions, please contact Milling Machine Set Up Operator at [phone]. [facility]
== END 2018-06-04 23:21 | disposition home or self-care (01) ==
LOC: EC 19:28 → EEVIPCON 19:28 → EC 23:21
DX: N39.0 Urinary tract infection, site not specified (principal); R61 Generalized hyperhidrosis; Q60.0 Renal agenesis, unilateral; I25.10 Atherosclerotic heart disease of native coronary artery without angina pectoris; J44.9 Chronic obstructive pulmonary disease, unspecified; E11.9 Type 2 diabetes mellitus without complications; I10 Essential (primary) hypertension; I25.2 Old myocardial infarction; F32.9 Major depressive disorder, single episode, unspecified; F41.9 Anxiety disorder, unspecified; Z87.891 Personal history of nicotine dependence; Z88.0 Allergy status to penicillin; Z88.1 Allergy status to other antibiotic agents; Z88.2 Allergy status to sulfonamides; Z88.5 Allergy status to narcotic agent; Z88.8 Allergy status to other drugs, medicaments and biological substances; Z91.048 Other nonmedicinal substance allergy status; Z79.84 Long term (current) use of oral hypoglycemic drugs; Z79.899 Other long term (current) drug therapy; Z85.6 Personal history of leukemia; Z90.49 Acquired absence of other specified parts of digestive tract; Z95.5 Presence of coronary angioplasty implant and graft; Z87.19 Personal history of other diseases of the digestive system
CPT/HCPCS: 99284; 96374; 36415; 80053; 83605; 83690; 85025; 85610; 85730; 81001; 74177; J2270; Q9967

== ENCOUNTER 2018-07-17 13:34 | Observation (INO) | payer OTHER ==
--- NOTE | 2018-07-17 14:43 | ED ---
General Adult HPI - General Chief complaint: GI Bleed Stated complaint: GI bleed Time Seen by Provider: 07/17/18 13:45 Source: patient, EMS, RN notes reviewed Mode of arrival: EMS Limitations: physical limitation - History of Present Illness Initial comments: This is a 62-year-old female presents emergency Department complaining of lower back pain bilaterally that radiates around to the front per patient states she's had this pain in the past when she's had urinary tract infections. Patient states she thinks she has another one. Patient denies dysuria hematuria urinary frequency. Patient states she also has noted that her stool was a little range one time yesterday. Patient states there is no blood in it and there is no dark maroon substance either in the stool was not black. Patient denies any vomiting or diarrhea. Patient denies any fever chills or cough. Patient denies any chest pain difficulty breathing or shortness of breath. - Related Data Home Medications Medication Instructions Recorded Confirmed FLUoxetine HCL [PROzac] 40 mg PO HS 01/24/14 07/17/18 Multivitamins, Thera [Multivitamin 1 tab PO HS 01/24/14 07/17/18 (formulary)] diphenhydrAMINE HCL [Benadryl] 25 mg PO HS 01/24/14 07/17/18 ALPRAZolam [Xanax] 0.5 mg PO HS PRN 04/20/17 07/17/18 Oxybutynin Chloride [Ditropan] 5 mg PO HS 04/20/17 07/17/18 metFORMIN HCL [Glucophage] 500 mg PO HS 03/18/18 07/17/18 Albuterol Inhaler [Ventolin Hfa 1 - 2 puff INHALATION RT-Q6H PRN 06/04/18 07/17/18 Inhaler] Ibuprofen [Motrin] 800 mg PO TID PRN 06/04/18 07/17/18 HYDROcodone/APAP 5-325MG [[place] 1 tab PO Q6H PRN 07/17/18 07/17/18 5-325] Previous Rx's Medication Instructions Recorded Pantoprazole [Protonix] 40 mg PO AC-BID #60 tablet. 03/22/18 Allergies Allergy/AdvReac Type Severity Reaction Status Date / Time azithromycin [From Zithromax] Allergy Unknown Unknown Verified 07/17/18 13:45 cephalexin Allergy Unknown Unknown Verified 07/17/18 13:45 cyclobenzaprine HCl Allergy Unknown Unknown Verified 07/17/18 13:45 [From Flexeril] Penicillins Allergy Unknown Unknown Verified 07/17/18 13:45 pentazocine lactate Allergy Unknown Unknown Verified 07/17/18 13:45 [From Talwin] pseudoephedrine HCl Allergy Unknown Unknown Verified 07/17/18 13:45 [From Sudafed] Sulfa (Sulfonamide Allergy Unknown Unknown Verified 07/17/18 13:45 Antibiotics) adhesive AdvReac Unknown Unknown Verified 07/17/18 13:45 Review of Systems ROS Statement: Those systems with pertinent positive or pertinent negative responses have been documented in the HPI. ROS Other: All systems not noted in ROS Statement are negative. Past Medical History Past Medical History: Coronary Artery Disease (CAD), Cancer, COPD, Diabetes Me llitus, Hyperlipidemia, Hypertension, Memory Impairment, Myocardial Infarction ([place]), Osteoarthritis (OA) Additional Past Medical History / Comment(s): LEUKEMIA, DIVERTICULITIS, BORN WITH ONLY (1) KIDNEY, CHRONIC BACK PAIN , CLAUSTROPHOBIA, CLL, BACK SURGERY Last Myocardial Infarction Date:: UNKNOWN History of Any Multi-Drug Resistant Organisms: None Reported Past Surgical History: Appendectomy, Back Surgery, Cholecystectomy, Heart Catheterization With Stent, Hysterectomy, Tonsillectomy Additional Past Surgical History / Comment(s): CARPAL TUNNEL, FOOT SURGERY,pick at skin when anxious Past Anesthesia/Blood Transfusion Reactions: No Reported Reaction Date of Last Stent Placement:: UNKNOWN Past Psychological History: Anxiety, Depression Smoking Status: Former smoker Past Alcohol Use History: None Reported Past Drug Use History: None Reported - Past Family History Mother Family Medical History: Cancer Additional Family Medical History / Comment(s): UTERINE General Exam - General Exam Comments Initial Comments: GENERAL: Patient is well-developed and well-nourished. Patient is nontoxic and well- hydrated and is in mild distress. ENT: Neck is soft and supple. No significant lymphadenopathy is noted. Oropharynx is clear. Moist mucous membranes. Neck has full range of motion without eliciting any pain. EYES: The sclera were anicteric and conjunctiva were pink and moist. Extraocular movements were intact and pupils were equal round and reactive to light. Eyelids were unremarkable. PULMONARY: Unlabored respirations. Good breath sounds bilaterally. No audible rales rhonchi or wheezing was noted. CARDIOVASCULAR: There is a regular rate and rhythm without any murmurs gallops or rubs. ABDOMEN: Patient has mild suprapubic abdominal pain. Patient has CVA tenderness bilaterally. SKIN: Skin is clear with no lesions or rashes and otherwise unremarkable. NEUROLOGIC: Patient is alert and oriented x3. Cranial nerves II through XII are grossly int act. Motor and sensory are also intact. Normal speech, volume and content. Symmetrical smile. MUSCULOSKELETAL: Normal extremities with adequate strength and full range of motion. LYMPHATICS: No significant lymphadenopathy is noted PSYCHIATRIC: Normal psychiatric evaluation. Limitations: physical limitation Course Vital Signs 07/17/18 07/17/18 07/17/18 13:40 14:30 15:00 Temperature 99.1 F Pulse Rate 48 L 50 L 49 L Respiratory 19 18 16 Rate Blood Pressure 96/79 94/67 98/75 O2 Sat by Pulse 97 96 97 Oximetry Medical Decision Making - Medical Decision Making EKG shows sinus bradycardia with occasional PAC at 51 bpm NE interval is 168 QRS is 90 QT interval 438 QTC is 43. Patient's EKG shows no ST segment elevation or depression no T-wave abnormalities are noted. Levaquin was started and the ER for the pyelonephritis I spoke with Dr. Olivares he agreed to admit the patient admitted the patient wrote admitting orders - Lab Data Result diagrams: 07/17/18 14:02 07/17/18 14:02 Lab Results 07/17/18 07/17/18 07/17/18 Range/Units 14:02 14:02 15:00 WBC 2.8 L (3.8-10.6) k/uL RBC 4.74 (3.80-5.40) m/uL Hgb 11.5 (11.4-16.0) gm/dL Hct 36.5 (34.0-46.0) % MCV 77.0 L (80.0-100.0) fL MCH 24.2 L (25.0-35.0) pg MCHC 31.4 (31.0-37.0) g/dL RDW 16.9 H (11.5-15.5) % Plt Count 58 L (150-450) k/uL Neutrophils % 34 % Lymphocytes % 50 % Monocytes % 5 % Eosinophils % 7 % Basophils % 1 % Neutrophils # 1.0 L (1.3-7.7) k/uL Lymphocytes # 1.4 (1.0-4.8) k/uL Monocytes # 0.1 (0-1.0) k/uL Eosinophils # 0.2 (0-0.7) k/uL Basophils # 0.0 (0-0.2) k/uL Manual Slide Review Performed Hypochromasia Slight Anisocytosis Slight Microcytosis Slight Sodium 140 (137-145) mmol/L Potassium 4.2 (3.5-5.1) mmol/L Chloride 110 H (98-107) mmol/L Carbon Dioxide 24 (22-30) mmol/L Anion Gap 6 mmol/L BUN 17 (7-17) mg/dL Creatinine 0.71 (0.52-1.04) mg/dL Est GFR (CKD-EPI)AfAm >90 (>60 ml/min/1.73 sqM) Est GFR (CKD-EPI)NonAf >90 (>60 ml/min/1.73 sqM) Glucose 92 (74-99) mg/dL Calcium 8.8 (8.4-10.2) mg/dL Total Bilirubin 0.3 (0.2-1.3) mg/dL AST 28 (14-36) U/L ALT 19 (9-52) U/L Alkaline Phosphatase 74 (38-126) U/L Total Protein 6.4 (6.3-8.2) g/dL Albumin 3.4 L (3.5-5.0) g/dL Urine Color Yellow Urine Appearance Cloudy H (Clear) Urine pH 6.0 (5.0-8.0) Ur Specific [place] 1.019 (1.001-1.035) Urine Protein Trace H (Negative) Urine Glucose (UA) Negative (Negative) Urine Ketones Negative (Negative) Urine Blood Trace H (Negative) Urine Nitrite Positive H (Negative) Urine Bilirubin Negative (Negative) Urine Urobilinogen <2.0 (<2.0) mg/dL Ur Leukocyte Esterase Large H (Negative) Urine RBC 9 H (0-5) /hpf Urine WBC >182 H (0-5) /hpf Urine WBC Clumps Many H (None) /hpf Ur Squamous Epith Cells 3 (0-4) /hpf Amorphous Sediment Rare H (None) /hpf Urine Bacteria Many H (None) /hpf Hyaline Casts 1 (0-2) /lpf Urine Mucus Rare H (None) /hpf Disposition Clinical Impression: Pyelonephritis Disposition: ADMITTED IP TO THIS HOSP Referrals: Jitendra Garcia MD [Primary Care Provider] - 1-2 days Time of Disposition: 16:38
[2018-07-17 14:58] LABS: ALT 19 U/L (9-52); AST 28 U/L (14-36); African American GFR (CKD) >90 (>60 ml/min/1.73 sqM); Albumin 3.4 g/dL (3.5-5.0); Alkaline Phosphatase 74 U/L (38-126); Anion Gap 6 mmol/L; Blood Urea Nitrogen 17 mg/dL (7-17); Calcium 8.8 mg/dL (8.4-10.2); Carbon Dioxide 24 mmol/L (22-30); Chloride 110 mmol/L (98-107); Glucose 92 mg/dL (74-99); Potassium 4.2 mmol/L (3.5-5.1); Sodium 140 mmol/L (137-145); Total Bilirubin 0.3 mg/dL (0.2-1.3); Total Protein 6.4 g/dL (6.3-8.2)
[2018-07-17 15:15] LABS: Anisocytosis Slight; Basophils % (A) 1 %; Eosinophils # (A) 0.2 k/uL (0-0.7); Eosinophils % (A) 7 %; HCT 36.5 % (34.0-46.0); HGB 11.5 gm/dL (11.4-16.0); Hypochromasia Slight; Lymphocytes # (A) 1.4 k/uL (1.0-4.8); Lymphocytes % (A) 50 %; MCH 24.2 pg (25.0-35.0); MCHC 31.4 g/dL (31.0-37.0); Mean Platelet Volume 9.9; Microcytosis Slight; Monocytes # (A) 0.1 k/uL (0-1.0); Monocytes % (A) 5 %; Neutrophils % (A) 34 %; RBC 4.74 m/uL (3.80-5.40); RDW 16.9 % (11.5-15.5); WBC 2.8 k/uL (3.8-10.6)
[2018-07-17 15:18] LABS: Platelet Count 58 k/uL (150-450)
[2018-07-17 15:27] LABS: Amorphous Sediment,Urine Rare /hpf; Appearance,Urine Cloudy (Clear); Bacteria,Urine Many /hpf; Bilirubin,Urine Negative (Negative); Blood,Urine Trace (Negative); Color,Urine Yellow; Glucose,Urine (UA) Negative (Negative); Hyaline Casts,Urine 1 /lpf (0-2); Ketones,Urine Negative (Negative); Leukocyte Esterase,Urine Large (Negative); Mucus,Urine Rare /hpf; Nitrite,Urine Positive (Negative); Protein,Urine Trace (Negative); RBC,Urine 9 /hpf (0-5); Specific Gravity,Urine 1.019 (1.001-1.035); Squamous Epithelial Cell,Urine 3 /hpf (0-4); Urobilinogen,Urine <2.0 mg/dL (<2.0); WBC,Urine >182 /hpf (0-5)
[2018-07-17] MEDS ORDERED: LEVOFLOXACIN 750MG-D5W PMX 750 MG in DEXTROSE/WATER 1 150ML.BAG IVPB STA (16:14)
[2018-07-17] MEDS ORDERED: SODIUM CHLORIDE 0.9% 1,000 ML IV ONE (16:38)
[2018-07-17] MEDS ORDERED: KETOROLAC 60 MG/2 ML VIAL IVP STA (16:42)
[2018-07-17] MEDS ORDERED: ONDANSETRON 4 MG/2 ML VIAL IVP STA (17:08)
[2018-07-17 20:11] LABS: Glucose,Whole Blood 94 mg/dL (75-99)
[2018-07-17] MEDS ORDERED: ALBUTEROL NEBULIZED 2.5 MG/3 ML INHALATION PRN (21:25)
[2018-07-17] MEDS ORDERED: IBUPROFEN 800 MG TAB PO PRN (21:25)
[2018-07-17] MEDS ORDERED: ALPRAZolam 0.5 MG TAB PO PRN (21:25)
[2018-07-17] MEDS: OXYBUTYNIN CHLORIDE 5 MG TAB PO SCH (22:36)
[2018-07-17] MEDS: MULTIVITAMINS, THERA 1 EACH TAB PO SCH (22:37)
[2018-07-17] MEDS: FLUoxetine HCL 20 MG CAP PO SCH (22:37)
[2018-07-17] MEDS: LORATADINE 10 MG TAB PO SCH (22:37)
[2018-07-17] MEDS: diphenhydrAMINE 25 MG CAP PO SCH (22:37)
[2018-07-17] MEDS: metFORMIN 500 MG TAB PO SCH (22:37)
[2018-07-17] MEDS: traZODone HCL 100 MG TAB PO SCH (22:38)
[2018-07-17] MEDS: ATENOLOL 25 MG TAB PO SCH (22:39)
[2018-07-17] MEDS: HYDROcodone/APAP 5-325MG 1 EACH TAB PO PRN (22:43)
--- NOTE | 2018-07-18 00:09 | HP ---
HISTORY AND PHYSICAL DATE OF SERVICE: 07/17/2018 CHIEF COMPLAINTS: Back pain. HISTORY OF PRESENT ILLNESS: This 62-year-old woman with a past medical history of multiple medical problems including history of CAD, history of COPD, diabetes, hypertension, Hyperlipidemia, history of memory impairment, myocardial infarction, hyponatremia, cholecystectomy, CAD/stent being followed by Dr. Garcia in the outpatient setting, was recent was previously admitted with epigastric pain and possibly gastritis and UTI. Currently the patient is complaining of severe pain on the back and which is radiating to the front on the right side. The patient had features of pyelonephritis. The patient being admitted to the hospital for further evaluation and treatment. The patient is also complaining of multiple cutaneous infections which is occurring recently and the patient also complaining of some dysphagia and difficulty swallowing also. There is no history of fever, rigors. No history of headache, loss of consciousness, seizures at this time. PAST MEDICAL HISTORY: History of CAD, history of COPD, diabetes, history of hypertension, diabetes mellitus, hyperlipidemia, history of DJD, history of leukemia in remission, diverticulitis, appendectomy, back surgery. MEDICATIONS ARE: 1. Cetirizine 1 tablet p.o. q.h.s. 3. Trazodone 1 tablet p.o. q.h.s. 4. Glucophage 500 mg q.h.s. 5. Ditropan 5 mg p.o. q.h.s. 6. Benadryl 25 mg q.h.s. 7. Protonix 40 mg b.i.d. 8. Multivitamins one p.o. daily. 9. Motrin 800 mg p.o. t.i.d. p.r.n. 10.[place] 5 mg q.6h p.r.n. 11.Prozac 40 mg q.h.s. 12.Ventolin HFA 1-2 puffs p.r.n. 13.Xanax 0.5 mg q.h.s. ALLERGIES: MULTIPLE ALLERGIES ZITHROMAX, CEPHALEXIN, FLEXERIL, PENICILLIN, PROTONIX, PSEUDOEPHEDRINE, SULFA, ADHESIVES. FAMILY HISTORY: History of uterine cancer in the family. SOCIAL HISTORY: Previous history of smoking. No history of current smoking or alcohol intake. REVIEW OF SYSTEMS: ENT: Diminished hearing and diminished vision. CARDIOVASCULAR SYSTEM: No angina or palpitations. RESPIRATORY: As mentioned earlier. GI as mentioned earlier. : As mentioned earlier. Central nervous system: No numbness or weakness. ALLERGY/IMMUNOLOGY: No asthma or hayfever. MUSCULOSKELETAL: As mentioned earlier. HEMATOLOGY: No history of any. ENDOCRINE: None. CONSTITUTIONAL: None. DERMATOLOGICAL: Negative. Rheumatology: Negative. PSYCHIATRIC: As mentioned earlier. PHYSICAL EXAMINATION: GENERAL: The patient is alert and oriented times three. Pulse 49. Blood pressure 135/73. Respiratory rate 17. Temperature 97.9. Pulse ox 97% on room air. HEENT is conjunctivae normal. Oral mucosa moist. NECK is no jugular venous distention. No carotid bruit. No lymph node enlargement. Cardiovascular system: S1, S2 muffled. No S3, no S4. RESPIRATORY: Breath sounds diminished in the bases. A few scattered scattered rhonchi and crackles. Expiratory wheezing also present. ABDOMEN: Soft, obese. Some mild diffuse discomfort on palpation. LEGS: No edema. No swelling. NERVOUS system: Higher functions as mentioned moves all 4 limbs. No focal motor or sensory deficits. Lymphatics: No lymph nodes palpable in the neck, axillae or groin. NECK and joints: No active arthropathy. SKIN: Diffuse multiple myeloma present. The EKG showed occasional PACs, otherwise sinus bradycardia. ASSESSMENT: 1. Severe abdominal pain with possible pyelonephritis. 2. Dysphagia for evaluation. 3. Multiple cutaneous pyoderma. 4. History of coronary artery disease. 5. Chronic obstructive pulmonary disease. 6. History of leukemia. 7. Diabetes mellitus type 2. 8. Hypertension. 9. Hyperlipidemia. 10.History of myocardial infarction. 11.History of diverticulitis. 12.History of degenerative joint disease. 13.History of back surgery. 14.History of CAD stent. 15.History of tonsillectomy. 16.History of anxiety bipolar depression. 17.Remote history of nicotine dependence. RECOMMENDATIONS AND DISCUSSION: This 62-year-old woman who presented with multiple complex medical issues, we will monitor the patient closely. Continue the current medications, management and symptomatic treatment. We will obtain cultures and also initiate broad-spectrum IV antibiotics. Resume the home medications. Monitor blood sugars closely. Symptomatic treatment provided. Otherwise, DVT prophylaxis. Resume the home medications. Prognosis guarded because of multiple complex medical issues. I would also recommend Gastroenterology evaluation for the dysphagia as well. Prognosis guarded. Further recommendations to follow. MMODL / IJN: [id number] / MTDD
[2018-07-18 07:07] LABS: Glucose,Whole Blood 83 mg/dL (75-99)
[2018-07-18] MEDS: PANTOPRAZOLE 40 MG TABLET PO SCH ×2 (08:48→16:42)
[2018-07-18] MEDS: HEPARIN SODIUM,PORCINE 5,000 UNIT/ML 1 ML VIAL SQ SCH ×2 (08:49→21:36)
[2018-07-18] MEDS: INSULIN ASPART (NovoLOG) 100 UNIT/ML VIAL SQ SCH ×4 (08:49→21:32)
[2018-07-18] MEDS: HYDROcodone/APAP 5-325MG 1 EACH TAB PO PRN ×2 (08:53→16:42)
--- NOTE | 2018-07-18 08:53 | XR ---
EXAMINATION TYPE: XR chest 2V DATE OF EXAM: 07/18/2018 COMPARISON: 01/27/1940 TECHNIQUE: PA and lateral views submitted. HISTORY: Dysphasia FINDINGS: The lungs are clear and there is no pneumothorax, pleural effusion, or focal pneumonia. Chronic rib cage deformities suggest remote trauma. No overt failure. Hypertrophic and degenerative change of th e spine. IMPRESSION: 1. No acute process.
[2018-07-18 09:17] LABS: Anisocytosis Slight; Basophils % (A) 0 %; Eosinophils # (A) 0.2 k/uL (0-0.7); Eosinophils % (A) 9 %; HGB 11.2 gm/dL (11.4-16.0); Hypochromasia Moderate; Lymphocytes # (A) 1.1 k/uL (1.0-4.8); Lymphocytes % (A) 47 %; MCH 24.2 pg (25.0-35.0); MCHC 31.1 g/dL (31.0-37.0); MCV 77.8 fL (80.0-100.0); Mean Platelet Volume 8.7; Microcytosis Slight; Monocytes # (A) 0.1 k/uL (0-1.0); Monocytes % (A) 4 %; Neutrophils # (A) 0.8 k/uL (1.3-7.7); Neutrophils % (A) 36 %; RBC 4.63 m/uL (3.80-5.40); RDW 16.8 % (11.5-15.5); WBC 2.3 k/uL (3.8-10.6)
[2018-07-18 09:22] LABS: Platelet Count 59 k/uL (150-450)
[2018-07-18 09:34] LABS: African American GFR (CKD) >90 (>60 ml/min/1.73 sqM); Anion Gap 4 mmol/L; Blood Urea Nitrogen 16 mg/dL (7-17); Calcium 8.4 mg/dL (8.4-10.2); Carbon Dioxide 24 mmol/L (22-30); Chloride 111 mmol/L (98-107); Glucose 77 mg/dL (74-99); Potassium 4.2 mmol/L (3.5-5.1); Sodium 139 mmol/L (137-145)
[2018-07-18 11:38] LABS: Glucose,Whole Blood 86 mg/dL (75-99)
--- NOTE | 2018-07-18 11:58 | P.CONS ---
History of Present Illness - Reason for Consult Consult date: 07/18/18 Dysphagia Requesting physician: Fabby Coleman - Chief Complaint Bilateral flank abdominal pain - History of Present Illness 62-year-old female with a history of CLL, bicytopenia, diabetes, hyperlipidemia, hypertension, memory impairment, COPD, [place], nephrolithiasis, claustrophobia presented with lower back pain radiating bilaterally. Additionally she reports dysphagia with breads and meats. Patient was seen in consultation March 2018 for periumbilical pain. She underwent EGD evaluation summary 06/03/[address] Foss with findings of moderate gastritis of the antrum and body no evidence of esophageal stricture disease lesions or peptic ulcer disease. Biopsies negative for H. pylori consistent with chronic and focal active gastritis. Patient forgot she had an EGD evaluation in March. She reports dysphagia only with breads and meats with a sensation of food being stuck more in the distal esophagus. Denies nausea vomiting hematemesis hematochezia or melena. She's able tolerate liquids without odynophagia coughing choking gagging or vomiting. Tolerated scrambled eggs this morning without difficulty. CT abdomen unremarkable liver and gallbladder and bile ducts. No bowel obstruction or bowel wall thickening. Redemonstration of bulky retroperitoneal lymphadenopathy and splenomegaly underlying colonic diverticulosis with nonobstructing renal stones bilaterally. White count 2.3-2.8. Hemoglobin 11.2- 11.5. Platelet 59,000. LFTs within normal limits. BUN 17. Creatinine 0.7. Chest x-ray no acute process. Review of Systems Constitutional: Denies fever, chills, sweats, weight gain, or loss. Memory impairment. HEENT: Negative for migraines, blurred vision or loss, earaches, drainage, tinnitus, oral mucosal lesions, dysphagia, or odynophagia. CARDIAC: Negative for chest pain, arrhythmias, or palpitation. RESPIRATORY: Negative for shortness of breath, hemoptysis, cough, or sputum production. GI: See HPI for pertinent findings. : Negative for hematuria, urgency, frequency, polyuria, or dysuria. GYNc: Negative vaginal discharge. MUSCULOSKELETAL: Negative for muscle aches, swelling, arthritis, and arthralgias. NEUROLOGIC: Negative for stroke or TIA. ENDOCRINE: Negative for thyroid problems. SKIN: Negative for rash or itching. PSYCHIATRIC: History of depression and anxiety Past Medical History Past Medical History: Coronary Artery Disease (CAD), Cancer, COPD, Diabetes Mellitus, Hyperlipidemia, Hypertension, Memory Impairment, Myocardial Infarction ([place]), Osteoarthritis (OA) Additional Past Medical History / Comment(s): LEUKEMIA in remission, DIVERTICULITIS, BORN WITH ONLY (1) KIDNEY, CHRONIC BACK PAIN , CLAUSTROPHOBIA, CLL, BACK SURGERY Last Myocardial Infarction Date:: UNKNOWN History of Any Multi-Drug Resistant Organisms: None Reported Past Surgical History: Appendectomy, Back Surgery, Cholecystectomy, Heart Catheterization With Stent, Hysterectomy, Tonsillectomy Additional Past Surgical History / Comment(s): CARPAL TUNNEL, FOOT SURGERY,pick at skin when anxious,left foot sx Past Anesthesia/Blood Transfusion Reactions: No Reported Reaction Date of Last Stent Placement:: UNKNOWN Past Psychological History: Anxiety, Bipolar, Depression Smoking Status: Former smoker Past Alcohol Use History: None Reported Past Drug Use History: None Reported - Past Family History Mother Family Medical History: Cancer Additional Family Medical History / Comment(s): UTERINE Medications and Allergies Home Medications Medication Instructions Recorded Confirmed Type FLUoxetine HCL [PROzac] 40 mg PO HS 01/24/14 07/17/18 History Multivitamins, Thera [Multivitamin 1 tab PO HS 01/24/14 07/17/18 History (formulary)] diphenhydrAMINE HCL [Benadryl] 25 mg PO HS 01/24/14 07/17/18 History ALPRAZolam [Xanax] 0.5 mg PO HS PRN 04/20/17 07/17/18 History Oxybutynin Chloride [Ditropan] 5 mg PO HS 04/20/17 07/17/18 History metFORMIN HCL [Glucophage] 500 mg PO HS 03/18/18 07/17/18 History Pantoprazole [Protonix] 40 mg PO AC-BID #60 tablet. 03/22/18 07/17/18 Rx Albuterol Inhaler [Ventolin Hfa 1 - 2 puff INHALATION RT-Q6H PRN 06/04/18 07/17/18 History Inhaler] Ibuprofen [Motrin] 800 mg PO TID PRN 06/04/18 07/17/18 History Atenolol 1 tab PO HS 07/17/18 07/17/18 History Cetirizine HCl 1 tab PO HS 07/17/18 07/17/18 History HYDROcodone/APAP 5-325MG [[place] 1 tab PO Q6H PRN 07/17/18 07/17/18 History 5-325] traZODone HCL 1 tab PO HS 07/17/18 07/17/18 History Allergies Allergy/AdvReac Type Severity Reaction Status Date / Time azithromycin [From Zithromax] Allergy Unknown Unknown Verified 07/17/18 13:45 cephalexin Allergy Unknown Unknown Verified 07/17/18 13:45 cyclobenzaprine HCl Allergy Unknown Unknown Verified 07/17/18 13:45 [From Flexeril] Penicillins Allergy Unknown Unknown Verified 07/17/18 13:45 pentazocine lactate Allergy Unknown Unknown Verified 07/17/18 13:45 [From [place]] pseudoephedrine HCl Allergy Unknown Unknown Verified 07/17/18 13:45 [From Sudafed] Sulfa (Sulfonamide Allergy Unknown Unknown Verified 07/17/18 13:45 Antibiotics) adhesive AdvReac Unknown Unknown Verified 07/17/18 13:45 Physical Exam Vitals: Vital Signs Temp Pulse Pulse Pulse Resp BP BP 07/18/18 05:05 97.4 F L 62 20 07/17/18 21:00 98.4 F 51 L 20 07/17/18 18:14 97.9 F 50 L 20 115/73 07/17/18 17:40 49 L 17 135/73 07/17/18 16:00 51 L 98/66 07/17/18 15:30 48 L 18 99/57 07/17/18 15:00 49 L 16 98/75 07/17/18 14:30 50 L 18 94/67 07/17/18 13:40 99.1 F 48 L 19 96/79 BP BP Pulse Ox 07/18/18 05:05 99/57 97 07/17/18 21:00 122/69 98 07/17/18 18:14 98 07/17/18 17:40 97 07/17/18 16:00 07/17/18 15:30 07/17/18 15:00 97 07/17/18 14:30 96 07/17/18 13:40 97 Intake and Output 07/17/18 07/18/18 07/18/18 22:59 06:59 14:59 Intake Total 400 200 Balance 400 200 Intake: Oral 400 200 Other: Voiding Method Toilet Toilet # Voids 1 2 General appearance: The patient is alert, oriented, in no acute distress. HET: Head is normocephalic and atraumatic. Pupils are equal and reactive. Oropharynx is clear without lesions. Neck: Supple without lymphadenopathy. Trachea midline. Heart: S1 S2. Regular rate and rhythm. Lungs: No crackles or wheezes are heard. Abdomen: Soft, nontender, nondistended with bowel sounds. No peritoneal signs. No palpable organomegaly or masses. Extremities: Normal skin color and turgor. No cyanosis, rash, ulceration, clubbing, or edema. Radial and pedal pulses are 2/4 bilaterally. Neurological: No focal deficits. Strength and sensation are grossly intact. Results CBC & Chem 7: 07/18/18 08:26 07/18/18 08:26 Labs: Abnormal Lab Results - Last 24 Hours (Table) 07/17/18 07/17/18 07/17/18 Range/Units 14:02 14:02 15:00 WBC 2.8 L (3.8-10.6) k/uL Hgb (11.4-16.0) gm/dL MCV 77.0 L (80.0-100.0) fL MCH 24.2 L (25.0-35.0) pg RDW 16.9 H (11.5-15.5) % Plt Count 58 L (150-450) k/uL Neutrophils # 1.0 L (1.3-7.7) k/uL Chloride 110 H (98-107) mmol/L Albumin 3.4 L (3.5-5.0) g/dL Urine Appearance Cloudy H (Clear) Urine Protein Trace H (Negative) Urine Blood Trace H (Negative) Urine Nitrite Positive H (Negative) Ur Leukocyte Esterase Large H (Negative) Urine RBC 9 H (0-5) /hpf Urine WBC >182 H (0-5) /hpf Urine WBC Clumps Many H (None) /hpf Amorphous Sediment Rare H (None) /hpf Urine Bacteria Many H (None) /hpf Urine Mucus Rare H (None) /hpf 07/18/18 07/18/18 Range/Units 08:26 08:26 WBC 2.3 L (3.8-10.6) k/uL Hgb 11.2 L (11.4-16.0) gm/dL MCV 77.8 L (80.0-100.0) fL MCH 24.2 L (25.0-35.0) pg RDW 16.8 H (11.5-15.5) % Plt Count 59 L (150-450) k/uL Neutrophils # 0.8 L (1.3-7.7) k/uL Chloride 111 H (98-107) mmol/L Albumin (3.5-5.0) g/dL Urine Appearance (Clear) Urine Protein (Negative) Urine Blood (Negative) Urine Nitrite (Negative) Ur Leukocyte Esterase (Negative) Urine RBC (0-5) /hpf Urine WBC (0-5) /hpf Urine WBC Clumps (None) /hpf Amorphous Sediment (None) /hpf Urine Bacteria (None) /hpf Urine Mucus (None) /hpf Microbiology - Last 24 Hours (Table) 07/18/18 01:25 Urine Culture - Preliminary Urine,Voided Chest x-ray: report reviewed (Dr. Jara) CT scan - abdomen: report reviewed (Dr. Jara) Assessment and Plan (1) Dysphagia Narrative/Plan: 62-year-old female with a history of memory impairment and CLL nephrolithiasis presents with bilateral flank pain and reports of distal esophageal dysphagia with breads and meats. EGD March 2018 reported no evidence of peptic ulcer disease, stricture disease or lesion. Dysphagia etiology is unclear possible underlying motility disorder presently tolerating liquids softer foods without nausea vomiting odynophagia or dysphagia. Current Visit: Yes Status: Acute Code(s): R13.10 - DYSPHAGIA, UNSPECIFIED SNOMED Code(s): 19776095 (2) Bilateral flank pain Current Visit: Yes Status: Acute Code(s): R10.9 - UNSPECIFIED ABDOMINAL PAIN SNOMED Code(s): 992906943 Plan: 1. Speech evaluation and modification of diet avoid thicker breads and meats. Protein shakes 3 times a day. In regards to her reports of dysphagia with breads and meats repeat inpatient endoscopy not recommended at this time EGD in March reported no evidence of stricturing disease, mucosal lesion or peptic ulcer disease. Patient can be evaluated in the outpatient setting in 2-[address] Foss discussion of possible outpatient manometry testing. Thank you for this kind referral and the opportunity to participate in the care of your patient. This consultation was discussed with Dr. Jara. The impression and plan of care have been directed as dictated.
--- NOTE | 2018-07-18 15:26 | PN ---
PROGRESS NOTE DATE OF SERVICE: 07/18/2018 This 62-year-old woman who was admitted with severe abdominal pain with possible pyelonephritis and dysphagia is being closely monitored. No chest pain. No palpitations. No fever. PHYSICAL EXAM: Alert and oriented x3. Pulse 62, blood pressure 99/56, respiration 20, temperature 97.4, pulse ox 97% on room air. HEENT: Conjunctivae normal. NECK: No jugular venous distension. CARDIOVASCULAR SYSTEM: S1, S2, muffled. RESPIRATION: Breath sounds at the bases, a few rhonchi, no crackles. ABDOMEN: Soft, nontender. No mass palpable. LEGS: No edema. No swelling. NERVOUS SYSTEM: No focal deficits. LABS: WBC is 2.9, hemoglobin is 11.2, platelets of 59. UA noted. Cultures are pending at this time. ASSESSMENT: 1. Severe abdominal pain with possible acute pyelonephritis. 2. Dysphagia for evaluation. 3. Leukopenia and mild pancytopenia. 4. Multiple cutaneous pyoderma. 5. History of coronary artery disease. 6. Chronic obstructive pulmonary disease. 7. History of leukemia. 8. Diabetes mellitus type 2. 9. Hypertension. 10.Hyperlipidemia. 11.History of microinfarction. 12.History of diverticulitis. 13.History of degenerative joint disease. 14.History of back surgery. 15.History of coronary artery disease, stent. 16.History of tonsillectomy. 17.History of anxiety, bipolar depression. 18.Remote history of nicotine dependence. RECOMMENDATION: In this 62-year-old woman who presented with multiple complex medical issues, will monitor the patient closely. Continue with the current management and symptomatic treatment. Continue with the antibiotics. Follow the cultures. Otherwise, I would also recommend repeat labs. Guarded prognosis because of multiple complex medical issues. Further recommendations to follow. Will monitor the blood sugars closely. Gastroenterology has seen the patient and recommended outpatient followup. The possibility of remote disorder has been considered. MMODL / IJN: [id number] /
[2018-07-18] MEDS: LEVOFLOXACIN 750MG-D5W PMX 750 MG in DEXTROSE/WATER 1 150ML.BAG IVPB SCH (16:41)
[2018-07-18 17:16] LABS: Glucose,Whole Blood 97 mg/dL (75-99)
[2018-07-18] MEDS ORDERED: LORATADINE 10 MG TAB PO SCH (21:00)
[2018-07-18] MEDS ORDERED: traZODone HCL 100 MG TAB PO SCH (21:00)
[2018-07-18] MEDS ORDERED: ATENOLOL 25 MG TAB PO SCH (21:00)
[2018-07-18] MEDS ORDERED: diphenhydrAMINE 25 MG CAP PO SCH (21:00)
[2018-07-18] MEDS ORDERED: MULTIVITAMINS, THERA 1 EACH TAB PO SCH (21:00)
[2018-07-18] MEDS ORDERED: OXYBUTYNIN CHLORIDE 5 MG TAB PO SCH (21:00)
[2018-07-18] MEDS ORDERED: FLUoxetine HCL 20 MG CAP PO SCH (21:00)
[2018-07-18] MEDS ORDERED: metFORMIN 500 MG TAB PO SCH (21:00)
[2018-07-18 21:26] LABS: Glucose,Whole Blood 100 mg/dL (75-99)
[2018-07-18] MEDS: FLUoxetine HCL 20 MG CAP PO SCH (21:34)
[2018-07-18] MEDS: diphenhydrAMINE 25 MG CAP PO SCH (21:35)
[2018-07-18] MEDS: LORATADINE 10 MG TAB PO SCH (21:35)
[2018-07-18] MEDS: MULTIVITAMINS, THERA 1 EACH TAB PO SCH (21:35)
[2018-07-18] MEDS: ATENOLOL 25 MG TAB PO SCH (21:35)
[2018-07-18] MEDS: OXYBUTYNIN CHLORIDE 5 MG TAB PO SCH (21:36)
[2018-07-18] MEDS: traZODone HCL 100 MG TAB PO SCH (21:36)
[2018-07-18] MEDS: metFORMIN 500 MG TAB PO SCH (21:36)
[2018-07-19] MEDS: HYDROcodone/APAP 5-325MG 1 EACH TAB PO PRN ×3 (00:38→22:58)
[2018-07-19 07:10] LABS: Glucose,Whole Blood 113 mg/dL (75-99)
[2018-07-19] MEDS: HEPARIN SODIUM,PORCINE 5,000 UNIT/ML 1 ML VIAL SQ SCH ×2 (08:15→21:41)
[2018-07-19] MEDS: INSULIN ASPART (NovoLOG) 100 UNIT/ML VIAL SQ SCH ×4 (08:15→20:22)
[2018-07-19] MEDS: PANTOPRAZOLE 40 MG TABLET PO SCH ×2 (08:15→16:17)
--- NOTE | 2018-07-19 08:33 | P.PN ---
Subjective Progress Note Date: 07/19/18 Principal diagnosis: Dysphagia Tolerating liquids protein shakes and pills. Patient thinks anxiety is contributing to her sensation of dysphagia when eating. No emesis. Denies c hest pain. Objective - Vital Signs Vital signs: Vital Signs Temp 98.1 F 07/19/18 05:10 Pulse 71 07/19/18 05:10 Resp 20 07/19/18 05:10 BP 92/61 07/19/18 05:10 Pulse Ox 97 07/19/18 05:10 Intake & Output 07/18/18 07/19/18 07/19/18 18:59 06:59 18:59 Intake Total 500 Balance 500 Intake: Oral 500 Other: Voiding Method Toilet # Voids 3 2 - Exam General appearance: The patient is alert, oriented, in no acute distress. HET: Head is normocephalic and atraumatic. Pupils are equal and reactive. Oropharynx is clear without lesions. Neck: Supple without lymphadenopathy. Trachea midline. Heart: S1 S2. Regular rate and rhythm. Lungs: No crackles or wheezes are heard. Abdomen: Soft, nontender, nondistended with bowel sounds. No peritoneal signs. No palpable organomegaly or masses. Extremities: Normal skin color and turgor. No cyanosis, rash, ulceration, clubbing, or edema. Radial and pedal pulses are 2/4 bilaterally. Neurological: No focal deficits. Strength and sensation are grossly intact. - Labs CBC & Chem 7: 07/18/18 08:26 07/18/18 08:26 Labs: Abnormal Lab Results - Last 24 Hours (Table) 07/18/18 07/18/18 07/18/18 Range/Units 08:26 08:26 21:21 WBC 2.3 L (3.8-10.6) k/uL Hgb 11.2 L (11.4-16.0) gm/dL MCV 77.8 L (80.0-100.0) fL MCH 24.2 L (25.0-35.0) pg RDW 16.8 H (11.5-15.5) % Plt Count 59 L (150-450) k/uL Neutrophils # 0.8 L (1.3-7.7) k/uL Chloride 111 H (98-107) mmol/L POC Glucose (mg/dL) 100 H (75-99) mg/dL 07/19/18 Range/Units 07:08 WBC (3.8-10.6) k/uL Hgb (11.4-16.0) gm/dL MCV (80.0-100.0) fL MCH (25.0-35.0) pg RDW (11.5-15.5) % Plt Count (150-450) k/uL Neutrophils # (1.3-7.7) k/uL Chloride (98-107) mmol/L POC Glucose (mg/dL) 113 H (75-99) mg/dL Microbiology - Last 24 Hours (Table) 07/17/18 17:00 Blood Culture - Preliminary Blood No Growth after 24 hours 07/18/18 01:25 Urine Culture - Preliminary Urine,Voided Assessment and Plan (1) Dysphagia Narrative/Plan: 62-year-old female with a history of memory impairment and CLL nephrolithiasis presents with bilateral flank pain and reports of distal esophageal dysphagia with breads and meats. EGD March 2018 reported no evidence of peptic ulcer disease, stricture disease or lesion. Dysphagia etiology is unclear possible underlying motility disorder presently tolerating liquids softer foods without nausea vomiting odynophagia or dysphagia. Current Visit: Yes Status: Acute Code(s): R13.10 - DYSPHAGIA, UNSPECIFIED SNOMED Code(s): 20076569 (2) Bilateral flank pain Current Visit: Yes Status: Acute Code(s): R10.9 - UNSPECIFIED ABDOMINAL PAIN SNOMED Code(s): 164637245 Plan: 1. Protein shakes 3 times a day. In regards to her reports of dysphagia with breads and meats repeat inpatient endoscopy not recommended at this time EGD in March reported no evidence of stricturing disease, mucosal lesion or peptic ulcer disease. Patient can be evaluated in the outpatient setting in 2-[address] Foss discussion of possible outpatient manometry testing. Assessment and plan a care discussed with Dr. Foss
[2018-07-19 08:53] LABS: Anisocytosis Slight; Basophils % (A) 1 %; Eosinophils # (A) 0.1 k/uL (0-0.7); Eosinophils % (A) 7 %; HCT 34.8 % (34.0-46.0); Lymphocytes # (A) 1.2 k/uL (1.0-4.8); Lymphocytes % (A) 57 %; MCH 24.5 pg (25.0-35.0); MCHC 31.7 g/dL (31.0-37.0); MCV 77.2 fL (80.0-100.0); Mean Platelet Volume 8.3; Microcytosis Slight; Monocytes # (A) 0.1 k/uL (0-1.0); Monocytes % (A) 4 %; Neutrophils # (A) 0.6 k/uL (1.3-7.7); Neutrophils % (A) 29 %; RBC 4.51 m/uL (3.80-5.40); RDW 16.5 % (11.5-15.5); WBC 2.1 k/uL (3.8-10.6)
[2018-07-19 09:02] LABS: Calcium 8.3 mg/dL (8.4-10.2); Platelet Count 61 k/uL (150-450); Potassium 4.1 mmol/L (3.5-5.1)
[2018-07-19 11:19] LABS: Glucose,Whole Blood 136 mg/dL (75-99)
[2018-07-19 13:49] VITALS: RESP 18
[2018-07-19 15:31] VITALS: BMI 36.1
[2018-07-19] MEDS: LEVOFLOXACIN 750MG-D5W PMX 750 MG in DEXTROSE/WATER 1 150ML.BAG IVPB SCH (16:10)
--- NOTE | 2018-07-19 16:48 | PN ---
PROGRESS NOTE DATE OF SERVICE: 07/19/2018 This 62-year-old woman who was admitted with severe abdominal pain with acute pyelonephritis also had multiple other complaints. The patient also had dysphagia, possibly due to a motility disorder per GI. The patient initially had a workup. The cultures are negative. Urine cultures grew Gram-negative bacilli. There is no history of fever, rigors or chills at this time. On exam, alert and oriented x3. Pulse 48, blood pressure 97/64, respiration 18, temperature 98.3, pulse ox 96% on room air. HEENT: Conjunctivae normal. NECK: No jugular venous distention. No carotid bruit. No lymph node enlargement. CARDIOVASCULAR SYSTEM: S1, S2 muffled. RESPIRATORY SYSTEM: Breath sounds diminished at the bases. No rhonchi. No crackles. ABDOMEN: Soft, non-tender. No mass palpable. LEGS: No edema. No swelling. NERVOUS SYSTEM: No focal deficit. Labs at this time show WBC 2.1, hemoglobin 11, platelets 61. Sodium 130, potassium 4.1. ASSESSMENT: 1. Severe abdominal pain with possible acute pyelonephritis, present on admission. 2. Dysphagia, possibly esophageal motility disorder, status post recent esophagogastroduodenoscopy. 3. Leukopenia and mild pancytopenia, possibly secondary to previous hematological disorder. 4. Multiple cutaneous pyoderma, improving. 5. History of coronary artery disease. 6. Chronic obstructive pulmonary disease. 7. History of leukemia. 8. Diabetes mellitus, type 2. 9. Hypertension. 10.Hyperlipidemia. 11.History of myocardial infarction. 12.History of diverticulitis. 13.History of degenerative joint disease. 14.History of back surgery. 15.History of coronary artery disease, stent. 16.History of tonsillectomy. 17.History of anxiety, bipolar depression. 18.Remote history of nicotine dependence. RECOMMENDATIONS AND DISCUSSION: I recommend to continue current medications, continue with the monitoring, symptomatic treatment. Otherwise at this time continue with antibiotics. Will await the final culture from the urine to fine tune the antibiotics. Gastroenterology evaluation appreciated. Outpatient followup is recommended. Further recommendations to follow. MMODL / IJN: [id number] /
[2018-07-19 16:55] LABS: Glucose,Whole Blood 113 mg/dL (75-99)
[2018-07-19 20:21] LABS: Glucose,Whole Blood 87 mg/dL (75-99)
[2018-07-19] MEDS: OXYBUTYNIN CHLORIDE 5 MG TAB PO SCH (21:40)
[2018-07-19] MEDS: FLUoxetine HCL 20 MG CAP PO SCH (21:40)
[2018-07-19] MEDS: ATENOLOL 25 MG TAB PO SCH (21:40)
[2018-07-19] MEDS: metFORMIN 500 MG TAB PO SCH (21:41)
[2018-07-19] MEDS: LORATADINE 10 MG TAB PO SCH (21:41)
[2018-07-19] MEDS: MULTIVITAMINS, THERA 1 EACH TAB PO SCH (21:41)
[2018-07-19] MEDS: traZODone HCL 100 MG TAB PO SCH (21:41)
[2018-07-19] MEDS: diphenhydrAMINE 25 MG CAP PO SCH (21:42)
[2018-07-20 06:12] VITALS: BP 113/73; PULSE 54; TEMP 97.9
[2018-07-20 07:11] LABS: Glucose,Whole Blood 98 mg/dL (75-99)
[2018-07-20] MEDS: HEPARIN SODIUM,PORCINE 5,000 UNIT/ML 1 ML VIAL SQ SCH (08:18)
[2018-07-20] MEDS: INSULIN ASPART (NovoLOG) 100 UNIT/ML VIAL SQ SCH (08:18)
[2018-07-20] MEDS: PANTOPRAZOLE 40 MG TABLET PO SCH (08:18)
[2018-07-20 09:07] LABS: African American GFR (CKD) >90 (>60 ml/min/1.73 sqM); Anion Gap 3 mmol/L; Blood Urea Nitrogen 12 mg/dL (7-17); Calcium 8.1 mg/dL (8.4-10.2); Carbon Dioxide 25 mmol/L (22-30); Chloride 110 mmol/L (98-107); Glucose 85 mg/dL (74-99); Potassium 4.2 mmol/L (3.5-5.1); Sodium 138 mmol/L (137-145)
[2018-07-20 09:23] LABS: Anisocytosis Slight; HCT 35.9 % (34.0-46.0); HGB 11.6 gm/dL (11.4-16.0); Hypochromasia Slight; MCH 24.7 pg (25.0-35.0); MCHC 32.2 g/dL (31.0-37.0); MCV 76.6 fL (80.0-100.0); Mean Platelet Volume 8.1; Microcytosis Slight; RBC 4.68 m/uL (3.80-5.40); RDW 16.7 % (11.5-15.5); WBC 2.8 k/uL (3.8-10.6)
[2018-07-20 09:24] LABS: Platelet Count 69 k/uL (150-450)
[2018-07-20 10:28] LABS: Eosinophils # (M) 0.06 k/uL (0-0.7); Lymphocytes # (M) 1.29 k/uL (1.0-4.8); Monocytes # (M) 0.17 k/uL (0-1.0); Neutrophils # (M) 1.29 k/uL (1.3-7.7); Neutrophils % (M) 46 %; Nucleated Red Blood Cells 0 /100 WBC (0-0); Total Cells Counted 100
[2018-07-20 10:29] LABS: Poikilocytosis (M) Present
[2018-07-20 12:30] LABS: Glucose,Whole Blood 91 mg/dL (75-99)
[2018-07-20] MEDS ORDERED: LEVOFLOXACIN 750 MG TAB PO SCH (16:00)
--- NOTE | 2018-07-20 23:49 | DS ---
DISCHARGE SUMMARY DATE OF SERVICE: 07/20/2018. FINAL DIAGNOSES: 1. Severe abdominal pain, possibly secondary to acute pyelonephritis, present on admission improved. 2. Dysphagia, possible esophageal motility disorder status post recent EGD. 3. Leukopenia, mild pancytopenia, possibly secondary to previous hematology disorders. 4. Urinary tract infection with E coli. 5. Multiple cutaneous pyoderma, improving. 6. History of coronary artery disease. 7. History of chronic obstructive pulmonary disease. 8. History of leukemia. 9. Diabetes mellitus type 2. 10.Hypertension. 11.Hyperlipidemia. 12.History of myocardial infarction. 13.History of diverticulitis. 14.History of degenerative joint disease. 15.History of back surgery. 16.History of coronary artery disease. 17.Coronary artery disease/stent. 18.History of tonsillectomy. 19.History of anxiety/bipolar depression. 20.Remote history of nicotine dependence. The patient being discharged in stable condition with guarded prognosis. HISTORY OF PRESENT ILLNESS: This 58-year-old woman with a past medical history of multiple medical problems was admitted with abdominal pain, pyelonephritis, UTI, E coli was grown. Patient improved significantly. The patient will be discharged home in stable condition. Guarded prognosis. Gastroenterology saw the patient regarding the esophageal symptoms and thought that possibly related to esophageal dysmotility, possibly related to anxiety. The patient recently had EGD. On exam, vitals are stable. Cardiovascular: S1, S2. Abdomen soft. Nervous system: No focal deficits. DISCHARGE DIET: Cardiac diet. FOLLOWUP: Follow up with Dr. Garcia 2-3 days. Follow up with Dr. Foss as recommended. DISCHARGE MEDICATIONS: 1. Atenolol 25 mg p.o. q.h.s. 2. Benadryl 25 mg q.h.s. 3. Cetirizine 10 mg 10 mg p.o. q.h.s. 4. Ditropan 5 mg q.h.s. 5. Glucophage 500 mg q.h.s. 6. Motrin 80 mg t.i.d. p.r.n. 7. Multivitamins 1 p.o. q.h.s. 8. Darby 5 mg q.6 p.r.n. 9. Prozac 40 mg q.h.s. 10.Trazodone 1 tablet p.o. q.h.s. 11.Albuterol 90 q.6h p.r.n. 12.Xanax 0.5 q.h.s. p.r.n. 13.Macrodantin 50 mg q.6 for 4 days. 14.Protonix 40 mg p.o. b.i.d. Once again, the patient is being discharged in stable condition with guarded prognosis. MMODL / IJN: [id number] /
== END 2018-07-20 12:17 | disposition home or self-care (01) ==
LOC: EC 13:34 → 4MS4W 16:39 → INTOOBSV 16:39
PROVIDERS: ADMIT Internal Medicine; ATTEND Internal Medicine
DX: R10.9 Unspecified abdominal pain (principal); N10 Acute pyelonephritis; D61.818 Other pancytopenia; R13.14 Dysphagia, pharyngoesophageal phase; L08.0 Pyoderma; B96.20 Unspecified Escherichia coli [E. coli] as the cause of diseases classified elsewhere; E11.9 Type 2 diabetes mellitus without complications; E78.5 Hyperlipidemia, unspecified; I10 Essential (primary) hypertension; J44.9 Chronic obstructive pulmonary disease, unspecified; I25.10 Atherosclerotic heart disease of native coronary artery without angina pectoris; G89.29 Other chronic pain; M54.5 Low back pain; C91.11 Chronic lymphocytic leukemia of B-cell type in remission; K57.90 Diverticulosis of intestine, part unspecified, without perforation or abscess without bleeding; R41.3 Other amnesia; M19.90 Unspecified osteoarthritis, unspecified site; F31.9 Bipolar disorder, unspecified; F41.9 Anxiety disorder, unspecified; F40.240 Claustrophobia; Z79.84 Long term (current) use of oral hypoglycemic drugs; Z79.891 Long term (current) use of opiate analgesic; Z79.899 Other long term (current) drug therapy; Z88.0 Allergy status to penicillin; Z88.1 Allergy status to other antibiotic agents; Z88.5 Allergy status to narcotic agent; Z88.2 Allergy status to sulfonamides; Z88.8 Allergy status to other drugs, medicaments and biological substances; Z91.048 Other nonmedicinal substance allergy status; Z90.710 Acquired absence of both cervix and uterus; I25.2 Old myocardial infarction; Z90.49 Acquired absence of other specified parts of digestive tract; Z95.5 Presence of coronary angioplasty implant and graft; Z87.440 Personal history of urinary (tract) infections; Z87.891 Personal history of nicotine dependence; Z87.442 Personal history of urinary calculi; Z80.8 Family history of malignant neoplasm of other organs or systems
CPT/HCPCS: 96361 ×2; 96366 ×2; 96372 ×3; 96365; 96375; 99285; 36415; 93005; 92610; 80053; 80048 ×3; 85025 ×4; 81001; 87040; 87086; 87077; 87186; 71046; G0378 ×4; J1644 ×3; J2405; J1885; J1956 ×3

== ENCOUNTER 2018-09-30 18:35 | Emergency (ER) | payer OTHER ==
--- NOTE | 2018-09-30 19:35 | ED ---
General Adult HPI - General Chief complaint: Fall Stated complaint: Hand injury Time Seen by Provider: 09/30/18 18:36 Source: patient, EMS Mode of arrival: EMS Limitations: physical limitation - History of Present Illness Initial comments: Dictation was produced using [employer] dictation software. please excuse any grammatical, word or spelling errors. Chief Complaint: 62-year-old female presents with fall. History of Present Illness: 62-year-old female she states that last night she is trying to get out of bed. She felt really weak and fell to the ground. Patient states that she was on the floor until this morning. She is brought in by EMS. Patient also complaining of right shoulder, left wrist, left hip and left knee pain. Patient's was recently discharged from the hospital for kidney infection. She has multiple comorbidities. She does receive 24-hour home care. She reports a safe living home situation. The ROS documented in this emergency department record has been reviewed and confirmed by me. Those systems with pertinent positive or negative responses have been documented in the HPI. All other systems are other negative and/or noncontributory. PHYSICAL EXAM: General Impression: Alert and oriented x3, not in acute distress HEENT: Normocephalic atraumatic, extra-ocular movements intact, pupils equal and reactive to light bilaterally, mucous membranes moist. Cardiovascular: Heart regular rate and rhythm, S1&S2 audible, no murmurs, rubs or gallops Chest: Lungs clear to auscultation bilaterally, no rhonchi, no wheeze, no rales Abdomen: Bowel sounds present, abdomen soft, non-tender, non-distended, no organomegaly Musculoskeletal: Pulses present and equal in all extremities, no peripheral edema, all joints ranged without significant difficulty Motor: no focal deficits noted Neurological: CN II-XII grossly intact, no focal motor or sensory deficits noted Skin: Intact with no visualized rashes Psych: Normal affect and mood ED course: 62-year-old female presents after fall. She was allegedly on the ground since last night. There is concern of rhabdomyolysis. All signs upon ar rival are within acceptable limits. Patient is well-appearing at rest. Physical examination is essentially unremarkable. Laboratory evaluation obtained. CBC, coag panel unremarkable. Metabolic panel shows hypokalemia of 3.0, rest of labs are unremarkable. No findings to suggest rhabdomyolysis. Right shoulder x-ray, left wrist x-ray, left knee x-ray are unremarkable. An pelvis x-rays negative. Chest x-rays negative. Computed tomography scan of the head C-spine is unremarkable. EKG does not show any findings to suggest hypokalemia she has a slightly prolonged QT. Potassium is corrected using IV piggyback potassium and oral potassium. Patient told to follow-up with her primary care physician regarding low potassium. This is likely what is causing her weakness. Patient has a safe living arrangement. Patient is agreeable for discharge. Patient given prescription for oral potas sium for the next 4 days. She is advised to follow-up with her PCP for recheck. EKG interpretation: Ventricular rate 74, normal sinus rhythm,. 150, Q is 94, QTC 495. EKG compared to 07/17/[address] depressions in the anterior precordial leads. Overall, this EKG is unremarkable - Related Data Home Medications Medication Instructions Recorded Confirmed FLUoxetine HCL [PROzac] 40 mg PO HS 01/24/14 09/30/18 Multivitamins, Thera [Multivitamin 1 tab PO HS 01/24/14 09/30/18 (formulary)] diphenhydrAMINE HCL [Benadryl] 25 mg PO HS 01/24/14 09/30/18 ALPRAZolam [Xanax] 0.5 mg PO HS PRN 04/20/17 09/30/18 Oxybutynin Chloride [Ditropan] 5 mg PO HS 04/20/17 09/30/18 metFORMIN HCL [Glucophage] 500 mg PO HS 03/18/18 09/30/18 Albuterol Inhaler [Ventolin Hfa 1 - 2 puff INHALATION RT-Q6H PRN 06/04/18 09/30/18 Inhaler] Ibuprofen [Motrin] 800 mg PO TID PRN 06/04/18 09/30/18 Atenolol 1 tab PO HS 07/17/18 09/30/18 Cetirizine HCl 1 tab PO HS 07/17/18 09/30/18 HYDROcodone/APAP 5-325MG [[place] 1 tab PO Q6H PRN 07/17/18 09/30/18 5-325] traZODone HCL 1 tab PO HS 07/17/18 09/30/18 Previous Rx's Medication Instructions Recorded Pantoprazole [Protonix] 40 mg PO AC-BID #60 tablet. 03/22/18 Potassium Chloride ER [K-Dur 20] 20 meq PO BID 4 Days #8 tab 09/30/18 Allergies Allergy/AdvReac Type Severity Reaction Status Date / Time azithromycin [From Zithromax] Allergy Unknown Unknown Verified 09/30/18 18:56 cephalexin Allergy Unknown Unknown Verified 09/30/18 18:56 cyclobenzaprine HCl Allergy Unknown Unknown Verified 09/30/18 18:56 [From Flexeril] Penicillins Allergy Unknown Unknown Verified 09/30/18 18:56 pentazocine lactate Allergy Unknown Unknown Verified 09/30/18 18:56 [From Talwin] pseudoephedrine HCl Allergy Unknown Unknown Verified 09/30/18 18:56 [From Sudafed] Sulfa (Sulfonamide Allergy Unknown Unknown Verified 09/30/18 18:56 Antibiotics) adhesive AdvReac Unknown Unknown Verified 09/30/18 18:56 Review of Systems ROS Statement: Those systems with pertinent positive or pertinent negative responses have been documented in the HPI. ROS Other: All systems not noted in ROS Statement are negative. Past Medical History Past Medical History: Coronary Artery Disease (CAD), Cancer, COPD, Diabetes Mellitus, Hyperlipidemia, Hypertension, Memory Impairment, Myocardial Infarction (PR), Osteoarthritis (OA) Additional Past Medical History / Comment(s): LEUKEMIA in remission, DIVERTICULITIS, BORN WITH ONLY (1) KIDNEY, CHRONIC BACK PAIN , CLAUSTROPHOBIA, CLL, BACK SURGERY Last Myocardial Infarction Date:: UNKNOWN History of Any Multi-Drug Resistant Organisms: None Reported Past Surgical History: Appendectomy, Back Surgery, Cholecystectomy, Heart Catheterization With Stent, Hysterectomy, Tonsillectomy Additional Past Surgical History / Comment(s): CARPAL TUNNEL, FOOT SURGERY,pick at skin when anxious,left foot sx Past Anesthesia/Blood Transfusion Reactions: No Reported Reaction Date of Last Stent Placement:: UNKNOWN Past Psychological History: Anxiety, Bipolar, Depression Smoking Status: Former smoker Past Alcohol Use History: None Reported Past Drug Use History: None Reported - Past Family History Mother Family Medical History: Cancer Additional Family Medical History / Comment(s): UTERINE General Exam Limitations: physical limitation Course Vital Signs 09/30/18 09/30/18 18:51 19:51 Temperature 99.0 F Pulse Rate 79 Respiratory 18 18 Rate Blood Pressure 149/69 O2 Sat by Pulse 96 Oximetry Medical Decision Making - Lab Data Result diagrams: 09/30/18 19:41 09/30/18 19:41 Lab Results 09/30/18 09/30/18 09/30/18 Range/Units 19:41 19:41 19:41 WBC 7.0 (3.8-10.6) k/uL RBC 4.81 (3.80-5.40) m/uL Hgb 11.6 (11.4-16.0) gm/dL Hct 36.9 (34.0-46.0) % MCV 76.7 L (80.0-100.0) fL MCH 24.1 L (25.0-35.0) pg MCHC 31.4 (31.0-37.0) g/dL RDW 16.9 H (11.5-15.5) % Plt Count 113 L (150-450) k/uL Neutrophils % 38 % Lymphocytes % 55 % Monocytes % 4 % Eosinophils % 1 % Basophils % 0 % Neutrophils # 2.6 (1.3-7.7) k/uL Lymphocytes # 3.9 (1.0-4.8) k/uL Monocytes # 0.3 (0-1.0) k/uL Eosinophils # 0.0 (0-0.7) k/uL Basophils # 0.0 (0-0.2) k/uL Poikilocytosis Slight Anisocytosis Slight Microcytosis Slight PT 12.6 H (9.0-12.0) sec INR 1.2 H (<1.2) APTT 33.6 H (22.0-30.0) sec Sodium 137 (137-145) mmol/L Potassium 3.0 L (3.5-5.1) mmol/L Chloride 107 (98-107) mmol/L Carbon Dioxide 24 (22-30) mmol/L Anion Gap 6 mmol/L BUN 12 (7-17) mg/dL Creatinine 0.46 L (0.52-1.04) mg/dL Est GFR (CKD-EPI)AfAm >90 (>60 ml/min/1.73 sqM) Est GFR (CKD-EPI)NonAf >90 (>60 ml/min/1.73 sqM) Glucose 94 (74-99) mg/dL Calcium 7.9 L (8.4-10.2) mg/dL Magnesium 2.0 (1.6-2.3) mg/dL Creatine Kinase 25 L (30-135) U/L Disposition Clinical Impression: Fall, Hypokalemia Disposition: HOME SELF-CARE Instructions (If sedation given, give patient instructions): Fall Prevention for Older Adults (ED) Prescriptions: Potassium Chloride ER [K-Dur 20] 20 meq PO BID 4 Days #8 tab Is patient prescribed a controlled substance at d/c from ED?: No Referrals: Jitendra Garcia MD [Primary Care Provider] - 1-2 days Time of Disposition: 21:23
[2018-09-30 20:02] LABS: Anisocytosis Slight; Basophils % (A) 0 %; Eosinophils % (A) 1 %; HCT 36.9 % (34.0-46.0); HGB 11.6 gm/dL (11.4-16.0); Lymphocytes # (A) 3.9 k/uL (1.0-4.8); Lymphocytes % (A) 55 %; MCH 24.1 pg (25.0-35.0); MCHC 31.4 g/dL (31.0-37.0); MCV 76.7 fL (80.0-100.0); Mean Platelet Volume 7.4; Microcytosis Slight; Monocytes # (A) 0.3 k/uL (0-1.0); Monocytes % (A) 4 %; Neutrophils # (A) 2.6 k/uL (1.3-7.7); Neutrophils % (A) 38 %; Platelet Count 113 k/uL (150-450); Poikilocytosis Slight; RBC 4.81 m/uL (3.80-5.40); RDW 16.9 % (11.5-15.5)
[2018-09-30 20:11] LABS: African American GFR (CKD) >90 (>60 ml/min/1.73 sqM); Anion Gap 6 mmol/L; Blood Urea Nitrogen 12 mg/dL (7-17); Calcium 7.9 mg/dL (8.4-10.2); Carbon Dioxide 24 mmol/L (22-30); Chloride 107 mmol/L (98-107); Creatine Kinase 25 U/L (30-135); Glucose 94 mg/dL (74-99); Non-African American GFR(CKD) >90 (>60 ml/min/1.73 sqM); Sodium 137 mmol/L (137-145)
[2018-09-30 20:18] LABS: INR 1.2 (<1.2); Partial Thromboplastin Time 33.6 sec (22.0-30.0); Prothrombin Time 12.6 sec (9.0-12.0)
--- NOTE | 2018-09-30 20:18 | CT ---
EXAMINATION TYPE: CT brain tamica greer con DATE OF EXAM: 09/30/2018 COMPARISON: CT brain 06/26/2016 HISTORY: fall Headache. Neck pain. CT DLP: 1396.1 mGycm Automated exposure control for dose reduction was used. TECHNIQUE: CT scan of the head and cervical spine are performed without contrast. FINDINGS: Ventricles have normal size. There is no mass effect nor midline shift. There is no sign of intracranial hemorrhage. There is mild cerebral atrophy. Calvarium is intact. There is mild straightening of the cervical spine. There is degenerative spur formation at C6-7. Post erior elements are intact. Skull base is intact. There is no evidence of a fracture. There are bilate ral pleural effusions. IMPRESSION: Spondylosis at C6-7. No fracture. Mild cerebral atrophy. No acute intracranial abnormality. Brain unc hanged compared to old exam.
--- NOTE | 2018-09-30 20:32 | XR ---
EXAMINATION TYPE: XR shoulder complete RT DATE OF EXAM: 09/30/2018 COMPARISON: NONE HISTORY: Pain TECHNIQUE: 3 views FINDINGS: I see no fracture nor dislocation. Glenohumeral joint is intact. There is minor spurring on the humeral head. IMPRESSION: No acute abnormality of the right shoulder. Old right lateral rib fractures noted.
--- NOTE | 2018-09-30 20:33 | XR ---
EXAMINATION TYPE: XR knee complete LT DATE OF EXAM: 09/30/2018 COMPARISON: NONE HISTORY: Pain TECHNIQUE: 3 views FINDINGS: There is some spurring of the femoral and tibial condyles. I see no fracture nor dislocatio n. There is spurring on the patella. There is no sign of joint effusion. IMPRESSION: Hypertrophic osteoarthritis. No fracture.
--- NOTE | 2018-09-30 20:34 | XR ---
EXAMINATION TYPE: XR wrist complete LT DATE OF EXAM: 09/30/2018 COMPARISON: NONE HISTORY: Pain TECHNIQUE: 4 views FINDINGS: Carpal bones are intact. I see no fracture nor dislocation. Joint spaces are fairly normal. There are no erosions. IMPRESSION: Negative left wrist exam.
--- NOTE | 2018-09-30 20:35 | XR ---
EXAMINATION TYPE: XR chest 1V portable DATE OF EXAM: 09/30/2018 COMPARISON: 07/18/2018 HISTORY: Chest pain TECHNIQUE: Single frontal view of the chest is obtained. FINDINGS: Heart and mediastinum are normal. Lungs are clear of infiltrate. There is no pleural effus ion or pneumothorax. There are chest leads. There is some right rib deformity related to old healed f ractures. IMPRESSION: No active cardiopulmonary disease. No significant change.
--- NOTE | 2018-09-30 20:35 | XR ---
EXAMINATION TYPE: XR Hip LT and AP Pelvis DATE OF EXAM: 09/30/2018 COMPARISON: NONE HISTORY: Pain after a fall TECHNIQUE: A single AP view of the pelvis is obtained. Two views of the left hip are obtained. FINDINGS: The pelvic ring is intact. Proximal left femur and hip joint appear intact. There is no sig n of hip dysplasia. Sacroiliac joints appear normal. IMPRESSION: Negative pelvis and left hip exam.
[2018-09-30] MEDS ORDERED: ONDANSETRON 4 MG/2 ML VIAL IVP STA (20:39)
[2018-09-30] MEDS ORDERED: POTASSIUM CHLORIDE 20 MEQ in WATER FOR INJECTION 1 100ML.BAG IVPB STA (20:45)
[2018-09-30] MEDS ORDERED: POTASSIUM CHLORIDE ER 20 MEQ TAB.ER PO STA (20:45)
[2018-09-30] MEDS ORDERED: KETOROLAC 30 MG/ML 1 ML VIAL IVP STA (20:46)
[2018-09-30 23:41] VITALS: BP 135/86; PULSE 70; RESP 16; TEMP 98.5
== END 2018-09-30 23:38 | disposition home or self-care (01) ==
LOC: EC 18:35
DX: E87.6 Hypokalemia (principal); I45.81 Long QT syndrome; M25.511 Pain in right shoulder; M25.532 Pain in left wrist; M25.552 Pain in left hip; M25.562 Pain in left knee; Q60.0 Renal agenesis, unilateral; J44.9 Chronic obstructive pulmonary disease, unspecified; E11.9 Type 2 diabetes mellitus without complications; I10 Essential (primary) hypertension; I25.10 Atherosclerotic heart disease of native coronary artery without angina pectoris; I25.2 Old myocardial infarction; F31.9 Bipolar disorder, unspecified; F41.9 Anxiety disorder, unspecified; Z87.891 Personal history of nicotine dependence; Z88.0 Allergy status to penicillin; Z88.1 Allergy status to other antibiotic agents; Z88.2 Allergy status to sulfonamides; Z88.6 Allergy status to analgesic agent; Z88.8 Allergy status to other drugs, medicaments and biological substances; Z91.048 Other nonmedicinal substance allergy status; Z79.84 Long term (current) use of oral hypoglycemic drugs; Z79.899 Other long term (current) drug therapy; Z85.6 Personal history of leukemia; Z95.5 Presence of coronary angioplasty implant and graft; W19.XXXA Unspecified fall, initial encounter; Y92.009 Unspecified place in unspecified non-institutional (private) residence as the place of occurrence of the external cause
CPT/HCPCS: 36415; 93005; 80048; 82550; 83735; 85025; 85610; 85730; 73502; 73030; 73110; 73562; 71045; 72125; 70450; 99284; 96365; 96366; 96375 ×2; J3480; J2405; J1885

== ENCOUNTER 2018-11-05 15:52 | Observation (INO) | payer OTHER ==
[2018-11-05] MEDS ORDERED: SODIUM CHLORIDE 0.9% 1,000 ML IV STA ×2 (16:19)
[2018-11-05] MEDS ORDERED: MECLIZINE 12.5 MG TAB PO STA (16:19)
--- NOTE | 2018-11-05 16:28 | ED ---
Dizziness HPI - General Chief Complaint: Dizziness Stated Complaint: Rash Time Seen by Provider: 11/05/18 15:54 Source: patient, EMS, RN notes reviewed, old records reviewed Mode of arrival: EMS Limitations: no limitations - History of Present Illness Initial Comments: Patient is a 62-year-old female, presents emergency department today from her home with chief plan of dizziness, diaphoresis for one day. Patient reports it feels like the room is spinning. She denies any chest pain or shortness of breath. She also complains for chronic rash for the past month is pruritic in nature behind bilateral knees and arms. Patient states that she's been on a cream for her PCP but the rash is worsening. Patient states that she has history of coronary artery disease and had one previous stent. She denies any cough or congestion, r abdominal pain. - Related Data Home Medications Medication Instructions Recorded Confirmed FLUoxetine HCL [PROzac] 40 mg PO HS 01/24/14 11/05/18 Multivitamins, Thera [Multivitamin 1 tab PO HS 01/24/14 11/05/18 (formulary)] diphenhydrAMINE HCL [Benadryl] 25 mg PO HS 01/24/14 11/05/18 ALPRAZolam [Xanax] 0.5 mg PO HS PRN 04/20/17 11/05/18 Oxybutynin Chloride [Ditropan] 5 mg PO HS 04/20/17 11/05/18 metFORMIN HCL [Glucophage] 500 mg PO HS 03/18/18 11/05/18 Albuterol Inhaler [Ventolin Hfa 1 - 2 puff INHALATION RT-Q6H PRN 06/04/18 11/05/18 Inhaler] Ibuprofen [Motrin] 800 mg PO TID PRN 06/04/18 11/05/18 Atenolol 25 mg PO HS 07/17/18 11/05/18 Cetirizine HCl 10 mg PO HS 07/17/18 11/05/18 traZODone HCL 150 mg PO HS 07/17/18 11/05/18 Ranitidine HCl [Zantac] 300 mg PO HS 11/05/18 11/05/18 Allergies Allergy/AdvReac Type Severity Reaction Status Date / Time azithromycin [From Zithromax] Allergy Unknown Unknown Verified 11/05/18 16:27 cephalexin Allergy Unknown Unknown Verified 11/05/18 16:27 cyclobenzaprine HCl Allergy Unknown Unknown Verified 11/05/18 16:27 [From Flexeril] Penicillins Allergy Unknown Unknown Verified 11/05/18 16:27 pentazocine lactate Allergy Unknown Unknown Verified 11/05/18 16:27 [From Talwin] pseudoephedrine HCl Allergy Unknown Unknown Verified 11/05/18 16:27 [From Sudafed] Sulfa (Sulfonamide Allergy Unknown Unknown Verified 11/05/18 16:27 Antibiotics) adhesive AdvReac Unknown Unknown Verified 11/05/18 16:27 Review of Systems ROS Statement: Those systems with pertinent positive or pertinent negative responses have been documented in the HPI. ROS Other: All systems not noted in ROS Statement are negative. Past Medical History Past Medical History: Coronary Artery Disease (CAD), Cancer, COPD, Diabetes Mellitus, Hyperlipidemia, Hypertension, Memory Impairment, Myocardial Infarction ([place]), Osteoarthritis (OA) Additional Past Medical History / Comment(s): LEUKEMIA in remission, DIVERTICULITIS, BORN WITH ONLY (1) KIDNEY, CHRONIC BACK PAIN , CLAUSTROPHOBIA, CLL, BACK SURGERY Last Myocardial Infarction Date:: UNKNOWN History of Any Multi-Drug Resistant Organisms: None Reported Past Surgical History: Appendectomy, Back Surgery, Cholecystectomy, Heart Catheterization With Stent, Hysterectomy, Tonsillectomy Additional Past Surgical History / Comment(s): CARPAL TUNNEL, FOOT SURGERY,pick at skin when anxious,left foot sx Past Anesthesia/Blood Transfusion Reactions: No Reported Reaction Date of Last Stent Placement:: UNKNOWN Past Psychological History: Anxiety, Bipolar, Depression Smoking Status: Former smoker Past Alcohol Use History: None Reported Past Drug Use History: None Reported - Past Family History Mother Family Medical History: Cancer Additional Family Medical History / Comment(s): UTERINE General Exam - General Exam Comments Initial Comments: 62-year-old female. Patient is diaphoretic. Limitations: no limitations General appearance: alert, in no apparent distress Head exam: Present: atraumatic, normocephalic, normal inspection Eye exam: Present: normal appearance, PERRL, EOMI. Absent: scleral icterus, conjunctival injection, periorbital swelling ENT exam: Present: normal exam, mucous membranes moist, other (minimal nystagmus on R lateral gaze. ) Neck exam: Present: normal inspection. Absent: tenderness, meningismus, lymphadenopathy Respiratory exam: Present: normal lung sounds bilaterally. Absent: respiratory distress, wheezes, rales, rhonchi, stridor Cardiovascular Exam: Present: regular rate, normal rhythm, normal heart sounds. Absent: systolic murmur, diastolic murmur, rubs, gallop, clicks GI/Abdominal exam: Present: soft, normal bowel sounds. Absent: distended, tenderness, guarding, rebound, rigid Extremities exam: Present: normal inspection, full ROM, normal capillary refill. Absent: tenderness, pedal edema, joint swelling, calf tenderness Back exam: Present: normal inspection Neurological exam: Present: alert, oriented X3, CN II-XII intact Psychiatric exam: Present: normal affect, normal mood Skin exam: Present: warm, dry, intact, normal color, rash (Patient has a papular-like rash, excoriations over bilateral posterior cast and use. Also on forearms. Rash appears similar to scabies.) Course Vital Signs 11/05/18 11/05/18 11/05/18 16:00 19:08 19:46 Temperature 99.0 F 97.8 F Pulse Rate 65 67 60 Respiratory 16 16 18 Rate Blood Pressure 109/82 118/79 118/60 O2 Sat by Pulse 98 98 95 Oximetry Medical Decision Making - Medical Decision Making Patient has a history of coronary artery disease, , COPD, diabetes, and leukemia which is in remission. She presents today with dizziness, nausea and diaphoresis. Patient also then a rash for the past few weeks. Rash appears similar to scabies. I discussed that we can give Patient permethrin cream for this. She continues to complain of dizziness and states some slight vertigo. She has no cerebellar signs and no other neurological deficits. CT of the brain was completed and she stated she had a headache with the dizziness. In this is negative for any acute process. Patient does have some evidence is chronic small vessel ischemia. Reglan and Benadryl Patient continued to complain of dizziness. Patient attempted ambulation but states that she's not able to walk due to concern for falling dizziness. Patient was given IV fluids and the rest of her labwork was reviewed and unremarkable. Patient's case discussed with Dr. Roldan. Patient admitted for intractable dizziness, and did have some T-wave or does lead 1 and 2. With repeat serial cardiac enzymes as well. - Lab Data Result diagrams: 11/05/18 16:33 11/05/18 16:33 Lab Results 11/05/18 11/05/18 11/05/18 Range/Units 16:33 16:33 16:33 WBC 3.7 L (3.8-10.6) k/uL RBC 4.43 (3.80-5.40) m/uL Hgb 11.6 (11.4-16.0) gm/dL Hct 35.0 (34.0-46.0) % MCV 79.2 L (80.0-100.0) fL MCH 26.2 (25.0-35.0) pg MCHC 33.1 (31.0-37.0) g/dL RDW 18.5 H (11.5-15.5) % Plt Count 67 L (150-450) k/uL Neutrophils % (Manual) 26 % Lymphocytes % (Manual) 55 % Monocytes % (Manual) 6 % Eosinophils % (Manual) 13 % Neutrophils # (Manual) 0.96 L (1.3-7.7) k/uL Lymphocytes # (Manual) 2.04 (1.0-4.8) k/uL Monocytes # (Manual) 0.22 (0-1.0) k/uL Eosinophils # (Manual) 0.48 (0-0.7) k/uL Nucleated RBCs 0 (0-0) /100 WBC Manual Slide Review Performed Poikilocytosis (manual Present Anisocytosis Slight Microcytosis Slight PT (9.0-12.0) sec INR (<1.2) APTT (22.0-30.0) sec Sodium 138 (137-145) mmol/L Potassium 4.3 (3.5-5.1) mmol/L Chloride 108 H (98-107) mmol/L Carbon Dioxide 24 (22-30) mmol/L Anion Gap 6 mmol/L BUN 25 H (7-17) mg/dL Creatinine 0.89 (0.52-1.04) mg/dL Est GFR (CKD-EPI)AfAm 79 (>60 ml/min/1.73 sqM) Est GFR (CKD-EPI)NonAf 69 (>60 ml/min/1.73 sqM) Glucose 85 (74-99) mg/dL Plasma Lactic Acid Noel (0.7-2.0) mmol/L Calcium 9.1 (8.4-10.2) mg/dL Total Bilirubin 0.5 (0.2-1.3) mg/dL AST 28 (14-36) U/L ALT 16 (9-52) U/L Alkaline Phosphatase 82 (38-126) U/L Troponin I <0.012 (0.000-0.034) ng/mL NT-Pro-B Natriuret Pep pg/mL Total Protein 6.3 (6.3-8.2) g/dL Albumin 3.4 L (3.5-5.0) g/dL Urine Color Urine Appearance (Clear) Urine pH (5.0-8.0) Ur Specific [place] (1.001-1.035) Urine Protein (Negative) Urine Glucose (UA) (Negative) Urine Ketones (Negative) Urine Blood (Negative) Urine Nitrite (Negative) Urine Bilirubin (Negative) Urine Urobilinogen (<2.0) mg/dL Ur Leukocyte Esterase (Negative) 11/05/18 11/05/18 11/05/18 Range/Units 16:33 16:33 16:33 WBC (3.8-10.6) k/uL RBC (3.80-5.40) m/uL Hgb (11.4-16.0) gm/dL Hct (34.0-46.0) % MCV (80.0-100.0) fL MCH (25.0-35.0) pg MCHC (31.0-37.0) g/dL RDW (11.5-15.5) % Plt Count (150-450) k/uL Neutrophils % (Manual) % Lymphocytes % (Manual) % Monocytes % (Manual) % Eosinophils % (Manual) % Neutrophils # (Manual) (1.3-7.7) k/uL Lymphocytes # (Manual) (1.0-4.8) k/uL Monocytes # (Manual) (0-1.0) k/uL Eosinophils # (Manual) (0-0.7) k/uL Nucleated RBCs (0-0) /100 WBC Manual Slide Review Poikilocytosis (manual Anisocytosis Microcytosis PT 11.0 (9.0-12.0) sec INR 1.0 (<1.2) APTT 22.4 (22.0-30.0) sec Sodium (137-145) mmol/L Potassium (3.5-5.1) mmol/L Chloride (98-107) mmol/L Carbon Dioxide (22-30) mmol/L Anion Gap mmol/L BUN (7-17) mg/dL Creatinine (0.52-1.04) mg/dL Est GFR (CKD-EPI)AfAm (>60 ml/min/1.73 sqM) Est GFR (CKD-EPI)NonAf (>60 ml/min/1.73 sqM) Glucose (74-99) mg/dL Plasma Lactic Acid Noel 0.6 L (0.7-2.0) mmol/L Calcium (8.4-10.2) mg/dL Total Bilirubin (0.2-1.3) mg/dL AST (14-36) U/L ALT (9-52) U/L Alkaline Phosphatase (38-126) U/L Troponin I (0.000-0.034) ng/mL NT-Pro-B Natriuret Pep 259 pg/mL Total Protein (6.3-8.2) g/dL Albumin (3.5-5.0) g/dL Urine Color Urine Appearance (Clear) Urine pH (5.0-8.0) Ur Specific [place] (1.001-1.035) Urine Protein (Negative) Urine Glucose (UA) (Negative) Urine Ketones (Negative) Urine Blood (Negative) Urine Nitrite (Negative) Urine Bilirubin (Negative) Urine Urobilinogen (<2.0) mg/dL Ur Leukocyte Esterase (Negative) 11/05/18 Range/Units 18:35 WBC (3.8-10.6) k/uL RBC (3.80-5.40) m/uL Hgb (11.4-16.0) gm/dL Hct (34.0-46.0) % MCV (80.0-100.0) fL MCH (25.0-35.0) pg MCHC (31.0-37.0) g/dL RDW (11.5-15.5) % Plt Count (150-450) k/uL Neutrophils % (Manual) % Lymphocytes % (Manual) % Monocytes % (Manual) % Eosinophils % (Manual) % Neutrophils # (Manual) (1.3-7.7) k/uL Lymphocytes # (Manual) (1.0-4.8) k/uL Monocytes # (Manual) (0-1.0) k/uL Eosinophils # (Manual) (0-0.7) k/uL Nucleated RBCs (0-0) /100 WBC Manual Slide Review Poikilocytosis (manual Anisocytosis Microcytosis PT (9.0-12.0) sec INR (<1.2) APTT (22.0-30.0) sec Sodium (137-145) mmol/L Potassium (3.5-5.1) mmol/L Chloride (98-107) mmol/L Carbon Dioxide (22-30) mmol/L Anion Gap mmol/L BUN (7-17) mg/dL Creatinine (0.52-1.04) mg/dL Est GFR (CKD-EPI)AfAm (>60 ml/min/1.73 sqM) Est GFR (CKD-EPI)NonAf (>60 ml/min/1.73 sqM) Glucose (74-99) mg/dL Plasma Lactic Acid Noel (0.7-2.0) mmol/L Calcium (8.4-10.2) mg/dL Total Bilirubin (0.2-1.3) mg/dL AST (14-36) U/L ALT (9-52) U/L Alkaline Phosphatase (38-126) U/L Troponin I (0.000-0.034) ng/mL NT-Pro-B Natriuret Pep pg/mL Total Protein (6.3-8.2) g/dL Albumin (3.5-5.0) g/dL Urine Color Yellow Urine Appearance Clear (Clear) Urine pH 6.5 (5.0-8.0) Ur Specific [place] 1.019 (1.001-1.035) Urine Protein Trace H (Negative) Urine Glucose (UA) Negative (Negative) Urine Ketones Negative (Negative) Urine Blood Negative (Negative) Urine Nitrite Negative (Negative) Urine Bilirubin Negative (Negative) Urine Urobilinogen <2.0 (<2.0) mg/dL Ur Leukocyte Esterase Negative (Negative) 11/05/18 18:29 EKG shows normal sinus rhythm normal EKG.. 65 bpm. Verbal is 158 ms. QRS duration is 88 ms. QT QTc is 448/465 ms. No excess elevation or T-wave inversions. - Radiology Data Radiology results: report reviewed Chest x-rays negative for any acute vertebral artery disease. Improvement aspiration from old exam. Heart normal heart. Patient ranges monitor blood.. No acute intracranial abnormality. No changes. Disposition Clinical Impression: Dizziness, Diabetes mellitus, Rash, Vertigo, Diaphoresis Disposition: ADMITTED IP TO THIS HOSP Condition: Stable Is patient prescribed a controlled substance at d/c from ED?: No Referrals: Jitendra Garcia MD [Primary Care Provider] - 1-2 days Time of Disposition: 20:44
--- NOTE | 2018-11-05 17:12 | XR ---
EXAMINATION TYPE: XR chest 2V DATE OF EXAM: 11/05/2018 COMPARISON: 09/30/2018 HISTORY: Dizziness TECHNIQUE: Frontal and lateral views of the chest are obtained. FINDINGS: Heart and mediastinum are normal. Lungs are clear. Diaphragm is normal. Bony thorax is nor mal. There is old right-sided healed rib fractures. IMPRESSION: No active cardiopulmonary disease. There is improved inspiration compared to old exam. N ormal heart.
[2018-11-05 17:13] LABS: Albumin 3.4 g/dL (3.5-5.0); Calcium 9.1 mg/dL (8.4-10.2); Total Bilirubin 0.5 mg/dL (0.2-1.3); Total Protein 6.3 g/dL (6.3-8.2)
[2018-11-05 17:19] LABS: Partial Thromboplastin Time 22.4 sec (22.0-30.0)
[2018-11-05 17:20] LABS: Anisocytosis Slight; HGB 11.6 gm/dL (11.4-16.0); MCH 26.2 pg (25.0-35.0); MCHC 33.1 g/dL (31.0-37.0); MCV 79.2 fL (80.0-100.0); Mean Platelet Volume 8.7; Microcytosis Slight; RBC 4.43 m/uL (3.80-5.40); RDW 18.5 % (11.5-15.5); WBC 3.7 k/uL (3.8-10.6)
[2018-11-05 17:22] LABS: Platelet Count 67 k/uL (150-450)
[2018-11-05 17:29] LABS: Potassium 4.3 mmol/L (3.5-5.1)
[2018-11-05 17:48] LABS: Eosinophils # (M) 0.48 k/uL (0-0.7); Lymphocytes # (M) 2.04 k/uL (1.0-4.8); Monocytes # (M) 0.22 k/uL (0-1.0); Neutrophils % (M) 26 %; Nucleated Red Blood Cells 0 /100 WBC (0-0); Poikilocytosis (M) Present; Total Cells Counted 100
[2018-11-05] MEDS ORDERED: diphenhydrAMINE 50 MG/ML 1 ML VIAL IVP STA (18:51)
[2018-11-05] MEDS ORDERED: METOCLOPRAMIDE 5 MG/ML 2 ML VIAL IVP STA (18:51)
[2018-11-05] MEDS ORDERED: ACETAMINOPHEN TAB 500 MG TAB PO STA (18:51)
[2018-11-05 18:55] LABS: Appearance,Urine Clear (Clear); Bilirubin,Urine Negative (Negative); Blood,Urine Negative (Negative); Color,Urine Yellow; Glucose,Urine (UA) Negative (Negative); Ketones,Urine Negative (Negative); Leukocyte Esterase,Urine Negative (Negative); Nitrite,Urine Negative (Negative); PH, Urine 6.5 (5.0-8.0); Protein,Urine Trace (Negative); Specific Gravity,Urine 1.019 (1.001-1.035); Urobilinogen,Urine <2.0 mg/dL (<2.0)
--- NOTE | 2018-11-05 19:58 | CT ---
EXAMINATION TYPE: CT brain wo con DATE OF EXAM: 11/05/2018 COMPARISON: 09/30/2018 HISTORY: Dizzy, diaphoretic CT DLP: 1119.4 mGycm Automated exposure control for dose reduction was used. FINDINGS: There is cerebral cortical atrophy. There is no mass effect nor midline shift. There is no sign of in tracranial hemorrhage. Calvarium is intact. IMPRESSION: MILD CEREBRAL ATROPHY. NO ACUTE INTRACRANIAL ABNORMALITY. NO CHANGE.
[2018-11-05] MEDS ORDERED: ONDANSETRON 4 MG/2 ML VIAL IVP PRN (20:44)
[2018-11-05] MEDS ORDERED: NALOXONE 0.4 MG/ML 1 ML VIAL IV PRN (20:44)
[2018-11-05] MEDS ORDERED: MORPHINE SULFATE 4 MG/ML SYRINGE IV PRN (20:44)
[2018-11-05] MEDS ORDERED: KETOROLAC 30 MG/ML 1 ML VIAL IVP PRN (20:44)
[2018-11-05] MEDS ORDERED: PERMETHRIN 5% CREAM 60 GM TUBE TOPICAL ONE (22:30)
[2018-11-06] MEDS: ACETAMINOPHEN TAB 325 MG TAB PO PRN ×2 (01:37→20:12)
[2018-11-06] MEDS: SODIUM CHLORIDE 0.9% 1,000 ML IV SCH ×3 (04:18→20:11)
[2018-11-06] MEDS: PANTOPRAZOLE 40 MG/10 ML VIAL IV SCH (10:18)
[2018-11-06 11:46] LABS: Glucose,Whole Blood 86 mg/dL (75-99)
[2018-11-06] MEDS: IBUPROFEN 400 MG TAB PO PRN (13:31)
[2018-11-06] MEDS ORDERED: MECLIZINE 12.5 MG TAB PO PRN (15:15)
[2018-11-06 16:31] LABS: Glucose,Whole Blood 88 mg/dL (75-99)
[2018-11-06] MEDS: HEPARIN SODIUM,PORCINE 5,000 UNIT/ML 1 ML VIAL SQ SCH ×2 (17:27→23:33)
[2018-11-06 20:03] LABS: Glucose,Whole Blood 109 mg/dL (75-99)
[2018-11-06] MEDS: MULTIVITAMINS, THERA 1 EACH TAB PO SCH (20:09)
[2018-11-06] MEDS: traZODone HCL 50 MG TAB PO SCH (20:10)
[2018-11-06] MEDS: ATENOLOL 25 MG TAB PO SCH (20:10)
[2018-11-06] MEDS: OXYBUTYNIN CHLORIDE 5 MG TAB PO SCH (20:10)
[2018-11-06] MEDS: metFORMIN 500 MG TAB PO SCH (20:10)
[2018-11-06] MEDS: FLUoxetine HCL 20 MG CAP PO SCH (20:10)
--- NOTE | 2018-11-06 22:49 | P.HPIM ---
History of Present Illness H&P Date: 11/06/18 Chief Complaint: Dizziness Patient is a 62-year-old female with a known history of coronary artery disease with stent placement, leukemia in remission, COPD, diabetes type 2, hypertension, hyperlipidemia and memory impairment as well as congenital solitary kidney came to ER with complaints of dizziness and feeling like the room spinning since yesterday morning. Dizziness sometimes gets worse with standing. Otherwise denied any complaints of headache. No chest pain or shortness of breath. Patient does have nausea and source of vomiting. No fever no chills. No cough or sputum production. Denied any recent ear infection. Denied history of vertigo. She also complains for chronic rash for the past month is pruritic in nature behind bilateral knees and arms. Patient states that she's been on a cream for her PCP but the rash is worsening. Patient does have a history of anxiety, depression and bipolar disorder. Patient is a former smoker. EKG showed normal sinus rhythm. CT head showed mild cerebral atrophy and no acute intracranial abnormality noted. Chest x-ray showed no acute cardiopulmonary process. There is improved inspiration compared to old exam. Normal heart. BUN 25 lactic acid 0.6 Platelets 67,000 and WBC 3.7 Review of Systems Constitutional: Patient denies any fever or chills . No generalized weakness or weight loss. Abdomen: Patient denied nausea vomiting and diarrhea and abdominal pain. Cardiovascular: Patient denies any chest pain or short of breath no palpitations. Respiratory: patient denied any cough is from production. No shortness of breath Neurologic: Patient denied any numbness or tingling headache. Dizziness and room spinning Musculoskeletal: Patient denies any complaints of joint swelling or deformity. Skin: Negative Psychiatric: Negative Endocrine: No heat or cold intolerance. No recent weight gain. Genitourinary: No dysuria or hematuria. All other 14 point ROS negative except the above 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, CHRONIC BACK PAIN , CLAUSTROPHOBIA, CLL, BACK SURGERY Last Myocardial Infarction Date:: 2007 History of Any Multi-Drug Resistant Organisms: None Reported Past Surgical History: Appendectomy, Back Surgery, Cholecystectomy, Heart Catheterization With Stent, Hysterectomy, Tonsillectomy Additional Past Surgical History / Comment(s): CARPAL TUNNEL, FOOT SURGERY,pick at skin when anxious,left foot sx Past Anesthesia/Blood Transfusion Reactions: No Reported Reaction Date of Last Stent Placement:: UNKNOWN Past Psychological History: Anxiety, Bipolar, Depression Smoking Status: Former smoker Past Alcohol Use History: None Reported Past Drug Use History: None Reported - Past Family History Mother Family Medical History: Cancer Additional Family Medical History / Comment(s): UTERINE Medications and Allergies Home Medications Medication Instructions Recorded Confirmed Type FLUoxetine HCL [PROzac] 40 mg PO HS 01/24/14 11/05/18 History Multivitamins, Thera [Multivitamin 1 tab PO HS 01/24/14 11/05/18 History (formulary)] diphenhydrAMINE HCL [Benadryl] 25 mg PO HS 01/24/14 11/05/18 History ALPRAZolam [Xanax] 0.5 mg PO HS PRN 04/20/17 11/05/18 History Oxybutynin Chloride [Ditropan] 5 mg PO HS 04/20/17 11/05/18 History metFORMIN HCL [Glucophage] 500 mg PO HS 03/18/18 11/05/18 History Ibuprofen [Motrin] 800 mg PO TID PRN 06/04/18 11/05/18 History Atenolol 25 mg PO HS 07/17/18 11/05/18 History Cetirizine HCl 10 mg PO HS 07/17/18 11/05/18 History traZODone HCL 150 mg PO HS 07/17/18 11/05/18 History Ranitidine HCl [Zantac] 300 mg PO HS 11/05/18 11/05/18 History Allergies Allergy/AdvReac Type Severity Reaction Status Date / Time azithromycin [From Zithromax] Allergy Unknown Unknown Verified 11/05/18 23:56 cephalexin Allergy Unknown Unknown Verified 11/05/18 23:56 cyclobenzaprine HCl Allergy Unknown Unknown Verified 11/05/18 23:56 [From Flexeril] Penicillins Allergy Unknown Unknown Verified 11/05/18 23:56 pentazocine lactate Allergy Unknown Unknown Verified 11/05/18 23:56 [From Talwin] pseudoephedrine HCl Allergy Unknown Unknown Verified 11/05/18 23:56 [From Sudafed] Sulfa (Sulfonamide Allergy Unknown Unknown Verified 11/05/18 23:56 Antibiotics) adhesive AdvReac Unknown Unknown Verified 11/05/18 23:56 Physical Exam Vitals: Vital Signs Temp Pulse Pulse Resp BP BP BP 11/06/18 11:21 97.5 F L 64 18 138/77 11/06/18 07:30 98.3 F 61 18 135/85 11/06/18 03:54 18 11/05/18 22:51 97.8 F 18 130/72 11/05/18 19:46 97.8 F 60 18 118/60 11/05/18 19:08 67 16 118/79 11/05/18 16:00 99.0 F 65 16 109/82 Pulse Ox 11/06/18 11:21 96 11/06/18 07:30 96 11/06/18 03:54 11/05/18 22:51 95 11/05/18 19:46 95 11/05/18 19:08 98 11/05/18 16:00 98 Intake and Output 11/05/18 11/06/18 11/06/18 22:59 06:59 14:59 Intake Total 1040 Balance 1040 Intake: Intake, IV Titration 800 Amount Sodium Chloride 0.9% 1, 800 000 ml @ 100 mls/hr IV . [facility] Rx#:[id number] Oral 240 Other: Voiding Method Diaper # Voids 3 Weight 80.286 kg PHYSICAL EXAMINATION: Patient is lying in the bed comfortably, no acute distress, awake alert and oriented.. HEENT: Normocephalic. Neck is supple. Pupils reactive. Nostrils clear. Oral c avity is moist. Ears reveal no drainage. Neck reveals no JVD, carotid bruits, or thyromegaly. CHEST EXAMINATION: Trachea is central. Symmetrical expansion. Lung silver clear to auscultation and percussion. CARDIAC: Normal S1, S2 with no gallops. No murmurs ABDOMEN: Soft. Bowel sounds normal. No organomegaly. No abdominal bruits. Extremities: reveal no edema. No clubbing or cyanosis Neurologically awake, alert, oriented x3 with well-coordinated movements. No focal deficits noted Skin: Does have rash on the right lower anterolateral side scratch markings. No other skin lesions. Psychiatric: Coperative. Nonsuicidal Musculoskeletal: No joint swelling or deformity. Normal range of motion. Results CBC & Chem 7: 11/05/18 16:33 11/05/18 16:33 Labs: Abnormal Lab Results - Last 24 Hours (Table) 11/05/18 11/05/18 11/05/18 Range/Units 16:33 16:33 16:33 WBC 3.7 L (3.8-10.6) k/uL MCV 79.2 L (80.0-100.0) fL RDW 18.5 H (11.5-15.5) % Plt Count 67 L (150-450) k/uL Neutrophils # (Manual) 0.96 L (1.3-7.7) k/uL Chloride 108 H (98-107) mmol/L BUN 25 H (7-17) mg/dL Plasma Lactic Acid Noel 0.6 L (0.7-2.0) mmol/L Albumin 3.4 L (3.5-5.0) g/dL Urine Protein (Negative) 11/05/18 Range/Units 18:35 WBC (3.8-10.6) k/uL MCV (80.0-100.0) fL RDW (11.5-15.5) % Plt Count (150-450) k/uL Neutrophils # (Manual) (1.3-7.7) k/uL Chloride (98-107) mmol/L BUN (7-17) mg/dL Plasma Lactic Acid Noel (0.7-2.0) mmol/L Albumin (3.5-5.0) g/dL Urine Protein Trace H (Negative) Thrombosis Risk Factor Assmnt - DVT/VTE Prophylaxis DVT/VTE Prophylaxis: Pharmacologic Prophylaxis ordered - Choose All That Apply Any of the Below Risk Factors Present?: Yes Each Factor Represents 1 point: Acute [place] Other Risk Factors: Yes Each Risk Factor Represents 2 Points: Age 61-74 years Other congenital or acquired thrombophilia - If yes, enter type in comment: No Thrombosis Risk Factor Assessment Total Risk Factor Score: 3 Thrombosis Risk Factor Assessment Level: Moderate Risk Assessment and Plan Assessment: Dizziness and room spinning likely due to benign positional vertigo. CT head negative. Possible orthostatic hypertension Right lower extremity skin rash suspected scabies. History of leukemia currently in remission. Coronary artery disease and history of stent placement Diabetes type 2 nausea. Memory impairment Hyperlipidemia Hypertension COPD and history of smoking Anxiety/depression and bipolar disorder. Cardiac solitary kidney Chronic back pain DVT prophylaxis with heparin subcu Plan: Patient will be continued on IV hydration. Symptomatic management for nausea. Meclizine when necessary for dizziness and vertigo. Orthostatic vitals negative. Patient already received IV fluids by the time. Repeat CBC and BMP tomorrow. Continue with insulin sliding scale and continue with his home medications and follow up closely. Further recommendations based on the clinical. Time with Patient: Greater than 30
[2018-11-06] MEDS: ALPRAZolam 0.5 MG TAB PO PRN (23:40)
[2018-11-07 06:51] LABS: Glucose,Whole Blood 84 mg/dL (75-99)
[2018-11-07 07:37] LABS: African American GFR (CKD) >90 (>60 ml/min/1.73 sqM); Anion Gap 7 mmol/L; Blood Urea Nitrogen 16 mg/dL (7-17); Calcium 8.5 mg/dL (8.4-10.2); Carbon Dioxide 21 mmol/L (22-30); Chloride 109 mmol/L (98-107); Glucose 84 mg/dL (74-99); Potassium 4.2 mmol/L (3.5-5.1); Sodium 137 mmol/L (137-145)
[2018-11-07 08:47] LABS: Anisocytosis Slight; Basophils # (A) 0.1 k/uL (0-0.2); Basophils % (A) 1 %; Eosinophils # (A) 0.6 k/uL (0-0.7); Eosinophils % (A) 16 %; HCT 36.2 % (34.0-46.0); HGB 11.2 gm/dL (11.4-16.0); Hypochromasia Slight; Lymphocytes # (A) 1.6 k/uL (1.0-4.8); Lymphocytes % (A) 42 %; MCV 80.7 fL (80.0-100.0); Monocytes # (A) 0.2 k/uL (0-1.0); Monocytes % (A) 5 %; Neutrophils # (A) 1.2 k/uL (1.3-7.7); Neutrophils % (A) 32 %; RBC 4.49 m/uL (3.80-5.40); RDW 17.1 % (11.5-15.5); WBC 3.7 k/uL (3.8-10.6)
[2018-11-07 08:48] LABS: Platelet Count 70 k/uL (150-450)
[2018-11-07] MEDS: ACETAMINOPHEN TAB 325 MG TAB PO PRN (10:00)
[2018-11-07] MEDS: PANTOPRAZOLE 40 MG/10 ML VIAL IV SCH (10:01)
[2018-11-07] MEDS: HEPARIN SODIUM,PORCINE 5,000 UNIT/ML 1 ML VIAL SQ SCH ×2 (10:01→16:56)
[2018-11-07 11:59] LABS: Glucose,Whole Blood 112 mg/dL (75-99)
[2018-11-07] MEDS: IBUPROFEN 400 MG TAB PO PRN (12:41)
[2018-11-07] MEDS: SODIUM CHLORIDE 0.9% 1,000 ML IV SCH (14:54)
[2018-11-07 16:59] LABS: Glucose,Whole Blood 102 mg/dL (75-99)
[2018-11-07 20:33] LABS: Glucose,Whole Blood 94 mg/dL (75-99)
[2018-11-07] MEDS: ATENOLOL 25 MG TAB PO SCH (21:58)
[2018-11-07] MEDS: FLUoxetine HCL 20 MG CAP PO SCH (21:58)
[2018-11-07] MEDS: OXYBUTYNIN CHLORIDE 5 MG TAB PO SCH (21:59)
[2018-11-07] MEDS: MULTIVITAMINS, THERA 1 EACH TAB PO SCH (21:59)
[2018-11-07] MEDS: traZODone HCL 50 MG TAB PO SCH (21:59)
[2018-11-07] MEDS: metFORMIN 500 MG TAB PO SCH (21:59)
--- NOTE | 2018-11-07 23:22 | P.PN ---
Subjective Progress Note Date: 11/07/18 Principal diagnosis: Dizziness secondary to vertigo Patient is a 62-year-old female with a known history of coronary artery disease with stent placement, leukemia in remission, COPD, diabetes type 2, hypertension, hyperlipidemia and memory impairment as well as congenital solita ry kidney came to ER with complaints of dizziness and feeling like the room spinning since yesterday morning. Dizziness sometimes gets worse with standing. Otherwise denied any complaints of headache. No chest pain or shortness of breath. Patient does have nausea and source of vomiting. No fever no chills. No cough or sputum production. Denied any recent ear infection. Denied history of vertigo. She also complains for chronic rash for the past month is pruritic in nature behind bilateral knees and arms. Patient states that she's been on a cream for her PCP but the rash is worsening. Patient does have a history of anxiety, depression and bipolar disorder. Patient is a former smoker. EKG showed normal sinus rhythm. CT head showed mild cerebral atrophy and no acute intracranial abnormality noted. Chest x-ray showed no acute cardiopulmonary process. There is improved inspiration compared to old exam. Normal heart. BUN 25 lactic acid 0.6 Platelets 67,000 and WBC 3.7 11/07/2018 Patient is still having dizziness and vertigo with head movement. No spinning has improved otherwise. Patient is not able to ambulate without support. 2-D echocardiogram was ordered to rule out any valvular abnormality or aortic stenosis. PTOT was consulted for possible rehab transfer. Denied any complaints of chest pain or shortness of breath. Nausea improved. No vomiting episodes. No abdominal pain. No diarrhea. Current medications reviewed. Objective - Vital Signs Vital signs: Vital Signs Temp 98.2 F 11/07/18 20:15 Pulse 83 11/07/18 20:15 Resp 18 11/07/18 20:15 BP 111/55 11/07/18 20:15 Pulse Ox 96 11/07/18 20:15 Intake & Output 11/07/18 11/07/18 11/08/18 06:59 18:59 06:59 Intake Total 240 Balance 240 Intake: Oral 240 Other: Voiding Method Diaper Diaper # Voids 2 1 # Bowel Movements 1 - Exam PHYSICAL EXAMINATION: Patient is lying in the bed comfortably, no acute distress, awake alert and oriented.. HEENT: Normocephalic. Neck is supple. Pupils reactive. Nostrils clear. Oral cavity is moist. Ears reveal no drainage. Neck reveals no JVD, carotid bruits, or thyromegaly. CHEST EXAMINATION: Trachea is central. Symmetrical expansion. Lung silver clear to auscultation and percussion. CARDIAC: Normal S1, S2 with no gallops. No murmurs ABDOMEN: Soft. Bowel sounds normal. No organomegaly. No abdominal bruits. Extremities: reveal no edema. No clubbing or cyanosis Neurologically awake, alert, oriented x3 with well-coordinated movements. No focal deficits noted Skin: No rash or skin lesions. Psychiatric: Coperative. Nonsuicidal Musculoskeletal: No joint swelling or deformity. Normal range of motion. - Labs CBC & Chem 7: 11/07/18 06:54 11/07/18 06:54 Labs: Abnormal Lab Results - Last 24 Hours (Table) 11/07/18 11/07/18 11/07/18 Range/Units 06:54 06:54 11:55 WBC 3.7 L (3.8-10.6) k/uL Hgb 11.2 L (11.4-16.0) gm/dL RDW 17.1 H (11.5-15.5) % Plt Count 70 L (150-450) k/uL Neutrophils # 1.2 L (1.3-7.7) k/uL Chloride 109 H (98-107) mmol/L Carbon Dioxide 21 L (22-30) mmol/L POC Glucose (mg/dL) 112 H (75-99) mg/dL 11/07/18 Range/Units 16:48 WBC (3.8-10.6) k/uL Hgb (11.4-16.0) gm/dL RDW (11.5-15.5) % Plt Count (150-450) k/uL Neutrophils # (1.3-7.7) k/uL Chloride (98-107) mmol/L Carbon Dioxide (22-30) mmol/L POC Glucose (mg/dL) 102 H (75-99) mg/dL Assessment and Plan Assessment: Dizziness and room spinning likely due to benign positional vertigo. CT head negative. Possible orthostatic hypertension. Orthostatic vitals negative. Patient was already given IV hydration in the ER. Right lower extremity skin rash suspected scabies. History of leukemia currently in remission. Coronary artery disease and history of stent placement Diabetes type 2 nausea. Memory impairment Hyperlipidemia Hypertension COPD and history of smoking Anxiety/depression and bipolar disorder. Cardiac solitary kidney Chronic back pain DVT prophylaxis with heparin subcu Plan: Patient will be continued on IV hydration. Symptomatic management for nausea. Meclizine when necessary for dizziness and vertigo. Orthostatic vitals negative. Patient already received IV fluids by the time. Repeat CBC and BMP tomorrow. Continue with insulin sliding scale and continue with his home med ications and follow up closely. Further recommendations based on the clinical. Time with Patient: Greater than 30
[2018-11-08] MEDS: SODIUM CHLORIDE 0.9% 1,000 ML IV SCH ×3 (01:08→22:21)
[2018-11-08] MEDS: ALPRAZolam 0.5 MG TAB PO PRN (01:09)
[2018-11-08] MEDS: HEPARIN SODIUM,PORCINE 5,000 UNIT/ML 1 ML VIAL SQ SCH ×3 (01:09→16:19)
[2018-11-08] MEDS: IBUPROFEN 400 MG TAB PO PRN ×3 (01:09→16:04)
[2018-11-08 07:31] LABS: Glucose,Whole Blood 81 mg/dL (75-99)
[2018-11-08] MEDS: PANTOPRAZOLE 40 MG TABLET PO SCH (09:04)
--- NOTE | 2018-11-08 09:58 | ECHOF ---
Referral Reason:dizzy MEASUREMENTS -------- HEIGHT: 152.4 cm WEIGHT: 80.3 kg BP: 118/68 RVIDd: 2.7 cm (< 3.3) IVSd: 1.0 cm (0.6 - 1.1) LVIDd: 4.2 cm (3.9 - 5.3) LVPWd: 1.1 cm (0.6 - 1.1) IVSs: 1.7 cm LVIDs: 2.7 cm LVPWs: 1.6 cm LAESV Index (A-L): 33.09 ml/m Ao Diam: 2.9 cm (2.0 - 3.7) AV Cusp: 1.6 cm (1.5 - 2.6) LA Diam: 4.2 cm (2.7 - 3.8) EPSS: 0.3 cm MV E Omkar: 0.50 m/s MV DecT: 230 ms MV A Omkar: 0.71 m/s MV E/A Ratio: 0.70 AR PHT: 549 ms MV EF SLOPE: 36.90 mm/s (70 - 150) MV EXCURSION: 1.38 cm (> 18.000) FINDINGS -------- Sinus rhythm. This was a technically adequate study. The left ventricular size is normal. There is borderline concentric left ventricular hypertrophy. Overall left ventricular systolic function is normal with, an EF between 55 - 60 %. The diastolic filling pattern is normal for the age of the patient. The right ventricle is normal in size. Left atrium is mildly dilated by volume. The right atrial size is normal. Interatrial and interventricular septum intact. The aortic valve is trileaflet and appears structurally normal. There is mild aortic regurgitation. The mitral valve is normal. There is trace to mild mitral regurgitation. Trace tricuspid regurgitation present. Unable to estimate RVSP due to inadequate TR jet spectral do ppler profile. There is no pulmonic regurgitation present. The aortic root size is normal. The inferior vena cava is mildly dilated. There is no pericardial effusion. CONCLUSIONS -------- 1. Sinus rhythm. 2. This was a technically adequate study. 3. The left ventricular size is normal. 4. There is borderline concentric left ventricular hypertrophy. 5. Overall left ventricular systolic function is normal with, an EF between 55 - 60 %. 6. The diastolic filling pattern is normal for the age of the patient. 7. Left atrium is mildly dilated by volume. 8. The aortic valve is trileaflet and appears structurally normal. 9. There is mild aortic regurgitation. 10. The mitral valve is normal. 11. There is trace to mild mitral regurgitation. 12. Trace tricuspid regurgitation present. 13. Unable to estimate RVSP due to inadequate TR jet spectral doppler profile. 14. There is no pulmonic regurgitation present. 15. The aortic root size is normal. 16. The inferior vena cava is mildly dilated. 17. There is no pericardial effusion. CAR SHIFTER: Jelena June RDCS
[2018-11-08] MEDS ORDERED: PERMETHRIN 1% CREME RINSE 59 ML LIQUID TOPICAL ONE (10:38)
[2018-11-08 12:06] LABS: Glucose,Whole Blood 82 mg/dL (75-99)
[2018-11-08] MEDS ORDERED: PERMETHRIN 5% CREAM 60 GM TUBE TOPICAL ONE (21:00)
--- NOTE | 2018-11-08 22:11 | CONS ---
CONSULTATION DATE OF CONSULTATION: 11/08/2018 REASON FOR CONSULTATION: Rash or possible scabies. HISTORY OF PRESENT ILLNESS: The patient is a 62-year-old female who was admitted to [facility] on 11/06/2018 for dizziness. Dermatology was consulted for a rash. She states the rash has been present for about one month. She states the rash is very itchy. She has been using permethrin 5% cream twice daily on the affected areas as spot treatment, with some temporary relief of the itching. She states there are no personal contacts with similar rash. She states the itching is much worse at night. PAST MEDICAL HISTORY: 1. Coronary artery disease. 2. Cancer. 3. COPD. 4. Diabetes. 5. Hyperlipidemia. 6. Hypertension. 7. Memory impairment. 8. Myocardial infarction. 9. Osteoarthritis. 10.Diverticulitis. PAST SURGICAL HISTORY: 1. Appendectomy. 2. Cholecystectomy. 3. Heart stents. 4. Hysterectomy. 5. Tonsillectomy. 6. Back surgery. CURRENT MEDICATIONS: 1. Atenolol 25 mg orally at bedtime daily. 2. Fluoxetine 40 mg orally at bedtime daily. 3. Metformin 500 mg orally at bedtime daily. 4. Multivitamin 1 tablet at bedtime daily. 5. Oxybutynin 5 mg orally at bedtime daily. 6. Trazodone 150 mg orally daily. 7. Pantoprazole 40 mg orally daily. ALLERGIES: 1. AZITHROMYCIN. 2. CEPHALEXIN. 3. PENICILLINS. 4. PSEUDOEPHEDRINE. 5. SULFA. 6. ADHESIVE. SOCIAL HISTORY: Former smoker. Denies alcohol or illegal substance abuse. Skin as per HPI. PHYSICAL EXAMINATION: SKIN: Positive for rash consisting of linear burrows and papules located on both arms and papules with excoriations located on both legs. Scabies prep was performed and was negative. ASSESSMENT: Scabies; appears clinically as scabies, even though scabies prep was negative. Still recommend treatment. PLAN: Treat with permethrin 5% cream apply to entire body from neck down at bedtime, then wash off in the morning. Repeat treatment after one week. Start triamcinolone 0.1% ointment, apply to affected areas on arms and legs twice daily for 2 weeks. Thank you for the consultation. MMODL / IJN: [id number] / [facility] CENTERBossman
[2018-11-08] MEDS: FLUoxetine HCL 20 MG CAP PO SCH (22:21)
[2018-11-08] MEDS: ATENOLOL 25 MG TAB PO SCH (22:21)
[2018-11-08] MEDS: metFORMIN 500 MG TAB PO SCH (22:22)
[2018-11-08] MEDS: OXYBUTYNIN CHLORIDE 5 MG TAB PO SCH (22:22)
[2018-11-08] MEDS: MULTIVITAMINS, THERA 1 EACH TAB PO SCH (22:22)
[2018-11-08] MEDS: traZODone HCL 50 MG TAB PO SCH (22:23)
[2018-11-09] MEDS: ALPRAZolam 0.5 MG TAB PO PRN (00:18)
[2018-11-09] MEDS: HEPARIN SODIUM,PORCINE 5,000 UNIT/ML 1 ML VIAL SQ SCH ×3 (00:18→17:25)
[2018-11-09] MEDS: ACETAMINOPHEN TAB 325 MG TAB PO PRN ×2 (00:23→20:12)
[2018-11-09] MEDS: SODIUM CHLORIDE 0.9% 1,000 ML IV SCH ×2 (04:25→12:08)
[2018-11-09] MEDS: TRIAMCINOLONE ACET 0.1% OINTMENT 15 GM TUBE TOPICAL SCH ×2 (08:49→20:12)
[2018-11-09] MEDS: PANTOPRAZOLE 40 MG TABLET PO SCH (08:49)
[2018-11-09] MEDS: IBUPROFEN 400 MG TAB PO PRN (12:09)
--- NOTE | 2018-11-09 13:04 | XR ---
Right shoulder HISTORY: Pain 3 views of the right shoulder comparison previous exam 09/30/2018 Bone mineralization, joint spaces and alignment are maintained. Evidence of old trauma to anterior ri bs noted incidentally chest, rib fractures again noted. There is some subacromial calcification prese nt. IMPRESSION: Indeterminate subacromial calcification is again noted. CT scan, MRI may be of benefit. O ld right-sided rib fractures.
[2018-11-09] MEDS: MULTIVITAMINS, THERA 1 EACH TAB PO SCH (20:11)
[2018-11-09] MEDS: traZODone HCL 50 MG TAB PO SCH (20:11)
[2018-11-09] MEDS: ATENOLOL 25 MG TAB PO SCH (20:11)
[2018-11-09] MEDS: metFORMIN 500 MG TAB PO SCH (20:11)
[2018-11-09] MEDS: FLUoxetine HCL 20 MG CAP PO SCH (20:12)
[2018-11-09] MEDS: OXYBUTYNIN CHLORIDE 5 MG TAB PO SCH (20:12)
--- NOTE | 2018-11-09 22:39 | P.PN ---
Subjective Progress Note Date: 11/08/18 Principal diagnosis: Dizziness secondary to vertigo Patient is a 62-year-old female with a known history of coronary artery disease with stent placement, leukemia in remission, COPD, diabetes type 2, hypertension, hyperlipidemia and memory impairment as well as congenital solita ry kidney came to ER with complaints of dizziness and feeling like the room spinning since yesterday morning. Dizziness sometimes gets worse with standing. Otherwise denied any complaints of headache. No chest pain or shortness of breath. Patient does have nausea and source of vomiting. No fever no chills. No cough or sputum production. Denied any recent ear infection. Denied history of vertigo. She also complains for chronic rash for the past month is pruritic in nature behind bilateral knees and arms. Patient states that she's been on a cream for her PCP but the rash is worsening. Patient does have a history of anxiety, depression and bipolar disorder. Patient is a former smoker. EKG showed normal sinus rhythm. CT head showed mild cerebral atrophy and no acute intracranial abnormality noted. Chest x-ray showed no acute cardiopulmonary process. There is improved inspiration compared to old exam. Normal heart. BUN 25 lactic acid 0.6 Platelets 67,000 and WBC 3.7 11/07/2018 Patient is still having dizziness and vertigo with head movement. No spinning has improved otherwise. Patient is not able to ambulate without support. 2-D echocardiogram was ordered to rule out any valvular abnormality or aortic stenosis. PTOT was consulted for possible rehab transfer. Denied any complaints of chest pain or shortness of breath. Nausea improved. No vomiting episodes. No abdominal pain. No diarrhea. 11/08/2018 Patient is currently lying in the bed comfortably. Vertigo and room spinning like sensation is improved. Still complaining of dizziness with getting up. PT OT is following. 2-D echocardiogram showed normal ejection fraction. No significant valvular abnormalities. Otherwise patient was found have head lice and is being shampooed with permethrin today. No fever no chills. No nausea vomiting or abdominal pain. No diarrhea. Tolerating oral diet. Possible transfer to rehab tomorrow. Current medications reviewed. Objective - Vital Signs Vital signs: Vital Signs Temp 97.9 F 11/09/18 04:00 Pulse 53 L 11/09/18 04:00 Resp 15 11/09/18 04:00 BP 101/61 11/09/18 04:00 Pulse Ox 94 L 11/09/18 04:00 Intake & Output 11/08/18 11/09/18 11/09/18 18:59 06:59 18:59 Other: Voiding Method Incontinent Toilet Toilet Bedside Commode Bedside Commode Diaper Diaper Incontinent Incontinent # Voids 3 1 # Bowel Movements 1 - Exam PHYSICAL EXAMINATION: Patient is lying in the bed comfortably, no acute distress, awake alert and oriented.. HEENT: Normocephalic. Neck is supple. Pupils reactive. Nostrils clear. Oral cavity is moist. Ears reveal no drainage. Neck reveals no JVD, carotid bruits, or thyromegaly. CHEST EXAMINATION: Trachea is central. Symmetrical expansion. Lung silver clear to auscultation and percussion. CARDIAC: Normal S1, S2 with no gallops. No murmurs ABDOMEN: Soft. Bowel sounds normal. No organomegaly. No abdominal bruits. Extremities: reveal no edema. No clubbing or cyanosis Neurologically awake, alert, oriented x3 with well-coordinated movements. No focal deficits noted Skin: No rash or skin lesions. Psychiatric: Coperative. Nonsuicidal Musculoskeletal: No joint swelling or deformity. Normal range of motion. - Labs CBC & Chem 7: 11/07/18 06:54 11/07/18 06:54 Assessment and Plan Assessment: Dizziness and room spinning likely due to benign positional vertigo. CT head negative. Possible orthostatic hypertension. Orthostatic vitals negative. Patient was already given IV hydration in the ER. Right lower extremity skin rash suspected scabies. History of leukemia currently in remission. Coronary artery disease and history of stent placement Diabetes type 2 nausea. Memory impairment Hyperlipidemia Hypertension COPD and history of smoking Anxiety/depression and bipolar disorder. Cardiac solitary kidney Chronic back pain DVT prophylaxis with heparin subcu Plan: Patient will be continued on IV hydration. Symptomatic management for nausea. Meclizine when necessary for dizziness and vertigo. Orthostatic vitals negative. Patient already received IV fluids by the time. Repeat CBC and BMP tomorrow. Continue with insulin sliding scale and continue with his home medications and follow up closely. Further recommendations based on the clinical. Time with Patient: Greater than 30
--- NOTE | 2018-11-09 22:43 | P.PN ---
Subjective Progress Note Date: 11/09/18 Principal diagnosis: Dizziness secondary to vertigo Patient is a 62-year-old female with a known history of coronary artery disease with stent placement, leukemia in remission, COPD, diabetes type 2, hypertension, hyperlipidemia and memory impairment as well as congenital solita ry kidney came to ER with complaints of dizziness and feeling like the room spinning since yesterday morning. Dizziness sometimes gets worse with standing. Otherwise denied any complaints of headache. No chest pain or shortness of breath. Patient does have nausea and source of vomiting. No fever no chills. No cough or sputum production. Denied any recent ear infection. Denied history of vertigo. She also complains for chronic rash for the past month is pruritic in nature behind bilateral knees and arms. Patient states that she's been on a cream for her PCP but the rash is worsening. Patient does have a history of anxiety, depression and bipolar disorder. Patient is a former smoker. EKG showed normal sinus rhythm. CT head showed mild cerebral atrophy and no acute intracranial abnormality noted. Chest x-ray showed no acute cardiopulmonary process. There is improved inspiration compared to old exam. Normal heart. BUN 25 lactic acid 0.6 Platelets 67,000 and WBC 3.7 11/07/2018 Patient is still having dizziness and vertigo with head movement. No spinning has improved otherwise. Patient is not able to ambulate without support. 2-D echocardiogram was ordered to rule out any valvular abnormality or aortic stenosis. PTOT was consulted for possible rehab transfer. Denied any complaints of chest pain or shortness of breath. Nausea improved. No vomiting episodes. No abdominal pain. No diarrhea. 11/08/2018 Patient is currently lying in the bed comfortably. Vertigo and room spinning like sensation is improved. Still complaining of dizziness with getting up. PT OT is following. 2-D echocardiogram showed normal ejection fraction. No significant valvular abnormalities. Otherwise patient was found have head lice and is being shampooed with permethrin today. No fever no chills. No nausea vomiting or abdominal pain. No diarrhea. Tolerating oral diet. Possible transfer to rehab tomorrow. 11/09/2089 Patient is currently lying in the bed comfortably. Still complains of dizziness with walking. PT OT is she is stable for discharge to home with home physical therapy. Follow up CBC and BMP tomorrow. Hemodynamically stable. Heart rate is around 60. Saturating well on room air. Blood pressure is stable. Patient has been afebrile. Possible discharge tomorrow. Current medications reviewed. Objective - Vital Signs Vital signs: Vital Signs Temp 98.5 F 11/09/18 19:05 Pulse 60 11/09/18 19:05 Resp 18 11/09/18 19:05 BP 108/66 11/09/18 19:05 Pulse Ox 97 11/09/18 19:05 Intake & Output 11/09/18 11/09/18 11/10/18 06:59 18:59 06:59 Other: Voiding Method Toilet Toilet Bedside Commode Bedside Commode Diaper Diaper Incontinent Incontinent # Voids 1 3 # Bowel Movements 1 - Exam PHYSICAL EXAMINATION: Patient is lying in the bed comfortably, no acute distress, awake alert and oriented.. HEENT: Normocephalic. Neck is supple. Pupils reactive. Nostrils clear. Oral cavity is moist. Ears reveal no drainage. Neck reveals no JVD, carotid bruits, or thyromegaly. CHEST EXAMINATION: Trachea is central. Symmetrical expansion. Lung silver clear to auscultation and percussion. CARDIAC: Normal S1, S2 with no gallops. No murmurs ABDOMEN: Soft. Bowel sounds normal. No organomegaly. No abdominal bruits. Extremities: reveal no edema. No clubbing or cyanosis Neurologically awake, alert, oriented x3 with well-coordinated movements. No focal deficits noted Skin: No rash or skin lesions. Psychiatric: Coperative. Nonsuicidal Musculoskeletal: No joint swelling or deformity. Normal range of motion. - Labs CBC & Chem 7: 11/07/18 06:54 11/07/18 06:54 Assessment and Plan Assessment: Dizziness and room spinning likely due to benign positional vertigo. CT head negative. Improving clinically. Possible orthostatic hypertension. Orthostatic vitals negative. Patient was already given IV hydration in the ER. Continued on IV hydration. 2-D echocardiogram showed normal EF. Right lower extremity skin rash suspected scabies. Likely due to scabies infection as per dermatology. Continue with current management and treatment and repeat in one week. History of leukemia currently in remission. Coronary artery disease and history of stent placement Diabetes type 2 nausea. Memory impairment Hyperlipidemia Hypertension COPD and history of smoking Anxiety/depression and bipolar disorder. Cardiac solitary kidney Chronic back pain DVT prophylaxis with heparin subcu Plan: Patient will be continued on IV hydration. Symptomatic management for nausea. Meclizine when necessary for dizziness and vertigo. Orthostatic vitals negative. Patient already received IV fluids by the time. Repeat CBC and BMP tomorrow. Patient was given permethrin treatment and also treated for head lice. Continue with insulin sliding scale and continue with his home medications and follow up closely. Further recommendations based on the clinical. Time with Patient: Greater than 30
[2018-11-10] MEDS: ALPRAZolam 0.5 MG TAB PO PRN ×2 (00:29→23:04)
[2018-11-10] MEDS: HEPARIN SODIUM,PORCINE 5,000 UNIT/ML 1 ML VIAL SQ SCH ×4 (00:29→23:04)
[2018-11-10] MEDS: SODIUM CHLORIDE 0.9% 1,000 ML IV SCH ×3 (00:54→21:20)
[2018-11-10 07:46] LABS: Anisocytosis Slight; Basophils # (A) 0.1 k/uL (0-0.2); Basophils % (A) 2 %; Eosinophils # (A) 0.3 k/uL (0-0.7); Eosinophils % (A) 12 %; HCT 34.2 % (34.0-46.0); HGB 11.6 gm/dL (11.4-16.0); Hypochromasia Slight; Lymphocytes # (A) 1.4 k/uL (1.0-4.8); Lymphocytes % (A) 49 %; MCH 26.7 pg (25.0-35.0); MCHC 33.8 g/dL (31.0-37.0); Mean Platelet Volume 6.9; Microcytosis Slight; Monocytes # (A) 0.1 k/uL (0-1.0); Monocytes % (A) 5 %; Neutrophils # (A) 0.8 k/uL (1.3-7.7); Neutrophils % (A) 28 %; RBC 4.33 m/uL (3.80-5.40); RDW 16.9 % (11.5-15.5); WBC 2.8 k/uL (3.8-10.6)
[2018-11-10 07:49] LABS: Platelet Count 88 k/uL (150-450)
[2018-11-10 08:04] LABS: African American GFR (CKD) >90 (>60 ml/min/1.73 sqM); Anion Gap 5 mmol/L; Blood Urea Nitrogen 15 mg/dL (7-17); Calcium 8.9 mg/dL (8.4-10.2); Carbon Dioxide 26 mmol/L (22-30); Chloride 107 mmol/L (98-107); Glucose 83 mg/dL (74-99); Potassium 3.9 mmol/L (3.5-5.1); Sodium 138 mmol/L (137-145)
[2018-11-10] MEDS: ACETAMINOPHEN TAB 325 MG TAB PO PRN ×2 (08:54→21:20)
[2018-11-10] MEDS: PANTOPRAZOLE 40 MG TABLET PO SCH (08:55)
[2018-11-10] MEDS: TRIAMCINOLONE ACET 0.1% OINTMENT 15 GM TUBE TOPICAL SCH ×2 (08:55→21:16)
--- NOTE | 2018-11-10 09:43 | P.CNNES ---
History of Present Illness Consult date: 11/10/18 Requesting physician: Tyron E Terri Reason for Consult: Vertigo Chief complaint: Dizzy for a month History of Present Illness: This is a 62 RH female here with a month of dizziness, described as a room- spinning and seeing everything "moving and jittery" when she looks to the sides. Head directional and postural changes precipitate/worsen the vertigo. She did fall but does not recall specific head/neck trauma. Denies chiropractic manipulation or heavy lifting. Denies other associated focal neuro symptoms such as drop attacks, seizure, diplopia, amaurosis, facial numbness or droop, vertigo, dysarthria, dysphagia, aphasia, other focal numbness/weakness not mentioned above, tremors or bowel/bladder incontinence. She does not recall any antecedent URI/viral prodrome prior to the onset of her dizziness. She does also c/o a dull holocranial headache at 4/10. She states she cannot get an MRI unless she is completely put to sleep because of "extreme claustrophobia." Review of Systems I have performed a 14-point organ ROS with patient; pertinents are as per HPI. 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, CHRONIC BACK PAIN , CLAUSTROPHOBIA, CLL, BACK SURGERY Last Myocardial Infarction Date:: 2007 History of Any Multi-Drug Resistant Organisms: None Reported Past Surgical History: Appendectomy, Back Surgery, Cholecystectomy, Heart Catheterization With Stent, Hysterectomy, Tonsillectomy Additional Past Surgical History / Comment(s): CARPAL TUNNEL, FOOT SURGERY,pick at skin when anxious,left foot sx Past Anesthesia/Blood Transfusion Reactions: No Reported Reaction Date of Last Stent Placement:: UNKNOWN Past Psychological History: Anxiety, Bipolar, Depression Smoking Status: Former smoker Past Alcohol Use History: None Reported Past Drug Use History: None Reported - Past Family History Mother Family Medical History: Cancer Additional Family Medical History / Comment(s): UTERINE Medications and Allergies Home Medications Medication Instructions Recorded Confirmed Type FLUoxetine HCL [PROzac] 40 mg PO HS 01/24/14 11/05/18 History Multivitamins, Thera [Multivitamin 1 tab PO HS 01/24/14 11/05/18 History (formulary)] ALPRAZolam [Xanax] 0.5 mg PO HS PRN 04/20/17 11/05/18 History Oxybutynin Chloride [Ditropan] 5 mg PO HS 04/20/17 11/05/18 History metFORMIN HCL [Glucophage] 500 mg PO HS 03/18/18 11/05/18 History Ibuprofen [Motrin] 800 mg PO TID PRN 06/04/18 11/05/18 History Atenolol 25 mg PO HS 07/17/18 11/05/18 History Cetirizine HCl 10 mg PO HS 07/17/18 11/05/18 History traZODone HCL 150 mg PO HS 07/17/18 11/05/18 History Ranitidine HCl [Zantac] 300 mg PO HS 11/05/18 11/05/18 History Allergies Allergy/AdvReac Type Severity Reaction Status Date / Time azithromycin [From Zithromax] Allergy Unknown Unknown Verified 11/05/18 23:56 cephalexin Allergy Unknown Unknown Verified 11/05/18 23:56 cyclobenzaprine HCl Allergy Unknown Unknown Verified 11/05/18 23:56 [From Flexeril] Penicillins Allergy Unknown Unknown Verified 11/05/18 23:56 pentazocine lactate Allergy Unknown Unknown Verified 11/05/18 23:56 [From Talwin] pseudoephedrine HCl Allergy Unknown Unknown Verified 11/05/18 23:56 [From Sudafed] Sulfa (Sulfonamide Allergy Unknown Unknown Verified 11/05/18 23:56 Antibiotics) adhesive AdvReac Unknown Unknown Verified 11/05/18 23:56 Physical Examination - Vital Signs Vital Signs: Vital Signs Temp Pulse Resp BP Pulse Ox 11/10/18 07:00 98 F 50 L 16 108/71 96 11/10/18 03:08 18 11/10/18 01:50 98.1 F 17 163/63 96 11/10/18 00:00 18 11/09/18 19:45 18 11/09/18 19:05 98.5 F 60 18 108/66 97 11/09/18 14:54 97.6 F 61 15 112/68 95 Intake and Output 11/09/18 11/10/1819 22:59 06:59 14:59 Output Total 100 Balance -100 Output: Urine 100 Other: Voiding Method Toilet Toilet Bedside Commode Bedside Commode Diaper Diaper Incontinent Incontinent # Voids 1 1 1 Gen NAD Pleasant and cooperative HEENT NCAT Sclera without icterus O/P clear Neck Supple No carotid bruit Cor RRR no m/r/g Lungs CTAB Abd Soft NTND +BS Ext Warm to touch No edema Neuro MS A+Ox4 Normal fluency Able to follow all commands CN PERRL Blinks to threat bilaterally no APD She refuses to participate in EOM because looking to the sides makes her dizzy She also refuses head impulse test There is no skew deviation No facial asymmetry Masseter's symmetric Hearing intact to normal voice bilaterally Speech not dysarthric Equal elevation of palate Tongue midline Sym shrug and SCM bilaterally Motor Normal bulk/tone No left pronator drift No tremors Strength 5/5 sym throughout except right deltoid not tested due to pain Sens Intact to LT x4 No neglect Coord No dysmetria on FTN bilaterally DTRs 2+/4 sym throughout Toes downgoing bilaterally No clonus at achilles Gait Deferred Results - Laboratory Findings CBC and BMP: 11/10/18 07:21 11/10/18 07:21 Abnormal Lab Findings: Abnormal Labs 11/05/18 11/05/18 11/05/18 16:33 16:33 16:33 WBC 3.7 L Hgb MCV 79.2 L RDW 18.5 H Plt Count 67 L Neutrophils # Neutrophils # (Manual) 0.96 L Chloride 108 H Carbon Dioxide BUN 25 H POC Glucose (mg/dL) Plasma Lactic Acid Noel 0.6 L Albumin 3.4 L Urine Protein 11/05/18 11/06/18 11/07/18 18:35 20:02 06:54 WBC 3.7 L Hgb 11.2 L MCV RDW 17.1 H Plt Count 70 L Neutrophils # 1.2 L Neutrophils # (Manual) Chloride Carbon Dioxide BUN POC Glucose (mg/dL) 109 H Plasma Lactic Acid Noel Albumin Urine Protein Trace H 11/07/18 11/07/18 11/07/18 06:54 11:55 16:48 WBC Hgb MCV RDW Plt Count Neutrophils # Neutrophils # (Manual) Chloride 109 H Carbon Dioxide 21 L BUN POC Glucose (mg/dL) 112 H 102 H Plasma Lactic Acid Noel Albumin Urine Protein 11/10/18 07:21 WBC 2.8 L Hgb MCV 79.0 L RDW 16.9 H Plt Count 88 L Neutrophils # 0.8 L Neutrophils # (Manual) Chloride Carbon Dioxide BUN POC Glucose (mg/dL) Plasma Lactic Acid Noel Albumin Urine Protein - Diagnostic Findings Additional findings: CT Head wo cont 11/05/18. No ICH. Nil acute. I have reviewed neuroimages myself. Assessment and Plan Assessment: Vertigo, subacute. Probably peripheral. HINTS test limited due to patient's poor cooperation. But, there is no skew deviation that one would see with central/brainstem involvement. Plan: -Cannot get MRI Brain at this facility as she is extremely claustrophobic and our MRI cannot support vented patients; patient states she has to be "completely put to sleep." -Obtain CTA Head/Neck to r/o vertebrobasilar insufficiency -Meclizine -PT -Check fasting lipids in am -d/w patient in detail. All questions answered -Neurology will be available again on 11/13/18. Thank you for this consultation. Please call with ?. Time with Patient: Greater than 30 (Time spent in direct patient care, greater than 50% of which was spent in [id number] counseling and coordination of care: 70 minutes)
[2018-11-10] MEDS: IBUPROFEN 400 MG TAB PO PRN (12:02)
--- NOTE | 2018-11-10 12:28 | P.PN ---
Subjective From the records Patient is a 62-year-old female with a known history of coronary artery disease with stent placement, leukemia in remission, COPD, diabetes type 2, hypertension, hyperlipidemia and memory impairment as well as congenital solitary kidney came to ER with complaints of dizziness and feeling like the room spinning since yesterday morning. Dizziness sometimes gets worse with standing. Otherwise denied any complaints of headache. No chest pain or shortness of breath. Patient does have nausea and source of vomiting. No fever no chills. No cough or sputum production. Denied any recent ear infection. Denied history of vertigo. She also complains for chronic rash for the past month is pruritic in nature behind bilateral knees and arms. Patient states that she's been on a cream for her PCP but the rash is worsening. Patient does have a history of anxiety, depression and bipolar disorder. Patient is a former smoker. EKG showed normal sinus rhythm. CT head showed mild cerebral atrophy and no acute intracranial abnormality noted. Chest x-ray showed no acute cardiopulmonary process. There is improved inspiration compared to old exam. Normal heart. BUN 25 lactic acid 0.6 Platelets 67,000 and WBC 3.7 11/07/2018 Patient is still having dizziness and vertigo with head movement. No spinning has improved otherwise. Patient is not able to ambulate without support. 2-D echocardiogram was ordered to rule out any valvular abnormality or aortic stenosis. PTOT was consulted for possible rehab transfer. Denied any complaints of chest pain or shortness of breath. Nausea improved. No vomiting episodes. No abdominal pain. No diarrhea. 11/08/2018 Patient is currently lying in the bed comfortably. Vertigo and room spinning like sensation is improved. Still complaining of dizziness with getting up. PT OT is following. 2-D echocardiogram showed normal ejection fraction. No significant valvular abnormalities. Otherwise patient was found have head lice and is being shampooed with permethrin today. No fever no chills. No nausea vomiting or abdominal pain. No diarrhea. Tolerating oral diet. Possible transfer to rehab tomorrow. 11/09/2089 Patient is currently lying in the bed comfortably. Still complains of dizziness with walking. PT OT is she is stable for discharge to home with home physical therapy. Follow up CBC and BMP tomorrow. Hemodynamically stable. Heart rate is around 60. Saturating well on room air. Blood pressure is stable. Patient has been afebrile. Possible discharge tomorrow. Subjective 11/10/2018 This is a pleasant 62 years old female who presents on 11/05/2018 with vertigo. She was started on oxygen as needed as well as hydration. Her orthostasis were negative. CT of the brain: Showed mild cerebral atrophy with no acute intracranial abnormalities. Echocardiogram: Ejection fraction 55-60%, with borderline LVH, and anorectic valve appears normal. Due to persistent dizziness and vertigo despite hydration and pleasant, also patient was complaining of from headache on both sides and at the back for the last week, however she denies we akness or abnormal sensation/numbness. neurology consult was called today, patient cannot get MRI due to severe claustrophobia and MRI machine in this hospital does not support that the patient's, .net developer recommended CTA of the head and neck to rule out vertebrobasilar insufficiency. Patient also states that she fell about 4-6 weeks ago, she was at [facility], she was discharge from hospital but she couldn't move for about 4 weeks due to her left knee injury, eventually patient was able to move a little bit however she felt within a week prior to admission to this hospital and injured her right shoulder, patient currently has limited movement in her right upper extremity due to pain, shoulder x-ray were negative for acute fracture. Staff Analyst evaluated the patient for scabies. Patient received 1 treatment of permethrin 5% and recommended to repeat it in one week. Also patient was started on triamcinolone for 2 weeks by the communications station manager. Patient has a guardian Review of systems CONSTITUTIONAL: No fever, no malaise, no fatigue. HEENT: No recent visual problems or hearing problems. Denied any sore throat. CARDIOVASCULAR: No orthopnea, PND, no palpitations, no syncope. PULMONARY: No shortness of breath, no cough, no hemoptysis. GASTROINTESTINAL: No diarrhea, no nausea, no vomiting, no abdominal pain. Normoactive bowel sounds. NEUROLOGICAL: , no weakness, no numbness. HEMATOLOGICAL: Denies any bleeding or petechiae. GENITOURINARY: Denies any burning micturition, frequency, or urgency. MUSCULOSKELETAL/RHEUMATOLOGICAL: Denies any joint swelling ENDOCRINE: Denies any polyuria or polydipsia. Active Medications Generic Name Dose Route Start Last Admin Trade Name Freq PRN Reason Stop Dose Admin Acetaminophen 650 mg 11/05/18 20:44 11/10/18 08:54 Tylenol Tab PO 650 mg Q6HR PRN Administration Mild Pain or Fever > 100.5 Alprazolam 0.5 mg 11/06/18 15:14 11/10/18 00:29 Xanax PO 0.5 mg HS PRN Administration Anxiety Atenolol 25 mg 11/06/18 21:00 11/09/18 20:11 Tenormin PO 25 mg HS DINESH Administration Fluoxetine HCl 40 mg 11/06/18 21:00 11/09/18 20:12 Prozac PO 40 mg HS DINESH Administration Heparin Sodium (Porcine) 5,000 unit 11/06/18 16:00 11/10/18 08:55 Heparin SQ 5,000 unit Q8HR DINESH Administration Sodium Chloride 1,000 mls @ 100 mls/hr 11/05/18 20:45 11/10/18 00:54 Saline 0.9% IV Not Given .Q10H DINESH Ibuprofen 400 mg 11/05/18 20:44 11/10/18 12:02 Motrin PO 400 mg Q6HR PRN Administration Mild Pain or Fever > 100.5 Meclizine HCl 12.5 mg 11/06/18 15:15 Antivert PO BID PRN Vertigo Metformin HCl 500 mg 11/06/18 21:00 11/09/18 20:11 Glucophage PO 500 mg HS DINESH Administration Multivitamins 1 each 11/06/18 21:00 11/09/18 20:11 Theragran PO 1 each HS DINESH Administration Naloxone HCl 0.2 mg 11/05/18 20:44 Narcan IV Q2M PRN Opioid Reversal Ondansetron HCl 4 mg 11/05/18 20:44 Zofran IVP Q8HR PRN Nausea And Vomiting Oxybutynin Chloride 5 mg 11/06/18 21:00 11/09/18 20:12 Ditropan PO 5 mg HS DINESH Administration Pantoprazole Sodium 40 mg 11/08/18 09:00 11/10/18 08:55 Protonix PO 40 mg DAILY DINESH Administration Trazodone HCl 150 mg 11/06/18 21:00 11/09/18 20:11 Desyrel PO 150 mg HS DINESH Administration Triamcinolone Acetonide 1 applic 11/09/18 09:00 11/10/18 08:55 Kenalog TOPICAL 11/23/18 09:01 1 applic BID DINESH Administration Objective - Vital Signs Vital signs: Vital Signs Temp 98.1 F 11/10/18 01:50 Pulse 60 11/09/18 19:05 Resp 18 11/10/18 03:08 BP 163/63 11/10/18 01:50 Pulse Ox 96 11/10/18 01:50 Intake & Output 11/09/18 11/09/18 11/10/18 06:59 18:59 06:59 Output Total 100 Balance -100 Output: Urine 100 Other: Voiding Method Toilet Toilet Toilet Bedside Commode Bedside Commode Bedside Commode Diaper Diaper Diaper Incontinent Incontinent Incontinent # Voids 1 3 1 # Bowel Movements 1 - Exam GENERAL: The patient is alert and oriented x3, not in any acute distress. HEENT: Pupils are round and equally reacting to light. EOMI. No scleral icterus. No conjunctival pallor. Normocephalic, atraumatic. No pharyngeal erythema. No thyromegaly. CARDIOVASCULAR: S1 and S2 present. No murmurs, rubs, or gallops. PULMONARY: Chest is clear to auscultation, no wheezing or crackles. ABDOMEN: Soft, nontender, nondistended, normoactive bowel sounds. No palpable organomegaly. -MUSCULOSKELETAL: No joint swelling or deformity. Right shoulder pain and tenderness with limited passive and active range of motion improvement, however no swelling or deformity EXTREMITIES: No cyanosis, clubbing, or pedal edema. -NEUROLOGICAL: Gross neurological examination did not reveal any focal deficits. Cranial nerves are grossly intact, strength is 5/5 in all extremities except the right upper extremity in which the exam is limited due to pain and tenderness in her right shoulder area to sensation is intact with no numbness. Meningeal signs are absent SKIN: No rashes. no petechiae. - Labs CBC & Chem 7: 11/10/18 07:21 11/10/18 07:21 Assessment and Plan Assessment: Dizziness and room spinning likely due to benign positional vertigo. CT head negative. Improving clinically. Right shoulder pain. Right lower extremity skin rash suspected scabies. Likely due to scabies infection as per dermatology. Continue with current management and treatment and repeat in one week. History of leukemia currently in remission. Coronary artery disease and history of stent placement Diabetes type 2 nausea. Memory impairment Hyperlipidemia Hypertension COPD and history of smoking Anxiety/depression and bipolar disorder. Cardiac solitary kidney Chronic back pain Plan: This is a pleasant 62 years old female who presents because of vertical. Continue with meclizine when necessary. Also patient is on IV fluids. She received 1 treatment of permethrin 5% as her communications station manager recommendations as well as triamcinolone 0.1%. Will call neurologist and orthopedic consult for persistent patient's symptoms. Neurology recommended CTA of the brain/neck. Pain management Labs and medication were reviewed.. Continue same treatment. Continue with symptomatic treatment. Resume home medication. Monitor lytes and vitals. DVT and GI prophylaxis. Further recommendations of the clinical course of the patient DVT prophylaxis: Subcutaneous heparin GI Prophylaxis: Pepcid PT/OT: Ongoing, recommended home health care versus subacute rehab Prognosis is guarded
--- NOTE | 2018-11-10 12:42 | P.CNOR ---
History of Present Illness - [facility] Consult date: 11/10/18 Consult reason: joint pain History of present illness: Patient is a 62-year-old female who was admitted to [facility] many days ago with regards to dizziness/vertigo. She's currently being followed by multiple medical specialties. Our orthopedic team was consult today with regards to right shoulder pain. Patient was evaluated today at bedside. She does admit to a recent fall, this was about 2 months ago. She states that she was walking through her bedroom, it was very dark when she tripped over her dog landing on the right arm. She never seek medical treatment after the fall. She notes the pain is benign off of the last few months. She denies any previous orthopedic surgery involving the right upper extremity. She states that she had a rotator cuff surgery on her left shoulder, she cannot remember when or who did the surgery. She has no other orthopedic complaints at this time. Review of Systems Constitutional: Reports as per [facility] Past Medical History Past Medical History: Coronary Artery Disease (CAD), Cancer, COPD, Diabetes Mellitus, Hyperlipidemia, Hypertension, Memory Impairment, Myocardial Infarction (ME), Osteoarthritis (OA) Additional Past Medical History / Comment(s): LEUKEMIA in remission, DIVERTICULITIS, BORN WITH ONLY (1) KIDNEY thinks its the right kidney she has, CHRONIC BACK PAIN , CLAUSTROPHOBIA, CLL, BACK SURGERY Last Myocardial Infarction Date:: 2007 History of Any Multi-Drug Resistant Organisms: None Reported Past Surgical History: Appendectomy, Back Surgery, Cholecystectomy, Heart Catheterization With Stent, Hysterectomy, Tonsillectomy Additional Past Surgical History / Comment(s): CARPAL TUNNEL, FOOT SURGERY,pick at skin when anxious,left foot sx Past Anesthesia/Blood Transfusion Reactions: No Reported Reaction Date of Last Stent Placement:: UNKNOWN Past Psychological History: Anxiety, Bipolar, Depression Smoking Status: Former smoker Past Alcohol Use History: None Reported Past Drug Use History: None Reported - Past Family History Mother Family Medical History: Cancer Additional Family Medical History / Comment(s): UTERINE Medications and Allergies Home Medications Medication Instructions Recorded Confirmed Type FLUoxetine HCL [PROzac] 40 mg PO HS 01/24/14 11/05/18 History Multivitamins, Thera [Multivitamin 1 tab PO HS 01/24/14 11/05/18 History (formulary)] ALPRAZolam [Xanax] 0.5 mg PO HS PRN 04/20/17 11/05/18 History Oxybutynin Chloride [Ditropan] 5 mg PO HS 04/20/17 11/05/18 History metFORMIN HCL [Glucophage] 500 mg PO HS 03/18/18 11/05/18 History Ibuprofen [Motrin] 800 mg PO TID PRN 06/04/18 11/05/18 History Atenolol 25 mg PO HS 07/17/18 11/05/18 History Cetirizine HCl 10 mg PO HS 07/17/18 11/05/18 History traZODone HCL 150 mg PO HS 07/17/18 11/05/18 History Ranitidine HCl [Zantac] 300 mg PO HS 11/05/18 11/05/18 History Allergies Allergy/AdvReac Type Severity Reaction Status Date / Time azithromycin [From Zithromax] Allergy Unknown Unknown Verified 11/05/18 23:56 cephalexin Allergy Unknown Unknown Verified 11/05/18 23:56 cyclobenzaprine HCl Allergy Unknown Unknown Verified 11/05/18 23:56 [From Flexeril] Penicillins Allergy Unknown Unknown Verified 11/05/18 23:56 pentazocine lactate Allergy Unknown Unknown Verified 11/05/18 23:56 [From Talwin] pseudoephedrine HCl Allergy Unknown Unknown Verified 11/05/18 23:56 [From Sudafed] Sulfa (Sulfonamide Allergy Unknown Unknown Verified 11/05/18 23:56 Antibiotics) adhesive AdvReac Unknown Unknown Verified 11/05/18 23:56 Physical Examination Right upper extremity: No obvious open lesions present throughout the shoulder, no significant areas of erythema or soft tissue swelling. Her are multiple red bug bite involving the right arm. She notes most of the discomfort over the anterior lateral aspect of the right shoulder, she notes most of the discomfort when she attempts to move it Actively, she is able to extend and abduct the arm over 90 and this reproduces most of the discomfort Passively I'm able to elevate and abduct past 90 with minimal discomfort She is able to extend and bend at the elbow andno Pain, range of motion of the hand and wrist is intact Sensory exam to light touch throughout the extremity is intact, radial pulses 2+ Results - Labs Labs: Abnormal Lab Results - Last 24 Hours (Table) 11/10/18 Range/Units 07:21 WBC 2.8 L (3.8-10.6) k/uL MCV 79.0 L (80.0-100.0) fL RDW 16.9 H (11.5-15.5) % Plt Count 88 L (150-450) k/uL Neutrophils # 0.8 L (1.3-7.7) k/uL H & H 11/05/18 11/07/18 11/10/18 Range/Units 16:33 06:54 07:21 Hgb 11.6 11.2 L 11.6 (11.4-16.0) gm/dL Hct 35.0 36.2 34.2 (34.0-46.0) % Coagulation 11/05/18 Range/Units 16:33 INR 1.0 (<1.2) Result Diagrams: 11/10/18 07:21 11/10/18 07:21 - Diagnostic results Shoulder x-ray: report reviewed, image reviewed Assessment and Plan Plan: Imaging: X-rays of the right shoulder obtained. No obvious fractures or dislocations. Report questioned calcinosis in the subacromial space. Assessment: 1. Right shoulder pain 2. Right shoulder contusion 3. Right shoulder impingement Lang: I was able to discuss the case, including both physical exam findings and imaging studies might any Dr. Villalta. No acute orthopedic surgical intervention needed at this time. Recommend icing along with the use of anti-inflammatories initially for right shoulder pain Advise follow-up in the outpatient setting for possible cortisone injection and discussion of further treatment options We'll be available for any further questions regarding this patient Time with Patient: Less than 30
--- NOTE | 2018-11-10 16:00 | CT ---
EXAMINATION TYPE: CT angio head neck DATE OF EXAM: 11/10/2018 HISTORY: Dizziness COMPARISON: CT brain 11/05/2018 CT DLP: 439.3 mGycm. Automated Exposure Control for Dose Reduction was Utilized. TECHNIQUE: CTA scan of the neck is performed with IV Contrast, patient injected with 65 mL of Isovue 370, axial images are obtained, coronal and sagittal reformatted images are reviewed. Three-D recons tructed images are created on an independent workstation and reviewed. FINDINGS: Carotid/Vascular Structures: The transverse aorta, super aortic branch vessels are patent. Vertebral arteries are patent, right vertebral artery is dominant. There is no evident dissection, embolus form ation. The common carotid, left and right subclavian, innominate arteries, internal and external mckeon tid arteries are patent, no significant stenosis. Anterior posterior circulation are patent within th e brain, there is no evident aneurysm or dissection. Some kinking noted within the internal carotid a rteries in the neck. Other: Anterior rib fractures are noted on the right which appears healed at the second, third and fo urth ribs, also on the left anteriorly at the second third ribs. IMPRESSION: No significant abnormality is seen.
--- NOTE | 2018-11-10 16:02 | P.PN ---
Progress Note - Text Progress Note Date: 11/10/18 CTA head/neck entirely negative. Patient refuses MRI unless she is completely put to sleep. Would recommend continued meclizine and PT. No other inpatient neuro recs at this time. Will revisit patient prn. Please call with new ?.
[2018-11-10] MEDS: metFORMIN 500 MG TAB PO SCH (21:15)
[2018-11-10] MEDS: OXYBUTYNIN CHLORIDE 5 MG TAB PO SCH (21:15)
[2018-11-10] MEDS: MULTIVITAMINS, THERA 1 EACH TAB PO SCH (21:15)
[2018-11-10] MEDS: FLUoxetine HCL 20 MG CAP PO SCH (21:15)
[2018-11-10] MEDS: ATENOLOL 25 MG TAB PO SCH (21:15)
[2018-11-10] MEDS: MELATONIN 3 MG TABLET PO PRN (23:04)
[2018-11-11] MEDS: ACETAMINOPHEN TAB 325 MG TAB PO PRN ×3 (04:36→20:52)
[2018-11-11] MEDS: SODIUM CHLORIDE 0.9% 1,000 ML IV SCH (05:25)
[2018-11-11 06:52] LABS: Anisocytosis Slight; HCT 32.9 % (34.0-46.0); MCH 25.8 pg (25.0-35.0); MCHC 33.3 g/dL (31.0-37.0); MCV 77.5 fL (80.0-100.0); Mean Platelet Volume 8.3; Microcytosis Slight; Platelet Count 88 k/uL (150-450); RBC 4.24 m/uL (3.80-5.40); RDW 16.8 % (11.5-15.5)
[2018-11-11 07:12] LABS: Band Neutrophils % 1 %; Eosinophils # (M) 0.36 k/uL (0-0.7); Monocytes # (M) 0.06 k/uL (0-1.0); Neutrophils % (M) 25 %; Nucleated Red Blood Cells 0 /100 WBC (0-0); Total Cells Counted 100
[2018-11-11 07:21] LABS: Cholesterol 174 mg/dL (<200); HDL Cholesterol 30 mg/dL (40-60); LDL Cholesterol,Calculated 83 mg/dL (0-99); Triglycerides 303 mg/dL (<150)
[2018-11-11] MEDS: HEPARIN SODIUM,PORCINE 5,000 UNIT/ML 1 ML VIAL SQ SCH ×3 (07:47→23:04)
[2018-11-11] MEDS: PANTOPRAZOLE 40 MG TABLET PO SCH (07:47)
[2018-11-11] MEDS: TRIAMCINOLONE ACET 0.1% OINTMENT 15 GM TUBE TOPICAL SCH ×2 (07:48→20:54)
--- NOTE | 2018-11-11 13:42 | P.PN ---
Subjective From the records Patient is a 62-year-old female with a known history of coronary artery disease with stent placement, leukemia in remission, COPD, diabetes type 2, hypertension, hyperlipidemia and memory impairment as well as congenital solitary kidney came to ER with complaints of dizziness and feeling like the room spinning since yesterday morning. Dizziness sometimes gets worse with standing. Otherwise denied any complaints of headache. No chest pain or shortness of breath. Patient does have nausea and source of vomiting. No fever no chills. No cough or sputum production. Denied any recent ear infection. Denied history of vertigo. She also complains for chronic rash for the past month is pruritic in nature behind bilateral knees and arms. Patient states that she's been on a cream for her PCP but the rash is worsening. Patient does have a history of anxiety, depression and bipolar disorder. Patient is a former smoker. EKG showed normal sinus rhythm. CT head showed mild cerebral atrophy and no acute intracranial abnormality noted. Chest x-ray showed no acute cardiopulmonary process. There is improved inspiration compared to old exam. Normal heart. BUN 25 lactic acid 0.6 Platelets 67,000 and WBC 3.7 11/07/2018 Patient is still having dizziness and vertigo with head movement. No spinning has improved otherwise. Patient is not able to ambulate without support. 2-D echocardiogram was ordered to rule out any valvular abnormality or aortic stenosis. PTOT was consulted for possible rehab transfer. Denied any complaints of chest pain or shortness of breath. Nausea improved. No vomiting episodes. No abdominal pain. No diarrhea. 11/08/2018 Patient is currently lying in the bed comfortably. Vertigo and room spinning like sensation is improved. Still complaining of dizziness with getting up. PT OT is following. 2-D echocardiogram showed normal ejection fraction. No significant valvular abnormalities. Otherwise patient was found have head lice and is being shampooed with permethrin today. No fever no chills. No nausea vomiting or abdominal pain. No diarrhea. Tolerating oral diet. Possible transfer to rehab tomorrow. 11/09/2089 Patient is currently lying in the bed comfortably. Still complains of dizziness with walking. PT OT is she is stable for discharge to home with home physical therapy. Follow up CBC and BMP tomorrow. Hemodynamically stable. Heart rate is around 60. Saturating well on room air. Blood pressure is stable. Patient has been afebrile. Possible discharge tomorrow. Subjective 11/10/2018 This is a pleasant 62 years old female who presents on 11/05/2018 with vertigo. She was started on oxygen as needed as well as hydration. Her orthostasis were negative. CT of the brain: Showed mild cerebral atrophy with no acute intracranial abnormalities. Echocardiogram: Ejection fraction 55-60%, with borderline LVH, and anorectic valve appears normal. Due to persistent dizziness and vertigo despite hydration and pleasant, also patient was complaining of from headache on both sides and at the back for the last week, however she denies weakness or abnormal sensation/numbness. neurology consult was called today, patient cannot get MRI due to severe claustrophobia and MRI machine in this hospital does not support that the patient's, building guard deputy sheriff recommended CTA of the head and neck to rule out vertebrobasilar insufficiency. Patient also states that she fell about 4-6 weeks ago, she was at [facility], she was discharge from hospital but she couldn't move for about 4 weeks due to her left knee injury, eventually patient was able to move a little bit however she felt within a week prior to admission to this hospital and injured her right shoulder, patient currently has limited movement in her right upper extremity due to pain, shoulder x-ray were negative for acute fracture. Rap Artist evaluated the patient for scabies. Patient received 1 treatment of permethrin 5% and recommended to repeat it in one week. Also patient was started on triamcinolone for 2 weeks by the department sales manager. Patient has a guardian 11/11/2018 Patient still have some dizziness on and off, however it probably improving however it severely to decide after we stopped the trazodone 150 mg and decrease atenolol from 25 down to 12.5 yesterday. Neurologist recommended CTA of the head and neck which was unremarkable, neurologist recommended to continue with meclizine and physical therapist. Her blood pressure still on the low normal site this morning 114/52, however it was 91/54 yesterday, where stop atenolol altogether tonight. We'll call psychiatrist to reassess her psychiatric medication. Patient might go home or home with home care. Guardian is fine for patient going home. Also patient was complaining of from neck pain and tenderness which might contribute to her headache and dizziness, start lidocaine patch. I discussed the case with the staff including the bedside nurse and social work instructor of the case. Review of systems CONSTITUTIONAL: No fever, no malaise, no fatigue. HEENT: No recent visual problems or hearing problems. Denied any sore throat. CARDIOVASCULAR: No orthopnea, PND, no palpitations, no syncope. PULMONARY: No shortness of breath, no cough, no hemoptysis. GASTROINTESTINAL: No diarrhea, no nausea, no vomiting, no abdominal pain. Normoactive bowel sounds. NEUROLOGICAL: No headaches, no weakness, no numbness. HEMATOLOGICAL: Denies any bleeding or petechiae. GENITOURINARY: Denies any burning micturition, frequency, or urgency. MUSCULOSKELETAL/RHEUMATOLOGICAL: Denies any joint pain, swelling, or any muscle pain. ENDOCRINE: Denies any polyuria or polydipsia. Active Medications Generic Name Dose Route Start Last Admin Trade Name Freq PRN Reason Stop Dose Admin Acetaminophen 650 mg 11/05/18 20:44 11/11/18 11:50 Tylenol Tab PO 650 mg Q6HR PRN Administration Mild Pain or Fever > 100.5 Alprazolam 0.5 mg 11/06/18 15:14 11/10/18 23:04 Xanax PO 0.5 mg HS PRN Administration Anxiety Atenolol 12.5 mg 11/10/18 21:00 11/10/18 21:15 Tenormin PO 12.5 mg HS DINESH Administration Fluoxetine HCl 40 mg 11/06/18 21:00 11/10/18 21:15 Prozac PO 40 mg HS DINESH Administration Heparin Sodium (Porcine) 5,000 unit 11/06/18 16:00 11/11/18 07:47 Heparin SQ 5,000 unit Q8HR DINESH Administration Sodium Chloride 1,000 mls @ 20 mls/hr 11/05/18 20:45 11/11/18 05:25 Saline 0.9% IV Not Given .Q24H DINESH Ibuprofen 400 mg 11/05/18 20:44 11/10/18 12:02 Motrin PO 400 mg Q6HR PRN Administration Mild Pain or Fever > 100.5 Lidocaine 1 patch 11/11/18 12:45 Lidoderm TOPICAL DAILY DINESH Meclizine HCl 12.5 mg 11/06/18 15:15 Antivert PO BID PRN Vertigo Melatonin 3 mg 11/10/18 21:00 11/10/18 23:04 Melatonin PO 3 mg HS PRN Administration Insomnia Metformin HCl 500 mg 11/06/18 21:00 11/10/18 21:15 Glucophage PO 500 mg HS DINESH Administration Multivitamins 1 each 11/06/18 21:00 11/10/18 21:15 Theragran PO 1 each HS DINESH Administration Naloxone HCl 0.2 mg 11/05/18 20:44 Narcan IV Q2M PRN Opioid Reversal Ondansetron HCl 4 mg 11/05/18 20:44 Zofran IVP Q8HR PRN Nausea And Vomiting Oxybutynin Chloride 5 mg 11/06/18 21:00 11/10/18 21:15 Ditropan PO 5 mg HS DINESH Administration Pantoprazole Sodium 40 mg 11/08/18 09:00 11/11/18 07:47 Protonix PO 40 mg DAILY DINESH Administration Triamcinolone Acetonide 1 applic 11/09/18 09:00 11/11/18 07:48 Kenalog TOPICAL 11/23/18 09:01 1 applic BID DINESH Administration Objective - Vital Signs Vital signs: Vital Signs Temp 98.3 F 11/11/18 07:07 Pulse 55 L 11/11/18 07:07 Resp 18 11/11/18 07:30 BP 114/52 11/11/18 07:07 Pulse Ox 96 11/11/18 07:07 Intake & Output 11/10/18 11/11/18 11/11/18 18:59 06:59 18:59 Intake Total 480 220 Balance 480 220 Weight 82 kg Intake: Oral 480 220 Other: Voiding Method Toilet Toilet Bedside Commode Bedside Commode Diaper Diaper Incontinent Incontinent # Voids 1 1 1 # Bowel Movements 1 - Exam GENERAL: The patient is alert and oriented x3, not in any acute distress. HEENT: Pupils are round and equally reacting to light. EOMI. No scleral icterus. No conjunctival pallor. Normocephalic, atraumatic. No pharyngeal erythema. No thyromegaly. CARDIOVASCULAR: S1 and S2 present. No murmurs, rubs, or gallops. PULMONARY: Chest is clear to auscultation, no wheezing or crackles. ABDOMEN: Soft, nontender, nondistended, normoactive bowel sounds. No palpable organomegaly. -MUSCULOSKELETAL: No joint swelling or deformity. Right shoulder pain and tenderness with limited passive and active range of motion improvement, however no swelling or deformity EXTREMITIES: No cyanosis, clubbing, or pedal edema. -NEUROLOGICAL: Gross neurological examination did not reveal any focal deficits. Cranial nerves are grossly intact, strength is 5/5 in all extremities except the right upper extremity in which the exam is limited due to pain and tenderness in her right shoulder area to sensation is intact with no numbness. Meningeal signs are absent SKIN: No rashes. no petechiae. - Labs CBC & Chem 7: 11/11/18 06:41 11/10/18 07:21 Labs: Abnormal Lab Results - Last 24 Hours (Table) 11/11/18 11/11/18 Range/Units 06:41 06:41 WBC 3.0 L (3.8-10.6) k/uL Hgb 11.0 L (11.4-16.0) gm/dL Hct 32.9 L (34.0-46.0) % MCV 77.5 L (80.0-100.0) fL RDW 16.8 H (11.5-15.5) % Plt Count 88 L (150-450) k/uL Neutrophils # (Manual) 0.70 L (1.3-7.7) k/uL Triglycerides 303 H (<150) mg/dL HDL Cholesterol 30 L (40-60) mg/dL Assessment and Plan Assessment: Dizziness and room spinning likely due to benign positional vertigo. CT head negative. Improving clinically. Right shoulder pain. Orthopedic recommended conservative management Right lower extremity skin rash suspected scabies. Likely due to scabies infection as per dermatology. Continue with current management and treatment and repeat in one week. History of leukemia currently in remission. Coronary artery disease and history of stent placement Diabetes type 2 nausea. Memory impairment Hyperlipidemia Hypertension COPD and history of smoking Anxiety/depression and bipolar disorder. Cardiac solitary kidney Chronic back pain Plan: This is a pleasant 62 years old female who presents because of vertical. Continue with meclizine when necessary. Stop IV fluids. She received 1 treatment of permethrin 5% as her department sales manager recommendations as well as triamcinolone 0.1%. We appreciate neurologist and orthopedic consult and they recommended continue with conservative management patient's symptoms. Negative CTA of the brain/neck. Pain management. Call site for evaluation Labs and medication were reviewed.. Continue same treatment. Continue with symptomatic treatment. Resume home medication. Monitor lytes and vitals. DVT and GI prophylaxis. Further recommendations of the clinical course of the patient DVT prophylaxis: Subcutaneous heparin GI Prophylaxis: Pepcid PT/OT: Ongoing, recommended home health care versus subacute rehab Prognosis is guarded
[2018-11-11] MEDS: LIDOCAINE 5% PATCH TOPICAL SCH (14:12)
[2018-11-11] MEDS: ATENOLOL 25 MG TAB PO SCH (20:51)
[2018-11-11] MEDS: MULTIVITAMINS, THERA 1 EACH TAB PO SCH (20:52)
[2018-11-11] MEDS: metFORMIN 500 MG TAB PO SCH (20:52)
[2018-11-11] MEDS: OXYBUTYNIN CHLORIDE 5 MG TAB PO SCH (20:53)
[2018-11-11] MEDS: FLUoxetine HCL 20 MG CAP PO SCH (20:53)
[2018-11-11] MEDS: MELATONIN 3 MG TABLET PO PRN (22:21)
[2018-11-11] MEDS: ALPRAZolam 0.5 MG TAB PO PRN (22:21)
[2018-11-11] MEDS: BUTALB/APAP/CAFF 50-325-40MG TAB PO PRN (22:21)
[2018-11-12] MEDS: IBUPROFEN 400 MG TAB PO PRN ×2 (01:04→07:34)
[2018-11-12] MEDS: BUTALB/APAP/CAFF 50-325-40MG TAB PO PRN ×3 (03:27→22:26)
[2018-11-12] MEDS: SODIUM CHLORIDE 0.9% 1,000 ML IV SCH ×2 (05:44→20:05)
[2018-11-12] MEDS: ACETAMINOPHEN TAB 325 MG TAB PO PRN ×2 (06:36→16:50)
[2018-11-12] MEDS: PANTOPRAZOLE 40 MG TABLET PO SCH (07:34)
[2018-11-12] MEDS: HEPARIN SODIUM,PORCINE 5,000 UNIT/ML 1 ML VIAL SQ SCH (07:34)
[2018-11-12] MEDS: LIDOCAINE 5% PATCH TOPICAL SCH (07:35)
[2018-11-12] MEDS: TRIAMCINOLONE ACET 0.1% OINTMENT 15 GM TUBE TOPICAL SCH ×2 (07:35→20:04)
[2018-11-12 08:03] LABS: Anisocytosis Slight; Basophils % (A) 1 %; Eosinophils # (A) 0.2 k/uL (0-0.7); Eosinophils % (A) 6 %; HGB 11.4 gm/dL (11.4-16.0); Lymphocytes # (A) 1.6 k/uL (1.0-4.8); Lymphocytes % (A) 53 %; MCHC 33.7 g/dL (31.0-37.0); MCV 77.3 fL (80.0-100.0); Mean Platelet Volume 10.2; Microcytosis Slight; Monocytes # (A) 0.2 k/uL (0-1.0); Monocytes % (A) 6 %; Neutrophils # (A) 0.9 k/uL (1.3-7.7); Neutrophils % (A) 30 %; RDW 16.8 % (11.5-15.5)
[2018-11-12 08:12] LABS: Platelet Count 45 k/uL (150-450)
[2018-11-12] MEDS ORDERED: LIDOCAINE 5% PATCH TOPICAL SCH ×2 (11:45→11:57)
--- NOTE | 2018-11-12 14:09 | P.PN ---
Subjective From the records Patient is a 62-year-old female with a known history of coronary artery disease with stent placement, leukemia in remission, COPD, diabetes type 2, hypertension, hyperlipidemia and memory impairment as well as congenital solitary kidney came to ER with complaints of dizziness and feeling like the room spinning since yesterday morning. Dizziness sometimes gets worse with standing. Otherwise denied any complaints of headache. No chest pain or shortness of breath. Patient does have nausea and source of vomiting. No fever no chills. No cough or sputum production. Denied any recent ear infection. Denied history of vertigo. She also complains for chronic rash for the past month is pruritic in nature behind bilateral knees and arms. Patient states that she's been on a cream for her PCP but the rash is worsening. Patient does have a history of anxiety, depression and bipolar disorder. Patient is a former smoker. EKG showed normal sinus rhythm. CT head showed mild cerebral atrophy and no acute intracranial abnormality noted. Chest x-ray showed no acute cardiopulmonary process. There is improved inspiration compared to old exam. Normal heart. BUN 25 lactic acid 0.6 Platelets 67,000 and WBC 3.7 11/07/2018 Patient is still having dizziness and vertigo with head movement. No spinning has improved otherwise. Patient is not able to ambulate without support. 2-D echocardiogram was ordered to rule out any valvular abnormality or aortic stenosis. PTOT was consulted for possible rehab transfer. Denied any complaints of chest pain or shortness of breath. Nausea improved. No vomiting episodes. No abdominal pain. No diarrhea. 11/08/2018 Patient is currently lying in the bed comfortably. Vertigo and room spinning like sensation is improved. Still complaining of dizziness with getting up. PT OT is following. 2-D echocardiogram showed normal ejection fraction. No significant valvular abnormalities. Otherwise patient was found have head lice and is being shampooed with permethrin today. No fever no chills. No nausea vomiting or abdominal pain. No diarrhea. Tolerating oral diet. Possible transfer to rehab tomorrow. 11/09/2089 Patient is currently lying in the bed comfortably. Still complains of dizziness with walking. PT OT is she is stable for discharge to home with home physical therapy. Follow up CBC and BMP tomorrow. Hemodynamically stable. Heart rate is around 60. Saturating well on room air. Blood pressure is stable. Patient has been afebrile. Possible discharge tomorrow. Subjective 11/10/2018 This is a pleasant 62 years old female who presents on 11/05/2018 with vertigo. She was started on oxygen as needed as well as hydration. Her orthostasis were negative. CT of the brain: Showed mild cerebral atrophy with no acute intracranial abnormalities. Echocardiogram: Ejection fraction 55-60%, with borderline LVH, and anorectic valve appears normal. Due to persistent dizziness and vertigo despite hydration and pleasant, also patient was complaining of from headache on both sides and at the back for the last week, however she denies weakness or abnormal sensation/numbness. neurology consult was called today, patient cannot get MRI due to severe claustrophobia and MRI machine in this hospital does not support that the patient's, investor recommended CTA of the head and neck to rule out vertebrobasilar insufficiency. Patient also states that she fell about 4-6 weeks ago, she was at [facility], she was discharge from hospital but she couldn't move for about 4 weeks due to her left knee injury, eventually patient was able to move a little bit however she felt within a week prior to admission to this hospital and injured her right shoulder, patient currently has limited movement in her right upper extremity due to pain, shoulder x-ray were negative for acute fracture. Head Batcher evaluated the patient for scabies. Patient received 1 treatment of permethrin 5% and recommended to repeat it in one week. Also patient was started on triamcinolone for 2 weeks by the special education aide. Patient has a guardian 11/11/2018 Patient still have some dizziness on and off, however it probably improving however it severely to decide after we stopped the trazodone 150 mg and decrease atenolol from 25 down to 12.5 yesterday. Neurologist recommended CTA of the head and neck which was unremarkable, neurologist recommended to continue with meclizine and physical therapist. Her blood pressure still on the low normal site this morning 114/52, however it was 91/54 yesterday, where stop atenolol altogether tonight. We'll call psychiatrist to reassess her psychiatric medication. Patient might go home or home with home care. Guardian is fine for patient going home. Also patient was complaining of from neck pain and tenderness which might contribute to her headache and dizziness, start lidocaine patch. I discussed the case with the staff including the bedside nurse and wardrobe specialty worker of the case. 11/12/2018 Patient still feeling dizzy with headache, however she says that lidocaine patch is helping her and she wants a second patch which was provided. Odontogenic postural symptoms and vitals. Platelets today went down to 45 from 88K. D iscontinue the heparin. We will check for hit antibodies. Psych consult is called Objective - Vital Signs Vital signs: Vital Signs Temp 98 F 11/12/18 14:03 Pulse 85 11/12/18 14:03 Resp 16 11/12/18 14:03 BP 104/63 11/12/18 14:03 Pulse Ox 81 L 11/12/18 14:03 Intake & Output 11/11/18 11/12/18 11/12/18 18:59 06:59 18:59 Intake Total 338 180 Balance 338 180 Weight 80.1 kg Intake: Oral 338 180 Other: Voiding Method Toilet Bedpan Bedpan Bedside Commode Diaper Incontinent # Voids 1 1 - Exam GENERAL: The patient is alert and oriented x3, not in any acute distress. HEENT: Pupils are round and equally reacting to light. EOMI. No scleral icterus. No conjunctival pallor. Normocephalic, atraumatic. No pharyngeal erythema. No thyromegaly. CARDIOVASCULAR: S1 and S2 present. No murmurs, rubs, or gallops. PULMONARY: Chest is clear to auscultation, no wheezing or crackles. ABDOMEN: Soft, nontender, nondistended, normoactive bowel sounds. No palpable organomegaly. -MUSCULOSKELETAL: No joint swelling or deformity. Right shoulder pain and tenderness with limited passive and active range of motion improvement, however no swelling or deformity EXTREMITIES: No cyanosis, clubbing, or pedal edema. -NEUROLOGICAL: Gross neurological examination did not reveal any focal deficits. Cranial nerves are grossly intact, strength is 5/5 in all extremities except the right upper extremity in which the exam is limited due to pain and tenderness in her right shoulder area to sensation is intact with no numbness. Meningeal signs are absent SKIN: No rashes. no petechiae. - Labs CBC & Chem 7: 11/12/18 06:17 11/10/18 07:21 Labs: Abnormal Lab Results - Last 24 Hours (Table) 09/29/19 Range/Units 06:17 WBC 3.0 L (3.8-10.6) k/uL MCV 77.3 L (80.0-100.0) fL RDW 16.8 H (11.5-15.5) % Plt Count 45 L (150-450) k/uL Neutrophils # 0.9 L (1.3-7.7) k/uL Assessment and Plan Assessment: Dizziness and room spinning likely due to benign positional vertigo. CT head negative. Improving clinically. Right shoulder pain. Orthopedic recommended conservative management Right lower extremity skin rash suspected scabies. Likely due to scabies infection as per dermatology. Continue with current management and treatment and repeat in one week. History of leukemia currently in remission. Coronary artery disease and history of stent placement Diabetes type 2 nausea. Memory impairment Hyperlipidemia Hypertension COPD and history of smoking Anxiety/depression and bipolar disorder. Cardiac solitary kidney Chronic back pain Plan: This is a pleasant 62 years old female who presents because of vertical. Continue with meclizine when necessary. Stop IV fluids. She received 1 treatment of permethrin 5% as her special education aide recommendations as well as triamcinolone 0.1%. We appreciate neurologist and orthopedic consult and they recommended continue with conservative management patient's symptoms. Negative CTA of the brain/neck. Pain management. Call site for evaluation Labs and medication were reviewed.. Continue same treatment. Continue with symptomatic treatment. Resume home medication. Monitor lytes and vitals. DVT and GI prophylaxis. Further recommendations of the clinical course of the patient DVT prophylaxis: Discontinue Subcutaneous heparin in view of thrombocytopenia GI Prophylaxis: Pepcid PT/OT: Ongoing, recommended home health care versus subacute rehab Prognosis is guarded
--- NOTE | 2018-11-12 16:46 | P.CN ---
Psychiatric Consult - . Consult date: 11/12/18 Consult:: 11/12/18 16:44 Consult 62-year-old female with a known history of coronary artery disease with stent placement, leukemia in remission, COPD, diabetes type 2, hypertension, hyperlipidemia and memory impairment as well as congenital solitary kidney admitted to medical floor with complaints of dizziness and feeling like the room spinning since yesterday morning. Dizziness sometimes gets worse with standing. Chief complaint Psychiatry was consulted to determine the need for this patient to be continued on trazadone or not. Per medical records patient dizziness seem to have improved after discontinuing trazadone. Plan Patients need for trazadone can be determined on an out patient basis. Currently patient to be monitored with out trazadone. Patient to continue his out patient medications prozac for mood, XANAX 0.5MG PO QHS PRN and melatonin PRN prescribed in the hospital Thank you for the consult and please contact psychiatry with any questions 11/12/18 16:47
[2018-11-12] MEDS: ATENOLOL 25 MG TAB PO SCH (19:56)
[2018-11-12] MEDS: metFORMIN 500 MG TAB PO SCH (20:03)
[2018-11-12] MEDS: MULTIVITAMINS, THERA 1 EACH TAB PO SCH (20:04)
[2018-11-12] MEDS: FLUoxetine HCL 20 MG CAP PO SCH (20:04)
[2018-11-12] MEDS: ALPRAZolam 0.5 MG TAB PO PRN (20:04)
[2018-11-12] MEDS: MELATONIN 3 MG TABLET PO PRN (20:04)
[2018-11-12] MEDS: OXYBUTYNIN CHLORIDE 5 MG TAB PO SCH (20:04)
[2018-11-12] MEDS ORDERED: MECLIZINE 25 MG TAB PO PRN (22:26)
[2018-11-12] MEDS ORDERED: SODIUM CHLORIDE 0.9% 500 ML 500 ML IV ONE (22:28)
[2018-11-12] MEDS ORDERED: IBUPROFEN 400 MG TAB PO PRN (22:34)
[2018-11-13] MEDS: ACETAMINOPHEN TAB 325 MG TAB PO PRN ×2 (01:59→12:11)
[2018-11-13 07:18] LABS: Anisocytosis Slight; Basophils % (A) 1 %; Eosinophils # (A) 0.1 k/uL (0-0.7); Eosinophils % (A) 5 %; HCT 35.1 % (34.0-46.0); HGB 11.1 gm/dL (11.4-16.0); Hypochromasia Marked; Lymphocytes # (A) 1.4 k/uL (1.0-4.8); Lymphocytes % (A) 53 %; MCHC 31.7 g/dL (31.0-37.0); MCV 82.1 fL (80.0-100.0); Mean Platelet Volume 8.3; Monocytes # (A) 0.1 k/uL (0-1.0); Monocytes % (A) 4 %; Neutrophils # (A) 0.9 k/uL (1.3-7.7); Neutrophils % (A) 33 %; RBC 4.28 m/uL (3.80-5.40); RDW 16.9 % (11.5-15.5); WBC 2.7 k/uL (3.8-10.6)
[2018-11-13 07:20] LABS: Platelet Count 97 k/uL (150-450)
[2018-11-13] MEDS: TRIAMCINOLONE ACET 0.1% OINTMENT 15 GM TUBE TOPICAL SCH (07:27)
[2018-11-13] MEDS: PANTOPRAZOLE 40 MG TABLET PO SCH (07:27)
[2018-11-13 07:40] VITALS: BP 99/59; PULSE 53; RESP 15; TEMP 98.3
[2018-11-13 08:20] LABS: Ovalocytes Present; Poikilocytosis (M) Present
[2018-11-13 09:41] VITALS: BMI 34.6
[2018-11-13] MEDS ORDERED: MELATONIN 5 MG TABLET PO PRN (11:46)
--- NOTE | 2018-11-13 12:36 | P.CRDCN ---
History of Present Illness History of present illness: This is a pleasant 62-year-old female past medical history significant for coronary artery disease status post stent placement in the setting of a myocardial infarction in 2007, diabetes mellitus, hypertension, dyslipidemia, COPD, leukemia and former nicotine dependence. We have been asked to see the patient in consultation secondary dizziness. She initially presented to the hospital 7 days ago with symptoms of dizziness described as room spinning most often exacerbated by position changes. She denies chest pain, shortness of breath, palpitations, syncope, nausea, vomiting or diaphoresis. She underwent echocardiogram revealing preserved LV systolic function with ejection fraction 55-60%. She underwent chest x-ray, brain CT and CT angiography which were all negative. Multiple EKGs obtained from the admission of been reviewed and all reveal sinus bradycardia with RSR prime no abnormalities noted. There is been episodes of sinus bradycardia and some of the EKGs heart rate in the 50s. No telemetry tracings. Laboratory data reviewed, WBC 2.7, hemoglobin 11.1, platelets 97, sodium 138, potassium 3.9, creatinine 0.68, LDL 83 cortisol 7. Blood pressure 99/59 heart rate 53 afebrile maintaining oxygen saturation on room air, no orthostatic changes appreciated throughout the admission. At the time of my exam: CONSTITUTIONAL: Denies fever. Denies chills. EYES: Denies blurred vision. Denies vision changes. Denies eye pain. EARS, NOSE, MOUTH & THROAT: Denies headache. Denies sore throat. Denies ear pain. CARDIOVASCULAR: Denies chest pain. Denies shortness of breath. Denies orthopnea. Denies PND. Denies palpitations. RESPIRATORY: Denies cough. GASTROINTESTINAL: Denies abdominal pain. Denies diarrhea. Denies constipation. Denies nausea. Denies vomiting. MUSCULOSKELETAL: Denies myalgias. INTEGUMENTARY: Denies pruitis. Denies rash. NEUROLOGIC: Denies numbness. Denies tingling. Denies weakness. Complains of orthostatic vertigo. PSYCHIATRIC: Denies anxiety. Denies depression. ENDOCRINE: Denies fatigue. Denies weight change. Denies polydipsia. Denies p olyurina. GENITOURINARY: Denies burning, hematuria or urgency with micturation. HEMATOLOGIC: Denies history of anemia. Denies bleeding. GENERAL: This is a 62-year-old female in no apparent distress at the time of my examination. HEENT: Head is atraumatic, normocephalic. Pupils are equal, round. Sclerae anicteric. Conjunctivae are clear. Mucous membranes of the mouth are moist. Neck is supple. There is no jugular venous distention. No carotid bruit is heard. LUNGS: Clear to auscultation no wheezes, rales or rhonchi. No chest wall tenderness is noted on palpation or with deep breathing. HEART: Regular rate and rhythm without murmurs, rubs or gallops. S1 and S2 heard. ABDOMEN: Soft, nontender. Bowel sounds are heard. No organomegaly noted. EXTREMITIES: No evidence of peripheral edema and no calf tenderness noted. VASCULAR: Radial and dorsalis pedis pulses palpated, no evidence of clubbing. NEUROLOGIC: Patient is awake, alert and oriented x3. ASSESSMENT Dizziness suggestive of vertigo. No evidence to suggest cardiac etiology. History of coronary artery disease status post stent placement 2007, exact details unavailable. 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 Diabetes mellitus Hypertension Dyslipidemia COPD Former nicotine dependence PLAN Stable from a cardiac perspective. No evidence to suggest cardiac etiology for dizziness. Clinically appears to be vertigo. No further cardiac work-up at this time. We will follow as needed. Thank you kindly for this consultation. Nurse Practitioner note has been reviewed, I agree with a documented findings and plan of care. Patient was seen and examined. 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, CHRONIC BACK PAIN , CLAUSTROPHOBIA, CLL, BACK SURGERY Last Myocardial Infarction Date:: 2007 History of Any Multi-Drug Resistant Organisms: None Reported Past Surgical History: Appendectomy, Back Surgery, Cholecystectomy, Heart Catheterization With Stent, Hysterectomy, Tonsillectomy Additional Past Surgical History / Comment(s): CARPAL TUNNEL, FOOT SURGERY,pick at skin when anxious,left foot sx Past Anesthesia/Blood Transfusion Reactions: No Reported Reaction Date of Last Stent Placement:: UNKNOWN Past Psychological History: Anxiety, Bipolar, Depression Smoking Status: Former smoker Past Alcohol Use History: None Reported Past Drug Use History: None Reported - Past Family History Mother Family Medical History: Cancer Additional Family Medical History / Comment(s): UTERINE Medications and Allergies Home Medications Medication Instructions Recorded Confirmed Type FLUoxetine HCL [PROzac] 40 mg PO HS 01/24/14 11/05/18 History Multivitamins, Thera [Multivitamin 1 tab PO HS 01/24/14 11/05/18 History (formulary)] ALPRAZolam [Xanax] 0.5 mg PO HS PRN 04/20/17 11/05/18 History Oxybutynin Chloride [Ditropan] 5 mg PO HS 04/20/17 11/05/18 History metFORMIN HCL [Glucophage] 500 mg PO HS 03/18/18 11/05/18 History Ibuprofen [Motrin] 800 mg PO TID PRN 06/04/18 11/05/18 History Atenolol 25 mg PO HS 07/17/18 11/05/18 History Cetirizine HCl 10 mg PO HS 07/17/18 11/05/18 History traZODone HCL 150 mg PO HS 07/17/18 11/05/18 History Ranitidine HCl [Zantac] 300 mg PO HS 11/05/18 11/05/18 History Allergies Allergy/AdvReac Type Severity Reaction Status Date / Time azithromycin [From Zithromax] Allergy Unknown Unknown Verified 11/05/18 23:56 cephalexin Allergy Unknown Unknown Verified 11/05/18 23:56 cyclobenzaprine HCl Allergy Unknown Unknown Verified 11/05/18 23:56 [From Flexeril] Penicillins Allergy Unknown Unknown Verified 11/05/18 23:56 pentazocine lactate Allergy Unknown Unknown Verified 11/05/18 23:56 [From Talwin] pseudoephedrine HCl Allergy Unknown Unknown Verified 11/05/18 23:56 [From Sudafed] Sulfa (Sulfonamide Allergy Unknown Unknown Verified 11/05/18 23:56 Antibiotics) adhesive AdvReac Unknown Unknown Verified 11/05/18 23:56 Physical Exam Vitals: Vital Signs Temp Pulse Resp BP BP BP Pulse Ox 11/13/18 07:33 98.3 F 53 L 15 99/59 97 11/13/18 04:00 16 11/13/18 02:03 98.0 F 61 17 112/56 95 11/12/18 23:11 14 11/12/18 19:52 98.5 F 53 L 15 95/61 96 11/12/18 14:03 98 F 85 16 104/63 81 L Intake and Output 11/12/18 11/13/18 11/13/18 22:59 06:59 14:59 Other: Voiding Method Toilet # Voids 1 Weight 80.4 kg 80.4 kg Results 11/13/18 06:17 11/10/18 07:21 CBC 11/13/18 Range/Units 06:17 WBC 2.7 L (3.8-10.6) k/uL RBC 4.28 (3.80-5.40) m/uL Hgb 11.1 L (11.4-16.0) gm/dL Hct 35.1 (34.0-46.0) % Plt Count 97 L D (150-450) k/uL Current Medications Generic Name Dose Route Start Last Admin Trade Name Freq PRN Reason Stop Dose Admin Acetaminophen 325 mg 11/11/18 21:29 11/13/18 12:11 Tylenol Tab PO 325 mg Q6HR PRN Administration Mild Pain or Fever > 100.5 Alprazolam 0.5 mg 11/06/18 15:14 11/12/18 20:04 Xanax PO 0.5 mg HS PRN Administration Anxiety Fluoxetine HCl 40 mg 11/06/18 21:00 11/12/18 20:04 Prozac PO 40 mg HS DINESH Administration Sodium Chloride 1,000 mls @ 20 mls/hr 11/05/18 20:45 11/12/18 20:05 Saline 0.9% IV 20 mls/hr .Q24H DINESH Administration Ibuprofen 600 mg 11/12/18 22:34 11/13/18 05:55 Motrin PO 600 mg Q12HR PRN Administration Mild Pain or Fever > 100.5 Lidocaine 2 patch 11/12/18 11:57 11/13/18 07:27 Lidoderm TOPICAL 2 patch DAILY DINESH Administration Meclizine HCl 25 mg 11/12/18 22:26 Antivert PO BID PRN Vertigo Melatonin 5 mg 11/13/18 11:46 Melatonin PO HS PRN Insomnia Metformin HCl 500 mg 11/06/18 21:00 11/12/18 20:03 Glucophage PO 500 mg HS DINESH Administration Multivitamins 1 each 11/06/18 21:00 11/12/18 20:04 Theragran PO 1 each HS DINESH Administration Naloxone HCl 0.2 mg 11/05/18 20:44 Narcan IV Q2M PRN Opioid Reversal Ondansetron HCl 4 mg 11/05/18 20:44 11/12/18 17:21 Zofran IVP 4 mg Q8HR PRN Administration Nausea And Vomiting Oxybutynin Chloride 5 mg 11/06/18 21:00 11/12/18 20:04 Ditropan PO 5 mg HS DINESH Administration Pantoprazole Sodium 40 mg 11/08/18 09:00 11/13/18 07:27 Protonix PO 40 mg DAILY DINESH Administration Triamcinolone Acetonide 1 applic 11/09/18 09:00 11/13/18 07:27 Kenalog TOPICAL 11/23/18 09:01 1 applic BID DINESH Administration Intake and Output 11/12/18 11/13/18 11/13/18 22:59 06:59 14:59 Other: Voiding Method Toilet # Voids 1 Weight 80.4 kg 80.4 kg Patient Weight 11/14/18 06:59 Weight 80.4 kg 11/13/18 06:17 11/10/18 07:21
[2018-11-13] MEDS ORDERED: PERMETHRIN 5% CREAM 60 GM TUBE TOPICAL ONE (12:58)
--- NOTE | 2018-11-13 13:03 | P.DS ---
Providers Date of admission: 11/06/18 11:09 Attending physician: Jennifer Torres MD Consults: 11/07/18 13:19 Consult Physician Stat Consulting Provider: [facility] Consult Reason/Comments: rash/possible scabies Do you want consulting provider notified?: Yes 11/10/18 08:38 Consult Physician Stat Consulting Provider: Swapnil Villalta Consult Reason/Comments: right shoulder pain Do you want consulting provider notified?: Yes Consult Physician Urgent Consulting Provider: Eladia Dubois Consult Reason/Comments: dizziness Do you want consulting provider notified?: Yes 11/11/18 10:09 Consult Physician Routine Consulting Provider: Jaya Gasca Consult Reason/Comments: trazadone adjustment Do you want consulting provider notified?: Yes 11/13/18 11:37 Consult Physician Urgent Consulting Provider: Sulaiman Chen Consult Reason/Comments: conduction delay in EKG with dizziness Do you want consulting provider notified?: Yes Primary care physician: Radha Ham [facility] Course: Diagnoses: Dizziness and vertigo likely due to benign positional vertigo. CT head negative. Patient has been evaluated by custodian blood bank and neurologist Right shoulder pain. Orthopedic recommended conservative management. X-ray is negative for fracture Right lower extremity skin rash suspected scabies. Likely due to scabies infection as per dermatology. and repeat therapy in one week. Cervical spine degenerative disc disease with neck pain and headache Recurrent falls History of leukemia currently in remission. Coronary artery disease and history of stent placement Diabetes type 2 nausea. Memory impairment Hyperlipidemia Hypertension COPD and history of smoking Anxiety/depression and bipolar disorder. Cardiac solitary kidney Chronic back pain Hospital course Patient is a 62-year-old female with a known history of coronary artery disease with stent placement, leukemia in remission, COPD, diabetes type 2, hypertension, hyperlipidemia and memory impairment as well as congenital solitary kidney , she uses a walker at baseline, came to ER with complaints of dizziness , felt like vertigo for about 2 months induration. Also patient has ongoing headache for a while associated with neck pain and tenderness in the back mostly from her degenerative disc diseaseHome also her right shoulder trauma might be contributing to her neck pain and headache, patient fell at home about 1 weeks prior to coming to the hospital, she has previous fall about 4-6 weeks ago. X-ray of the right shoulder was negative for fracture and orthopedics recommended conservative therapy. workup for dizziness was unrevealing including CT of the head which showing only atrophy and no acute event, CTA of the neck/head also were negative. EKG showing nerve conduction delay. Neurologist and custodian blood bank evaluated the patient's and cleared her for discharge home, as there was no cause found for her symptoms of dizziness and headache from the workup done. Patient was taken trazodone at home to help her sleep which was discontinued. Also her atenolol was stopped, patient felt partial improvement after stopping these medications. Patient placed on melatonin instead. Physical therapy evaluated the patient and recommended home health care versus rehab, however patient admission to rehab was denied by ECF/insurance, however patient is agreeable to go home as she states that she has a caregiver that is almost 24 hour available, and when he is not available her son is at home. Also patient has a guardian and he agreeable with this plan patient going home. Knowledge Engineer evaluate the patient and she had a rash on admission, he recommended permethrin for possible scabies, patient showed improvement and he recommended repeat the therapy in one week. On the day of discharge patient dizziness and headache are partially improved, her right shoulder pain is controlled with lidocaine patch as well as her neck pain and tenderness also improved with lidocaine patch and other pain medicines. Patient denies chest pain or dyspnea. No abdominal pain. No change in urine or bowel habits. No nausea vomiting. No fever. She tolerates her diet well Problems and management plan were discussed with the patient and he verbalized understanding and acceptance Patient was found stable and can be discharged home however he needs follow-up as an outpatient. Patient was instructed to follow up with PCP within one week and patient agrees. Agrees with the appointments made with her PCP and she said she will follow up. Also patient was instructed to follow up with neurologist as an outpatient Gen: patient is a AAOx3, no distress CVS: S1-S2, RRR, no murmur Lungs: B/L CTA, no wheezing Abdomen: soft, no distention, no tenderness, positive bowel sounds Extremity: no leg edema or induration. -Musculoskeletal: Mild Right shoulder tenderness, mild neck tenderness Time spent more than 35 minutes Patient Condition at Discharge: Stable Plan - Discharge Summary New Discharge Prescriptions: Continue FLUoxetine HCL [PROzac] 40 mg PO HS Multivitamins, Thera [Multivitamin (formulary)] 1 tab PO HS ALPRAZolam [Xanax] 0.5 mg PO HS PRN PRN Reason: Anxiety Oxybutynin Chloride [Ditropan] 5 mg PO HS metFORMIN HCL [Glucophage] 500 mg PO HS Ibuprofen [Motrin] 800 mg PO TID PRN PRN Reason: Pain traZODone HCL 150 mg PO HS Atenolol 25 mg PO HS Cetirizine HCl 10 mg PO HS Ranitidine HCl [Zantac] 300 mg PO HS Discontinued diphenhydrAMINE HCL [Benadryl] 25 mg PO HS Discharge Medication List FLUoxetine HCL [PROzac] 40 mg PO HS 01/24/14 [History] Multivitamins, Thera [Multivitamin (formulary)] 1 tab PO HS 01/24/14 [History] ALPRAZolam [Xanax] 0.5 mg PO HS PRN 04/20/17 [History] Oxybutynin Chloride [Ditropan] 5 mg PO HS 04/20/17 [History] metFORMIN HCL [Glucophage] 500 mg PO HS 03/18/18 [History] Ibuprofen [Motrin] 800 mg PO TID PRN 06/04/18 [History] Atenolol 25 mg PO HS 07/17/18 [History] Cetirizine HCl 10 mg PO HS 07/17/18 [History] traZODone HCL 150 mg PO HS 07/17/18 [History] Ranitidine HCl [Zantac] 300 mg PO HS 11/05/18 [History] Follow up Appointment(s)/Referral(s): Jitendra Garcia MD [Primary Care Provider] - 11/16/18 10:30 am Yoselin Perez NPC [Nurse Practitioner] - 2 Weeks (scabies , rn critical care ) Swapnil Villalta DO [Doctor of Osteopathic Medicine] - As Needed Activity/Diet/Wound Care/Special Instructions: November 15, 2018 patient needs to have Permethrin 5% cream topical application neck down for second treatment first treatment done on 11/08/18.
== END 2018-11-13 16:44 | disposition home health service (06) ==
LOC: EC 15:52 → UNDOADMOB 22:41 → 1SOBS 22:41 → OBSVTOIN 11-06 11:09 → INTOOBSV 11-06 11:09 → 1SOBS 11-07 16:41 → 4SSUR 11-07 16:41 → UNDODISIN 11-13 16:44
PROVIDERS: ADMIT Internal Medicine; ATTEND Internal Medicine
DX: R42 Dizziness and giddiness (principal); R51 Headache; Q60.0 Renal agenesis, unilateral; B85.0 Pediculosis due to Pediculus humanus capitis; R21 Rash and other nonspecific skin eruption; L29.9 Pruritus, unspecified; E11.9 Type 2 diabetes mellitus without complications; S40.011A Contusion of right shoulder, initial encounter; M25.811 Other specified joint disorders, right shoulder; E78.5 Hyperlipidemia, unspecified; I25.10 Atherosclerotic heart disease of native coronary artery without angina pectoris; J44.9 Chronic obstructive pulmonary disease, unspecified; I10 Essential (primary) hypertension; F31.9 Bipolar disorder, unspecified; R41.3 Other amnesia; K57.90 Diverticulosis of intestine, part unspecified, without perforation or abscess without bleeding; C91.11 Chronic lymphocytic leukemia of B-cell type in remission; M50.30 Other cervical disc degeneration, unspecified cervical region; R00.1 Bradycardia, unspecified; R29.6 Repeated falls; I25.2 Old myocardial infarction; F41.9 Anxiety disorder, unspecified; F40.240 Claustrophobia; R32 Unspecified urinary incontinence; M19.90 Unspecified osteoarthritis, unspecified site; M54.9 Dorsalgia, unspecified; G89.29 Other chronic pain; Z79.84 Long term (current) use of oral hypoglycemic drugs; Z79.899 Other long term (current) drug therapy; Z95.5 Presence of coronary angioplasty implant and graft; Z90.49 Acquired absence of other specified parts of digestive tract; Z90.710 Acquired absence of both cervix and uterus; Z87.891 Personal history of nicotine dependence; Z87.19 Personal history of other diseases of the digestive system; Z88.1 Allergy status to other antibiotic agents; Z88.5 Allergy status to narcotic agent; Z88.0 Allergy status to penicillin; Z88.2 Allergy status to sulfonamides; Z88.8 Allergy status to other drugs, medicaments and biological substances; Z91.048 Other nonmedicinal substance allergy status; Z80.49 Family history of malignant neoplasm of other genital organs; W01.0XXA Fall on same level from slipping, tripping and stumbling without subsequent striking against object, initial encounter; Y92.009 Unspecified place in unspecified non-institutional (private) residence as the place of occurrence of the external cause
CPT/HCPCS: 96376; 96361 ×3; 96372 ×7; 96375 ×3; 96374; 99285; 36415; 93005 ×3; 93306; 97116 ×2; 97162; 97535; 97165; 86022; 83880; 80061; 80053; 80048 ×2; 82533; 83605; 84484; 85025 ×6; 85610; 85730; 81003; 73030; 71046; 70496; 70450; 70498; G0378 ×9; J1200; J1644 ×7; J2765; J2405; C9113 ×2; Q9967

== ENCOUNTER 2018-12-04 21:08 | Emergency (ER) | payer MEDICARE, OTHER ==
--- NOTE | 2018-12-04 22:31 | CT ---
EXAMINATION TYPE: CT brain wo con DATE OF EXAM: 12/04/2018 COMPARISON: 11/05/2018 HISTORY: headache CT DLP: 1095.4 mGycm Automated exposure control for dose reduction was used. FINDINGS: There is some cerebral cortical atrophy. There is no mass effect nor midline shift. There is no sign of intracranial hemorrhage. Calvarium is intact. There is no evidence of cerebral edema. IMPRESSION: MILD ATROPHY. NO ACUTE INTRACRANIAL ABNORMALITY. NO SIGNIFICANT CHANGE.
[2018-12-04] MEDS ORDERED: KETOROLAC 30 MG/ML 1 ML VIAL IM STA (22:38)
[2018-12-04] MEDS ORDERED: MORPHINE SULFATE 4 MG/ML SYRINGE IM STA (23:08)
--- NOTE | 2018-12-04 23:24 | ED ---
Headache HPI - General Chief Complaint: Headache Stated Complaint: Headache Time Seen by Provider: 12/04/18 21:59 Mode of arrival: EMS Limitations: no limitations - History of Present Illness Initial Comments: 63 yo female with history of chronic migraines presents emergency department for chief complaint of headache. She describes as bandlike from the front to the back. Patient denies sudden onset states it began gradually. Denies this being the worse headache her life. Patient states she has had a headache for the past day. She states that she has not been able to get it to go away with [id number] medications. Patient states it feels slightly worse than her typical migraines. Patient states that she has not had any nausea vomiting neck stiffness dizziness speech changes weakness in the upper or lower extremities associated with this headache. Patient denies falls or head trauma. Patient denies fever or flulike symptoms. Patient denies any diplopia or visual loss. Remaining review of system negative. Upon arrival patient appears well no signs of acute distress. Upon chart review patient has a recent negative CTA of brain for aneurysm. - Related Data Home Medications Medication Instructions Recorded Confirmed FLUoxetine HCL [PROzac] 40 mg PO HS 01/24/14 12/04/18 Multivitamins, Thera [Multivitamin 1 tab PO HS 01/24/14 12/04/18 (formulary)] ALPRAZolam [Xanax] 0.5 mg PO HS PRN 04/20/17 12/04/18 Oxybutynin Chloride [Ditropan] 5 mg PO HS 04/20/17 12/04/18 metFORMIN HCL [Glucophage] 500 mg PO HS 03/18/18 12/04/18 Ibuprofen [Motrin] 800 mg PO TID PRN 06/04/18 12/04/18 Ranitidine HCl [Zantac] 300 mg PO HS 11/05/18 12/04/18 Previous Rx's Medication Instructions Recorded Acetaminophen Tab [Tylenol] 325 mg PO Q6HR PRN #120 tab 11/13/18 Meclizine [Antivert] 25 mg PO BID PRN #60 tab 11/13/18 Melatonin 5 mg PO HS PRN #30 tablet 11/13/18 Triamcinolone 0.1% Ointment 1 applic TOPICAL BID 8 Days #1 11/13/18 [Kenalog 0.1% Ointment] applic Allergies Allergy/AdvReac Type Severity Reaction Status Date / Time azithromycin [From Zithromax] Allergy Unknown Unknown Verified 12/04/18 21:56 cephalexin Allergy Unknown Unknown Verified 12/04/18 21:56 cyclobenzaprine HCl Allergy Unknown Unknown Verified 12/04/18 21:56 [From Flexeril] Penicillins Allergy Unknown Unknown Verified 12/04/18 21:56 pentazocine lactate Allergy Unknown Unknown Verified 12/04/18 21:56 [From Talwin] pseudoephedrine HCl Allergy Unknown Unknown Verified 12/04/18 21:56 [From Sudafed] Sulfa (Sulfonamide Allergy Unknown Unknown Verified 12/04/18 21:56 Antibiotics) adhesive AdvReac Unknown Unknown Verified 12/04/18 21:56 Review of Systems ROS Statement: Those systems with pertinent positive or pertinent negative responses have been documented in the HPI. ROS Other: All systems not noted in ROS Statement are negative. 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, CHRONIC BACK PAIN , CLAUSTROPHOBIA, CLL, BACK SURGERY Last Myocardial Infarction Date:: 2007 History of Any Multi-Drug Resistant Organisms: None Reported Past Surgical History: Appendectomy, Back Surgery, Cholecystectomy, Heart Catheterization With Stent, Hysterectomy, Tonsillectomy Additional Past Surgical History / Comment(s): CARPAL TUNNEL, FOOT SURGERY,pick at skin when anxious,left foot sx Past Anesthesia/Blood Transfusion Reactions: No Reported Reaction Date of Last Stent Placement:: UNKNOWN Past Psychological History: Anxiety, Bipolar, Depression Smoking Status: Former smoker Past Alcohol Use History: None Reported Past Drug Use History: None Reported - Past Family History Mother Family Medical History: Cancer Additional Family Medical History / Comment(s): UTERINE General Exam - General Exam Comments Initial Comments: General: The patient is awake and alert, in no distress, and does not appear acutely ill. Eye: +3 mm pupils are equal, round and reactive to light, extra-ocular movements are intact. No nystagmus. There is normal conjunctiva bilaterally. No signs of icterus. Ears, nose, mouth and throat: There are moist mucous membranes and no oral lesions. Neck: The neck is supple, there is no tenderness or JVD. Cardiovascular: There is a regular rate and rhythm. No murmur, rub or gallop is appreciated. Respiratory: Lungs are clear to auscultation, respirations are non-labored, breath sounds are equal. No wheezes, stridor, rales, or rhonchi. Musculoskeletal: Normal ROM, no tenderness. Strength 5/5. Sensation intact. Pulses equal bilaterally 2+. Neurological: A&O x 3. CN II-XII intact,memory intact to immediately, intermediate and vermin exterminator recall. Able to follow simple verbal. Able to name a common object (pen). High quality, labial (pa) and lingual (la) speech. Low quality posterior pharynx/larynx (ga) voice sounds. Able to express general knowledge. No hemineglect or inattention noted. Finger agnosia (-) and spatially oriented. Light touch and temperature sensation present over the face, chest, abdomen, back, UE bilaterally, and LE bilaterally. Able to localize point during point localization b/l and extinction. No visible bulk atrophy, hypertrophy, fasciculations, or myoclonus of the UE or LE b/l. Full PROM in UE and LE b/l. Bilateral muscle strength 5/5 for the following muscles: deltoid, biceps, triceps, brachioradialis, wrist extensors/flexor, hip flexor, hip abductors/adductors, hamstrings, quadriceps, feet dorsiflexors/plantar flexors. Finger to nose, finger to the examiners finger, and heel to blake coordinated and accurate b/l. Coordinated and even demonstration of hand flip, finger to thumb, and toe tap b/l. Gait is coordinated and even in stride with tandem. (-) pronator drift. No nuchal rigidity. (-) Brudzinskis and Kernig signs . Skin: Skin is warm and dry and no rashes or lesions are noted. Psychiatric: Cooperative, appropriate mood & affect, normal judgment. Limitations: no limitations Course Vital Signs 12/04/18 12/05/18 21:11 00:46 Temperature 97.9 F 97.7 F Pulse Rate 69 72 Respiratory 18 19 Rate Blood Pressure 127/73 124/71 O2 Sat by Pulse 96 97 Oximetry Medical Decision Making - Medical Decision Making 63-year-old field present to [place] for headache. History of chronic migraines. Recent CTA which was negative for any known aneurysm. Patient denies sudden onset of this being the worst headache of her life. Patient is no focal neurological deficit CT of the brain negative. Patient was given symptomatic treatment. Patient requesting discharge. At this time I feel patient is stable for discharge with outpatient primary care follow-up. Case discussed with him provider patient was discharged and will Disposition Clinical Impression: Headache Disposition: HOME SELF-CARE Condition: Good Instructions (If sedation given, give patient instructions): Acute Headache (ED) Additional Instructions: Please use medication as discussed. Please follow-up with family doctor in the next 2 days. Please return to emergency room if the symptoms increase or worsen or for any other concerns. Is patient prescribed a controlled substance at d/c from ED?: No Referrals: Jitendra Garcia MD [Primary Care Provider] - 1-2 days Time of Disposition: 23:23
[2018-12-05 00:47] VITALS: BP 124/71; PULSE 72; RESP 19; TEMP 97.7
== END 2018-12-05 00:30 | disposition home or self-care (01) ==
LOC: EC 21:08
DX: R51 Headache (principal); Q60.0 Renal agenesis, unilateral; E11.9 Type 2 diabetes mellitus without complications; I25.10 Atherosclerotic heart disease of native coronary artery without angina pectoris; I25.2 Old myocardial infarction; F32.9 Major depressive disorder, single episode, unspecified; F41.9 Anxiety disorder, unspecified; Z87.891 Personal history of nicotine dependence; Z88.0 Allergy status to penicillin; Z88.1 Allergy status to other antibiotic agents; Z88.2 Allergy status to sulfonamides; Z88.6 Allergy status to analgesic agent; Z88.8 Allergy status to other drugs, medicaments and biological substances; Z91.048 Other nonmedicinal substance allergy status; Z79.84 Long term (current) use of oral hypoglycemic drugs; Z79.899 Other long term (current) drug therapy; Z85.6 Personal history of leukemia; Z87.19 Personal history of other diseases of the digestive system; Z86.69 Personal history of other diseases of the nervous system and sense organs; Z95.5 Presence of coronary angioplasty implant and graft
CPT/HCPCS: 70450; 99284; 96372 ×2; J2270; J1885

== ENCOUNTER 2018-12-07 20:03 | Emergency (ER) | payer MEDICARE, OTHER ==
[2018-12-07 20:13] VITALS: RESP 18; TEMP 98
--- NOTE | 2018-12-07 21:39 | CT ---
EXAMINATION TYPE: CT brain wo con DATE OF EXAM: 12/07/2018 COMPARISON: 12/04/2018 HISTORY: Headache. CT DLP: 1036.4 mGycm Automated exposure control for dose reduction was used. FINDINGS: Ventricles have normal size. There is no mass effect nor midline shift. There is no sign of intracran ial hemorrhage. Calvarium is intact. IMPRESSION: THERE IS CEREBRAL ATROPHY APPROPRIATE FOR AGE. NO ACUTE INTRACRANIAL ABNORMALITY. NO CHANGE.
[2018-12-07] MEDS ORDERED: SODIUM CHLORIDE 0.9% 500 ML 500 ML IV STA (21:42)
[2018-12-07] MEDS ORDERED: MORPHINE SULFATE 4 MG/ML SYRINGE IV STA (21:42)
[2018-12-07] MEDS ORDERED: diphenhydrAMINE 50 MG/ML 1 ML VIAL IVP STA (21:42)
[2018-12-07] MEDS ORDERED: KETOROLAC 30 MG/ML 1 ML VIAL IVP STA (22:30)
[2018-12-07] MEDS ORDERED: METOCLOPRAMIDE 5 MG/ML 2 ML VIAL IVP STA (22:30)
[2018-12-07] MEDS ORDERED: HYDROmorphone 0.5 MG/0.5 ML SYRINGE IVP STA (23:00)
--- NOTE | 2018-12-07 23:25 | ED ---
General Adult HPI - General Chief complaint: Headache Stated complaint: Headache Time Seen by Provider: 12/07/18 20:27 Source: patient, EMS, RN notes reviewed, old records reviewed Mode of arrival: EMS - History of Present Illness Initial comments: 63-year-old female patient past history significant for leg disorder presents to the chief complaint headache. Patient was that has been ongoing for approximately 5 days. Described in her frontal lobe. Patient reports that she has had headaches identical this the past. Denies thunderclap onset. Denies loss of consciousness. Denies any other complaints. Systemic: Pt denies fatigue, fever/chills, rash. Pt denies weakness, night sweats, weight loss. Neuro: Pt visual disturbances, syncope or pre-syncope. HEENT: Pt denies ocular discharge or irritation, otalgia, rhinorrhea, pharyngitis or notable lymphadenopathy. Cardiopulmonary: Pt denies chest pain, SOB, heart palpitations, dyspnea on exertion. Abdominal/GI: Pt denies abdominal pain, n/v/d. : Pt denies dysuria, burning w/ urination, frequency/urgency. Denies new onset urinary or bowel incontinence. MSK: Pt denies myalgia, loss of strength or function in extremities. Neuro: Pt denies new onset weakness, paresthesias. - Related Data Home Medications Medication Instructions Recorded Confirmed FLUoxetine HCL [PROzac] 40 mg PO HS 01/24/14 12/04/18 Multivitamins, Thera [Multivitamin 1 tab PO HS 01/24/14 12/04/18 (formulary)] ALPRAZolam [Xanax] 0.5 mg PO HS PRN 04/20/17 12/04/18 Oxybutynin Chloride [Ditropan] 5 mg PO HS 04/20/17 12/04/18 metFORMIN HCL [Glucophage] 500 mg PO HS 03/18/18 12/04/18 Ibuprofen [Motrin] 800 mg PO TID PRN 06/04/18 12/04/18 Ranitidine HCl [Zantac] 300 mg PO HS 11/05/18 12/04/18 Previous Rx's Medication Instructions Recorded Acetaminophen Tab [Tylenol] 325 mg PO Q6HR PRN #120 tab 11/13/18 Meclizine [Antivert] 25 mg PO BID PRN #60 tab 11/13/18 Melatonin 5 mg PO HS PRN #30 tablet 11/13/18 Triamcinolone 0.1% Ointment 1 applic TOPICAL BID 8 Days #1 11/13/18 [Kenalog 0.1% Ointment] applic Allergies Allergy/AdvReac Type Severity Reaction Status Date / Time azithromycin [From Zithromax] Allergy Unknown Unknown Verified 12/04/18 21:56 cephalexin Allergy Unknown Unknown Verified 12/04/18 21:56 cyclobenzaprine HCl Allergy Unknown Unknown Verified 12/04/18 21:56 [From Flexeril] Penicillins Allergy Unknown Unknown Verified 12/04/18 21:56 pentazocine lactate Allergy Unknown Unknown Verified 12/04/18 21:56 [From Talwin] pseudoephedrine HCl Allergy Unknown Unknown Verified 12/04/18 21:56 [From Sudafed] Sulfa (Sulfonamide Allergy Unknown Unknown Verified 12/04/18 21:56 Antibiotics) adhesive AdvReac Unknown Unknown Verified 12/04/18 21:56 Review of Systems ROS Statement: Those systems with pertinent positive or pertinent negative responses have been documented in the HPI. ROS Other: All systems not noted in ROS Statement are negative. 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, CHRONIC BACK PAIN , CLAUSTROPHOBIA, CLL, BACK SURGERY Last Myocardial Infarction Date:: 2007 History of Any Multi-Drug Resistant Organisms: None Reported Past Surgical History: Appendectomy, Back Surgery, Cholecystectomy, Heart Catheterization With Stent, Hysterectomy, Tonsillectomy Additional Past Surgical History / Comment(s): CARPAL TUNNEL, FOOT SURGERY,pick at skin when anxious,left foot sx Past Anesthesia/Blood Transfusion Reactions: No Reported Reaction Date of Last Stent Placement:: UNKNOWN Past Psychological History: Anxiety, Bipolar, Depression Smoking Status: Former smoker Past Alcohol Use History: None Reported Past Drug Use History: None Reported - Past Family History Mother Family Medical History: Cancer Additional Family Medical History / Comment(s): UTERINE General Exam - General Exam Comments Initial Comments: Constitutional: NAD, AOX3, Pt has pleasant affect. HEENT: NC/AT, trachea midline, neck supple, no lymphadenopathy. Posterior pharynx non erythematous, without exudates. External ears appear normal, without discharge. Mucous membranes moist. Eyes PERRLA, EOM intact. There is no scleral icterus. No pallor noted. Cardiopulmonary: RRR, no murmurs, rubs or gallops, no JVD noted. Lungs CTAB in anterior and posterior silver. No peripheral edema. Abdominal exam: Abdomen soft and non-distended. Abdomen non-tender to palpation in all 4 quadrants. Bowel sounds active in LLQ. No hepatosplenomegaly. No ecchymosis Neuro: CN II-XII intact. No nuchal rigidity. No raccon eyes, no chino sign, no hemotympanum. No cervical spinal tenderness. MSK: No posterior calf tenderness bilaterally, homans sign negative bilaterally. Posterior tibialis and radial pulse +2 bilaterally. Sensation intact in upper and lower extremities. Full active ROM in upper and lower extremities, 5/5 stregnth. Course Vital Signs 12/07/18 20:08 Temperature 98 F Pulse Rate 69 Respiratory 18 Rate Blood Pressure 140/85 O2 Sat by Pulse 97 Oximetry Medical Decision Making - Medical Decision Making 63-year-old female patient proceeded chief complaint headache. Primary red flag symptoms. Patient vital signs stable, afebrile. Physical exam displayed normal neurologic exam. He presents with acute process. His headache resolved with analgesia. Will discharge with outpatient follow-up with primary care provider. Case discussed with Dr. Vincent, Disposition Clinical Impression: Acute headache Disposition: HOME SELF-CARE Condition: Stable Instructions (If sedation given, give patient instructions): Acute Headache (ED) Additional Instructions: Patient to adhere to previously discussed treatment plan and will take medication(s) as directed. Patient to follow up with PCP in 1-2 days. Patient to return to ED if symptoms do not improve. Follow up with PCP tomorrow, return to ER if condition worsens. Is patient prescribed a controlled substance at d/c from ED?: No Referrals: Jitendra Garcia MD [Primary Care Provider] - 1-2 days
[2018-12-07 23:45] VITALS: BP 140/54; PULSE 65
== END 2018-12-08 00:16 | disposition home or self-care (01) ==
LOC: EC 20:03
DX: R51 Headache (principal); F41.9 Anxiety disorder, unspecified; F31.9 Bipolar disorder, unspecified; I25.10 Atherosclerotic heart disease of native coronary artery without angina pectoris; E11.9 Type 2 diabetes mellitus without complications; E78.5 Hyperlipidemia, unspecified; I10 Essential (primary) hypertension; I25.2 Old myocardial infarction; M19.90 Unspecified osteoarthritis, unspecified site; Q60.0 Renal agenesis, unilateral; Z79.84 Long term (current) use of oral hypoglycemic drugs; Z79.899 Other long term (current) drug therapy; Z87.891 Personal history of nicotine dependence; Z88.1 Allergy status to other antibiotic agents; Z88.8 Allergy status to other drugs, medicaments and biological substances; Z88.0 Allergy status to penicillin; Z88.2 Allergy status to sulfonamides; Z91.048 Other nonmedicinal substance allergy status; Z85.6 Personal history of leukemia; Z95.5 Presence of coronary angioplasty implant and graft
CPT/HCPCS: 70450; 99285; 96374; 96375 ×4; 96361 ×2; J2270; J1200; J2765; J1885; J1170

== ENCOUNTER 2018-12-08 15:44 | Emergency (ER) | payer MEDICARE, OTHER ==
[2018-12-08 15:51] VITALS: RESP 18; TEMP 97.7
[2018-12-08] MEDS ORDERED: SODIUM CHLORIDE 0.9% 1,000 ML IV STA ×2 (16:47)
[2018-12-08] MEDS ORDERED: ONDANSETRON 4 MG/2 ML VIAL IVP STA (16:47)
[2018-12-08] MEDS ORDERED: MORPHINE SULFATE 4 MG/ML SYRINGE IV STA (16:47)
[2018-12-08] MEDS ORDERED: METOCLOPRAMIDE 5 MG/ML 2 ML VIAL IVP STA (16:48)
[2018-12-08] MEDS ORDERED: diphenhydrAMINE 50 MG/ML 1 ML VIAL IVP STA (16:48)
[2018-12-08] MEDS ORDERED: FAMOTIDINE 20 MG/2 ML VIAL IV STA (17:25)
[2018-12-08 17:26] LABS: ALT 25 U/L (9-52); AST 30 U/L (14-36); African American GFR (CKD) >90 (>60 ml/min/1.73 sqM); Alkaline Phosphatase 87 U/L (38-126); Anion Gap 9 mmol/L; Blood Urea Nitrogen 16 mg/dL (7-17); C Reactive Protein 10.9 mg/L (<10.0); Calcium 9.3 mg/dL (8.4-10.2); Carbon Dioxide 22 mmol/L (22-30); Chloride 106 mmol/L (98-107); Glucose 86 mg/dL (74-99); Magnesium 1.6 mg/dL (1.6-2.3); Phosphorus 3.9 mg/dL (2.5-4.5); Potassium 4.2 mmol/L (3.5-5.1); Sodium 137 mmol/L (137-145); Total Bilirubin 0.6 mg/dL (0.2-1.3)
--- NOTE | 2018-12-08 17:31 | ED ---
Headache HPI - General Chief Complaint: Headache Stated Complaint: headache Time Seen by Provider: 12/08/18 16:16 Source: RN notes reviewed, old records reviewed Mode of arrival: EMS Limitations: no limitations - History of Present Illness Initial Comments: This is a 63-year-old female the ER for evaluation of headache. Patient has headache 3-4 days currently. Multiple ER visits for same. No trauma no fevers. No nausea or vomiting currently. Patient's headache is temporal she has multiple complaints. Patient's a poor historian secondary to underlying psychiatric issue. No recent change in symptoms no recent change in medications. Headache is been persistent and has not been helpful. The ER with fever times. Patient denying any neurological insult MD Complaint: headache -: days(s) Onset Description: gradual Location: temporal Severity: moderate Severity scale (1-10): 5 Quality: aching, throbbing Consistency: intermittent Improves With: nothing Worsens With: none Context: other (No known context) Associated Symptoms: nausea, photophobia Other Symptoms: other (Not) Treatments Prior to Arrival: other (Multiple ER visits for same) - Related Data Home Medications Medication Instructions Recorded Confirmed FLUoxetine HCL [PROzac] 40 mg PO HS 01/24/14 12/08/18 Multivitamins, Thera [Multivitamin 1 tab PO HS 01/24/14 12/08/18 (formulary)] ALPRAZolam [Xanax] 0.5 mg PO HS PRN 04/20/17 12/08/18 Oxybutynin Chloride [Ditropan] 5 mg PO HS 04/20/17 12/08/18 metFORMIN HCL [Glucophage] 500 mg PO HS 03/18/18 12/08/18 Ibuprofen [Motrin] 800 mg PO TID PRN 06/04/18 12/08/18 Ranitidine HCl [Zantac] 300 mg PO HS 11/05/18 12/08/18 Cetirizine HCl [Zyrtec] 10 mg PO HS 12/08/18 12/08/18 Previous Rx's Medication Instructions Recorded Acetaminophen Tab [Tylenol] 325 mg PO Q6HR PRN #120 tab 11/13/18 Melatonin 5 mg PO HS PRN #30 tablet 11/13/18 Allergies Allergy/AdvReac Type Severity Reaction Status Date / Time azithromycin [From Zithromax] Allergy Unknown Unknown Verified 12/08/18 17:02 cephalexin Allergy Unknown Unknown Verified 12/08/18 17:02 cyclobenzaprine HCl Allergy Unknown Unknown Verified 12/08/18 17:02 [From Flexeril] Penicillins Allergy Unknown Unknown Verified 12/08/18 17:02 pentazocine lactate Allergy Unknown Unknown Verified 12/08/18 17:02 [From Talwin] pseudoephedrine HCl Allergy Unknown Unknown Verified 12/08/18 17:02 [From Sudafed] Sulfa (Sulfonamide Allergy Unknown Unknown Verified 12/08/18 17:02 Antibiotics) adhesive AdvReac Unknown Unknown Verified 12/08/18 17:02 Review of Systems ROS Statement: Those systems with pertinent positive or pertinent negative responses have been documented in the HPI. ROS Other: All systems not noted in ROS Statement are negative. 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, CHRONIC BACK PAIN , CLAUSTROPHOBIA, CLL, BACK SURGERY Last Myocardial Infarction Date:: 2007 History of Any Multi-Drug Resistant Organisms: None Reported Past Surgical History: Appendectomy, Back Surgery, Cholecystectomy, Heart Catheterization With Stent, Hysterectomy, Tonsillectomy Additional Past Surgical History / Comment(s): CARPAL TUNNEL, FOOT SURGERY,pick at skin when anxious,left foot sx Past Anesthesia/Blood Transfusion Reactions: No Reported Reaction Date of Last Stent Placement:: UNKNOWN Past Psychological History: Anxiety, Bipolar, Depression Smoking Status: Former smoker Past Alcohol Use History: None Reported Past Drug Use History: None Reported - Past Family History Mother Family Medical History: Cancer Additional Family Medical History / Comment(s): UTERINE General Exam - General Exam Comments Initial Comments: No focal neurological deficits Limitations: no limitations General appearance: alert, in no apparent distress Head exam: Present: atraumatic, normocephalic, normal inspection Eye exam: Present: normal appearance, PERRL, EOMI. Absent: scleral icterus, conjunctival injection, periorbital swelling ENT exam: Present: normal exam, mucous membranes moist Neck exam: Present: normal inspection. Absent: tenderness, meningismus, lymphadenopathy Respiratory exam: Present: normal lung sounds bilaterally. Absent: respiratory distress, wheezes, rales, rhonchi, stridor Cardiovascular Exam: Present: regular rate, normal rhythm, normal heart sounds. Absent: systolic murmur, diastolic murmur, rubs, gallop, clicks GI/Abdominal exam: Present: soft, normal bowel sounds. Absent: distended, te nderness, guarding, rebound, rigid Extremities exam: Present: normal inspection, full ROM, normal capillary refill. Absent: tenderness, pedal edema, joint swelling, calf tenderness Back exam: Present: normal inspection Neurological exam: Present: alert, oriented X3, CN II-XII intact Psychiatric exam: Present: normal affect, normal mood Skin exam: Present: warm, dry, intact, normal color. Absent: rash Course Vital Signs 12/08/18 12/08/18 12/08/18 15:47 17:00 18:00 Temperature 97.7 F Pulse Rate 55 L 52 L 60 Respiratory 18 18 18 Rate Blood Pressure 129/87 114/76 121/73 O2 Sat by Pulse 97 97 96 Oximetry - Reevaluation(s) Reevaluation #1: 12/08/18 17:31 Medical records reviewed Reevaluation #2: 12/08/18 18:33 Headache resolved Reevaluation #3: 12/08/18 18:33 Patient for results, questions answered,'s computed tomography scan her brain 2 reviewed, no CRP so no temporal arteritis. Patient given scabies treatment Medical Decision Making - Medical Decision Making 63 female the ER for evaluation of headache consistent headache for a few days now. Headache now improved, resolved. Patient will be discharged home with needs to start scabies treatment - Lab Data Result diagrams: 12/08/18 17:00 12/08/18 17:00 Lab Results 12/08/18 12/08/18 Range/Units 17:00 17:00 WBC 4.4 (3.8-10.6) k/uL RBC 4.77 (3.80-5.40) m/uL Hgb 12.6 (11.4-16.0) gm/dL Hct 38.0 (34.0-46.0) % MCV 79.8 L (80.0-100.0) fL MCH 26.5 (25.0-35.0) pg MCHC 33.2 (31.0-37.0) g/dL RDW 15.1 (11.5-15.5) % Plt Count 118 L (150-450) k/uL Neutrophils % (Manual) 60 % Lymphocytes % (Manual) 39 % Monocytes % (Manual) 1 % Neutrophils # (Manual) 2.64 (1.3-7.7) k/uL Lymphocytes # (Manual) 1.72 (1.0-4.8) k/uL Monocytes # (Manual) 0.04 (0-1.0) k/uL Nucleated RBCs 0 (0-0) /100 WBC Manual Slide Review Performed Reactive Lymphocytes Present Sodium 137 (137-145) mmol/L Potassium 4.2 (3.5-5.1) mmol/L Chloride 106 (98-107) mmol/L Carbon Dioxide 22 (22-30) mmol/L Anion Gap 9 mmol/L BUN 16 (7-17) mg/dL Creatinine 0.66 (0.52-1.04) mg/dL Est GFR (CKD-EPI)AfAm >90 (>60 ml/min/1.73 sqM) Est GFR (CKD-EPI)NonAf >90 (>60 ml/min/1.73 sqM) Glucose 86 (74-99) mg/dL Calcium 9.3 (8.4-10.2) mg/dL Phosphorus 3.9 (2.5-4.5) mg/dL Magnesium 1.6 (1.6-2.3) mg/dL Total Bilirubin 0.6 (0.2-1.3) mg/dL AST 30 (14-36) U/L ALT 25 (9-52) U/L Alkaline Phosphatase 87 (38-126) U/L C-Reactive Protein 10.9 H (<10.0) mg/L Total Protein 7.0 (6.3-8.2) g/dL Albumin 4.0 (3.5-5.0) g/dL Disposition Clinical Impression: Headache, Acute headache, Scabies Disposition: ADMITTED IP TO THIS [facility] Condition: Fair Instructions (If sedation given, give patient instructions): Acute Headache (ED), Scabies (ED) Is patient prescribed a controlled substance at d/c from ED?: No Referrals: Jitendra Garcia MD [Primary Care Provider] - 1-2 days
[2018-12-08 17:40] LABS: HGB 12.6 gm/dL (11.4-16.0); MCH 26.5 pg (25.0-35.0); MCHC 33.2 g/dL (31.0-37.0); MCV 79.8 fL (80.0-100.0); Mean Platelet Volume 6.7; Platelet Count 118 k/uL (150-450); RBC 4.77 m/uL (3.80-5.40); RDW 15.1 % (11.5-15.5); WBC 4.4 k/uL (3.8-10.6)
[2018-12-08 17:51] LABS: Lymphocytes # (M) 1.72 k/uL (1.0-4.8); Monocytes # (M) 0.04 k/uL (0-1.0); Neutrophils % (M) 60 %; Nucleated Red Blood Cells 0 /100 WBC (0-0); Total Cells Counted 100
[2018-12-08 17:52] LABS: Reactive Lymphocytes Present
[2018-12-08] MEDS ORDERED: KETOROLAC 30 MG/ML 1 ML VIAL IVP STA (18:10)
[2018-12-08 18:19] VITALS: BP 121/73; PULSE 60
[2018-12-08] MEDS ORDERED: PERMETHRIN 5% CREAM 60 GM TUBE TOPICAL STA (18:33)
== END 2018-12-08 19:08 | disposition other institution (70) ==
LOC: EC 15:44
DX: B86 Scabies (principal); R51 Headache; R11.0 Nausea; H53.149 Visual discomfort, unspecified; Q60.0 Renal agenesis, unilateral; E11.9 Type 2 diabetes mellitus without complications; I25.10 Atherosclerotic heart disease of native coronary artery without angina pectoris; I25.2 Old myocardial infarction; F31.9 Bipolar disorder, unspecified; F41.9 Anxiety disorder, unspecified; Z87.891 Personal history of nicotine dependence; Z88.0 Allergy status to penicillin; Z88.1 Allergy status to other antibiotic agents; Z88.2 Allergy status to sulfonamides; Z88.5 Allergy status to narcotic agent; Z88.6 Allergy status to analgesic agent; Z88.8 Allergy status to other drugs, medicaments and biological substances; Z91.048 Other nonmedicinal substance allergy status; Z79.84 Long term (current) use of oral hypoglycemic drugs; Z79.899 Other long term (current) drug therapy; Z85.6 Personal history of leukemia; Z95.5 Presence of coronary angioplasty implant and graft
CPT/HCPCS: 36415; 80053; 83735; 84100; 85025; 86140; 99285; 96365; 96375 ×6; 96361; J2270; J1200; J2765; J2405; J2930; J1885

== ENCOUNTER 2018-12-10 16:39 | Emergency (ER) | payer MEDICARE, OTHER ==
[2018-12-10 16:46] VITALS: RESP 16; TEMP 97.2
--- NOTE | 2018-12-10 17:36 | ED ---
Anxiety HPI - General Chief Complaint: Anxiety Stated Complaint: anxiety Time Seen by Provider: 12/10/18 16:46 Source: EMS, RN notes reviewed, old records reviewed Mode of arrival: EMS - History of Present Illness Initial Comments: This is a 63-year-old female the ER for evaluation patient's been the ER multiple times this week for evaluation of headache. Multiple other complaints. Patient presented for anxiety EMS the patient stated that she had anxiety. Patient's no significant medical issues EMS states patient did vomit on way to emergency room. Patient does appear, cooperative currently. Not homicidal or suicidal MD Complaint: anxiety, other (Nausea vomiting) -: unknown Symptoms: palpitations Place: home Previous History of Same: Yes Severity: mild Quality: constant Provoking factors: none known Improves With: nothing Worsens With: nothing Associated symptoms: nausea/vomiting, weakness, other (Headache) - Related Data Home Medications: Home Medications Medication Instructions Recorded Confirmed FLUoxetine HCL [PROzac] 40 mg PO HS 01/24/14 12/08/18 Multivitamins, Thera [Multivitamin 1 tab PO HS 01/24/14 12/08/18 (formulary)] ALPRAZolam [Xanax] 0.5 mg PO HS PRN 04/20/17 12/08/18 Oxybutynin Chloride [Ditropan] 5 mg PO HS 04/20/17 12/08/18 metFORMIN HCL [Glucophage] 500 mg PO HS 03/18/18 12/08/18 Ibuprofen [Motrin] 800 mg PO TID PRN 06/04/18 12/08/18 Ranitidine HCl [Zantac] 300 mg PO HS 11/05/18 12/08/18 Cetirizine HCl [Zyrtec] 10 mg PO HS 12/08/18 12/08/18 Previous Rx's Medication Instructions Recorded Acetaminophen Tab [Tylenol] 325 mg PO Q6HR PRN #120 tab 11/13/18 Melatonin 5 mg PO HS PRN #30 tablet 11/13/18 Allergies/Adverse Reactions: Allergies Allergy/AdvReac Type Severity Reaction Status Date / Time azithromycin [From Zithromax] Allergy Unknown Unknown Verified 12/10/18 16:46 cephalexin Allergy Unknown Unknown Verified 12/10/18 16:46 cyclobenzaprine HCl Allergy Unknown Unknown Verified 12/10/18 16:46 [From Flexeril] Penicillins Allergy Unknown Unknown Verified 12/10/18 16:46 pentazocine lactate Allergy Unknown Unknown Verified 12/10/18 16:46 [From Talwin] pseudoephedrine HCl Allergy Unknown Unknown Verified 12/10/18 16:46 [From Sudafed] Sulfa (Sulfonamide Allergy Unknown Unknown Verified 12/10/18 16:46 Antibiotics) adhesive AdvReac Unknown Unknown Verified 12/10/18 16:46 Review of Systems ROS Statement: Those systems with pertinent positive or pertinent negative responses have been documented in the HPI. ROS Other: All systems not noted in ROS Statement are negative. 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, CHRONIC BACK PAIN , CLAUSTROPHOBIA, CLL, BACK SURGERY Last Myocardial Infarction Date:: 2007 History of Any Multi-Drug Resistant Organisms: None Reported Past Surgical History: Appendectomy, Back Surgery, Cholecystectomy, Heart Catheterization With Stent, Hysterectomy, Tonsillectomy Additional Past Surgical History / Comment(s): CARPAL TUNNEL, FOOT SURGERY,pick at skin when anxious,left foot sx Past Anesthesia/Blood Transfusion Reactions: No Reported Reaction Date of Last Stent Placement:: UNKNOWN Past Psychological History: Anxiety, Bipolar, Depression Smoking Status: Former smoker Past Alcohol Use History: None Reported Past Drug Use History: None Reported - Past Family History Mother Family Medical History: Cancer Additional Family Medical History / Comment(s): UTERINE General Exam Limitations: no limitations General appearance: alert, in no apparent distress Head exam: Present: atraumatic, normocephalic, normal inspection Eye exam: Present: normal appearance, PERRL, EOMI. Absent: scleral icterus, conjunctival injection, periorbital swelling ENT exam: Present: normal exam, mucous membranes moist Neck exam: Present: normal inspection. Absent: tenderness, meningismus, lymphadenopathy Respiratory exam: Present: normal lung sounds bilaterally. Absent: respiratory distress, wheezes, rales, rhonchi, stridor Cardiovascular Exam: Present: regular rate, normal rhythm, normal heart sounds. Absent: systolic murmur, diastolic murmur, rubs, gallop, clicks GI/Abdominal exam: Present: soft, normal bowel sounds. Absent: distended, tenderness, guarding, rebound, rigid Extremities exam: Present: normal inspection, full ROM, normal capillary refill. Absent: tenderness, pedal edema, joint swelling, calf tenderness Back exam: Present: normal inspection Neurological exam: Present: alert, oriented X3, CN II-XII intact Psychiatric exam: Present: normal affect, normal mood Skin exam: Present: warm, dry, intact, normal color. Absent: rash Course Vital Signs 12/10/18 16:41 Temperature 97.2 F L Pulse Rate 53 L Respiratory 16 Rate Blood Pressure 154/101 O2 Sat by Pulse 96 Oximetry - Reevaluation(s) Reevaluation #1: 12/10/18 17:58 Multiple recent ER visits have been evaluated Reevaluation #2: 12/10/18 18:32 A she spoke with here in the ER, patient is without significant complaint currently. Medical Decision Making - Medical Decision Making 83 female DEL with anxiety a little sleeping in bed, headache although resting comfortably. Multiple ER evaluations for headache in the last week. Patient can be discharged home Disposition Clinical Impression: Acute anxiety, Headache Disposition: HOME SELF-CARE Condition: Fair Instructions (If sedation given, give patient instructions): Generalized Anxiety Disorder (ED) Is patient prescribed a controlled substance at d/c from ED?: No Referrals: Jitendra Garcia MD [Primary Care Provider] - 1-2 days
[2018-12-10] MEDS ORDERED: LORazepam 1 MG TAB PO STA (18:23)
[2018-12-10] MEDS ORDERED: ACETAMINOPHEN TAB 500 MG TAB PO STA (18:23)
[2018-12-10 19:15] VITALS: BP 122/97; PULSE 60
== END 2018-12-10 19:15 | disposition home or self-care (01) ==
LOC: EC 16:39
DX: F41.9 Anxiety disorder, unspecified (principal); R51 Headache; I25.10 Atherosclerotic heart disease of native coronary artery without angina pectoris; J44.9 Chronic obstructive pulmonary disease, unspecified; E11.9 Type 2 diabetes mellitus without complications; I10 Essential (primary) hypertension; E78.5 Hyperlipidemia, unspecified; I25.2 Old myocardial infarction; F31.9 Bipolar disorder, unspecified; Z79.84 Long term (current) use of oral hypoglycemic drugs; Z79.899 Other long term (current) drug therapy; Z88.1 Allergy status to other antibiotic agents; Z88.0 Allergy status to penicillin; Z88.2 Allergy status to sulfonamides; Z91.048 Other nonmedicinal substance allergy status; Z88.8 Allergy status to other drugs, medicaments and biological substances; Z87.891 Personal history of nicotine dependence; Z95.5 Presence of coronary angioplasty implant and graft
CPT/HCPCS: 99283

== ENCOUNTER 2018-12-12 02:33 | Emergency (ER) | payer MEDICARE, OTHER ==
[2018-12-12 02:49] VITALS: TEMP 98.2
[2018-12-12] MEDS ORDERED: ONDANSETRON 4 MG/2 ML VIAL IVP STA (02:54)
[2018-12-12] MEDS ORDERED: SODIUM CHLORIDE 0.9% 1,000 ML IV STA (02:54)
[2018-12-12] MEDS ORDERED: METOCLOPRAMIDE 5 MG/ML 2 ML VIAL IVP STA ×2 (02:55→05:52)
[2018-12-12] MEDS ORDERED: KETOROLAC 30 MG/ML 1 ML VIAL IVP STA (02:55)
[2018-12-12] MEDS ORDERED: diphenhydrAMINE 50 MG/ML 1 ML VIAL IVP STA (02:55)
[2018-12-12 03:16] LABS: Basophils # (A) 0.1 k/uL (0-0.2); Basophils % (A) 1 %; Eosinophils % (A) 0 %; HCT 40.7 % (34.0-46.0); HGB 13.6 gm/dL (11.4-16.0); Lymphocytes # (A) 4.1 k/uL (1.0-4.8); Lymphocytes % (A) 54 %; MCH 26.2 pg (25.0-35.0); MCHC 33.5 g/dL (31.0-37.0); MCV 78.3 fL (80.0-100.0); Mean Platelet Volume 6.4; Monocytes # (A) 0.3 k/uL (0-1.0); Monocytes % (A) 4 %; Neutrophils # (A) 2.9 k/uL (1.3-7.7); Neutrophils % (A) 38 %; Platelet Count 123 k/uL (150-450); RDW 15.3 % (11.5-15.5); WBC 7.6 k/uL (3.8-10.6)
[2018-12-12 03:25] LABS: AST 26 U/L (14-36); African American GFR (CKD) >90 (>60 ml/min/1.73 sqM); Albumin 4.2 g/dL (3.5-5.0); Anion Gap 10 mmol/L; Calcium 9.4 mg/dL (8.4-10.2); Carbon Dioxide 23 mmol/L (22-30); Chloride 105 mmol/L (98-107); Glucose 132 mg/dL (74-99); Sodium 138 mmol/L (137-145); Total Bilirubin 0.9 mg/dL (0.2-1.3); Total Protein 7.3 g/dL (6.3-8.2)
[2018-12-12 03:30] LABS: ALT 20 U/L (9-52); Alkaline Phosphatase 77 U/L (38-126); Amylase 44 U/L (30-110); Blood Urea Nitrogen 13 mg/dL (7-17); Potassium 3.7 mmol/L (3.5-5.1)
--- NOTE | 2018-12-12 03:35 | ED ---
General Adult HPI - General Source: patient, EMS Mode of arrival: EMS Limitations: no limitations <Brigitte Christiansen - Last Filed: 12/12/18 03:39> <Hollis Castro - Last Filed: 12/12/18 07:21> - General Chief complaint: Headache Stated complaint: NVD Time Seen by Provider: 12/12/18 02:39 - History of Present Illness Initial comments: 63-year-old female patient presents to the emergency department today for evalu ation of nausea, vomiting, and headache. Patient states that she has had symptoms for the last 4 days. States she is unable to keep down any food or fluids. States she has developed a headache to her posterior head. States she is also having mid to low back pain. She denies any fever but states she has been chilled. States she is having some upper abdominal pain. Denies constipation or diarrhea. His any hematuria, dysuria, urinary frequency, urinary urgency. Patient denies any recent rash, shortness breath, chest pain, back pain, numbness, tingling, dizziness, weakness, headache, visual changes, or any other complaints. (Brigitte Christiansen) - Related Data Home Medications Medication Instructions Recorded Confirmed FLUoxetine HCL [PROzac] 40 mg PO HS 01/24/14 12/08/18 Multivitamins, Thera [Multivitamin 1 tab PO HS 01/24/14 12/08/18 (formulary)] ALPRAZolam [Xanax] 0.5 mg PO HS PRN 04/20/17 12/08/18 Oxybutynin Chloride [Ditropan] 5 mg PO HS 04/20/17 12/08/18 metFORMIN HCL [Glucophage] 500 mg PO HS 03/18/18 12/08/18 Ibuprofen [Motrin] 800 mg PO TID PRN 06/04/18 12/08/18 Ranitidine HCl [Zantac] 300 mg PO HS 11/05/18 12/08/18 Cetirizine HCl [Zyrtec] 10 mg PO HS 12/08/18 12/08/18 Previous Rx's Medication Instructions Recorded Acetaminophen Tab [Tylenol] 325 mg PO Q6HR PRN #120 tab 11/13/18 Melatonin 5 mg PO HS PRN #30 tablet 11/13/18 Allergies Allergy/AdvReac Type Severity Reaction Status Date / Time azithromycin [From Zithromax] Allergy Unknown Unknown Verified 12/10/18 16:46 cephalexin Allergy Unknown Unknown Verified 12/10/18 16:46 cyclobenzaprine HCl Allergy Unknown Unknown Verified 12/10/18 16:46 [From Flexeril] Penicillins Allergy Unknown Unknown Verified 12/10/18 16:46 pentazocine lactate Allergy Unknown Unknown Verified 12/10/18 16:46 [From Talwin] pseudoephedrine HCl Allergy Unknown Unknown Verified 12/10/18 16:46 [From Sudafed] Sulfa (Sulfonamide Allergy Unknown Unknown Verified 12/10/18 16:46 Antibiotics) adhesive AdvReac Unknown Unknown Verified 12/10/18 16:46 Review of Systems ROS Other: All systems not noted in ROS Statement are negative. <Brigitte Christiansen - Last Filed: 12/12/18 03:39> ROS Other: All systems not noted in ROS Statement are negative. <Hollis Castro - Last Filed: 12/12/18 07:21> ROS Statement: Those systems with pertinent positive or pertinent negative responses have been documented in the HPI. 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, CHRONIC BACK PAIN , CLAUSTROPHOBIA, CLL, BACK SURGERY Last Myocardial Infarction Date:: 2007 History of Any Multi-Drug Resistant Organisms: None Reported Past Surgical History: Appendectomy, Back Surgery, Cholecystectomy, Heart C atheterization With Stent, Hysterectomy, Tonsillectomy Additional Past Surgical History / Comment(s): CARPAL TUNNEL, FOOT SURGERY,pick at skin when anxious,left foot sx Past Anesthesia/Blood Transfusion Reactions: No Reported Reaction Date of Last Stent Placement:: UNKNOWN Past Psychological History: Anxiety, Bipolar, Depression Smoking Status: Former smoker Past Alcohol Use History: None Reported Past Drug Use History: None Reported - Past Family History Mother Family Medical History: Cancer Additional Family Medical History / Comment(s): UTERINE <Brigitte Christiansen - Last Filed: 12/12/18 03:39> General Exam Limitations: no limitations General appearance: alert, in no apparent distress, other (This is a well- developed, well-nourished adult female patient in no acute distress. Vital signs upon presentation are temperature 98.2F, pulse 51, respirations 17, blood pressure 140/84, pulse ox 97% on room air.) Eye exam: Present: normal appearance, PERRL, EOMI. Absent: scleral icterus, conjunctival injection, periorbital swelling ENT exam: Present: normal exam, normal oropharynx, mucous membranes moist Respiratory exam: Present: normal lung sounds bilaterally. Absent: respiratory distress, wheezes, rales, rhonchi, stridor Cardiovascular Exam: Present: regular rate, normal rhythm, normal heart sounds. Absent: systolic murmur, diastolic murmur, rubs, gallop, clicks GI/Abdominal exam: Present: soft, tenderness (midepigastric), normal bowel sounds. Absent: distended, guarding, rebound, rigid Back exam: Present: normal inspection. Absent: CVA tenderness (R), CVA tenderness (L) Neurological exam: Present: alert, oriented X3, CN II-XII intact Psychiatric exam: Present: normal affect, normal mood Skin exam: Present: warm, dry, intact, normal color. Absent: rash <Brigitte Christiansen M - Last Filed: 12/12/18 03:39> Course Vital Signs 12/12/18 12/12/18 12/12/18 02:42 03:49 04:10 Temperature 98.2 F Pulse Rate 51 L 46 L 46 L Respiratory 17 14 15 Rate Blood Pressure 140/84 149/88 142/73 O2 Sat by Pulse 97 Oximetry 12/12/18 12/12/18 12/12/18 04:30 04:50 05:10 Temperature Pulse Rate 46 L 48 L 52 L Respiratory 17 20 17 Rate Blood Pressure 134/67 140/73 138/73 O2 Sat by Pulse Oximetry 12/12/18 12/12/18 05:30 06:00 Temperature Pulse Rate 46 L 52 L Respiratory 17 19 Rate Blood Pressure 145/72 145/90 O2 Sat by Pulse Oximetry EKG Findings - EKG Comments: EKG Findings:: EKG obtained at 05 01 shows sinus bradycardia with a ventricular rate of 46, [place] interval 128, QR anglican 92, QT 488, QTC 427. <Brigitte Christiansen M - Last Filed: 12/12/18 03:39> Medical Decision Making - Lab Data Result diagrams: 12/12/18 03:03 12/12/18 03:03 <Brigitte Christiansen - Last Filed: 12/12/18 03:39> - Lab Data Result diagrams: 12/12/18 03:03 12/12/18 03:03 <Hollis Castro - Last Filed: 12/12/18 07:21> - Lab Data Lab Results 12/12/18 12/12/18 12/12/18 Range/Units 03:03 03:03 03:03 WBC 7.6 (3.8-10.6) k/uL RBC 5.20 (3.80-5.40) m/uL Hgb 13.6 (11.4-16.0) gm/dL Hct 40.7 (34.0-46.0) % MCV 78.3 L (80.0-100.0) fL MCH 26.2 (25.0-35.0) pg MCHC 33.5 (31.0-37.0) g/dL RDW 15.3 (11.5-15.5) % Plt Count 123 L (150-450) k/uL Neutrophils % 38 % Lymphocytes % 54 % Monocytes % 4 % Eosinophils % 0 % Basophils % 1 % Neutrophils # 2.9 (1.3-7.7) k/uL Lymphocytes # 4.1 (1.0-4.8) k/uL Monocytes # 0.3 (0-1.0) k/uL Eosinophils # 0.0 (0-0.7) k/uL Basophils # 0.1 (0-0.2) k/uL Sodium 138 (137-145) mmol/L Potassium 3.7 (3.5-5.1) mmol/L Chloride 105 (98-107) mmol/L Carbon Dioxide 23 (22-30) mmol/L Anion Gap 10 mmol/L BUN 13 (7-17) mg/dL Creatinine 0.43 L (0.52-1.04) mg/dL Est GFR (CKD-EPI)AfAm >90 (>60 ml/min/1.73 sqM) Est GFR (CKD-EPI)NonAf >90 (>60 ml/min/1.73 sqM) Glucose 132 H (74-99) mg/dL Calcium 9.4 (8.4-10.2) mg/dL Total Bilirubin 0.9 (0.2-1.3) mg/dL AST 26 (14-36) U/L ALT 20 (9-52) U/L Alkaline Phosphatase 77 (38-126) U/L Troponin I <0.012 (0.000-0.034) ng/mL Total Protein 7.3 (6.3-8.2) g/dL Albumin 4.2 (3.5-5.0) g/dL Amylase 44 (30-110) U/L Lipase 51 (23-300) U/L Urine Color Urine Appearance (Clear) Urine pH (5.0-8.0) Ur Specific [place] (1.001-1.035) Urine Protein (Negative) Urine Glucose (UA) (Negative) Urine Ketones (Negative) Urine Blood (Negative) Urine Nitrite (Negative) Urine Bilirubin (Negative) Urine Urobilinogen (<2.0) mg/dL Ur Leukocyte Esterase (Negative) Urine RBC (0-5) /hpf Urine WBC (0-5) /hpf Ur Squamous Epith Cells (0-4) /hpf Urine Mucus (None) /hpf 12/12/18 Range/Units 03:56 WBC (3.8-10.6) k/uL RBC (3.80-5.40) m/uL Hgb (11.4-16.0) gm/dL Hct (34.0-46.0) % MCV (80.0-100.0) fL MCH (25.0-35.0) pg MCHC (31.0-37.0) g/dL RDW (11.5-15.5) % Plt Count (150-450) k/uL Neutrophils % % Lymphocytes % % Monocytes % % Eosinophils % % Basophils % % Neutrophils # (1.3-7.7) k/uL Lymphocytes # (1.0-4.8) k/uL Monocytes # (0-1.0) k/uL Eosinophils # (0-0.7) k/uL Basophils # (0-0.2) k/uL Sodium (137-145) mmol/L Potassium (3.5-5.1) mmol/L Chloride (98-107) mmol/L Carbon Dioxide (22-30) mmol/L Anion Gap mmol/L BUN (7-17) mg/dL Creatinine (0.52-1.04) mg/dL Est GFR (CKD-EPI)AfAm (>60 ml/min/1.73 sqM) Est GFR (CKD-EPI)NonAf (>60 ml/min/1.73 sqM) Glucose (74-99) mg/dL Calcium (8.4-10.2) mg/dL Total Bilirubin (0.2-1.3) mg/dL AST (14-36) U/L ALT (9-52) U/L Alkaline Phosphatase (38-126) U/L Troponin I (0.000-0.034) ng/mL Total Protein (6.3-8.2) g/dL Albumin (3.5-5.0) g/dL Amylase (30-110) U/L Lipase (23-300) U/L Urine Color Yellow Urine Appearance Cloudy H (Clear) Urine pH 7.0 (5.0-8.0) Ur Specific [place] 1.015 (1.001-1.035) Urine Protein 3+ H (Negative) Urine Glucose (UA) Negative (Negative) Urine Ketones Negative (Negative) Urine Blood Negative (Negative) Urine Nitrite Negative (Negative) Urine Bilirubin Negative (Negative) Urine Urobilinogen 3.0 (<2.0) mg/dL Ur Leukocyte Esterase Negative (Negative) Urine RBC 1 (0-5) /hpf Urine WBC 3 (0-5) /hpf Ur Squamous Epith Cells 2 (0-4) /hpf Urine Mucus Few H (None) /hpf Disposition <Brigitte Christiansen - Last Filed: 12/12/18 03:39> Is patient prescribed a controlled substance at d/c from ED?: No <Hollis Castro - Last Filed: 12/12/18 07:21> Clinical Impression: Headache, Vomiting Disposition: HOME SELF-CARE Condition: Fair Instructions (If sedation given, give patient instructions): Acute Headache (ED) Referrals: Jitendra Garcia MD [Primary Care Provider] - 1-2 days
[2018-12-12 04:28] LABS: Appearance,Urine Cloudy (Clear); Bilirubin,Urine Negative (Negative); Blood,Urine Negative (Negative); Color,Urine Yellow; Glucose,Urine (UA) Negative (Negative); Ketones,Urine Negative (Negative); Leukocyte Esterase,Urine Negative (Negative); Mucus,Urine Few /hpf; Nitrite,Urine Negative (Negative); Protein,Urine 3+ (Negative); RBC,Urine 1 /hpf (0-5); Specific Gravity,Urine 1.015 (1.001-1.035); Squamous Epithelial Cell,Urine 2 /hpf (0-4); WBC,Urine 3 /hpf (0-5)
--- NOTE | 2018-12-12 04:57 | XR ---
EXAM: XR Abdomen, 1 View CLINICAL HISTORY: abdominal pain TECHNIQUE: Frontal supine view of the abdomen/pelvis. COMPARISON: CT 06/04/18 FINDINGS: Gastrointestinal tract: Unremarkable. No dilation. Normal bowel gas pattern 1.2 cm density overlying the right renal shadow consistent with previously identified nonobstructing renal calculus.. IMPRESSION: No acute abnormality. Normal bowel gas pattern.
[2018-12-12] MEDS ORDERED: methylPREDNISolone SOD SUCCI 125 MG/2 ML VIAL IV STA (05:52)
[2018-12-12] MEDS ORDERED: SODIUM CHLORIDE 0.9% 500 ML 500 ML IV STA (05:52)
[2018-12-12 07:39] VITALS: BP 160/88; PULSE 58; RESP 16
== END 2018-12-12 07:38 | disposition home or self-care (01) ==
LOC: EC 02:33
DX: R51 Headache (principal); R11.10 Vomiting, unspecified; R30.0 Dysuria; R31.9 Hematuria, unspecified; R35.0 Frequency of micturition; R10.10 Upper abdominal pain, unspecified; F41.9 Anxiety disorder, unspecified; F31.9 Bipolar disorder, unspecified; I25.10 Atherosclerotic heart disease of native coronary artery without angina pectoris; E11.9 Type 2 diabetes mellitus without complications; E78.5 Hyperlipidemia, unspecified; I10 Essential (primary) hypertension; I25.2 Old myocardial infarction; M19.90 Unspecified osteoarthritis, unspecified site; C95.91 Leukemia, unspecified, in remission; Q60.0 Renal agenesis, unilateral; G89.29 Other chronic pain; M54.5 Low back pain; Z95.5 Presence of coronary angioplasty implant and graft; Z79.84 Long term (current) use of oral hypoglycemic drugs; Z79.899 Other long term (current) drug therapy; Z87.891 Personal history of nicotine dependence; Z88.1 Allergy status to other antibiotic agents; Z88.0 Allergy status to penicillin; Z88.2 Allergy status to sulfonamides; Z88.8 Allergy status to other drugs, medicaments and biological substances; Z91.048 Other nonmedicinal substance allergy status
CPT/HCPCS: 36415; 93005; 80053; 82150; 83690; 84484; 85025; 81001; 74018; 96374; 96375 ×3; 96361 ×2; 99284; J1200; J2765; J2930; J1885

== ENCOUNTER 2018-12-14 19:24 | Emergency (ER) | payer MEDICARE, OTHER ==
[2018-12-14 19:39] VITALS: RESP 18
[2018-12-14 21:04] VITALS: BP 136/91; PULSE 56
[2018-12-14] MEDS ORDERED: diphenhydrAMINE 50 MG/ML 1 ML VIAL IVP STA (21:09)
[2018-12-14] MEDS ORDERED: KETOROLAC 30 MG/ML 1 ML VIAL IVP STA (21:09)
[2018-12-14] MEDS ORDERED: SODIUM CHLORIDE 0.9% 1,000 ML IV STA (21:09)
[2018-12-14] MEDS ORDERED: METOCLOPRAMIDE 5 MG/ML 2 ML VIAL IVP STA (21:09)
[2018-12-14 21:29] VITALS: TEMP 98.3
--- NOTE | 2018-12-14 21:33 | ED ---
General Adult HPI - General Chief complaint: Headache Stated complaint: Headache Time Seen by Provider: 12/14/18 19:27 Source: EMS, RN notes reviewed, old records reviewed Mode of arrival: EMS Limitations: no limitations - History of Present Illness Initial comments: 63-year-old female patient will notice emergency department for recent presentations due to migraine headaches [place] chief complaint migraine headache. Patient fourth has been ongoing for approximately 5 days. Patient reports a waxing and waning. Patient worse that feels similar to migraine headache she has had in the past. No other recent falls or trauma. Denies any other complaints at this time. Systemic: Pt denies fatigue, fever/chills, rash. Pt denies weakness, night sweats, weight loss. Neuro: Pt denies syncope or pre-syncope. HEENT: Pt denies ocular discharge or irritation, otalgia, rhinorrhea, pharyngitis or notable lymphadenopathy. Cardiopulmonary: Pt denies chest pain, SOB, heart palpitations, dyspnea on exertion. Abdominal/GI: Pt denies abdominal pain, n/v/d. : Pt denies dysuria, burning w/ urination, frequency/urgency. Denies new onset urinary or bowel incontinence. MSK: Pt denies myalgia, loss of strength or function in extremities. Neuro: Pt denies new onset weakness, paresthesias. - Related Data Home Medications Medication Instructions Recorded Confirmed FLUoxetine HCL [PROzac] 40 mg PO HS 01/24/14 12/14/18 Multivitamins, Thera [Multivitamin 1 tab PO HS 01/24/14 12/14/18 (formulary)] ALPRAZolam [Xanax] 0.5 mg PO HS PRN 04/20/17 12/14/18 Oxybutynin Chloride [Ditropan] 5 mg PO HS 04/20/17 12/14/18 metFORMIN HCL [Glucophage] 500 mg PO HS 03/18/18 12/14/18 Ibuprofen [Motrin] 800 mg PO TID PRN 06/04/18 12/14/18 Ranitidine HCl [Zantac] 300 mg PO HS 11/05/18 12/14/18 Cetirizine HCl [Zyrtec] 10 mg PO HS 12/08/18 12/14/18 Previous Rx's Medication Instructions Recorded Acetaminophen Tab [Tylenol] 325 mg PO Q6HR PRN #120 tab 11/13/18 Melatonin 5 mg PO HS PRN #30 tablet 11/13/18 Allergies Allergy/AdvReac Type Severity Reaction Status Date / Time azithromycin [From Zithromax] Allergy Unknown Unknown Verified 12/14/18 19:50 cephalexin Allergy Unknown Unknown Verified 12/14/18 19:50 cyclobenzaprine HCl Allergy Unknown Unknown Verified 12/14/18 19:50 [From Flexeril] Penicillins Allergy Unknown Unknown Verified 12/14/18 19:50 pentazocine lactate Allergy Unknown Unknown Verified 12/14/18 19:50 [From Talwin] pseudoephedrine HCl Allergy Unknown Unknown Verified 12/14/18 19:50 [From Sudafed] Sulfa (Sulfonamide Allergy Unknown Unknown Verified 12/14/18 19:50 Antibiotics) adhesive AdvReac Unknown Unknown Verified 12/14/18 19:50 Review of Systems ROS Statement: Those systems with pertinent positive or pertinent negative responses have been documented in the HPI. ROS Other: All systems not noted in ROS Statement are negative. 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, CHRONIC BACK PAIN , CLAUSTROPHOBIA, CLL, BACK SURGERY Last Myocardial Infarction Date:: 2007 History of Any Multi-Drug Resistant Organisms: None Reported Past Surgical History: Appendectomy, Back Surgery, Cholecystectomy, Heart Catheterization With Stent, Hysterectomy, Tonsillectomy Additional Past Surgical History / Comment(s): CARPAL TUNNEL, FOOT SURGERY,pick at skin when anxious,left foot sx Past Anesthesia/Blood Transfusion Reactions: No Reported Reaction Date of Last Stent Placement:: UNKNOWN Past Psychological History: Anxiety, Bipolar, Depression Smoking Status: Former smoker Past Alcohol Use History: None Reported Past Drug Use History: None Reported - Past Family History Mother Family Medical History: Cancer Additional Family Medical History / Comment(s): UTERINE General Exam - General Exam Comments Initial Comments: Constitutional: NAD, AOX3, Pt has pleasant affect. HEENT: NC/AT, trachea midline, neck supple, no lymphadenopathy. Posterior pharynx non erythematous, without exudates. External ears appear normal, without discharge. Mucous membranes moist. Eyes PERRLA, EOM intact. There is no scleral icterus. No pallor noted. Cardiopulmonary: RRR, no murmurs, rubs or gallops, no JVD noted. Lungs CTAB in anterior and posterior silver. No peripheral edema. Abdominal exam: Abdomen soft and non-distended. Abdomen non-tender to palpation in all 4 quadrants. Bowel sounds active in LLQ. No hepatosplenomegaly. No ecc hymosis Neuro: CN II-XII intact. No nuchal rigidity. No raccon eyes, no chino sign, no hemotympanum. No cervical spinal tenderness. MSK: No posterior calf tenderness bilaterally, homans sign negative bilaterally. Posterior tibialis and radial pulse +2 bilaterally. Sensation intact in upper and lower extremities. Full active ROM in upper and lower extremities, 5/5 stregnth. Limitations: no limitations Course Vital Signs 12/14/18 12/14/18 19:36 21:03 Temperature 96.9 F L 98.3 F Pulse Rate 55 L 56 L Respiratory 18 18 Rate Blood Pressure 162/99 136/91 O2 Sat by Pulse 100 100 Oximetry Medical Decision Making - Medical Decision Making 63-year-old female patient with the chief complaint of headache. Patient vital signs stable, afebrile. Physical exam displayed normal neurologic exam. Patient feeling much improved after headache active. Patient will discharge will follow-up with primary care provider. Case discussed with Dr. Sousa. Disposition Clinical Impression: Headache Disposition: HOME SELF-CARE Condition: Stable Instructions (If sedation given, give patient instructions): Acute Headache (ED) Additional Instructions: Patient to adhere to previously discussed treatment plan and will take medication(s) as directed. Patient to follow up with PCP in 1-2 days. Patient to return to ED if symptoms do not improve. Follow-up with primary care provider tomorrow. Return to ER if condition worsens. Is patient prescribed a controlled substance at d/c from ED?: No Referrals: Jitendra Garcia MD [Primary Care Provider] - 1-2 days
== END 2018-12-14 22:03 | disposition home or self-care (01) ==
LOC: EC 19:24
DX: R51 Headache (principal); I25.10 Atherosclerotic heart disease of native coronary artery without angina pectoris; J44.9 Chronic obstructive pulmonary disease, unspecified; E11.9 Type 2 diabetes mellitus without complications; I10 Essential (primary) hypertension; E78.5 Hyperlipidemia, unspecified; I25.2 Old myocardial infarction; F41.9 Anxiety disorder, unspecified; F31.9 Bipolar disorder, unspecified; Z79.899 Other long term (current) drug therapy; Z88.1 Allergy status to other antibiotic agents; Z88.0 Allergy status to penicillin; Z88.2 Allergy status to sulfonamides; Z88.8 Allergy status to other drugs, medicaments and biological substances; Z91.048 Other nonmedicinal substance allergy status; Z87.891 Personal history of nicotine dependence; Z95.5 Presence of coronary angioplasty implant and graft
CPT/HCPCS: 99284; 96374; 96375 ×2; 96361; J1200; J2765; J1885

== ENCOUNTER 2018-12-19 06:58 | Inpatient (IN) | payer MEDICARE, OTHER ==
[2018-12-19 11:59] LABS: ABG HCO3 20 mmol/L (21-25); ABG Oxygen Saturation 99.8 % (94-97); ABG PCO2 37 mmHg (35-45); ABG PH 7.34 (7.35-7.45); ABG PO2 187 mmHg (83-108); ABG TCO2 21 mmol/L (19-24); Allen Test Performed? Yes
[2018-12-19 12:00] VITALS: BMI 31.8
[2018-12-19] MEDS ORDERED: NOREPINEPHRINE 4 MG in SODIUM CHLORIDE 0.9% 250 ML IV SCH (12:15)
[2018-12-19 12:21] LABS: HCT 46.5 % (34.0-46.0); HGB 15.3 gm/dL (11.4-16.0); MCH 25.8 pg (25.0-35.0); MCV 78.1 fL (80.0-100.0); Mean Platelet Volume 7.1; Platelet Count 132 k/uL (150-450); RBC 5.95 m/uL (3.80-5.40); RDW 15.2 % (11.5-15.5)
[2018-12-19 12:32] LABS: Chloride 114 mmol/L (98-107); Glucose 192 mg/dL (74-99); Sodium 142 mmol/L (137-145)
[2018-12-19 12:33] LABS: ALT 28 U/L (9-52); AST 37 U/L (14-36); African American GFR (CKD) >90 (>60 ml/min/1.73 sqM); Albumin 3.4 g/dL (3.5-5.0); Alkaline Phosphatase 82 U/L (38-126); Anion Gap 7 mmol/L; Blood Urea Nitrogen 17 mg/dL (7-17); Calcium 9.3 mg/dL (8.4-10.2); Carbon Dioxide 21 mmol/L (22-30); Total Protein 6.1 g/dL (6.3-8.2)
[2018-12-19 12:36] LABS: Potassium 3.4 mmol/L (3.5-5.1)
[2018-12-19 12:46] LABS: Creatine Kinase MB 8.2 ng/mL (0.0-2.4)
[2018-12-19 13:03] LABS: Glucose,Whole Blood 153 mg/dL (75-99)
[2018-12-19 13:09] LABS: INR 1.3 (<1.2); Partial Thromboplastin Time 30.1 sec (22.0-30.0); Prothrombin Time 13.1 sec (9.0-12.0)
[2018-12-19 13:21] LABS: WBC 42.4 k/uL (3.8-10.6)
[2018-12-19] MEDS: EPINEPHrine 4 MG in DEXTROSE 5% IN WATER 250 ML IV SCH ×4 (13:36→22:18)
[2018-12-19 13:53] LABS: Lymphocytes # (M) 38.58 k/uL (1.0-4.8); Neutrophils % (M) 9 %; Nucleated Red Blood Cells 0 /100 WBC (0-0); Total Cells Counted 100
[2018-12-19 14:02] LABS: Magnesium 2.8 mg/dL (1.6-2.3); Phosphorus 3.1 mg/dL (2.5-4.5)
[2018-12-19] MEDS ORDERED: SODIUM CHLORIDE 0.9% 150 ML with VASOPRESSIN 60 UNIT IV SCH ×2 (14:30)
--- NOTE | 2018-12-19 14:36 | XR ---
EXAMINATION TYPE: XR chest 1V portable DATE OF EXAM: 12/19/2018 COMPARISON: Prior chest x-ray 11/05/2018 HISTORY: Cardiac arrest TECHNIQUE: Single frontal view of the chest is obtained. FINDINGS: Endotracheal tube is overlying the tracheal column. NG tube is in place, distal tip not inc luded on the exam. A shunt is rotated. There is no focal air space opacity, pleural effusion, or pneu mothorax seen. The cardiac silhouette size is within normal limits. The osseous structures are int act, old anterior right rib fractures are again noted. Lung volumes are low. Aorta appears prominentl y possibly due to technique.. IMPRESSION: Status post intubation. Prominence of the aorta a be technical. Expiratory rotated exam.
[2018-12-19 15:40] LABS: HCT 41.6 % (34.0-46.0); HGB 13.2 gm/dL (11.4-16.0); MCH 25.4 pg (25.0-35.0); MCHC 31.7 g/dL (31.0-37.0); MCV 80.1 fL (80.0-100.0); Mean Platelet Volume 8.5; Platelet Count 107 k/uL (150-450); RBC 5.19 m/uL (3.80-5.40); RDW 15.7 % (11.5-15.5); WBC 37.4 k/uL (3.8-10.6)
[2018-12-19 15:46] LABS: INR 1.6 (<1.2); Partial Thromboplastin Time 35.5 sec (22.0-30.0)
[2018-12-19 15:48] LABS: ALT 24 U/L (9-52); AST 37 U/L (14-36); African American GFR (CKD) >90 (>60 ml/min/1.73 sqM); Albumin 2.2 g/dL (3.5-5.0); Alkaline Phosphatase 70 U/L (38-126); Anion Gap 7 mmol/L; Blood Urea Nitrogen 16 mg/dL (7-17); Calcium 7.6 mg/dL (8.4-10.2); Carbon Dioxide 16 mmol/L (22-30); Chloride 122 mmol/L (98-107); Glucose 235 mg/dL (74-99); Sodium 145 mmol/L (137-145); Total Bilirubin 0.7 mg/dL (0.2-1.3); Total Protein 4.3 g/dL (6.3-8.2)
[2018-12-19 15:54] LABS: Potassium 1.9 mmol/L (3.5-5.1)
[2018-12-19] MEDS ORDERED: Potassium Replacement Protocol 1 EACH MISC MISCELLANE PRN (15:57)
[2018-12-19] MEDS ORDERED: POTASSIUM BICARBONATE/CIT AC 20 MEQ TABLET.EFF NG-TUBE SCH (16:00)
[2018-12-19] MEDS ORDERED: POTASSIUM BICARBONATE/CIT AC 20 MEQ TABLET.EFF PO ONE (16:01)
[2018-12-19] MEDS ORDERED: POTASSIUM CHLORIDE 20 MEQ in WATER FOR INJECTION 1 100ML.BAG IVPB STA (16:01)
[2018-12-19 16:16] LABS: Cocaine Screen,Urine Not Detected (NotDetected); Opiate Screen,Urine Detected (NotDetected); Phencyclidine Screen,Urine Not Detected (NotDetected); Urn Cannabinoid Scrn Not Detected (NotDetected)
[2018-12-19 16:17] LABS: Amphetamine Screen,Urine Not Detected (NotDetected); Barbiturate Screen,Urine Not Detected (NotDetected); Benzodiazepines Screen,Urine Detected (NotDetected); Methadone Screen, Urine Not Detected (NotDetected); Oxycodone Screen, Urine Not Detected (NotDetected); Tricyclic Antidepressant,Urine Not Detected (NotDetected)
[2018-12-19 16:22] LABS: ABG Base Excess -12.7 mmol/L; ABG HCO3 15 mmol/L (21-25); ABG Oxygen Saturation 94.4 % (94-97); ABG PCO2 40 mmHg (35-45); ABG PO2 88 mmHg (83-108); ABG TCO2 17 mmol/L (19-24); Allen Test Performed? Yes
[2018-12-19 16:47] LABS: Lymphocytes # (M) 26.93 k/uL (1.0-4.8); Monocytes # (M) 1.12 k/uL (0-1.0); Neutrophils % (M) 26 %; Nucleated Red Blood Cells 0 /100 WBC (0-0); Total Cells Counted 200
--- NOTE | 2018-12-19 16:53 | P.PN ---
<Sherrie Walker - Last Filed: 12/19/18 18:52> Progress Note - Text Progress Note Date: 12/19/18 This is a 63-year-old female patient who presented to [facility] on 12/15/2018 with vague complaints of nausea, vomiting, gastritis and headache. While there she became unresponsive. She was complaining her headache became much worse. She was transferred down to the intensive care unit there today and could not protect her airway and the ER physician was called and she was intubated and placed on the mechanical ventilator. She has a history of diabetes arthritis COPD depression and CLL. Her head CT was negative. She was on norepinephrine at 2 mcg/m and was initially seen there in the intensive care unit by Dr. Navarro who did a consultation. There was no neurology coverage available and she was transferred here to the ICU. She remained quite unstable and within the first 45 minutes had developed significant bradycardia and subsequent asystole and a CODE BLUE was called at 12:42 PM. She developed return of spontaneous circulation at 1307. She remains unresponsive. She is intubated on the mechanical ventilator with settings of assist control of 16, tidal volume 450, FiO2 90% and a PEEP of 5. Arterial blood gases reveal a pO2 of 87, pCO2 39, pH 7.19. She has required a norepinephrine drip, epinephrine drip and vasopressin to support her blood pressure. White count 37.4. Hemoglobin 13.2. INR 1.6. Lactic 5.1. Sodium 145. Potassium 1.9. Chloride 122. Bicarb 16. Urine drug screen was positive for opiates and benzodiazepines. Dr. Beyer had a very lengthy discussion with the patient's family who are at the bedside. Her condition remains quite critical. Echocardiogram, EEG, neurology consult are pending. We will continue to follow make further indications on her clinical status. Assessment: 1 in house cardiac arrest, status post 25 minutes of resuscitation with return of spontaneous circulation. 2 acute hypoxic respiratory failure secondary to altered mental status requiring intubation and mechanical ventilatory support initiated at an outside hospital earlier today. 3 history of depression 4 arthritis 5 history of previous chronic tobacco dependence 6 history of coronary artery disease with previous stent placement <Wes Beyer - Last Filed: 12/19/18 19:44> Progress Note - Text This is a this patient to the above-mentioned information is provided by Sherrie Gillespie regarding this patient's progress since she arrived to our hospital. The patient was seen earlier this morning by my partner, Dr. Navarro , in consultation and the patient had severe neurologic impairment of an acute onset with complete unresponsiveness, fixed dilated pupils, and this occurs at [facility] where the patient underwent a CAT scan of the head that showed no acute abnormalities. Note that the patient was having headaches prior to her becoming completely unresponsive. The patient was having some vertigo and this was subacute in nature. She was unable to undergo an MRI because of her extreme cla ustrophobia. She underwent a CT angiogram of the head and neck that came back negative and there was no evidence of any vertebrobasilar insufficiency. She was given meclizine. Nevertheless, based on the current presentation, a brainstem stroke cannot be completely excluded as the patient developed acute unresponsiveness without any signs of bleeding and she was having symptoms of vertigo for quite some time in addition to dizziness consistent with vertebral basilar insufficiency. In any rate, the patient came in to our hospital to be evaluated by neurology. Within 30-40 minute minutes of arriving to our hospital, the patient went bradycardic and subsequently went into cardiac pulmonary arrest. She was resuscitated based on ACLS protocol for the next 25 minutes and subsequently there was return of spontaneous circulation. She was kept intubated. She is still completely unresponsive on high-dose pressors with a combination of norepinephrine infusion and epinephrine . Lines were established. Currently she is on a mechanical ventilator assist control mode at the rate of 26 with an FiO2 of 90% and a PEEP of 5 and a tidal volume of 450 and the most recent gas showed a pH of 7.28 with a pCO2 of 28 and pO2 of 99. The chest x-ray showed no acute abnormalities. ET tube is in a good location. NG tube is also in good location. Neurologically, the patient is completely unresponsive and comatose. He does not withdraw to deep painful stimulation. Reflexes are not elicited. No Babinski. No clonus. No corneals. No cough reflex. No gag reflex pH is essentially riding the mechanical ventilator and she is not initiating on breasts. Neurology was consulted. There is a concern of clinical brain . Mother the patient was again completely unresponsive prior to her coming to our facility. EEG is pending. CT of the head and neck is pending. Echocardiogram was done. Continue pressors. Continue fluids. vent support. Replace hypokalemia. Prognosis poor baseline above-mentioned comorbidities. I direct discussion with the family. The patient father Is to be also my patient I'm very familiar to the family. I updated them on the condition. Urine drug screen was noted. We'll continue to follow. For constipation is to follow tomorrow nontender the consultation was already done at [facility] and this will be uploaded into our system. Please refer to the code sheet for further details of the cardiac pulmonary arrest.
[2018-12-19] MEDS: NOREPINEPHRINE 8 MG in SODIUM CHLORIDE 0.9% 250 ML IV SCH ×2 (18:40→21:27)
--- NOTE | 2018-12-19 19:11 | P.CNNES ---
History of Present Illness Consult date: 12/19/18 Reason for Consult: AMS Chief complaint: AMS History of Present Illness: HISTORY OF PRESENT ILLNESS: Thank you for allowing me to evaluate Ms. Jill Arenas. Ms. Arenas is a 63 year-old woman with PMhx of coronary artery disease, leukemia in remission, COPD, diabetes, hyperlipidemia hypertension, memory impairment, [place], osteoarthritis, chronic back pain, anxiety, bipolar, depression, who presented to [facility] on 12/15/2018 with complaints of nausea, vomiting, gastritis and headache. This morning, patient became unresponsive, and patient was transferred to the ICU and intubated. No additional information is available at this time. CT head was reviewed by ICU team, and it did not show any acute bleed or herniation. After patient was transferred to [facility], cold blue was called and patient was found with white count of 30.7, lactic acid 5.1. Patient had ROSC after the code. Per nurse, patient's eyes were fixed and dilated since this morning it was at the outside hospital. Of note, patient was recently admitted to [facility] in 10/2018 for dizziness/room-spinning sensation of 1 month. At the time, MRI was recommended, but patient refused due to extreme claustrophia. PAST MEDICAL HISTORY: coronary artery disease, leukemia in remission, COPD, diabetes, hyperlipidemia hypertension, memory impairment, [place], osteoarthritis, chronic back pain, anxiety, bipolar, depression PAST SURGICAL HISTORY: Appendectomy, cholecystectomy, heart catheterization with stent, hysterectomy, tonsillectomy, foot surgery HOME MEDICATIONS: Unknown at this time. SOCIAL HISTORY: Former smoker REVIEW OF SYSTEMS: The 14 systems are reviewed and no additional points are identified compared to the review of systems documented history and physical PHYSICAL EXAMINATION: VITAL SIGNS: T 96.0 HR 94 RR 29 BP 145/93 O2 sat 97T on ventilator GEN.: on ventilation and sedation HEENT: NCAT, sclera without icterus NECK: Supple SKIN AND EXTREMITIES: Warm to touch, no edema NEURO: MENTAL STATUS: ventilated and sedated CRANIAL NERVES II THROUGH XII: II: Pupils are both fixed and dilated. V: No c orneal reflex. VII. No obvious facial asymmetry. IX, X: No gag reflex MOTOR/SENSORY: no withdrawal to noxious stimuli REFLEXES: mute throughout including babinski DIAGNOSTIC TESTING: LABORATORY: WBC 42.4 hemoglobin 15.3 platelet 132 PT 13.1 INR 1.3 sodium 142 potassium 3.4 chloride 114 bicarb 21 BUN 17 creatinine 0.71 glucose 192 AST 37 ALT 28 +82 ammonia 12 troponin 0.912 urine toxicology positive for benzo and opiates IMAGING: Per report, CT head without contrast from outside hospital was unremarkable ASSESSMENT/RECOMMENDATIONS: 63 year-old woman with PMhx of coronary artery disease, leukemia in remission, COPD, diabetes, hyperlipidemia hypertension, memory impairment, [place], osteoarthritis, chronic back pain, anxiety, bipolar, depression, who presented to [facility] on 12/15/2018 with complaints of nausea, vomiting, gastritis and headache with acute onset altered mental status that required intubation and also underwent rounds of CPR after code blue called with ROSC. Patient at this time with very poor exam, fixed and dilated pupils with no reflexes. Patient's prognosis is very poor. Can consider routine EEG, CTA of head and neck and/or MRI brain without contrast to help with prognosis. Neuro logy will sign off at this time. Please feel free to contact Neurology again if with additional questions or concerns. Past Medical History Past Medical History: Coronary Artery Disease (CAD), Cancer, COPD, Diabetes Mellitus, Hyperlipidemia, Hypertension, Memory Impairment, Myocardial Infarction ([place]), Osteoarthritis (OA) Additional Past Medical History / Comment(s): LEUKEMIA in remission, DIVERTICULITIS, BORN WITH ONLY (1) KIDNEY thinks its the right kidney she has, CHRONIC BACK PAIN , CLAUSTROPHOBIA, CLL, BACK SURGERY Last Myocardial Infarction Date:: 2007 History of Any Multi-Drug Resistant Organisms: None Reported Past Surgical History: Appendectomy, Back Surgery, Cholecystectomy, Heart Catheterization With Stent, Hysterectomy, Tonsillectomy Additional Past Surgical History / Comment(s): CARPAL TUNNEL, FOOT SURGERY,pick at skin when anxious,left foot sx Past Anesthesia/Blood Transfusion Reactions: No Reported Reaction Date of Last Stent Placement:: UNKNOWN Smoking Status: Former smoker - Past Family History Mother Family Medical History: Cancer Additional Family Medical History / Comment(s): UTERINE Medications and Allergies Home Medications Medication Instructions Recorded Confirmed Type FLUoxetine HCL [PROzac] 40 mg PO HS 01/24/14 12/19/18 History ALPRAZolam [Xanax] 0.5 mg PO HS PRN 04/20/17 12/19/18 History Oxybutynin Chloride [Ditropan] 5 mg PO BID 04/20/17 12/19/18 History metFORMIN HCL [Glucophage] 500 mg PO HS 03/18/18 12/19/18 History Cetirizine HCl [Zyrtec] 10 mg PO HS 12/08/18 12/19/18 History Atenolol [Tenormin] 25 mg PO DAILY 12/19/18 12/19/18 History Famotidine [Pepcid] 20 mg PO DAILY 12/19/18 12/19/18 History Meclizine HCl 25 mg PO BID 12/19/18 12/19/18 History traZODone HCL 150 mg PO HS 12/19/18 12/19/18 History Allergies Allergy/AdvReac Type Severity Reaction Status Date / Time azithromycin [From Zithromax] Allergy Unknown Unknown Verified 12/14/18 19:50 cephalexin Allergy Unknown Unknown Verified 12/14/18 19:50 cyclobenzaprine HCl Allergy Unknown Unknown Verified 12/14/18 19:50 [From Flexeril] Penicillins Allergy Unknown Unknown Verified 12/14/18 19:50 pentazocine lactate Allergy Unknown Unknown Verified 12/14/18 19:50 [From Talwin] pseudoephedrine HCl Allergy Unknown Unknown Verified 12/14/18 19:50 [From Sudafed] Sulfa (Sulfonamide Allergy Unknown Unknown Verified 12/14/18 19:50 Antibiotics) adhesive AdvReac Unknown Unknown Verified 12/14/18 19:50 Physical Examination - Vital Signs Vital Signs: Vital Signs Temp Pulse Resp BP Pulse Ox 12/19/18 15:45 135 H 29 H 87/66 94 L 12/19/18 15:30 134 H 16 87/66 98 12/19/18 15:15 121 H 16 87/66 98 12/19/18 15:00 147 H 16 135/119 97 12/19/18 14:45 156 H 16 135/119 97 12/19/18 14:30 134 H 16 135/119 97 12/19/18 14:15 140 H 13 135/119 98 12/19/18 14:00 120 H 16 118/84 98 12/19/18 13:45 118 H 16 120/100 98 12/19/18 13:30 126 H 15 100/65 98 12/19/18 13:15 113 H 33 H 84/49 98 12/19/18 13:00 0 L 140 H 105/51 97 12/19/18 12:45 144 H 115 H 97 12/19/18 12:30 95 7 L 177/101 95 12/19/18 12:15 87 16 119/85 97 12/19/18 12:00 96.0 F L 94 29 H 97 12/19/18 11:45 98 16 92/37 95 12/19/18 11:30 99 16 95 12/19/18 11:29 95.8 F L 100 21 94 L Intake and Output 12/19/18 12/19/18 12/19/18 06:59 14:59 22:59 Intake Total 2519.206 148.641 Output Total 1200 Balance 2519.206 -1051.359 Intake: IV 2500 100 0.9 2500 100 Intake, IV Titration . 48.641 Amount EPINEPHrine 4 mg In . 42.956 Dextrose 5% in Water 250 ml @ 0.01 MCG/KG/MIN 2. 963 mls/hr IV .Q24H [facility] Rx#:[id number] Norepinephrine 4 mg In 0 Sodium Chloride 0.9% 250 ml @ 0.05 MCG/KG/MIN 15. 05 mls/hr IV .[id number] [facility] Rx#:[id number] Norepinephrine 8 mg In 2.242 Sodium Chloride 0.9% 250 ml @ 0.05 MCG/KG/MIN 7. 643 mls/hr IV .Q24H [facility] Rx#:[id number] Sodium Chloride 0.9% 150 3.443 ml @ 0.03 UNITS/MIN 4.59 mls/hr IV .Q24H [facility] with Vasopressin 60 unit Rx#: [id number] Output: Urine 1200 Other: Weight 79 kg ABP, PAP, CO, CI - Last 8 Hours Arterial Blood Pressure 151/102 Arterial Blood Pressure 129/84 Arterial Blood Pressure 98/60 Arterial Blood Pressure 97/59 Arterial Blood Pressure 88/50 Arterial Blood Pressure 95/55 Arterial Blood Pressure 135/80 Arterial Blood Pressure 139/91 Arterial Blood Pressure 126/80 Arterial Blood Pressure 145/93 Arterial Blood Pressure 183/114 Arterial Blood Pressure 183/110 Results - Laboratory Findings CBC and BMP: 12/19/18 13:20 12/19/18 13:20 Abnormal Lab Findings: Abnormal Labs 12/19/18 12/19/18 12/19/18 11:50 11:50 11:50 WBC 42.4 H RBC 5.95 H Hct 46.5 H MCV 78.1 L RDW Plt Count 132 L Neutrophils # (Manual) Lymphocytes # (Manual) 38.58 H Monocytes # (Manual) PT 13.1 H INR 1.3 H APTT 30.1 H ABG pH ABG pO2 ABG HCO3 ABG Total CO2 ABG O2 Saturation ABG Lactic Acid Potassium 3.4 L Chloride 114 H Carbon Dioxide 21 L Glucose 192 H POC Glucose (mg/dL) Calcium Magnesium AST 37 H CK-MB (CK-2) Troponin I Total Protein 6.1 L Albumin 3.4 L Urine Opiates Screen U Benzodiazepines Scrn 12/19/18 12/19/18 12/19/18 11:50 11:50 11:50 WBC RBC Hct MCV RDW Plt Count Neutrophils # (Manual) Lymphocytes # (Manual) Monocytes # (Manual) PT INR APTT ABG pH ABG pO2 ABG HCO3 ABG Total CO2 ABG O2 Saturation ABG Lactic Acid Potassium Chloride Carbon Dioxide Glucose POC Glucose (mg/dL) Calcium Magnesium 2.8 H AST CK-MB (CK-2) 8.2 H Troponin I 0.912 H* Total Protein Albumin Urine Opiates Screen U Benzodiazepines Scrn 12/19/18 12/19/18 12/19/18 11:57 12:51 13:20 WBC 37.4 H RBC Hct MCV RDW 15.7 H Plt Count 107 L Neutrophils # (Manual) 9.72 H Lymphocytes # (Manual) 26.93 H Monocytes # (Manual) 1.12 H PT INR APTT ABG pH 7.34 L ABG pO2 187 H ABG HCO3 20 L ABG Total CO2 ABG O2 Saturation 99.8 H ABG Lactic Acid Potassium Chloride Carbon Dioxide Glucose POC Glucose (mg/dL) 153 H Calcium Magnesium AST CK-MB (CK-2) Troponin I Total Protein Albumin Urine Opiates Screen U Benzodiazepines Scrn 12/19/18 12/19/18 12/19/18 13:20 13:20 13:20 WBC RBC Hct MCV RDW Plt Count Neutrophils # (Manual) Lymphocytes # (Manual) Monocytes # (Manual) PT 16.0 H INR 1.6 H APTT 35.5 H ABG pH ABG pO2 ABG HCO3 ABG Total CO2 ABG O2 Saturation ABG Lactic Acid 5.1 H* Potassium 1.9 L* Chloride 122 H Carbon Dioxide 16 L Glucose 235 H POC Glucose (mg/dL) Calcium 7.6 L Magnesium AST 37 H CK-MB (CK-2) Troponin I Total Protein 4.3 L Albumin 2.2 L Urine Opiates Screen U Benzodiazepines Scrn 12/19/18 12/19/18 15:48 16:20 WBC RBC Hct MCV RDW Plt Count Neutrophils # (Manual) Lymphocytes # (Manual) Monocytes # (Manual) PT INR APTT ABG pH 7.20 L ABG pO2 ABG HCO3 15 L ABG Total CO2 17 L ABG O2 Saturation ABG Lactic Acid Potassium Chloride Carbon Dioxide Glucose POC Glucose (mg/dL) Calcium Magnesium AST CK-MB (CK-2) Troponin I Total Protein Albumin Urine Opiates Screen Detected H U Benzodiazepines Scrn Detected H
[2018-12-19 19:37] LABS: ABG Base Excess -13.5 mmol/L; ABG HCO3 13 mmol/L (21-25); ABG Oxygen Saturation 97.4 % (94-97); ABG PCO2 28 mmHg (35-45); ABG PH 7.28 (7.35-7.45); ABG PO2 99 mmHg (83-108); ABG TCO2 14 mmol/L (19-24); Allen Test Performed? Yes
[2018-12-19] MEDS: IPRATROPIUM-ALBUTEROL 3 ML NEB INHALATION SCH ×2 (20:05→23:21)
[2018-12-19 20:35] LABS: Magnesium 2.9 mg/dL (1.6-2.3); Potassium 2.9 mmol/L (3.5-5.1)
[2018-12-19 20:46] LABS: Glucose,Whole Blood 141 mg/dL (75-99)
[2018-12-19 20:57] VITALS: RESP 26; TEMP 98.6
[2018-12-19] MEDS: POTASSIUM BICARBONATE/CIT AC 20 MEQ TABLET.EFF NG-TUBE SCH ×3 (21:08→23:53)
[2018-12-19] MEDS ORDERED: ATROPINE OPHTH SOLN 1% 5ML BTL SUBLINGUAL PRN (23:19)
[2018-12-19] MEDS ORDERED: MORPHINE SULFATE 4 MG/ML SYRINGE IV PRN (23:26)
[2018-12-19] MEDS ORDERED: SCOPOLAMINE 1.5MG/72HR PATCH TRANSDERM SCH (23:30)
--- NOTE | 2018-12-20 00:10 | P.HPIM ---
History of Present Illness Jill Srinivasan 63 y.o.femalepatient admitted to the hospital with complaint of headache, nausea vomiting. Was found to have profound hypokalemia potassium 2.0. Elevated white count. CT abdomen showed nonobstructing bilateral renal calculi, left lower lobe infiltrate,started on antimicrobial therapy with Levaquin. Patient does have history of CLL uncontrolled blood pressures up to 201/112, which she is receiving IV hydralazine. Pt when seen yesterday she was confused but could answer some questions , she was complaining from abdominal pain however she denied to me having headache or pain anywhere else, CT of the head was negative, abd xray was suspicious for ileus , ct abd showing Splenomegaly and oncology consult is called , and she has renal stone and left hydroureter and hydronephrosis , as she presents with nausea and vomiting , she was vomited twice yesterday , surgery consult was called who recommended on surgical intervention. bladder scan showed urinary retention of about 700 cc, joy was placed , she got more awake through the shift as per staff, however later pt was complaining from headache which is relieved with Fioricet, and pt has given hydralazine iv for high blood pressure , shortly after that pt was found unresponsive and code blue was called , pt had to be intubated to protect airway. Pt was transferred to the ICU , pulmonary/critical care consult was called who recommended to transfer pt for neurologist evaluation as there is no neurology service in-house , pt was transferred to [facility] . Guardian is informed and agrees with the transfer. pt was admitted to the ICU , where she became hemodynamically unstable and code blue is initiated she was resuscitated over 25 min , pt needed high iv pressors. EEG showing sever anoxic brain injury which goes with her prolonged resuscitation. she has worsening leukocytosis up to 42K. pt remains in the in the icu , discussed with staff, family at bed side and considering comfort care waiting for the daughter to arrive. Review of Systems n/a Past Medical History Past Medical History: Coronary Artery Disease (CAD), Cancer, COPD, Diabetes Mellitus, Hyperlipidemia, Hypertension, Memory Impairment, Myocardial Infarction ([place]), Osteoarthritis (OA) Additional Past Medical History / Comment(s): LEUKEMIA in remission, DIVERTICULITIS, BORN WITH ONLY (1) KIDNEY thinks its the right kidney she has, CHRONIC BACK PAIN , CLAUSTROPHOBIA, CLL, BACK SURGERY Last Myocardial Infarction Date:: 2007 History of Any Multi-Drug Resistant Organisms: None Reported Past Surgical History: Appendectomy, Back Surgery, Cholecystectomy, Heart Catheterization With Stent, Hysterectomy, Tonsillectomy Additional Past Surgical History / Comment(s): CARPAL TUNNEL, FOOT SURGERY,pick at skin when anxious,left foot sx Past Anesthesia/Blood Transfusion Reactions: No Reported Reaction Date of Last Stent Placement:: UNKNOWN Smoking Status: Former smoker - Past Family History Mother Family Medical History: Cancer Additional Family Medical History / Comment(s): UTERINE Medications and Allergies Home Medications Medication Instructions Recorded Confirmed Type FLUoxetine HCL [PROzac] 40 mg PO HS 01/24/14 12/19/18 History ALPRAZolam [Xanax] 0.5 mg PO HS PRN 04/20/17 12/19/18 History Oxybutynin Chloride [Ditropan] 5 mg PO BID 04/20/17 12/19/18 History metFORMIN HCL [Glucophage] 500 mg PO HS 03/18/18 12/19/18 History Cetirizine HCl [Zyrtec] 10 mg PO HS 12/08/18 12/19/18 History Atenolol [Tenormin] 25 mg PO DAILY 12/19/18 12/19/18 History Famotidine [Pepcid] 20 mg PO DAILY 12/19/18 12/19/18 History Meclizine HCl 25 mg PO BID 12/19/18 12/19/18 History traZODone HCL 150 mg PO HS 12/19/18 12/19/18 History Allergies Allergy/AdvReac Type Severity Reaction Status Date / Time azithromycin [From Zithromax] Allergy Unknown Unknown Verified 12/14/18 19:50 cephalexin Allergy Unknown Unknown Verified 12/14/18 19:50 cyclobenzaprine HCl Allergy Unknown Unknown Verified 12/14/18 19:50 [From Flexeril] Penicillins Allergy Unknown Unknown Verified 12/14/18 19:50 pentazocine lactate Allergy Unknown Unknown Verified 12/14/18 19:50 [From Talwin] pseudoephedrine HCl Allergy Unknown Unknown Verified 12/14/18 19:50 [From Sudafed] Sulfa (Sulfonamide Allergy Unknown Unknown Verified 12/14/18 19:50 Antibiotics) adhesive AdvReac Unknown Unknown Verified 10/31/19 19:50 Physical Exam Vitals: Intake and Output 12/18/18 12/19/18 12/19/18 22:59 06:59 14:59 Other: Weight 79 kg GENERAL: The patient is intubated and unresponsive HEENT: Pupils are round and equally poorly reacting to light. EOMI. No scleral icterus. No conjunctival pallor. Normocephalic, atraumatic. No pharyngeal erythema. No thyromegaly. CARDIOVASCULAR: S1 and S2 present. No murmurs, rubs, or gallops. PULMONARY: Chest is clear to auscultation, no wheezing or crackles. ABDOMEN: Soft, nontender, nondistended, normoactive bowel sounds. No palpable organomegaly. MUSCULOSKELETAL: No joint swelling or deformity. EXTREMITIES: No cyanosis, clubbing, or pedal edema. NEUROLOGICAL: Gross neurological examination is difficult to assess due to pt condition , she is unresponsive. motor and sensation are difficult to assess SKIN: No rashes. Results CBC & Chem 7: 12/19/18 13:20 12/19/18 20:16 Labs: Abnormal Lab Results - Last 24 Hours (Table) 12/19/18 12/19/18 12/19/18 Range/Units 11:50 11:50 11:57 ABG pH 7.34 L (7.35-7.45) ABG pO2 187 H (83-108) mmHg ABG HCO3 20 L (21-25) mmol/L ABG O2 Saturation 99.8 H (94-97) % Potassium 3.4 L (3.5-5.1) mmol/L Chloride 114 H (98-107) mmol/L Carbon Dioxide 21 L (22-30) mmol/L Glucose 192 H (74-99) mg/dL AST 37 H (14-36) U/L CK-MB (CK-2) 8.2 H (0.0-2.4) ng/mL Total Protein 6.1 L (6.3-8.2) g/dL Albumin 3.4 L (3.5-5.0) g/dL Assessment and Plan Assessment: Chest pain Abdominal pain Intractable nausea and vomiting ileus Acute headache Acute gastritis. Rule out sepsis. Increased WBC. COPD Depression Hypokalemia, replaced Possible gastroenteritis History of CLL Diabetes mellitus Dehydration, improving Acute urinary retention Retroperitoneal adenopathy, splenomegaly Left-sided hydronephrosis and hydroureter Bilateral renal calculi,13 mm calculus right kidney Altered mental status, unresponsive candidemia Acute respiratory failure EEG:sever anoxic brain injury code blue x2. with prolonged resuscitation elevated troponin Plan: this is a 63 yo F who is admitted for multiple medical issue , she coded twice in the last 24 hours , pt prognosis is extremely poor as she is on shock needing high doses of pressors with multiple organ failure , critical care team discussed the case with the family. family at bed side and considering comfort care. continue with pressors and mechanical ventilation with management as per critical care and pulmonary team and follow their recommendation, also follow up neurology consult d/w staff
[2018-12-20 00:53] VITALS: BP 125/30; PULSE 71
--- NOTE | 2018-12-20 01:00 | PCN ---
PROCEDURE NOTE PREOP DIAGNOSES: Acute cardiopulmonary arrest, acute unresponsiveness, comatose state. POSTOP DIAGNOSES: Acute cardiopulmonary arrest, acute unresponsiveness, comatose state. PROCEDURE PERFORMED: Insertion of a triple-lumen catheter. TRIPLE LUMEN CATHETER PLACEMENT: Indication Hemodynamic monitoring/Intravenous access. A time-out was completed verifying correct patient, procedure, site, positioning, and implant(s) or special equipment if applicable. The patient was placed in a dependent position appropriate for triple lumen catheter placement based on the vein to be cannulated. The patient's left groin was prepped and draped in sterile fashion. 1% Lidocaine was used to anesthetize the surrounding skin area. A triple lumen 9F Cordis catheter was introduced into the femoral vein using Seldinger technique. The catheter was threaded smoothly over the guide wire and appropriate blood return was obtained. Each lumen of the catheter was evacuated of air and flushed with sterile saline. The catheter was then sutured in place to the skin and a sterile dressing applied. Perfusion to the extremity distal to the point of catheter insertion was checked and found to be adequate. MMODL / IJN: [id number] /
--- NOTE | 2018-12-20 01:01 | PCN ---
PROCEDURE NOTE ARTERIAL LINE PLACEMENT: Indications: Hemodynamic monitoring. A time-out was completed verifying correct patient, procedure, site, positioning, and implant(s) or special equipment if applicable. Gorge's test was performed to ensure adequate perfusion. The patient's right groin was prepped and draped in sterile fashion. 1% Lidocaine was used to anesthetize the area. An 18G Arrow arterial line was introduced into the femoral artery. The catheter was threaded over the guide wire and the needle was removed with appropriate pulsatile blood return. Blood loss was minimal. The catheter was then sutured in place to the skin and a sterile dressing applied. Perfusion to the extremity distal to the point of catheter insertion was checked and found to be adequate. The patient tolerated the procedure well and there were no complications. No bedside complications or bleeding. MMODL / IJN: [id number] /
[2018-12-20] MEDS: IPRATROPIUM-ALBUTEROL 3 ML NEB INHALATION SCH (02:50)
--- NOTE | 2018-12-20 08:38 | EEG ---
ELECTROENCEPHALOGRAM REPORT DATE OF SERVICE: 12/19/2018 ELECTROENCEPHALOGRAM (EEG) REPORT: TECHNIQUE: A routine 18 channel EEG was performed with video using the 10/20 international electrode placement system. HISTORY: Respiratory failure, altered mental status. Patient admitted to [facility] for nausea, vomiting, diarrhea. The patient was intubated and transferred to [facility] for neuro evaluation. Within half an hour of transfer, the patient went into cardiac arrest. CURRENT MEDICATIONS: Potassium chloride. STUDY DURATION: 26 minutes. FINDINGS: Please note that this study was of low amplitude and interpretation was performed at 3 microvolt sensitivity. Due to the sensitivity which interpretation was performed, EKG artifact was noted. BACKGROUND: A sustained posterior dominant rhythm was not seen. ACTIVATION: Hyperventilation: Not performed. Photic stimulation: No driving seen. Sleep: Distinctive sleep stages not seen. ABNORMALITIES: This EEG demonstrated diffuse electrical suppression. IMPRESSION: Abnormal EEG. This EEG demonstrated diffuse electrical suppression. These findings indicate severe diffuse cerebral dysfunction as may be seen in anoxic or hypoxic encephalopathy. These findings were called to the patient's nurse at 10:35 pm on 12/19/2018. MMODL / IJN: [id number] /
--- NOTE | 2018-12-20 13:01 | ECHOF ---
Referral Reason:ROSC/ post cardiac arrest MEASUREMENTS -------- HEIGHT: 157.5 cm WEIGHT: 78.9 kg BP: 99/56 RVIDd: 2.1 cm (< 3.3) IVSd: 1.3 cm (0.6 - 1.1) LVIDd: 3.0 cm (3.9 - 5.3) LVPWd: 1.3 cm (0.6 - 1.1) IVSs: 1.6 cm LVIDs: 2.0 cm LVPWs: 1.6 cm LA Diam: 2.6 cm (2.7 - 3.8) LAESV Index (A-L): 14.24 ml/m Ao Diam: 3.1 cm (2.0 - 3.7) AV Cusp: 2.2 cm (1.5 - 2.6) MV EXCURSION: 21.345 mm (> 18.000) MV EF SLOPE: 134 mm/s (70 - 150) EPSS: 0.3 cm FINDINGS -------- Atrial fibrillation. Resting tachycardia (HR>100bpm). This was a technically adequate study. The left ventricular size is normal. There is mild concentric left ventricular hypertrophy. Overa ll left ventricular systolic function is low-normal with, an EF between 50 - 55 %. The right ventricle is normal in size. The left atrial size is normal. The right atrium is normal in size. Interatrial and interventricular septum intact. The aortic valve is trileaflet and appears structurally normal. Trace to mild aortic regurgitation. Mild mitral annular calcification present. Trace tricuspid regurgitation present. There is no pulmonic regurgitation present. The aortic root size is normal. There is no pericardial effusion. CONCLUSIONS -------- 1. Atrial fibrillation. 2. Resting tachycardia (HR>100bpm). 3. This was a technically adequate study. 4. The left ventricular size is normal. 5. There is mild concentric left ventricular hypertrophy. 6. Overall left ventricular systolic function is low-normal with, an EF between 50 - 55 %. 7. The right ventricle is normal in size. 8. The left atrial size is normal. 9. The right atrium is normal in size. 10. Interatrial and interventricular septum intact. 11. The aortic valve is trileaflet and appears structurally normal. 12. Trace to mild aortic regurgitation. 13. Mild mitral annular calcification present. 14. Trace tricuspid regurgitation present. 15. There is no pulmonic regurgitation present. 16. The aortic root size is normal. 17. There is no pericardial effusion. RENT AND HOUSING INVESTIGATOR: Di Tejeda RDCS
[2018-12-21 07:57] LABS: Glucose,Whole Blood 160 mg/dL (75-99)
--- NOTE | 2018-12-29 11:36 | CDI ---
Documentation Clarification Form Date: 12/29/2018 11:04:04 AM From: Yudith Klein RN, CCDS Email: [email or web address] Admit Date: 12/19/2018 11:22:00 AM Patient Name: Jill Arenas Visit Number: [id number] Discharge Date: 12/20/2018 4:16:00 AM ATTENTION: The Clinical Documentation Specialists (CDI) and [facility] Coding Staff appreciate your assistance in clarifying documentation. Please respond to the clarification below the line at the bottom and electronically sign. The CDI & [facility] Coding staff will review the response and follow-up if needed. Please note: Queries are made part of the Legal Health Record. If you have any questions, please contact the author of this message via ITS. Dr. Ackerman Sheet The patient presented from [facility]. She was placed on the ventilator there and transferred here due to need for Neurology coverage. The patient developed asystole within the first 45 minutes of arrival where a code blue was called. Rule out sepsis is documented in your H&P. History/Risk Factors: CLL, hypertension, COPD, DM, CAD Clinical Indicators: unresponsive, asystole, previous complaints of headache, vertigo, dizziness, nausea, vomiting, respiratory failure WBC: 42.4>37.4 Lactic acid: 5.0 Vitals signs on admission: T 95.8 HR 126 BP 92/37 RR 16 Other Clinical Indicators: profound hypokalemia with K+ 1.9, troponin 0.912, suspicion of ileus from outside imaging noted in documentation Treatment: intubated and ventilated. IV Adrenalin, IV Levophed, IV potassium In your professional opinion, please clarify if these findings signify one of the following conditions, whether the condition is POA, and cause, if known: Condition Sepsis ruled out SIRS, without underlying infectious process Sepsis Severe Sepsis Septic Shock Other, please specify Unable to determine Present on Admission Yes No Identify the (suspected) organism Link or clarify if there is associated (due to/with): Organ failure Shock SIRS Criteria (2 or more of the following may indicate SIRS): -Temperature < 96.8F (36C) or > 101.0F (38.3C) -Heart Rate > 90 bpm -Respiratory Rate > 20 breaths/min or PaCO2 < 32 mmHg -White Blood Cell Count > 12,000 or < 4,000 cells/mm3 or > 10% bands -Lactate >2.0 mmol/L (>4.0 is equivalent to septic shock) answer: possible sepsis, present on admission MTDD
--- NOTE | 2018-12-29 11:47 | CDI ---
Documentation Clarification Form Date: 12/29/2018 11:36:49 AM From: Yudith Klein RN, CCDS Email: [email or web address] Admit Date: 12/19/2018 11:22:00 AM Patient Name: Jill Arenas Visit Number: [id number] Discharge Date: 12/20/2018 4:16:00 AM ATTENTION: The Clinical Documentation Specialists (CDI) and [facility] Coding Staff appreciate your assistance in clarifying documentation. Please respond to the clarification below the line at the bottom and electronically sign. The CDI & [facility] Coding staff will review the response and follow-up if needed. Please note: Queries are made part of the Legal Health Record. If you have any questions, please contact the author of this message via ITS. Dr. Ackerman Sheet Shock is documented in the H&P dated 12/19. Patient history/risk factors: CLL, hypertension, COPD, DM, CAD, possible brainstem stroke Clinical Indicators: unresponsive, asystole, respiratory failure, previous complaints of headache, vertigo, dizziness, nausea, vomiting, hypokalemia with K+ of 1.9, WBC 37.4, lactic acid 5.0 Vitals: T 95.8 HR 126 BP 92/37 RR 16 Treatment: intubated and ventilated. IV Norepinephrine, IV Epinephrine and IV Vasopressin In your professional opinion, can you please specify the type of shock if known? Septic Shock Cardiogenic Shock Hypovolemic Shock Other, please specify Unable to determine shock could be multifactorial . MTDD
== END 2018-12-20 04:16 | disposition expired | DRG 64 ==
LOC: 2SICU 11:22 → OBSVTOIN 11:22
PROVIDERS: ADMIT Internal Medicine; ATTEND Internal Medicine
PROC: 5A1945Z Respiratory Ventilation, 24-96 Consecutive Hours (ICD-10-PCS; principal; 2018-12-19)
PROC: 06HN33Z Insertion of Infusion Device into Left Femoral Vein, Percutaneous Approach (ICD-10-PCS; principal; 2018-12-19)
PROC: 04HY32Z Insertion of Monitoring Device into Lower Artery, Percutaneous Approach (ICD-10-PCS; principal; 2018-12-19)
PROC: 4A133J1 Monitoring of Arterial Pulse, Peripheral, Percutaneous Approach (ICD-10-PCS; principal; 2018-12-19)
PROC: 4A133B1 Monitoring of Arterial Pressure, Peripheral, Percutaneous Approach (ICD-10-PCS; principal; 2018-12-19)
DX: I63.9 Cerebral infarction, unspecified (principal); B37.7 Candidal sepsis; J96.01 Acute respiratory failure with hypoxia; R40.2313 Coma scale, best motor response, none, at hospital admission; R40.2113 Coma scale, eyes open, never, at hospital admission; R40.2213 Coma scale, best verbal response, none, at hospital admission; R40.20 Unspecified coma; A41.9 Sepsis, unspecified organism; C95.91 Leukemia, unspecified, in remission; G93.1 Anoxic brain damage, not elsewhere classified; K56.7 Ileus, unspecified; N13.2 Hydronephrosis with renal and ureteral calculous obstruction; R57.9 Shock, unspecified; E11.9 Type 2 diabetes mellitus without complications; E78.5 Hyperlipidemia, unspecified; E86.0 Dehydration; E87.6 Hypokalemia; F31.9 Bipolar disorder, unspecified; F40.240 Claustrophobia; I10 Essential (primary) hypertension; Z66 Do not resuscitate; Z51.5 Encounter for palliative care; I25.10 Atherosclerotic heart disease of native coronary artery without angina pectoris; I25.2 Old myocardial infarction; I46.9 Cardiac arrest, cause unspecified; J44.9 Chronic obstructive pulmonary disease, unspecified; K29.00 Acute gastritis without bleeding; M19.90 Unspecified osteoarthritis, unspecified site; Z79.84 Long term (current) use of oral hypoglycemic drugs; Z79.899 Other long term (current) drug therapy; Z87.891 Personal history of nicotine dependence; Z90.710 Acquired absence of both cervix and uterus; Z95.5 Presence of coronary angioplasty implant and graft; Z88.1 Allergy status to other antibiotic agents; Z88.0 Allergy status to penicillin; Z88.2 Allergy status to sulfonamides; Z88.8 Allergy status to other drugs, medicaments and biological substances
CPT/HCPCS: 71045; 80053; 80306; 82140; 82533; 82550; 82553; 82805; 83605; 83735; 84100; 84132; 84484; 85025; 85610; 85730; 87070; 87205; 93306; 94002; 94003; 95816